=== PATIENT | female | born 1945 | race Caucasian/White ===

== ENCOUNTER 2023-08-24 09:06 | Outpatient (AMB) | payer OTHER, MEDICARE, SELFPAY ==
[2023-08-24 09:18] VITALS: BP 118/68; PULSE 58; O2SAT 97; BMI 17.2
--- NOTE | 2023-08-24 09:18 | A.OFFVIS_ITS ---
Intake Vital Signs 08/24/23 09:18 Height 5 ft 1 in Weight 91 lb BMI 17.2 BP 118/68 Blood Pressure Location Rt brachial Position Sitting Pulse 58 Pulse Source Pulse Oximeter Pulse Oximetry (%) 97 Intake Visit Reasons: HX of COPD Order Manager Required: No [employer]: [employer] offered & declined Accompanied by: Self / Same As Patient Allergies No Known Allergies Allergy (Verified 08/24/23 09:22) Medication List - Last Reconciled 08/24/23 by Saritha Ayala LPN budesonide-formoterol 160-4.5 mcg/actuation (Symbicort) 2 puffs inhalation BID oxycodone 5 mg PO Q6H PRN sertraline 12.5 mg PO DAILY tiotropium bromide (Spiriva with HandiHaler) 1 cap inhalation DAILY HPI HX of COPD HPI Details Meghan is a pleasant 78 year old female, former smoker with 47 pyh, quit 2011 with underlying COPD, melanoma of right eye s/p surgery 2007, multiple other squamous/basal cell carcinomas removed last 2020. She was referred for pulmonary evaluation by PCP. She has been well controlled on Symbicort and Spiriva, using symbicort mostly 2 inhalations QD. However she was recently admitted to [facility] with pneumonia secondary to RSV and her medications were switched. She was switched to Breo and Spiriva, so she wanted to further discuss her regimen. She does note dyspnea with moderate exertion, however stays quite active, walking upwards of 16,000 steps per day. Denies wheezing, cough or chest tightness. She reports prior chest CT and PFT performed at [facility]. Of note, she did state her COPD was moderate to severe. She denies any pertinent family history. She denies allergies. She denies any occupational exposures, previously worked as a nurse. [facility] Social History (Updated 08/24/23 @ 09:24 by Saritha Ayala LPN) Patient Tobacco Use Status: Former Tobacco user Tobacco use type: Cigarette Cigarette Packs Per Day: 1 Years Smoked: 47 Review of Systems Const Denies chills, Denies excessive sweating, Denies fever(s), Denies headache(s) and Denies night sweats Eyes Denies dry eyes, Denies irritation and Denies itchy eyes ENT Reports Normal hearing present, Denies headache(s), Denies nasal congestion, Denies nasal discharge, Denies post nasal drip and Denies sore throat Card Denies chest pain, Denies chest pain at rest, Denies chest pain with activity, Denies claudication, Denies leg edema, Denies orthopnea and Denies paroxysmal nocturnal dyspnea Resp Denies chest congestion, Denies cough, Denies excessive phlegm production, Denies pain on inspiration, Denies pain with cough, Denies stridor and Denies wheezing Musc Denies myalgias Neuro Reports Normal hearing present and Denies headache(s) Endo Denies excessive sweating Andre/Lymph Denies lymphadenopathy Aller/Immun Denies itchy eyes, Denies seasonal rhinorrhea and Denies wheezing Physical Exam Vital Signs: Last Vital Signs Pulse 58 08/24/23 09:18 BP 118/68 08/24/23 09:18 Pulse Ox 97 08/24/23 09:18 BMI result Body Mass Index 17.2 Const General: cooperative, healthy appearing, comfortable, no acute distress, well developed and alert Orientation/consciousness: patient oriented x3 Limitations: no limitations HEENT Head: Yes normal to inspection, Yes normocephalic and Yes atraumatic Ears: hearing grossly normal bilaterally and external ears normal Eyes General: appearance normal, both eyes and all related structures Eyelids: Yes eyelids normal Sclerae: sclerae normal EOM: EOMs intact bilaterally Neck Neck: Yes normal visual inspection and Yes no lymphadenopathy Lymphatic: no lymphadenopathy noted Chest Chest palpation & inspection: normal inspection of the chest Resp Other: diminished lung sounds bilaterally Effort & Inspection: normal respiratory effort, able to speak in complete sentences, no audible wheezes, no cough, no stridor, not tachypneic, no tripod positioning and no use of accessory muscles Cardio Jugular venous distension: no JVD Rate: regular rate Rhythm: regular rhythm Skin Other: warm, dry General skin exam: no rashes or lesions noted Neuro General: patient oriented x3 Cranial nerves: Yes Normal hearing present Cognition (Neuro): normal cognition Gait exam (Neuro): Normal gait present Extrem General: Yes normal to inspection, Yes capillary refill normal, Yes no clubbing, cyanosis or edema and Yes no pedal edema Psych Appearance: grossly normal and well kempt Speech and movement: Normal speech and movement present and Clear speech present Affect: normal affect Attitude: cooperative Thought process: Normal thought process present Thought content: Normal thought content present Insight: Good insight present (Psych) Judgement: Good judgement present (Psych) Assessment & Plan Assessment & Plan (1) COPD (chronic obstructive pulmonary disease): Code(s): J44.9 - Chronic obstructive pulmonary disease, unspecified (2) History of melanoma: Code(s): Z85.820 - Personal history of malignant melanoma of skin Plan Meghan's symptoms are likely related to underlying COPD. Will switch to Trelegy. Inhaler technique reviewed and discussed importance of oral hygiene. Encouraged patient to maintain active lifestyle. Will also send in albuterol to use PRN and have patient sign release to obtain prior chest CT/PFT. All questions were answered and patient is in agreement of plan. Will follow up in 3 months or sooner if needed. Patient is aware to call if there are any issues obtaining medication. Medications: New [id number] 200-62.5-25 mcg (Trelegy Ellipta) 1 inh inhalation DAILY 180 ea 0RF albuterol sulfate 90 mcg/actuation 2 puffs inhalation Q4-6H PRN 1 ea 1RF shortness of breath or wheezing Coding Level of Care Code New Pt Level 4 (65986) Diagnoses COPD (chronic obstructive pulmonary disease) J44.9 History of melanoma Z85.820
== END 2023-08-24 10:20 | disposition home or self-care (01) ==
PROVIDERS: PCP Physician Assistant Medical; Visit Provider Nurse Practitioner Family
DX: J44.9 Chronic obstructive pulmonary disease, unspecified (principal); Z85.820 Personal history of malignant melanoma of skin
CPT/HCPCS: 99204

== ENCOUNTER → 2023-08-24 09:06 | Outpatient (BNVA) | payer MEDICARE, OTHER, SELFPAY | PROVIDERS: PCP Physician Assistant Medical; Visit Provider Nurse Practitioner Family | DX: J44.9 Chronic obstructive pulmonary disease, unspecified (principal); Z85.820 Personal history of malignant melanoma of skin | CPT/HCPCS: 99202 ==

== ENCOUNTER 2023-09-06 10:35 | Outpatient (REF) | payer SELFPAY | END 2023-09-06 10:36 | disposition home or self-care (01) | LOC: CF 10:35 | PROVIDERS: Visit Provider Nurse Practitioner Family | DX: Z13.89 Encounter for screening for other disorder (principal) ==

== ENCOUNTER 2023-11-23 08:35 | Outpatient (AMB) | payer MEDICARE, OTHER, SELFPAY ==
--- NOTE | 2023-11-23 08:37 | A.OFFVIS_ITS ---
Vital Signs 3 11/23/23 08:40 Height 5 ft 1 in Weight 93 lb BMI 17.6 BP 138/64 Blood Pressure Location Rt brachial Position Sitting Pulse 56 Pulse Source Pulse Oximeter Pulse Oximetry (%) 95 Oxygen Delivery Method Room Air Intake Visit Reasons: copd: 3 month f/u Allergies No Known Allergies Allergy (Verified 11/23/23 08:42) HPI HPI copd: 3 month f/u: Details: Meghan is a pleasant 78 year old female, former smoker with 47 pyh, quit 2011 with underlying COPD, melanoma of right eye s/p surgery 2007, multiple other squamous/basal cell carcinomas removed,last 2020. At the last visit she was switched from Symbicort and Spiriva, to Trelegy. She reports good respiratory control since switching. She denies any dyspnea, wheezing, cough or chest tightness. She continues to be quite active walking approximately 12,000 steps per day. She monitors oxygen saturation which is never below 95%. She has been followed with CT/PET scan for 9 mm RLL nodule by PCP. PET with little FDG activity, recommendations for follow up chest CT which is scheduled next week. [facility] Social History (Updated 08/24/23 @ 09:24 by Saritha Ayala LPN) Patient Tobacco Use Status: Former Tobacco user Tobacco use type: Cigarette Cigarette Packs Per Day: 1 Years Smoked: 47 Review of Systems Const Denies chills, Denies excessive sweating, Denies fever(s), Denies headache(s) and Denies night sweats Eyes Denies dry eyes, Denies irritation and Denies itchy eyes ENT Reports Normal hearing present, Denies headache(s), Denies nasal congestion, Denies nasal discharge, Denies post nasal drip and Denies sore throat Card Denies chest pain, Denies chest pain at rest, Denies chest pain with activity, Denies claudication, Denies leg edema, Denies orthopnea and Denies paroxysmal nocturnal dyspnea Resp Denies chest congestion, Denies cough, Denies excessive phlegm production, Denies pain on inspiration, Denies pain with cough, Denies stridor and Denies wheezing Musc Denies myalgias Neuro Reports Normal hearing present and Denies headache(s) Endo Denies excessive sweating Andre/Lymph Denies lymphadenopathy Aller/Immun Denies itchy eyes, Denies seasonal rhinorrhea and Denies wheezing Physical Exam Vital Signs: Last Vital Signs Pulse 56 11/23/23 08:40 BP 138/64 11/23/23 08:40 Pulse Ox 95 11/23/23 08:40 Oxygen Delivery Method Room Air 11/23/23 08:40 BMI result Body Mass Index 17.6 Const General: cooperative, healthy appearing, comfortable, no acute distress, well developed and alert Orientation/consciousness: patient oriented x3 Limitations: no limitations HEENT Head: Yes normal to inspection, Yes normocephalic and Yes atraumatic Ears: hearing grossly normal bilaterally and external ears normal Eyes General: appearance normal, both eyes and all related structures Eyelids: Yes eyelids normal Sclerae: sclerae normal EOM: EOMs intact bilaterally Neck Neck: Yes normal visual inspection and Yes no lymphadenopathy Lymphatic: no lymphadenopathy noted Chest Chest palpation & inspection: normal inspection of the chest Resp Other: diminished lung sounds bilaterally Effort & Inspection: normal respiratory effort, able to speak in complete sentences, no audible wheezes, no cough, no stridor, not tachypneic, no tripod positioning and no use of accessory muscles Cardio Jugular venous distension: no JVD Rate: regular rate Rhythm: regular rhythm Skin Other: warm, dry General skin exam: no rashes or lesions noted Neuro General: patient oriented x3 Cranial nerves: Yes Normal hearing present Cognition (Neuro): normal cognition Gait exam (Neuro): Normal gait present Extrem General: Yes normal to inspection, Yes capillary refill normal, Yes no clubbing, cyanosis or edema and Yes no pedal edema Psych Appearance: grossly normal and well kempt Speech and movement: Normal speech and movement present and Clear speech present Affect: normal affect Attitude: cooperative Thought process: Normal thought process present Thought content: Normal thought content present Insight: Good insight present (Psych) Judgement: Good judgement present (Psych) Results Reviewed Results Reviewed: Assessment & Plan Assessment & Plan (1) COPD (chronic obstructive pulmonary disease): Code(s): J44.9 - Chronic obstructive pulmonary disease, unspecified Category: Medical (2) History of melanoma: Code(s): Z85.820 - Personal history of malignant melanoma of skin Category: Medical (3) Pulmonary nodule: Code(s): R91.1 - Solitary pulmonary nodule Category: Medical Plan Meghan reports good control of respiratory symptoms since switching to Trelegy. Advised to continue and will enter refills. In regards to concerning lung nodule, will review chest CT once performed next week to compare to prior. If there is an increase in size of RLL nodule, discussed with patient the likelihood for biopsy versus surveillance scans. If there is a decrease in size, likely related to prior infectious/inflammatory process as patient did have pneumonia around the time of the initial CT. At the last visit, attempted to obtain prior PFT, unable to obtain, will attempt again. All questions were answered and patient is in agreement of plan. Will follow up in 6 months or sooner if needed. Medications: Refilled 2 [id number] 200-62.5-25 mcg (Trelegy Ellipta) 1 inh inhalation DAILY 180 ea 0RF
[2023-11-23 08:40] VITALS: BP 138/64; PULSE 56; O2SAT 95; BMI 17.6
== END 2023-11-23 09:09 | disposition home or self-care (01) ==
PROVIDERS: PCP Physician Assistant Medical; Visit Provider Nurse Practitioner Family
DX: J44.9 Chronic obstructive pulmonary disease, unspecified (principal); Z85.820 Personal history of malignant melanoma of skin; R91.1 Solitary pulmonary nodule
CPT/HCPCS: 99214

== ENCOUNTER → 2023-11-23 08:35 | Outpatient (BNVA) | payer MEDICARE, OTHER, SELFPAY | PROVIDERS: PCP Physician Assistant Medical; Visit Provider Nurse Practitioner Family | DX: J44.9 Chronic obstructive pulmonary disease, unspecified (principal); R91.1 Solitary pulmonary nodule; Z85.820 Personal history of malignant melanoma of skin; Z87.891 Personal history of nicotine dependence | CPT/HCPCS: 99212 ==

== ENCOUNTER 2024-05-23 08:59 | Outpatient (AMB) | payer MEDICARE, OTHER, SELFPAY ==
--- NOTE | 2024-05-23 08:39 | A.OFFVIS_ITS ---
Vital Signs 3 05/23/24 09:02 Height 5 ft 1 in Weight 98 lb 8 oz BMI 18.6 BP 152/74 H Blood Pressure Location Lt brachial Position Sitting Pulse 59 Pulse Source Pulse Oximeter Pulse Oximetry (%) 95 Oxygen Delivery Method Room Air Intake Visit Reasons: COPD Allergies No Known Allergies Allergy (Verified 05/23/24 09:05) HPI HPI COPD: Details: Meghan is a pleasant 78 year old female, former smoker with 47 pyh, quit 2011 with underlying COPD, melanoma of right eye s/p surgery 2007, multiple other squamous/basal cell carcinomas removed,last 2020. She reports good control of respiratory symptoms with Symbicort and Spiriva, has not had to use albuterol MDI in quite some time. She only uses Symbicort in the AM, and increases to BID if symptoms worsen. She continues to be quite active walking approximately 12,000 steps per day. She has been followed with CT/PET scan for 9 mm RLL nodule by PCP. PET with little FDG activity, however repeat chest CT from 12/2023 revealed new 1 cm x 2 cm spiculated nodule of the left apex. She was sent for lung biopsy through [facility], however prior to biopsy repeat chest CT was ordered revealing resolution of spiculated nodule, likely inflammatory in nature. We discussed repeating chest CT in 3 months however patient was adamant about scheduling in 6 months. Today she notes that she would like to hold off on any further imaging and will consider CXR in the future however does not want anything scheduled at this time. She denies any visits to urgent care or hospitalizations since the last visit. [facility] Medical History (Updated 12/09/23 @ 13:34 by Jimena Andrews PA-C) COPD (chronic obstructive pulmonary disease) Personal history of nicotine dependence History of melanoma Anorexia nervosa Splenomegaly Surgical History (Updated 12/09/23 @ 13:34 by Jimena Andrews PA-C) History of melanoma excision History of basal cell carcinoma excision History of Social History Patient Tobacco Use Status: Former Tobacco user Tobacco use type: Cigarette Cigarette Packs Per Day: 1 Years Smoked: 47 Review of Systems Const Denies chills, Denies excessive sweating, Denies fever(s), Denies headache(s) and Denies night sweats Eyes Denies dry eyes, Denies irritation and Denies itchy eyes ENT Reports Normal hearing present, Denies headache(s), Denies nasal congestion, Denies nasal discharge, Denies post nasal drip and Denies sore throat Card Denies chest pain, Denies chest pain at rest, Denies chest pain with activity, Denies claudication, Denies leg edema, Denies dyspnea, Denies dyspnea on exertion, Denies orthopnea and Denies paroxysmal nocturnal dyspnea Resp Denies chest congestion, Denies cough, Denies excessive phlegm production, Denies pain on inspiration, Denies pain with cough, Denies dyspnea, Denies dyspnea on exertion, Denies stridor and Denies wheezing Musc Denies myalgias Neuro Reports Normal hearing present and Denies headache(s) Endo Denies excessive sweating Andre/Lymph Denies lymphadenopathy Aller/Immun Denies itchy eyes, Denies seasonal rhinorrhea and Denies wheezing Physical Exam Vital Signs: Last Vital Signs Pulse 59 05/23/24 09:02 BP 152/74 H 05/23/24 09:02 Pulse Ox 95 05/23/24 09:02 Oxygen Delivery Method Room Air 05/23/24 09:02 BMI result Body Mass Index 18.6 Const General: cooperative, healthy appearing, comfortable, no acute distress, well developed and alert Orientation/consciousness: patient oriented x3 Limitations: no limitations HEENT Head: Yes normal to inspection, Yes normocephalic and Yes atraumatic Ears: hearing grossly normal bilaterally and external ears normal Eyes General: appearance normal, both eyes and all related structures Eyelids: Yes eyelids normal Sclerae: sclerae normal EOM: EOMs intact bilaterally Neck Neck: Yes normal visual inspection and Yes no lymphadenopathy Lymphatic: no lymphadenopathy noted Chest Chest palpation & inspection: normal inspection of the chest Resp Other: diminished lung sounds bilaterally Effort & Inspection: normal respiratory effort, able to speak in complete sentences, no audible wheezes, no cough, no stridor, not tachypneic, no tripod positioning and no use of accessory muscles Cardio Jugular venous distension: no JVD Rate: regular rate Rhythm: regular rhythm Skin Other: warm, dry General skin exam: no rashes or lesions noted Neuro General: patient oriented x3 Cranial nerves: Yes Normal hearing present Cognition (Neuro): normal cognition Gait exam (Neuro): Normal gait present Extrem General: Yes normal to inspection, Yes capillary refill normal, Yes no clubbing, cyanosis or edema and Yes no pedal edema Psych Appearance: grossly normal and well kempt Speech and movement: Normal speech and movement present and Clear speech present Affect: normal affect Attitude: cooperative Thought process: Normal thought process present Thought content: Normal thought content present Insight: Good insight present (Psych) Judgement: Good judgement present (Psych) Results Reviewed Results Reviewed: Assessment & Plan Assessment & Plan (1) COPD (chronic obstructive pulmonary disease): Code(s): J44.9 - Chronic obstructive pulmonary disease, unspecified Category: Medical (2) History of melanoma: Comment: (melanoma of right eye s/p surgery 2008) Code(s): Z85.820 - Personal history of malignant melanoma of skin Category: Medical (3) Pulmonary nodule: Code(s): R91.1 - Solitary pulmonary nodule Category: Medical Plan Advised to continue current regimen and trial Symbicort 1 inhalation BID with Spiriva and albuterol PRN. She is aware to call with worsening symptoms. In regards to waxing and waning lung nodules, discussed the likelihood of an inflammatory process however she declines further workup. We discussed importance of monitoring pulmonary nodules, as a malignant process can not be ruled out especially given her prior h/o melanoma. She fully understands this and declines further testing including repeat CT. All questions were answered and patient is in agreement of plan. Will follow up in 6 months or sooner if needed. Coding Level of Care Code Est Pt Level 4 (17526) Diagnoses COPD (chronic obstructive pulmonary disease) J44.9 History of melanoma Z85.820 Pulmonary nodule R91.1
[2024-05-23 09:02] VITALS: BP 152/74; PULSE 59; O2SAT 95; BMI 18.6
== END 2024-05-23 09:35 | disposition home or self-care (01) ==
PROVIDERS: PCP Physician Assistant Medical; Visit Provider Nurse Practitioner Family
DX: J44.9 Chronic obstructive pulmonary disease, unspecified (principal); Z85.820 Personal history of malignant melanoma of skin; R91.1 Solitary pulmonary nodule
CPT/HCPCS: 99214

== ENCOUNTER → 2024-05-23 08:59 | Outpatient (BNVA) | payer MEDICARE, OTHER, SELFPAY | PROVIDERS: PCP Physician Assistant Medical; Visit Provider Nurse Practitioner Family | DX: J44.9 Chronic obstructive pulmonary disease, unspecified (principal); R91.1 Solitary pulmonary nodule; Z85.820 Personal history of malignant melanoma of skin; Z87.891 Personal history of nicotine dependence | CPT/HCPCS: 99212 ==

== ENCOUNTER 2024-11-21 08:13 | Outpatient (AMB) | payer MEDICARE, OTHER, SELFPAY ==
--- NOTE | 2024-11-21 08:02 | A.OFFVIS_ITS ---
Vital Signs 11/21/24 08:50 Height 5 ft 1 in Weight 89 lb BMI 16.8 BP 124/58 L Blood Pressure Location Rt brachial Position Sitting Pulse 56 Pulse Source Pulse Oximeter Pulse Oximetry (%) 98 Oxygen Delivery Method Room Air Intake Visit Reasons: COPD Biomedical Engineering Technologist Required: No Second Shift Supervisor: Second Shift Supervisor offered & declined Accompanied by: Self / Same As Patient Allergies No Known Allergies Allergy (Verified 11/21/24 08:54) Medication List - Last Reconciled 11/21/24 by Saritha Ayala LPN albuterol sulfate 90 mcg/actuation 2 puffs inhalation Q4-6H PRN budesonide-formoterol 160-4.5 mcg/actuation (Symbicort) 2 puffs inhalation BID oxycodone 5 mg PO Q6H PRN sertraline 12.5 mg PO DAILY tiotropium bromide (Spiriva with HandiHaler) 1 cap inhalation DAILY HPI HPI COPD: Details: Meghan is a pleasant 79 year old female, former smoker with 47 pyh, quit 2011 with underlying COPD, melanoma of right eye s/p surgery 2007, multiple other squamous/basal cell carcinomas removed, last 2020. She has been on Symbicort and Spiriva, requiring albuterol MDI infrequently. She has been followed for pulmonary nodules. August 2023 CT chest revealed 9 mm RLL nodule and was sent for PET with little FDG activity. Repeat chest CT from 12/2023 revealed new 1 cm x 2 cm spiculated nodule of the left apex. She was sent for lung biopsy through [facility], however prior to biopsy repeat chest CT was ordered revealing resolution of spiculated nodule, likely inflammatory in nature. We discussed repeating chest CT in 3 months however patient was adamant about scheduling in 6 months, ultimately deciding against further imaging. Recent CXR unremarkable from [facility] however only 1 view. Since the last visit, she was admitted to [facility] in September s/p fall undergoing left intramedullary nail for intertrochanteric hip fracture as well as a left humeral fracture. She has recovered quite well no longer requiring assistive device. However patient now down to 89lbs, discussed importance of increasing weight. She denies any hospitalizations/urgent care visits related to respiratory distress. [facility] Medical History (Updated 12/09/23 @ 13:34 by Jimena Andrews PA-C) COPD (chronic obstructive pulmonary disease) Personal history of nicotine dependence History of melanoma Anorexia nervosa Splenomegaly Surgical History (Updated 12/09/23 @ 13:34 by Jimena Andrews PA-C) History of melanoma excision History of basal cell carcinoma excision History of Social History Patient Tobacco Use Status: Former Tobacco user Tobacco use type: Cigarette Cigarette Packs Per Day: 1 Years Smoked: 47 Review of Systems Const Denies chills, Denies excessive sweating, Denies fever(s), Denies headache(s) and Denies night sweats Eyes Denies dry eyes, Denies irritation and Denies itchy eyes ENT Reports Normal hearing present, Denies headache(s), Denies nasal congestion, Denies nasal discharge, Denies post nasal drip and Denies sore throat Card Denies chest pain, Denies chest pain at rest, Denies chest pain with activity, Denies claudication, Denies leg edema, Denies dyspnea, Denies dyspnea on exertion, Denies orthopnea and Denies paroxysmal nocturnal dyspnea Resp Denies chest congestion, Denies cough, Denies excessive phlegm production, Denies pain on inspiration, Denies pain with cough, Denies dyspnea, Denies dyspnea on exertion, Denies stridor and Denies wheezing Musc Denies myalgias Neuro Reports Normal hearing present and Denies headache(s) Endo Denies excessive sweating Andre/Lymph Denies lymphadenopathy Aller/Immun Denies itchy eyes, Denies seasonal rhinorrhea and Denies wheezing Physical Exam Vital Signs: Last Vital Signs Pulse 56 11/21/24 08:50 BP 124/58 L 11/21/24 08:50 Pulse Ox 98 11/21/24 08:50 Oxygen Delivery Method Room Air 11/21/24 08:50 BMI result Body Mass Index 16.8 Const General: cooperative, comfortable, no acute distress and alert Nutritional Appearance: underweight Orientation/consciousness: patient oriented x3 Limitations: no limitations HEENT Head: Yes normal to inspection, Yes normocephalic and Yes atraumatic Ears: hearing grossly normal bilaterally and external ears normal Eyes General: appearance normal, both eyes and all related structures Eyelids: Yes eyelids normal Sclerae: sclerae normal EOM: EOMs intact bilaterally Neck Neck: Yes normal visual inspection and Yes no lymphadenopathy Lymphatic: no lymphadenopathy noted Chest Chest palpation & inspection: normal inspection of the chest Resp Other: diminished lung sounds bilaterally Effort & Inspection: normal respiratory effort, able to speak in complete sentences, no audible wheezes, no cough, no stridor, not tachypneic, no tripod positioning and no use of accessory muscles Cardio Jugular venous distension: no JVD Rate: regular rate Rhythm: regular rhythm Skin Other: warm, dry General skin exam: no rashes or lesions noted Neuro General: patient oriented x3 Cranial nerves: Yes Normal hearing present Cognition (Neuro): normal cognition Gait exam (Neuro): Normal gait present Extrem General: Yes normal to inspection, Yes capillary refill normal, Yes no clubbing, cyanosis or edema and Yes no pedal edema Psych Appearance: grossly normal and well kempt Speech and movement: Normal speech and movement present and Clear speech present Affect: normal affect Attitude: cooperative Thought process: Normal thought process present Thought content: Normal thought content present Insight: Good insight present (Psych) Judgement: Good judgement present (Psych) Assessment & Plan Assessment & Plan (1) COPD (chronic obstructive pulmonary disease): Code(s): J44.9 - Chronic obstructive pulmonary disease, unspecified Category: Medical (2) History of melanoma: Comment: (melanoma of right eye s/p surgery 2007) Code(s): Z85.820 - Personal history of malignant melanoma of skin Category: Medical (3) Pulmonary nodule: Code(s): R91.1 - Solitary pulmonary nodule Category: Medical Plan Advised to continue current regimen and is aware to call with worsening symptoms. In regards to waxing and waning lung nodules, repeat imaging from 09/2024 overall unremarkable however only 1 view. At this time, she is not inter ested in repeating further imaging to monitor pulmonary nodules. All questions were answered and patient is in agreement of plan. Will follow up in 6 months or sooner if needed. Medications: Refilled tiotropium bromide (Spiriva with HandiHaler) puncture 1 cap using device; one dose = 2 inhalations 1 cap inhalation DAILY 180 inhalations 1RF J44.9 - Chronic obstructive pulmonary disease, unspecified budesonide-formoterol 160-4.5 mcg/actuation (Symbicort) 2 puffs inhalation BID 30.6 grams 1RF Coding Level of Care Code Est Pt Level 4 (69771) Diagnoses COPD (chronic obstructive pulmonary disease) J44.9 History of melanoma Z85.820 Pulmonary nodule R91.1
--- OUTSIDE RECORDS SUMMARY | 2024-11-21 08:29 | XMS_ITS | Encounter Summary ---
Author Organization [facility] Address [address] [place] [address] Care Team Providers Care Inspection Supervisor Name Role Phone Ag Shaw MD Primary Care Provider [phone] Encounter Details Date Type Department Care Team (Late st Contact Info) Description 10/08/2024 Lab Requisition [facility] - Main Lab [address] [facility] [place] [address] Elvis Patricia MD [address] [place] [address] Chronic obstructive pulmonary disease, unspecified (CMS/HCC V24, CMS/HCC V28) Social History Tobacco Use Types Packs/Day Years Used Date Smoking Tobacco: Former Cigarettes Q uit: 06/16/2012 Smokeless Tobacco: Never Alcohol Use Standard Drinks/Week Comments Yes 0 (1 standard drink = 0.6 oz pur e alcohol) Comments Unknown Sex and Gender Information Value Date Recorded Sex Assigned at Not on file Legal Sex Female 11:45 AM EST Gender Identity Not on file Sexual Orientation Not on file documented as of this encounter Plan of Treatment Not on file documented as of this encounter Procedures Procedure Name Priority Date/Time Associated Diagnosis Comments COMPLETE BLOOD COUNT Routine 10/09/2024 7:28 AM EDT Chronic obstructive pulmonary disease, unspecified (CMS/HCC) BASIC METABOLIC PANEL Routine 10/09/2024 7:28 AM EDT Chronic obstructive pulmonary disease, unspecified (CMS/HCC) documented in this encounter Results * (ABNORMAL) Basic metabolic panel (10/09/2024 7:28 AM EDT) Sodium 141 133 - 145 mmol/L LAB CHEMISTRY METHOD 10/09/2024 11:10 AM [facility] Potassium 3.7 3.5 - 5.5 mmol/L LAB CHEMISTRY METHOD 10/09/2024 11:10 AM [facility] Chloride 109 96 - 110 mmol/L LAB CHEMISTRY METHOD 10/09/2024 11:10 AM [facility] CO2 24 21 - 32 mmol/L LAB CHEMISTRY METHOD 10/09/2024 11:10 AM [facility] Anion Gap 8 3 - 11 LAB CHEMISTRY METHOD 10/09/2024 11:10 AM [facility] Glucose 73 70 - 100 mg/dL LAB CHEMISTRY METHOD 10/09/2024 11:10 AM [facility] BUN 12 5 - 25 mg/dL LAB CHEMISTRY METHOD 10/09/2024 11:10 AM [facility] Creatinine 0.50 0.50 - 1.10 mg/dL LAB CHEMISTRY METHOD 10/09/2024 11:10 AM [facility] eGFR 94 >=60 mL/min/1. 73m2 LAB CHEMISTRY METHOD 10/09/2024 11:10 AM [facility] Comment:Calculation based on the??Chronic Kidney Disease Epidemiology Collaboration (CKD-EPI) equation refit??without adjustment for race. BUN/Creatinine Ratio 24.0 LAB CHEMISTRY METHOD 10/09/2024 11:10 AM [facility] Calcium 8.3(L) 8.5 - 10.5 mg/dL LAB CHEMISTRY METHOD 10/09/2024 11:10 AM [facility] Blood Venous blood specimen / Unknown Venipuncture / Unknown 10/09/2024 7:28 AM EDT 10/09/2024 9:43 AM EDT us Elvis Patricia MD LAB BLOOD ORDERABLES Final Result [facility] [address] [place] [address], * (ABNORMAL) Complete blood count (10/09/2024 7:28 AM EDT) WBC 3.4(L) 4.8 - 10.8 K/mcL LAB HEMETOLOGY METHOD 10/09/2024 10:50 AM EDT [facility] RBC 3.40(L) 3.80 - 4.80 M/mcL LAB HEMETOLOGY METHOD 10/09/2024 10:50 AM EDT [facility] Hemoglobin 10.6(L) 11.5 - 16.0 g/dL LAB HEMETOLOGY METHOD 10/09/2024 10:50 AM EDT [facility] Hematocrit 33.0(L) 35.0 - 47.0 % LAB HEMETOLOGY METHOD 10/09/2024 10:50 AM EDT [facility] MCV 97.1 79.0 - 98.0 FL LAB HEMETOLOGY METHOD 10/09/2024 10:50 AM EDT [facility] MCH 31.2 27.0 - 32.0 pcg LAB HEMETOLOGY METHOD 10/09/2024 10:50 AM EDT [facility] MCHC 32.1 32.0 - 37.0 g/dL LAB HEMETOLOGY METHOD 10/09/2024 10:50 AM EDT [facility] RDW 17.4(H) 11.0 - 15.0 % LAB HEMETOLOGY METHOD 10/09/2024 10:50 AM EDT [facility] Platelets 139 130 - 400 K/mcL LAB HEMETOLOGY METHOD 10/09/2024 10:50 AM EDT [facility] MPV 10.8 7.0 - 11.0 FL LAB HEMETOLOGY METHOD 10/09/2024 10:50 AM EDT [facility] NRBC 0.0 <1.0 % LAB HEMETOLOGY METHOD 10/09/2024 10:50 AM EDT [facility] NRBC Absolute 0.00 <0.10 K/mcL LAB HEMETOLOGY METHOD 10/09/2024 10:50 AM EDT [facility] Blood Venous blood specimen / Unknown Venipuncture / Unknown 10/09/2024 7:28 AM EDT 10/09/2024 9:43 AM EDT us Elvis Patricia MD LAB BLOOD ORDERABLES Final Result [facility] [address] [place] [address], documented in this encounter Visit Diagnoses Diagnosis Chronic obstructive pulmonary disease, unspecified (CMS/HCC V24, CMS/HCC V28) documented in this encounter Care Teams Inspection Supervisor Relationship Specialty Start Date End Date Ag Shaw MD [address] [address] PCP - General 05/31/03 documented as of this encounter
--- OUTSIDE RECORDS SUMMARY | 2024-11-21 08:29 | XMS_ITS | Encounter Summary ---
Author Organization [facility] Address [address] [place] [address] Care Team Providers Care Head Of Ict Name Role Phone Ag Shaw MD Primary Care Provider [phone] Encounter Details Date Type Department Care Team (Late st Contact Info) Description 10/14/2024 Lab Requisition [facility] - Main Lab [address] [facility] [place] [address] Elvis Patricia MD [address] [place] [address] Chronic obstructive pulmonary disease, unspecified (CMS/HCC V24, [...] on file documented as of this encounter Visit Diagnoses Diagnosis Chronic obstructive pulmonary disease, unspecified (CMS/HCC V24, CMS/HCC V28) documented in this encounter Care Teams Head Of Ict Relationship Specialty Start Date End Date Ag Shaw MD [address] [facility] [address] [place] [address] PCP - General 05/31/03 documented as of this encounter
--- OUTSIDE RECORDS SUMMARY | 2024-11-21 08:29 | XMS_ITS | Encounter Summary ---
Author Organization [facility] Address [address] [place] [address] Care Team Providers Care Obiee Consultant Name Role Phone Ag Shaw MD Primary Care Provider [phone] Encounter Details Date Type Department Care Team (Late st Contact Info) Description 09/11/2024 Lab Requisition [facility] - Main Lab [address] [facility] [place] [address] Elvis Patricia MD [address] [place] [address] Chronic obstructive pulmonary disease, unspecified (CMS/HCC V24, CMS/HCC V28); Unspecified fracture of right femur, sequela Social History Tobacco Use Types Packs/Day Years [...] Procedure Name Priority Date/Time Associated Diagnosis Comments CBC WITH AUTO DIFFERENTIAL Routine 09/11/2024 8:34 AM EST Chronic obstructive pulmonary disease, unspecified (CMS/HCC) Unspecified fracture of right femur, sequela CBC AND DIFFERENTIAL Routine 09/11/2024 8:34 AM EST Chronic obstructive pulmonary disease, unspecified (CMS/HCC) Unspecified fracture of right femur, sequela BASIC METABOLIC PANEL Routine 09/11/2024 8:34 AM EST Chronic obstructive pulmonary disease, unspecified (CMS/HCC) Unspecified fracture of right femur, sequela documented in this encounter Results * (ABNORMAL) CBC auto differential (09/11/2024 8:34 AM EST) WBC 4.4(L) 4.8 - 10.8 K/mcL LAB HEMETOLOGY METHOD 09/11/2024 1:26 PM [facility] RBC 2.70(L) 3.80 - 4.80 M/mcL LAB HEMETOLOGY METHOD 09/11/2024 1:26 PM [facility] Hemoglobin 7.7(L) 11.5 - 16.0 g/dL LAB HEMETOLOGY METHOD 09/11/2024 1:26 PM [facility] Hematocrit 25.0(L) 35.0 - 47.0 % LAB HEMETOLOGY METHOD 09/11/2024 1:26 PM [facility] MCV 92.9 79.0 - 98.0 FL LAB HEMETOLOGY METHOD 09/11/2024 1:26 PM [facility] MCH 28.6 27.0 - 32.0 pcg LAB HEMETOLOGY METHOD 09/11/2024 1:26 PM [facility] MCHC 30.8(L) 32.0 - 37.0 g/dL LAB HEMETOLOGY METHOD 09/11/2024 1:26 PM [facility] RDW 17.1(H) 11.0 - 15.0 % LAB HEMETOLOGY METHOD 09/11/2024 1:26 PM [facility] Platelets 164 130 - 400 K/mcL LAB HEMETOLOGY METHOD 09/11/2024 1:26 PM [facility] MPV 11.5(H) 7.0 - 11.0 FL LAB HEMETOLOGY METHOD 09/11/2024 1:26 PM [facility] NRBC 0.0 <1.0 % LAB HEMETOLOGY METHOD 09/11/2024 1:26 PM [facility] NRBC Absolute 0.00 <0.10 K/mcL LAB HEMETOLOGY METHOD 09/11/2024 1:26 PM [facility] Neutrophils Relative 72.7 % LAB HEMETOLOGY METHOD 09/11/2024 1:26 PM [facility] Lymphocytes Relative 15.9 % LAB HEMETOLOGY METHOD 09/11/2024 1:26 PM [facility] Monocytes Relative 8.8 % LAB HEMETOLOGY METHOD 09/11/2024 1:26 PM [facility] Eosinophils Relative 1.6 % LAB HEMETOLOGY METHOD 09/11/2024 1:26 PM [facility] Basophils Relative 0.5 % LAB HEMETOLOGY METHOD 09/11/2024 1:26 PM [facility] Immature Granulocytes Relative 0.5 % LAB HEMETOLOGY METHOD 09/11/2024 1:26 PM [facility] Neutrophils Absolute 3.21 1.50 - 7.00 K/mcL LAB HEMETOLOGY METHOD 09/11/2024 1:26 PM [facility] Lymphocytes Absolute 0.70(L) 1.00 - 5.00 K/mcL LAB HEMETOLOGY METHOD 09/11/2024 1:26 PM [facility] Monocytes Absolute 0.39 0.20 - 1.00 K/mcL LAB HEMETOLOGY METHOD 09/11/2024 1:26 PM [facility] Eosinophils Absolute 0.07 0.00 - 0.50 K/mcL LAB HEMETOLOGY METHOD 09/11/2024 1:26 PM [facility] Basophils Absolute 0.02 0.00 - 0.20 K/mcL LAB HEMETOLOGY METHOD 09/11/2024 1:26 PM [facility] Immature Granulocytes Absolute 0.02 0.00 - 0.03 K/mcL LAB HEMETOLOGY METHOD 09/11/2024 1:26 PM [facility] Blood Venous blood specimen / Unknown Venipuncture / Unknown 09/11/2024 8:34 AM EST 09/11/2024 11:43 AM EST us Elvis Patricia MD LAB BLOOD ORDERABLES Final Result [facility] [address] [place] [address], * (ABNORMAL) Basic metabolic panel (09/11/2024 8:34 AM EST) Sodium 138 133 - 145 mmol/L LAB CHEMISTRY METHOD 09/11/2024 1:55 PM [facility] Potassium 3.8 3.5 - 5.5 mmol/L LAB CHEMISTRY METHOD 09/11/2024 1:55 PM [facility] Chloride 106 96 - 110 mmol/L LAB CHEMISTRY METHOD 09/11/2024 1:55 PM [facility] CO2 27 21 - 32 mmol/L LAB CHEMISTRY METHOD 09/11/2024 1:55 PM [facility] Anion Gap 5 3 - 11 LAB CHEMISTRY METHOD 09/11/2024 1:55 PM [facility] Glucose 99 70 - 100 mg/dL LAB CHEMISTRY METHOD 09/11/2024 1:55 PM [facility] BUN 21 5 - 25 mg/dL LAB CHEMISTRY METHOD 09/11/2024 1:55 PM [facility] Creatinine 0.48(L) 0.50 - 1.10 mg/dL LAB CHEMISTRY METHOD 09/11/2024 1:55 PM [facility] eGFR 95 >=60 mL/min/1. 73m2 LAB CHEMISTRY METHOD 09/11/2024 1:55 PM EST [facility] Comment:Calculation based on the??Chronic Kidney Disease Epidemiology Collaboration (CKD-EPI) equation refit??without adjustment for race. BUN/Creatinine Ratio 43.8 LAB CHEMISTRY METHOD 09/11/2024 1:55 PM EST [facility] Calcium 8.1(L) 8.5 - 10.5 mg/dL LAB CHEMISTRY METHOD 09/11/2024 1:55 PM EST [facility] Blood Venous blood specimen / Unknown Venipuncture / Unknown 09/11/2024 8:34 AM EST 09/11/2024 11:43 AM EST us Elvis Patricia MD LAB BLOOD ORDERABLES Final Result [facility] [address] [place] [address], documented in this encounter Visit Diagnoses Diagnosis Chronic obstructive pulmonary disease, unspecified (CMS/HCC V24, CMS/HCC V28) Unspecified fracture of right femur, sequela documented in this encounter Care Teams Obiee Consultant Relationship Specialty Start Date End Date Ag Shaw MD [address] [address] PCP - General 05/31/03 documented as of this encounter
--- OUTSIDE RECORDS SUMMARY | 2024-11-21 08:29 | XMS_ITS | Encounter Summary ---
Author Organization [facility] Address [address] [place] [address] Care Team Providers Care Nutritionist Name Role Phone Ag Shaw MD Primary Care Provider [phone] Encounter Details Date Type Department Care Team (Late st Contact Info) Description 09/10/[address] [facility] Lab [address] [facility] [place] [address] Elvis Patricia MD [address] [place] [address] Chronic obstructive pulmonary disease, unspecified (CMS/HCC V24, CMS/HCC V28); Thrombocytopenia, unspecified (CMS/HCC V24); Unspecified fracture of left acetabulum, initial encounter for closed fracture (CMS/HCC V24, CMS/HCC V28) Social History Tobacco [...] Diagnosis Comments CBC WITH AUTO DIFFERENTIAL Routine 09/10/2024 9:55 AM EST Chronic obstructive pulmonary disease, unspecified (CMS/HCC) Thrombocytopenia, unspecified (CMS/HCC) Unspecified fracture of left acetabulum, initial encounter for closed fracture (CMS/HCC) CBC AND DIFFERENTIAL Routine 09/10/2024 9:55 AM EST Chronic obstructive pulmonary disease, unspecified (CMS/HCC) Thrombocytopenia, unspecified (CMS/HCC) Unspecified fracture of left acetabulum, initial encounter for closed fracture (CMS/HCC) COMPREHENSIVE METABOLIC PANEL Routine 09/10/2024 9:55 AM EST Chronic obstructive pulmonary disease, unspecified (CMS/HCC) Thrombocytopenia, unspecified (CMS/HCC) Unspecified fracture of left acetabulum, initial encounter for closed fracture (CMS/HCC) documented in this encounter Results * (ABNORMAL) CBC auto differential (09/10/2024 9:55 AM EST) WBC 5.1 4.8 - 10.8 K/mcL LAB HEMETOLOGY METHOD 09/10/2024 10:[address] [facility] RBC 2.90(L) 3.80 - 4.80 M/mcL LAB HEMETOLOGY METHOD 09/10/2024 10:[address] [facility] Hemoglobin 8.5(L) 11.5 - 16.0 g/dL LAB HEMETOLOGY METHOD 09/10/2024 10:[address] [facility] Hematocrit 27.4(L) 35.0 - 47.0 % LAB HEMETOLOGY METHOD 09/10/2024 10:[address] [facility] MCV 93.2 79.0 - 98.0 FL LAB HEMETOLOGY METHOD 09/10/2024 10:[address] [facility] MCH 28.9 27.0 - 32.0 pcg LAB HEMETOLOGY METHOD 09/10/2024 10:[address] [facility] MCHC 31.0(L) 32.0 - 37.0 g/dL LAB HEMETOLOGY METHOD 09/10/2024 10:[address] [facility] RDW 17.2(H) 11.0 - 15.0 % LAB HEMETOLOGY METHOD 09/10/2024 10:[address] [facility] Platelets 147 130 - 400 K/mcL LAB HEMETOLOGY METHOD 09/10/2024 10:[address] [facility] MPV 11.2(H) 7.0 - 11.0 FL LAB HEMETOLOGY METHOD 09/10/2024 10:[address] [facility] NRBC 0.0 <1.0 % LAB HEMETOLOGY METHOD 09/10/2024 10:[address] [facility] NRBC Absolute 0.00 <0.10 K/mcL LAB HEMETOLOGY METHOD 09/10/2024 10:[address] [facility] Neutrophils Relative 74.1 % LAB HEMETOLOGY METHOD 09/10/2024 10:[address] [facility] Lymphocytes Relative 15.8 % LAB HEMETOLOGY METHOD 09/10/2024 10:[address] [facility] Monocytes Relative 8.5 % LAB HEMETOLOGY METHOD 09/10/2024 10:[address] [facility] Eosinophils Relative 0.8 % LAB HEMETOLOGY METHOD 09/10/2024 10:[address] [facility] Basophils Relative 0.4 % LAB HEMETOLOGY METHOD 09/10/2024 10:[address] [facility] Immature Granulocytes Relative 0.4 % LAB HEMETOLOGY METHOD 09/10/2024 10:[address] [facility] Neutrophils Absolute 3.76 1.50 - 7.00 K/mcL LAB HEMETOLOGY METHOD 09/10/2024 10:[address] [facility] Lymphocytes Absolute 0.80(L) 1.00 - 5.00 K/mcL LAB HEMETOLOGY METHOD 09/10/2024 10:[address] [facility] Monocytes Absolute 0.43 0.20 - 1.00 K/mcL LAB HEMETOLOGY METHOD 09/10/2024 10:51 AM EST [facility] Eosinophils Absolute 0.04 0.00 - 0.50 K/mcL LAB HEMETOLOGY METHOD 09/10/2024 10:51 AM EST [facility] Basophils Absolute 0.02 0.00 - 0.20 K/mcL LAB HEMETOLOGY METHOD 09/10/2024 10:[address] [facility] Immature Granulocytes Absolute 0.02 0.00 - 0.03 K/mcL LAB HEMETOLOGY METHOD 09/10/2024 10:[address] [facility] Blood Venous blood specimen / Unknown Venipuncture / Unknown 09/10/2024 9:55 AM EST 09/10/2024 10:45 AM EST us Elvis Patricia MD LAB BLOOD ORDERABLES Final Result [facility] [address] [place] [address], * (ABNORMAL) Comprehensive metabolic panel (09/10/2024 9:55 AM EST) Sodium 140 133 - 145 mmol/L LAB CHEMISTRY METHOD 09/10/2024 11:[address] [facility] Potassium 3.5 3.5 - 5.5 mmol/L LAB CHEMISTRY METHOD 09/10/2024 11:[address] [facility] Chloride 109 96 - 110 mmol/L LAB CHEMISTRY METHOD 09/10/2024 11:[address] [facility] CO2 26 21 - 32 mmol/L LAB CHEMISTRY METHOD 09/10/2024 11:[address] [facility] Anion Gap 5 3 - 11 LAB CHEMISTRY METHOD 09/10/2024 11:[address] [facility] Glucose 110(H) 70 - 100 mg/dL LAB CHEMISTRY METHOD 09/10/2024 11:[address] [facility] BUN 20 5 - 25 mg/dL LAB CHEMISTRY METHOD 09/10/2024 11:[address] [facility] Creatinine 0.58 0.50 - 1.10 mg/dL LAB CHEMISTRY METHOD 09/10/2024 11:[address] [facility] eGFR 91 >=60 mL/min/1. 73m2 LAB CHEMISTRY METHOD 09/10/2024 11:[address] [facility] Comment:Calculation based on the??Chronic Kidney Disease Epidemiology Collaboration (CKD-EPI) equation refit??without adjustment for race. BUN/Creatinine Ratio 34.5 LAB CHEMISTRY METHOD 09/10/2024 11:[address] [facility] Calcium 8.0(L) 8.5 - 10.5 mg/dL LAB CHEMISTRY METHOD 09/10/2024 11:[address] [facility] AST (SGOT) 29 10 - 42 unit/L LAB CHEMISTRY METHOD 09/10/2024 11:[address] [facility] ALT (SGPT) 22 10 - 60 unit/L LAB CHEMISTRY METHOD 09/10/2024 11:[address] [facility] Alkaline Phosphatase 90 42 - 121 unit/L LAB CHEMISTRY METHOD 09/10/2024 11:[address] [facility] Total Protein 5.7(L) 6.0 - 8.0 g/dL LAB CHEMISTRY METHOD 09/10/2024 11:[address] [facility] Albumin 2.3(L) 3.2 - 5.0 g/dL LAB CHEMISTRY METHOD 09/10/2024 11:[address] [facility] Total Bilirubin 0.8 0.0 - 1.4 mg/dL LAB CHEMISTRY METHOD 09/10/2024 11:[address] [facility] Blood Venous blood specimen / Unknown Venipuncture / Unknown 09/10/2024 9:55 AM EST 09/10/2024 10:45 AM EST us Elvis Patricia MD LAB BLOOD ORDERABLES Final Result [email or web address] [address] [place] [address], documented in this encounter Visit Diagnoses Diagnosis Chronic obstructive pulmonary disease, unspecified ([facility] V24, [facility] V28) Thrombocytopenia, unspecified ([facility] V24) Thrombocytopenia, unspecified Unspecified fracture of left acetabulum, initial encounter for closed fracture ([facility] V24, [facility] V28) documented in this encounter Care Teams Nutritionist Relationship Specialty Start Date End Date Ag Shaw MD [address] [address] PCP - General 05/31/03 documented as of this encounter
--- OUTSIDE RECORDS SUMMARY | 2024-11-21 08:29 | XMS_ITS | Clinical Summary ---
Author Organization [address] Address [address] [place] [phone] Phone Care Team Providers Care Manager Cath Lab Name Role Phone Ag Shaw MD Primary Care Provider [phone] Encounters Date Type Department Care Team Description 10/14/2024 Lab Requisition [facility] [address] [place] [phone] Elvis Patricia MD Chronic obstructive pulmonary disease, unspecified (CMS/HCC V24, CMS/HCC V28) 10/08/2024 Lab Requisition [facility] [address] [place] [phone] Elvis Patricia MD Chronic obstructive pulmonary disease, unspecified (CMS/HCC V24, CMS/HCC V28) 09/29/2024 Lab Requisition [facility] [address] [place] [phone] Elvis Patricia MD Chronic obstructive pulmonary disease, unspecified (CMS/HCC V24, CMS/HCC V28) 09/23/2024 Lab Requisition [facility] [address] [place] [phone] Elvis Patricia MD Chronic obstructive pulmonary disease, unspecified (CMS/HCC V24, CMS/HCC V28) 09/17/2024 Lab Requisition [facility] [address] [place] [phone] Elvis Patricia MD Chronic obstructive pulmonary disease, unspecified ([facility] V24, [facility] V28) 09/11/2024 Lab Requisition [facility] [address] [place] [address] Elvis Patricia MD Chronic obstructive pulmonary disease, unspecified ([facility] V24, [facility] V28); Unspecified fracture of right femur, sequela 09/10/2024 Lab Requisition [facility] [address] [place] [address] Elvis Patricia MD Chronic obstructive pulmonary disease, unspecified ([facility] V24, [facility] V28); Thrombocytopenia, unspecified ([facility] V24); Unspecified fracture of left acetabulum, initial encounter for closed fracture ([facility] V24, [facility] V28) from Last 3 Months Surgical History Surgery Date Site/Laterality Comments SECTION PROCEDURE: SD DELIVERY ONLY BREAST BIOPSY 05/08/2014 Left PROCEDURE: SD BX BREAST NEEDLE CORE W/O IMAGING GUIDANCE SPX; COMMENT: Benign. 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); COMMENT: left retina Osteoporosis DX:Osteoporosis Bacterial pneumonia, unspecified DX:Bacterial pneumonia, unspecified Depression 06/2012 DX:Depression Family History Medical History Relation Name Comments Coronary artery disease Father Heart attack Father Other: heart disease Maternal Grandmother Diabetes Mother Other: heart disease Paternal Grandfather Relation Name Status Comments Brother Alive DVTs Father Maternal Grandfather Maternal Grandmother Mother Paternal Grandfather Paternal Grandmother Son 1 Alive Son 2 Alive Social History Tobacco Use Types Packs/Day Years [...] on file Sexual Orientation Not on file Obstetrics History Plan of Treatment Health Maintenance Due Date Last Done Comments DTaP,Tdap,and Td Vaccines (1 - Tdap) 1964 Pneumococcal Vaccine: 50+ Ye ars (1 of 2 - PCV) 1964 Zoster Vaccines (1 of 2) 1964 RSV Immunization Adult Patie nts (1 - 1-dose 75+ series) 2018 COVID-19 Vaccine (2 - Pfizer risk series) 10/14/2020 09/23/2020 Depression Screening 09/10/2024 Falls Risk Assessment 09/10/2024 Medicare Annual Wellness Visit 09/10/2024 Osteoporosis Screening (Bone Density Screening) 09/10/2024 Social Influencers of Health Screening 09/10/2024 Influenza Vaccine (Season Ended) 2025 HIB Vaccines Aged Out No longer eligi ble based on patient's age to complete this topic HPV Vaccines Aged Out No longer eligi ble based on patient's age to complete this topic Hepatitis A Vaccines Aged Out No long er eligible based on patient's age to complete this topic Hepatitis B Vaccines Aged Out No long er eligible based on patient's age to complete this topic IPV Vaccines Aged Out No longer eligi ble based on patient's age to complete this topic MMR Vaccines Aged Out No longer eligi ble based on patient's age to complete this topic Meningococcal ACWY Vaccine Aged Out N o longer eligible based on patient's age to complete this topic Meningococcal B Vaccine Aged Out No l onger eligible based on patient's age to complete this topic RSV Immunization Patients Un anna 20 months Aged Out No longer eligible b ased on patient's age to complete this topic Varicella Vaccines Aged Out No longer eligible based on patient's age to complete this topic Procedures Procedure Name Priority Date/Time Associated Diagnosis Comments BASIC METABOLIC PANEL Routine 10/09/2024 7:28 AM EDT Chronic obstructive pulmonary disease, unspecified (CMS/HCC) COMPLETE BLOOD COUNT Routine 10/09/2024 7:28 AM EDT Chronic obstructive pulmonary disease, unspecified (CMS/HCC) BASIC METABOLIC PANEL Routine 10/02/2024 9:43 AM EST Chronic obstructive pulmonary disease, unspecified (CMS/HCC) COMPLETE BLOOD COUNT Routine 10/02/2024 9:43 AM EST Chronic obstructive pulmonary disease, unspecified (CMS/HCC) BASIC METABOLIC PANEL Routine 09/25/2024 7:51 AM EST Chronic obstructive pulmonary disease, unspecified (CMS/HCC) COMPLETE BLOOD COUNT Routine 09/25/2024 7:51 AM EST Chronic obstructive pulmonary disease, unspecified (CMS/HCC) BASIC METABOLIC PANEL Routine 09/18/2024 9:57 AM EST Chronic obstructive pulmonary disease, unspecified (CMS/HCC) COMPLETE BLOOD COUNT Routine 09/18/2024 9:57 AM EST Chronic obstructive pulmonary disease, unspecified (CMS/HCC) CBC WITH AUTO DIFFERENTIAL Routine 09/11/2024 8:34 AM EST Chronic obstructive pulmonary disease, unspecified (CMS/HCC) Unspecified fracture of right femur, sequela BASIC METABOLIC PANEL Routine 09/11/2024 8:34 AM EST Chronic obstructive pulmonary disease, unspecified (CMS/HCC) Unspecified fracture of right femur, sequela CBC AND DIFFERENTIAL Routine 09/11/2024 8:34 AM EST Chronic obstructive pulmonary disease, unspecified (CMS/HCC) Unspecified fracture of right femur, sequela CBC WITH AUTO DIFFERENTIAL Routine 09/10/2024 9:55 [...] left acetabulum, initial encounter for closed fracture (CMS/[facility]) from Last 3 Months Results * (ABNORMAL) Complete blood count (10/09/2024 7:28 AM EDT) Only the most recent of4 resultswithin the time period is included. WBC 3.4(L) 4.8 - 10.8 K/mcL LAB HEMETOLOGY METHOD 10/09/2024 10:50 AM [facility] RBC 3.40(L) 3.80 - 4.80 M/mcL LAB HEMETOLOGY METHOD 10/09/2024 10:50 AM [facility] Hemoglobin 10.6(L) 11.5 - 16.0 g/dL LAB HEMETOLOGY METHOD 10/09/2024 10:50 AM [facility] Hematocrit 33.0(L) 35.0 - 47.0 % LAB HEMETOLOGY METHOD 10/09/2024 10:50 AM [facility] MCV 97.1 79.0 - 98.0 FL LAB HEMETOLOGY METHOD 10/09/2024 10:50 AM [facility] MCH 31.2 27.0 - 32.0 pcg LAB HEMETOLOGY METHOD 10/09/2024 10:50 AM [facility] MCHC 32.1 32.0 - 37.0 g/dL LAB HEMETOLOGY METHOD 10/09/2024 10:50 AM [facility] RDW 17.4(H) 11.0 - 15.0 % LAB HEMETOLOGY METHOD 10/09/2024 10:50 AM [facility] Platelets 139 130 - 400 K/mcL LAB HEMETOLOGY METHOD 10/09/2024 10:50 AM [facility] MPV 10.8 7.0 - 11.0 FL LAB HEMETOLOGY METHOD 10/09/2024 10:50 AM [facility] NRBC 0.0 <1.0 % LAB HEMETOLOGY METHOD 10/09/2024 10:50 AM EDT [facility] NRBC Absolute 0.00 <0.10 K/mcL LAB HEMETOLOGY METHOD 10/09/2024 10:50 AM EDT [facility] Blood Venous blood specimen / Unknown Venipuncture / Unknown 10/09/2024 7:28 AM EDT 10/09/2024 9:43 AM EDT us Elvis Patricia MD LAB BLOOD ORDERABLES Final Result [facility] [address] [place] [address], [place] [phone] * (ABNORMAL) Basic metabolic panel (10/09/2024 7:28 AM EDT) Only the most recent of5 resultswithin the time period is included. Sodium 141 133 - 145 mmol/L LAB CHEMISTRY METHOD 10/09/2024 11:10 AM [facility] Potassium 3.7 3.5 - 5.5 mmol/L LAB CHEMISTRY METHOD 10/09/2024 11:10 AM [facility] Chloride 109 96 - 110 mmol/L LAB CHEMISTRY METHOD 10/09/2024 11:10 AM [facility] CO2 24 21 - 32 mmol/L LAB CHEMISTRY METHOD 10/09/2024 11:10 AM [facility] Anion Gap 8 3 - 11 LAB CHEMISTRY METHOD 10/09/2024 11:10 AM [facility] Glucose 73 70 - 100 mg/dL LAB CHEMISTRY METHOD 10/09/2024 11:10 AM [facility] BUN 12 5 - 25 mg/dL LAB CHEMISTRY METHOD 10/09/2024 11:10 AM [facility] Creatinine 0.50 0.50 - 1.10 mg/dL LAB CHEMISTRY METHOD 10/09/2024 11:10 AM EDT [facility] eGFR 94 >=60 mL/min/1. 73m2 LAB CHEMISTRY METHOD 10/09/2024 11:10 AM EDT [facility] Comment:Calculation based on the??Chronic Kidney Disease Epidemiology Collaboration (CKD-EPI) equation refit??without adjustment for race. BUN/Creatinine Ratio 24.0 LAB CHEMISTRY METHOD 10/09/2024 11:10 AM EDT [facility] Calcium 8.3(L) 8.5 - 10.5 mg/dL LAB CHEMISTRY METHOD 10/09/2024 11:10 AM EDT [facility] Blood Venous blood specimen / Unknown Venipuncture / Unknown 10/09/2024 7:28 AM EDT 10/09/2024 9:43 AM EDT Elvis Patricia MD LAB BLOOD ORDERABLES Final Result [facility] [address] [place] [address], * (ABNORMAL) CBC auto differential (09/11/2024 8:34 AM EST) Only the most recent of2 resultswithin the time period is included. WBC 4.4(L) 4.8 - 10.8 K/mcL LAB HEMETOLOGY METHOD 09/11/2024 1:26 PM EST [facility] RBC 2.70(L) 3.80 - 4.80 M/mcL LAB HEMETOLOGY METHOD 09/11/2024 1:26 PM EST [facility] Hemoglobin 7.7(L) 11.5 - 16.0 g/dL LAB HEMETOLOGY METHOD 09/11/2024 1:26 PM [facility] Hematocrit 25.0(L) 35.0 - 47.0 % LAB HEMETOLOGY METHOD 09/11/2024 1:26 PM [facility] MCV 92.9 79.0 - 98.0 FL LAB HEMETOLOGY METHOD 09/11/2024 1:26 PM [facility] MCH 28.6 27.0 - 32.0 pcg LAB HEMETOLOGY METHOD 09/11/2024 1:26 PM [facility] MCHC 30.8(L) 32.0 - 37.0 g/dL LAB HEMETOLOGY METHOD 09/11/2024 1:26 PM [facility] RDW 17.1(H) 11.0 - 15.0 % LAB HEMETOLOGY METHOD 09/11/2024 1:26 PM [facility] Platelets 164 130 - 400 K/mcL LAB HEMETOLOGY METHOD 09/11/2024 1:26 PM [facility] MPV 11.5(H) 7.0 - 11.0 FL LAB HEMETOLOGY METHOD 09/11/2024 1:26 PM [facility] NRBC 0.0 <1.0 % LAB HEMETOLOGY METHOD 09/11/2024 1:26 PM [facility] NRBC Absolute 0.00 <0.10 K/mcL LAB HEMETOLOGY METHOD 09/11/2024 1:26 PM [facility] Neutrophils Relative 72.7 % LAB HEMETOLOGY METHOD 09/11/2024 1:26 PM [facility] Lymphocytes Relative 15.9 % LAB HEMETOLOGY METHOD 09/11/2024 1:26 PM [facility] Monocytes Relative 8.8 % LAB HEMETOLOGY METHOD 09/11/2024 1:26 PM [facility] Eosinophils Relative 1.6 % LAB HEMETOLOGY METHOD 09/11/2024 1:26 PM [facility] Basophils Relative 0.5 % LAB HEMETOLOGY METHOD 09/11/2024 1:26 PM EST [facility] Immature Granulocytes Relative 0.5 % LAB HEMETOLOGY METHOD 09/11/2024 1:26 PM EST [facility] Neutrophils Absolute 3.21 1.50 - 7.00 K/mcL LAB HEMETOLOGY METHOD 09/11/2024 1:26 PM EST [facility] Lymphocytes Absolute 0.70(L) 1.00 - 5.00 K/mcL LAB HEMETOLOGY METHOD 09/11/2024 1:26 PM EST [facility] Monocytes Absolute 0.39 0.20 - 1.00 K/mcL LAB HEMETOLOGY METHOD 09/11/2024 1:26 PM EST [facility] Eosinophils Absolute 0.07 0.00 - 0.50 K/mcL LAB HEMETOLOGY METHOD 09/11/2024 1:26 PM EST [facility] Basophils Absolute 0.02 0.00 - 0.20 K/mcL LAB HEMETOLOGY METHOD 09/11/2024 1:26 PM EST [facility] Immature Granulocytes Absolute 0.02 0.00 - 0.03 K/mcL LAB HEMETOLOGY METHOD 09/11/2024 1:26 PM [facility] Blood Venous blood specimen / Unknown Venipuncture / Unknown 09/11/2024 8:34 AM EST 09/11/2024 11:43 AM EST us Elvis Patricia MD LAB BLOOD ORDERABLES Final Result [facility] [address] [place] [address], * (ABNORMAL) Comprehensive metabolic panel (09/10/2024 9:55 AM EST) Sodium 140 133 - 145 mmol/L LAB CHEMISTRY METHOD 09/10/2024 11:10 AM EST [facility] Potassium 3.5 3.5 - 5.5 mmol/L LAB CHEMISTRY METHOD 09/10/2024 11:10 AM [facility] Chloride 109 96 - 110 mmol/L LAB CHEMISTRY METHOD 09/10/2024 11:10 AM [facility] CO2 26 21 - 32 mmol/L LAB CHEMISTRY METHOD 09/10/2024 11:10 AM [facility] Anion Gap 5 3 - 11 LAB CHEMISTRY METHOD 09/10/2024 11:10 AM [facility] Glucose 110(H) 70 - 100 mg/dL LAB CHEMISTRY METHOD 09/10/2024 11:10 AM [facility] BUN 20 5 - 25 mg/dL LAB CHEMISTRY METHOD 09/10/2024 11:10 AM [facility] Creatinine 0.58 0.50 - 1.10 mg/dL LAB CHEMISTRY METHOD 09/10/2024 11:10 AM [facility] eGFR 91 >=60 mL/min/1. 73m2 LAB CHEMISTRY METHOD 09/10/2024 11:10 AM [facility] Comment:Calculation based on the??Chronic Kidney Disease Epidemiology Collaboration (CKD-EPI) equation refit??without adjustment for race. BUN/Creatinine Ratio 34.5 LAB CHEMISTRY METHOD 09/10/2024 11:10 AM [facility] Calcium 8.0(L) 8.5 - 10.5 mg/dL LAB CHEMISTRY METHOD 09/10/2024 11:10 AM [facility] AST (SGOT) 29 10 - 42 unit/L LAB CHEMISTRY METHOD 09/10/2024 11:10 AM [facility] ALT (SGPT) 22 10 - 60 unit/L LAB CHEMISTRY METHOD 09/10/2024 11:10 AM [facility] Alkaline Phosphatase 90 42 - 121 unit/L LAB CHEMISTRY METHOD 09/10/2024 11:10 AM [facility] Total Protein 5.7(L) 6.0 - 8.0 g/dL LAB CHEMISTRY METHOD 09/10/2024 11:10 AM EST [facility] Albumin 2.3(L) 3.2 - 5.0 g/dL LAB CHEMISTRY METHOD 09/10/2024 11:10 AM EST [facility] Total Bilirubin 0.8 0.0 - 1.4 mg/dL LAB CHEMISTRY METHOD 09/10/2024 11:10 AM EST [facility] Blood Venous blood specimen / Unknown Venipuncture / Unknown 09/10/2024 9:55 AM EST 09/10/2024 10:45 AM EST Elvis Patricia MD LAB BLOOD ORDERABLES Final Result [facility] [address] [place] [address], [place] [phone] from Last 3 Months Insurance MEDICARE [facility] Care Teams Manager Cath Lab Relationship Specialty Start Date End Date Ag Shaw MD [address] [facility] [address] [place] [address] [facility] - General 05/31/03
--- OUTSIDE RECORDS SUMMARY | 2024-11-21 08:30 | XMS_ITS | Encounter Summary ---
Author Organization [facility] Address [address] [place] [address] Care Team Providers Care Garage Door Technician Name Role Phone Ag Shaw MD Primary Care Provider [phone] Encounter Details Date Type Department Care Team (Late st Contact Info) Description 09/29/2024 Lab Requisition [facility] - Main Lab [address] [facility] [place] [address] Elvis Patricia MD [address] [place] [address] Chronic obstructive pulmonary disease, unspecified (CMS/HCC V24, [...] Associated Diagnosis Comments COMPLETE BLOOD COUNT Routine 10/02/2024 9:43 AM EST Chronic obstructive pulmonary disease, unspecified (CMS/HCC) BASIC METABOLIC PANEL Routine 10/02/2024 9:43 AM EST Chronic obstructive pulmonary disease, unspecified (CMS/HCC) documented in this encounter Results * Basic metabolic panel (10/02/2024 9:43 AM EST) Sodium 138 133 - 145 mmol/L LAB CHEMISTRY METHOD 10/02/2024 12:07 PM [facility] Potassium 4.7 3.5 - 5.5 mmol/L LAB CHEMISTRY METHOD 10/02/2024 12:07 PM [facility] Chloride 106 96 - 110 mmol/L LAB CHEMISTRY METHOD 10/02/2024 12:07 PM [facility] CO2 26 21 - 32 mmol/L LAB CHEMISTRY METHOD 10/02/2024 12:07 PM [facility] Anion Gap 6 3 - 11 LAB CHEMISTRY METHOD 10/02/2024 12:07 PM [facility] Glucose 70 70 - 100 mg/dL LAB CHEMISTRY METHOD 10/02/2024 12:07 PM [facility] BUN 14 5 - 25 mg/dL LAB CHEMISTRY METHOD 10/02/2024 12:07 PM [facility] Creatinine 0.54 0.50 - 1.10 mg/dL LAB CHEMISTRY METHOD 10/02/2024 12:07 PM [facility] eGFR 93 >=60 mL/min/1. 73m2 LAB CHEMISTRY METHOD 10/02/2024 12:07 PM [facility] Comment:Calculation based on the??Chronic Kidney Disease Epidemiology Collaboration (CKD-EPI) equation refit??without adjustment for race. BUN/Creatinine Ratio 25.9 LAB CHEMISTRY METHOD 10/02/2024 12:07 PM [facility] Calcium 8.6 8.5 - 10.5 mg/dL LAB CHEMISTRY METHOD 10/02/2024 12:07 PM [facility] Blood Venous blood specimen / Unknown Venipuncture / Unknown 10/02/2024 9:43 AM EST 10/02/2024 11:22 AM EST us Elvis Patricia MD LAB BLOOD ORDERABLES Final Result [facility] [address] [place] [address], * (ABNORMAL) Complete blood count (10/02/2024 9:43 AM EST) WBC 3.5(L) 4.8 - 10.8 K/mcL LAB HEMETOLOGY METHOD 10/02/2024 12:46 PM [facility] RBC 3.40(L) 3.80 - 4.80 M/mcL LAB HEMETOLOGY METHOD 10/02/2024 12:46 PM [facility] Hemoglobin 10.4(L) 11.5 - 16.0 g/dL LAB HEMETOLOGY METHOD 10/02/2024 12:46 PM [facility] Hematocrit 33.5(L) 35.0 - 47.0 % LAB HEMETOLOGY METHOD 10/02/2024 12:46 PM [facility] MCV 99.7(H) 79.0 - 98.0 FL LAB HEMETOLOGY METHOD 10/02/2024 12:46 PM [facility] MCH 31.0 27.0 - 32.0 pcg LAB HEMETOLOGY METHOD 10/02/2024 12:46 PM [facility] MCHC 31.0(L) 32.0 - 37.0 g/dL LAB HEMETOLOGY METHOD 10/02/2024 12:46 PM [facility] RDW 18.5(H) 11.0 - 15.0 % LAB HEMETOLOGY METHOD 10/02/2024 12:46 PM [facility] Platelets 147 130 - 400 K/mcL LAB HEMETOLOGY METHOD 10/02/2024 12:46 PM [facility] MPV 11.1(H) 7.0 - 11.0 FL LAB HEMETOLOGY METHOD 10/02/2024 12:46 PM EST [facility] NRBC 0.0 <1.0 % LAB HEMETOLOGY METHOD 10/02/2024 12:[address] [facility] NRBC Absolute 0.00 <0.10 K/mcL LAB HEMETOLOGY METHOD 10/02/2024 12:[address] [facility] Blood Venous blood specimen / Unknown Venipuncture / Unknown 10/02/2024 9:43 AM EST 10/02/2024 11:22 AM EST us Elvis Patricia MD LAB BLOOD ORDERABLES Final Result [facility] [address] [place] [address], documented in this encounter Visit Diagnoses Diagnosis Chronic obstructive pulmonary disease, unspecified (CMS/HCC V24, CMS/HCC V28) documented in this encounter Care Teams Garage Door Technician Relationship Specialty Start Date End Date Ag Shaw MD [address] [address] PCP - General 05/31/03 documented as of this encounter
--- OUTSIDE RECORDS SUMMARY | 2024-11-21 08:30 | XMS_ITS | Encounter Summary ---
Author Organization [facility] Address [address] [place] [address] Care Team Providers Care Tanning Wheel Operator Name Role Phone Ag Shaw MD Primary Care Provider [phone] Encounter Details Date Type Department Care Team (Late st Contact Info) Description 09/23/2024 Lab Requisition [facility] - Main Lab [address] [facility] [address] Elvis Patricia MD [address] [place] [address] Chronic obstructive pulmonary disease, unspecified (CMS/HCC V24, [...] Associated Diagnosis Comments COMPLETE BLOOD COUNT Routine 09/25/2024 7:51 AM EST Chronic obstructive pulmonary disease, unspecified (CMS/HCC) BASIC METABOLIC PANEL Routine 09/25/2024 7:51 AM EST Chronic obstructive pulmonary disease, unspecified (CMS/HCC) documented in this encounter Results * (ABNORMAL) Basic metabolic panel (09/25/2024 7:51 AM EST) Sodium 143 133 - 145 mmol/L LAB CHEMISTRY METHOD 09/25/2024 11:40 AM [facility] Potassium 4.2 3.5 - 5.5 mmol/L LAB CHEMISTRY METHOD 09/25/2024 11:40 AM [facility] Chloride 110 96 - 110 mmol/L LAB CHEMISTRY METHOD 09/25/2024 11:40 AM [facility] CO2 25 21 - 32 mmol/L LAB CHEMISTRY METHOD 09/25/2024 11:40 AM [facility] Anion Gap 8 3 - 11 LAB CHEMISTRY METHOD 09/25/2024 11:40 AM [facility] Glucose 74 70 - 100 mg/dL LAB CHEMISTRY METHOD 09/25/2024 11:40 AM [facility] BUN 18 5 - 25 mg/dL LAB CHEMISTRY METHOD 09/25/2024 11:40 AM [facility] Creatinine 0.46(L) 0.50 - 1.10 mg/dL LAB CHEMISTRY METHOD 09/25/2024 11:40 AM [facility] eGFR 96 >=60 mL/min/1. 73m2 LAB CHEMISTRY METHOD 09/25/2024 11:40 AM [facility] Comment:Calculation based on the??Chronic Kidney Disease Epidemiology Collaboration (CKD-EPI) equation refit??without adjustment for race. BUN/Creatinine Ratio 39.1 LAB CHEMISTRY METHOD 09/25/2024 11:40 AM [facility] Calcium 8.2(L) 8.5 - 10.5 mg/dL LAB CHEMISTRY METHOD 09/25/2024 11:40 AM [facility] Blood Venous blood specimen / Unknown Venipuncture / Unknown 09/25/2024 7:51 AM EST 09/25/2024 10:59 AM EST Elvis Patricia MD LAB BLOOD ORDERABLES Final Result [facility] [address] [place] [address], * (ABNORMAL) Complete blood count (09/25/2024 7:51 AM EST) WBC 3.8(L) 4.8 - 10.8 K/mcL LAB HEMETOLOGY METHOD 09/25/2024 12:37 PM [facility] RBC 3.20(L) 3.80 - 4.80 M/mcL LAB HEMETOLOGY METHOD 09/25/2024 12:37 PM [facility] Hemoglobin 9.4(L) 11.5 - 16.0 g/dL LAB HEMETOLOGY METHOD 09/25/2024 12:37 PM [facility] Hematocrit 31.2(L) 35.0 - 47.0 % LAB HEMETOLOGY METHOD 09/25/2024 12:37 PM [facility] MCV 99.0(H) 79.0 - 98.0 FL LAB HEMETOLOGY METHOD 09/25/2024 12:37 PM [facility] MCH 29.8 27.0 - 32.0 pcg LAB HEMETOLOGY METHOD 09/25/2024 12:37 PM [facility] MCHC 30.1(L) 32.0 - 37.0 g/dL LAB HEMETOLOGY METHOD 09/25/2024 12:37 PM [facility] RDW 19.4(H) 11.0 - 15.0 % LAB HEMETOLOGY METHOD 09/25/2024 12:37 PM [facility] Platelets 199 130 - 400 K/mcL LAB HEMETOLOGY METHOD 09/25/2024 12:37 PM [facility] MPV 10.4 7.0 - 11.0 FL LAB HEMETOLOGY METHOD 09/25/2024 12:37 PM [facility] NRBC 0.0 <1.0 % LAB HEMETOLOGY METHOD 09/25/2024 12:37 PM EST [facility] NRBC Absolute 0.00 <0.10 K/mcL LAB HEMETOLOGY METHOD 09/25/2024 12:37 PM EST [facility] Blood Venous blood specimen / Unknown Venipuncture / Unknown 09/25/2024 7:51 AM EST 09/25/2024 11:06 AM EST us Elvis Patricia MD LAB BLOOD ORDERABLES Final Result [facility] [address] [place] [address], documented in this encounter Visit Diagnoses Diagnosis Chronic obstructive pulmonary disease, unspecified (CMS/HCC V24, CMS/HCC V28) documented in this encounter Care Teams Tanning Wheel Operator Relationship Specialty Start Date End Date Ag Shaw MD [address] [address] PCP - General 05/31/03 documented as of this encounter
--- OUTSIDE RECORDS SUMMARY | 2024-11-21 08:30 | XMS_ITS | Encounter Summary ---
Author Organization [facility] Address [address] [place] [address] Care Team Providers Care Commissioning Agent Name Role Phone Ag Shaw MD Primary Care Provider [phone] Encounter Details Date Type Department Care Team (Late st Contact Info) Description 09/17/2024 Lab Requisition [facility] - Main Lab [address] [facility] [place] [address] Elvis Patricia MD [address] [place] [address] Chronic obstructive pulmonary disease, unspecified (CMS/HCC V24, [...] Associated Diagnosis Comments COMPLETE BLOOD COUNT Routine 09/18/2024 9:57 AM EST Chronic obstructive pulmonary disease, unspecified (CMS/HCC) BASIC METABOLIC PANEL Routine 09/18/2024 9:57 AM EST Chronic obstructive pulmonary disease, unspecified (CMS/HCC) documented in this encounter Results * Basic metabolic panel (09/18/2024 9:57 AM EST) Sodium 140 133 - 145 mmol/L LAB CHEMISTRY METHOD 09/18/2024 11:58 AM [facility] Potassium 4.1 3.5 - 5.5 mmol/L LAB CHEMISTRY METHOD 09/18/2024 11:58 AM [facility] Chloride 106 96 - 110 mmol/L LAB CHEMISTRY METHOD 09/18/2024 11:58 AM [facility] CO2 25 21 - 32 mmol/L LAB CHEMISTRY METHOD 09/18/2024 11:58 AM [facility] Anion Gap 9 3 - 11 LAB CHEMISTRY METHOD 09/18/2024 11:58 AM [facility] Glucose 89 70 - 100 mg/dL LAB CHEMISTRY METHOD 09/18/2024 11:58 AM [facility] BUN 18 5 - 25 mg/dL LAB CHEMISTRY METHOD 09/18/2024 11:58 AM [facility] Creatinine 0.59 0.50 - 1.10 mg/dL LAB CHEMISTRY METHOD 09/18/2024 11:58 AM [facility] eGFR 91 >=60 mL/min/1. 73m2 LAB CHEMISTRY METHOD 09/18/2024 11:58 AM [facility] Comment:Calculation based on the??Chronic Kidney Disease Epidemiology Collaboration (CKD-EPI) equation refit??without adjustment for race. BUN/Creatinine Ratio 30.5 LAB CHEMISTRY METHOD 09/18/2024 11:58 AM [facility] Calcium 8.7 8.5 - 10.5 mg/dL LAB CHEMISTRY METHOD 09/18/2024 11:58 AM [facility] Blood Venous blood specimen / Unknown Venipuncture / Unknown 09/18/2024 9:57 AM EST 09/18/2024 11:06 AM EST us Elvis Patricia MD LAB BLOOD ORDERABLES Final Result [facility] [address] [place] [address], * (ABNORMAL) Complete blood count (09/18/2024 9:57 AM EST) [facility] WBC 5.3 4.8 - 10.8 K/mcL LAB HEMETOLOGY METHOD 09/18/2024 12:15 PM EST [facility] RBC 3.20(L) 3.80 - 4.80 M/mcL LAB HEMETOLOGY METHOD 09/18/2024 12:15 PM [facility] Hemoglobin 9.4(L) 11.5 - 16.0 g/dL LAB HEMETOLOGY METHOD 09/18/2024 12:15 PM [facility] Hematocrit 30.8(L) 35.0 - 47.0 % LAB HEMETOLOGY METHOD 09/18/2024 12:15 PM [facility] MCV 97.2 79.0 - 98.0 FL LAB HEMETOLOGY METHOD 09/18/2024 12:15 PM [facility] MCH 29.7 27.0 - 32.0 pcg LAB HEMETOLOGY METHOD 09/18/2024 12:15 PM [facility] MCHC 30.5(L) 32.0 - 37.0 g/dL LAB HEMETOLOGY METHOD 09/18/2024 12:15 PM [facility] RDW 18.5(H) 11.0 - 15.0 % LAB HEMETOLOGY METHOD 09/18/2024 12:15 PM [facility] Platelets 309 130 - 400 K/mcL LAB HEMETOLOGY METHOD 09/18/2024 12:15 PM [facility] Comment:reviewed by slide MPV 10.4 7.0 - 11.0 FL LAB HEMETOLOGY METHOD 09/18/2024 12:15 PM [facility] NRBC 0.0 <1.0 % LAB HEMETOLOGY METHOD 09/18/2024 12:15 PM EST [facility] NRBC Absolute 0.00 <0.10 K/mcL LAB HEMETOLOGY METHOD 09/18/2024 12:15 PM EST [facility] Blood Venous blood specimen / Unknown Venipuncture / Unknown 09/18/2024 9:57 AM EST 09/18/2024 11:06 AM EST us Elvis Patricia MD LAB BLOOD ORDERABLES Final Result [facility] [address] [place] [address], documented in this encounter Visit Diagnoses Diagnosis Chronic obstructive pulmonary disease, unspecified (CMS/HCC V24, CMS/HCC V28) documented in this encounter Care Teams Commissioning Agent Relationship Specialty Start Date End Date Ag Shaw MD [address] [address] PCP - General 05/31/03 documented as of this encounter
[2024-11-21 08:50] VITALS: BP 124/58; PULSE 56; O2SAT 98; BMI 16.8
== END 2024-11-21 09:15 | disposition home or self-care (01) ==
PROVIDERS: PCP Physician Assistant Medical; Visit Provider Nurse Practitioner Family
DX: J44.9 Chronic obstructive pulmonary disease, unspecified (principal); Z85.820 Personal history of malignant melanoma of skin; R91.1 Solitary pulmonary nodule
CPT/HCPCS: 99214

== ENCOUNTER → 2024-11-21 08:13 | Outpatient (BNVA) | payer MEDICARE, OTHER, SELFPAY | PROVIDERS: PCP Physician Assistant Medical; Visit Provider Nurse Practitioner Family | DX: J44.9 Chronic obstructive pulmonary disease, unspecified (principal); R91.1 Solitary pulmonary nodule; Z85.820 Personal history of malignant melanoma of skin | CPT/HCPCS: 99212 ==

== ENCOUNTER 2025-03-07 08:39 | Outpatient (AMB) | payer MEDICARE, OTHER, SELFPAY ==
--- OUTSIDE RECORDS SUMMARY | 2025-03-04 17:56 | XMS_ITS | Continuity of Care Document ---
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 Name Role Phone Pamela Vaughn MD Primary Care Phys[id number] Date(s): 02/28/25 - 03/04/[address] [address]- Discharge Disposition: A-Transfer SNF Attending Physician: Alberto Shell DO Admitting Physician: Ant Mckeon DO Referring Physician: Not on Staff, Referring MD Encounter Type: Disch IP Allergies, Adverse Reactions, Alerts Substance Criticality Severity Reaction Reaction Severity Status Adhesive Bandage Act cherrie Immunizations Given and Recorded Vaccine Date Status Refusal Reason SARS-CoV-2 (COVID-19) mRNA BNT-162b2 vac 09/23/20 Given Medications acetaminophen 325 mg oral tablet 650 mg, By Mouth, Every 4 hours, PRN, Temperature Greater than 100.5, Refills 0, Maintenance, Pain , Mild, 07/19/23 8:39:00 AM EST, Partial fill upon patient request if the prescription is for a schedule II opioid drug. Start Date: 07/19/23 Status: Ordered Repeat number: 1 enoxaparin 30 mg/0.3 mL injectable solution = 30 mg, Subcutaneous Injection, Daily, for 26 days, # 26 each, 0 Refills, Acute 03/30/25 1:36:00 PMEDT, 03/04/25 1:36:00 PM EDT, Partial fill upon patient request if the prescription is for a scheduleII opioid drug. Start Date: 03/04/25 Stop Date: 03/30/25 Status: Ordered Quantity: 26.0 Unit: each Repeat number: 1 oxyCODONE 5 mg oral capsule 1 capsule = 5 mg, By Mouth, Every 6 hours, PRN as needed for pain, for 5 days, # 12 capsule, 0 Refills, Acute 03/09/25 1:24:00 PM EDT, 03/04/25 1:24:00 PM EDT, Capsule, Partial fill upon patient request if the prescription is for a schedule II opioid drug. Start Date: 03/04/25 Stop Date: 03/09/25 Status: Ordered Quantity: 12.0 Unit: capsule Repeat number: 1 OxyCODONE IR Tablet 5 mg, Tablet, By Mouth, Every 4 hours, PRN for Pain , Moderate, or Mild pain unrelieved by Tramadol, Routine, 03/02/25 10:38:00 AM EDT Start Date: 03/02/25 Stop Date: 03/09/25 Status: Ordered Repeat number: 1 Oxygen 2L baseline, 0 Refills, Maintenance, 02/28/25 2:36:00 PM EDT, Partial fill upon patient request if the prescription is for a schedule II opioid drug. Start Date: 02/28/25 Status: Ordered Repeat number: 1 senna 187 mg oral tablet 1 tablet = 8.6 mg, By Mouth, 2 times a day, PRN Constipation, 0 Refills, Maintenance, 09/09/24 11:41:00 AM EST, Tablet, Partial fill upon patient request if the prescription is for a schedule II opioiddrug. Start Date: 09/09/24 Status: Ordered Repeat number: 1 Spiriva HandiHaler 18 mcg Inhalation Capsule INHALE 1 CAPSULE VIA HANDIHALER ONCE DAILY AT THE SAME TIME EVERY DAY Start Date: 06/22/18 Status: Ordered Repeat number: 1 Symbicort 160mcg/4.5mcg Inhaler INHALE 2 PUFFS TWICE A DAY Start Date: 07/17/23 Status: Ordered Repeat number: 1 Zoloft Tablet = 12.5 mg, By Mouth, Daily, 0 Refills, Maintenance, 09/15/15 5:16:18 AM EST Start Date: 09/15/15 Status: Ordered Repeat number: 1 Problem List Condition Confirmation Course Effective Dates Status Health St atus Informant Anorexia Nervosa Confirmed 06/16/12 Active Depression Confirmed Active COPD with emphysema Confirmed Active Tobacco user Confirmed Active Underweight Confirmed Active Results Radiology Reports * Exam Date Time Procedure Performing Provider Status 03/02/25 12:32 PM Pelvis 1 or 2 Views Auth (Verified) Notes: (Pelvis 1 or 2 Views) Reason For Exam: Postop Prosthesis RESULT: Pelvis 1 or 2 Views AP pelvis postop Reason: Postop Prosthesis after hip fracture; COMPARISON: 02/28/2025 FINDINGS: Right hemiarthroplasty hardware in typical position and alignment. No periprosthetic fracture. No unexpected soft tissue findings. Unchanged left hip hardware. IMPRESSION: Typical postoperative appearance. WSN: [id number] Ordering Physician: Kai Howard Dictated By: Kai Glass MD Dictated Date/Time: 03/02/25 12:57 p Reviewed By: Kai Glass MD Signed By: Kai Glass MD Signed Date/Time: 03/02/25 12:57 pm Transcribed By: MELO Transcribed Date/Time: 03/02/25 12:55 pm * Exam Date Time Procedure Performing Provider Status 02/28/25 12:44 PM XR Hip w/Pelvis 2-3 View Right Auth (Verified) Notes: (XR Hip w/Pelvis 2-3 View Right) Reason For Exam: With Pain;Trauma RESULT: XR Hip w/Pelvis 2-3 View Right XR Hip w/Pelvis 2-3 View Right Hx of Present Illness: trip and fall at home a week ago, landed on right hip, has been walking on it for the week, seen at [facility] and sent in for fx of right hip, no other injury or complaints; Reason:Trauma; With Pain; Clinical Question(s): Fracture COMPARISON: 12/20/2024 FINDINGS: There is mildly displaced right subcapital fracture with mild increased angulation of the femoral neck. There is diffuse osteopenia. The SI joints and symphysis pubis are unchanged. There is a stable chronic healed left femoral fracture with associated hardware. Marked fecal material throughout the colon is noted. IMPRESSION: Acute mildly displaced right subcapital fracture with increased femoral neck angulation. An actionable message ([place]) has been communicated via the [employer] system on 02/28/2025 1:07 PM, Message ID [id number]. WSN: [id number] Ordering Physician: Lashae Watt Dictated By: Denice Mills MD Dictated Date/Time: 02/28/25 1:07 pm Reviewed By: Denice Mills MD Signed By: Denice Mills MD Signed Date/Time: 02/28/25 1:07 pm Transcribed By: MELO Transcribed Date/Time: 02/28/25 1:06 pm * Exam Date Time Procedure Performing Provider Status 02/28/25 12:44 PM Chest Single Frontal View Auth (Verified) Notes: (Chest Single Frontal View) Reason For Exam: pre-op, o2 depedent copd;Other: RESULT: Chest Single Frontal View Chest Single Frontal View INDICATION: Hx of Present Illness: trip and fall at home a week ago, landed on right hip, has been walking on it for the week, seen at [facility] and sent in for fx of right hip, no other injury or complaints; Reason: Other:; pre-op, o2 dependent copd; Clinical Question(s): Other:; Confirm Position, Assess for Complication COMPARISON: 09/04/2024 FINDINGS: LINES AND TUBES: None. LUNGS AND PLEURA: There is hyperinflation. Increased interstitial markings are present in the bilateral upper lungs and left base. No confluent opacity or vascular congestion. No effusion or pneumothorax. HEART, MEDIASTINUM AND LUIS: Normal. BONES AND SOFT TISSUES: No acute abnormality. IMPRESSION: Hyperinflation. No consolidation or edema. WSN: [id number] Ordering Physician: Lashae Watt Dictated By: Denice Mills MD Dictated Date/Time: 02/28/25 1:06 pm Reviewed By: Denice Mills MD Signed By: Denice Mills MD Signed Date/Time: 02/28/25 1:06 pm Transcribed By: MELO Transcribed Date/Time: 02/28/25 1:03 pm Admission evaluation note * Jarret Guerrero: PERFORM, MODIFY Event Display: Admission Note Authored Date: [id number] Patient: ??MEGHAN ATKINS ? Age:??79 Years?Sex:??Female?:??1945?? Chief Complaint/Reason for Consultation Right hip fracture History of Present Illness 79-year-old female with significant comorbidities including oxygen-dependent COPD with emphysema (HCC), anorexia nervosa (HCC), chronic tobacco use, underweight status, and depression. She presents following a mechanical fall approximately one week ago, with X-rays today confirming a right hip fracture. She reports ongoing pain and difficulty ambulating. She is not on anticoagulation. Her baseline mental status is preserved, and she does not currently exhibit delirium. denies fever, CP, SOB, abdominal pain, bowel or bladder complaints. ?? Vital Signs: BP: Stable HR: Within normal limits Temp: Afebrile O2: At baseline on home oxygen Labs & Imaging: X-ray: Right hip fracture Labs (CBC, CMP,): Within acceptable limits EKG: Pending CXR: Stable Review of Systems CONSTITUTIONAL: ??Denies any fever, chills, changes to weight or fatigue. EYES: Denies any changes to vision, burning or diplopia. HEENT: Denies any BLACKBURN, nasal d/c, nose bleeds, changes to voice, vertigo, photophobia, hearing changes or dental problems. CV: Denies any CP, orthopnea, PND, edema, palpitations. PULM: Denies any SOB, wheezing, cough or production of phlegm. ABD: Denies any abdominal pain, N/V/D, heartburn, PRBPR, melena, or changes to bowel habits. : Denies any changes to frequency. ??Denies dysuria, urgency, straining, hematuria, incontinence.?? MS: See HPI NEURO: Denies any weakness, numbness, changes to speech confusion or memory loss. SKIN: Denies any rashes or lesions. ?? PSYCH: Denies any depression or anxiety. SIGECAPS negative. FUNCTIONAL: At baseline the patient is able to??ambulate with a cane Assessment/Plan Assessment:??Patient is medically optimized for surgery from a general medicine perspective. Clearance is given for operative repair of right hip fracture, with the following perioperative considerations: ?? Pulmonary: Continue home oxygen therapy as needed. Administer Duoneb (albuterol/ipratropium) nebulizers q6h perioperatively. Encourage pulmonary hygiene (incentive spirometry, early mobilization, chest physiotherapy if productive). Avoid excessive opioids or sedatives to minimize risk of hypoventilation. Anesthesia should be informed of her underlying COPD and oxygen dependence; regional anesthesia maybe considered. ?? Cardiac: EKG is pending to evaluate for ischemic changes or arrhythmias. Proceed with surgery if EKG is reassuring. Monitor telemetry post-op if clinical concerns arise. ?? Nutrition: Monitor closely for impaired wound healing given malnourished state. Consider nutrition consult perioperatively to support recovery. ?? Neuropsychiatric: Monitor for postoperative delirium given advanced age, frailty, and underlying depression. Continue routine psychotropic medications ?? Right hip pain: Brief course??of as needed??oxycodone 5 mg every 6 hours??for severe pain Tylenol as needed??for mild??pain ?? Hip fracture (S72.009A) Acute right hip pain (M25.551) Depression (F32.A) Dependence on continuous supplemental oxygen (Z99.81) COPD mixed type (J44.9) ?? VTE Prophylaxis:??Patient is at elevated risk for VTE in the setting of trauma and reduced mobility. Mechanical DVT prophylaxis initiated with pneumatic compression devices. Given anticipated surgical repair of right hip fracture in the morning, pharmacologic DVT prophylaxis with Lovenox will be initiated postoperatively, once cleared by surgical team and hemostasis is confirmed. ?VTE Prophylaxis Assessment:??VTE Prophylaxis Ordered ?? Code Status:??Full code ?Order Code Status:??Code Status Ordered Histories Allergies Allergies ?(Active and Proposed Allergies Only) NKA? (Severity: Unknown severity, Onset: Unknown) ? Past Medical History/Problem List Active Problems(5) Anorexia Nervosa COPD with emphysema Depression Tobacco user Underweight ? Past Surgical History Treatment of intertrochanteric, peritrochanteric, or subtrochanteric femoral fracture; with intramedullary implant, with or without interlocking screws and/or cerclage: 09/06/24 ? Social History Quit smoking in 2011 ? Family History No Family History documented. ? Medications Home Medications Acetaminophen (acetaminophen 325 mg oral tablet)??650 Milligram By Mouth Every 4 hours as needed Temperature Greater than 100.5 Pain , Mild Budesonide-Formoterol (Symbicort 160mcg/4.5mcg Inhaler)??INHALE 2 PUFFS TWICE A DAY Calcium And Vitamin D Combination (Calcium 600 +D)??1 tab(s) By Mouth 2 times a day takes /2 tablet@ hs Oxygen??2L baseline Senna (senna 187 mg oral tablet)??1 tab(s) 8.6 Milligram By Mouth 2 times a day as needed Constipation Sertraline (Zoloft Tablet)??12.5 Milligram By Mouth Daily Tiotropium (Spiriva HandiHaler 18 mcg ??Inhalation Capsule)??INHALE 1 CAPSULE VIA HANDIHALER ONCE DAILY AT THE SAME TIME EVERY DAY ? Results Recent Labs BLOOD COUNT & DIFF WBC 4.8 k/mm3 ()?? 02/28/2025 12:39 RBC 3.99 m/mm3 (Low)?? 02/28/2025 12:39 Hgb 11.6 Gm/dL (Low)?? 02/28/2025 12:39 Hct 37.3 % ()?? 02/28/2025 12:39 MCV 93.5 femtoliters ()?? 02/28/2025 12:39 MCH 29.1 pg ()?? 02/28/2025 12:39 MCHC 31.1 Gm/dL (Low)?? 02/28/2025 12:39 Platelet Count 178 k/mm3 ()?? 02/28/2025 12:39 RDW-SD 50.8 femtoliters (High)?? 02/28/2025 12:39 MPV 10.6 femtoliters ()?? 02/28/2025 12:39 Nucleated RBC (Automated) 0.0 #/100 WBC'S ()?? 02/28/2025 12:39 Abs. NRBC 0.0 k/mm3 ()?? 02/28/2025 12:39 Abs. Neut 3.5 k/mm3 ()?? 02/28/2025 12:39 Abs. Lymph 0.8 k/mm3 ()?? 02/28/2025 12:39 Abs. [place] 0.4 k/mm3 ()?? 02/28/2025 12:39 Abs. Eo 0.0 k/mm3 ()?? 02/28/2025 12:39 Abs. Baso 0.0 k/mm3 ()?? 02/28/2025 12:39 Neut % 73.4 % ()?? 02/28/2025 12:39 Lymph % 16.8 % ()?? 02/28/2025 12:39 [place] % 8.2 % ()?? 02/28/2025 12:39 Eos % 0.8 % ()?? 02/28/2025 12:39 Baso % 0.6 % ()?? 02/28/2025 12:39 Imm Gran 0.2 % ()?? 02/28/2025 12:39 Abs. Imm Gran 0.0 k/mm3 ()?? 02/28/2025 12:39 ?? CHEM GENERAL Sodium 140 mmol/L ()?? 02/28/2025 12:39 Potassium 4.2 mmol/L ()?? 02/28/2025 12:39 Chloride 104 mmol/L ()?? 02/28/2025 12:39 Bicarbonate Level 26 mmol/L ()?? 02/28/2025 12:39 Anion Gap 10 mmol/L ()?? 02/28/2025 12:39 Glucose Level 107 mg/dL (High)?? 02/28/2025 12:39 BUN 13 mg/dL ()?? 02/28/2025 12:39 Creatinine-Blood 0.47 mg/dL (Low)?? 02/28/2025 12:39 Estimated GFR Creatinine 96 ML/MIN/1.73 M2 ()?? 02/28/2025 12:39 Calcium 9.2 mg/dL ()?? 02/28/2025 12:39 ?? URINE OTHER Est Creatinine Clearance 60.76 mL/min ()?? 02/28/2025 13:43 ? Hospital Progress note * Vishnu Sanford RN: PERFORM, SIGN, VERIFY Event Display: Progress Note Hospital Authored Date: [id number] Patient: MEGHAN ATKINS Age: 79 years Sex: Female : 1945 Associated Diagnoses: None Author: Vishnu Sanford RN Findings Problem Related to Alteration in Comfort : Alteration in Comfort/new 03/04/2025 7:00 EDT Alteration in Comfort Related to Injury Goals & Outcomes: Comfort Pt will report acceptable level of comfort & pain control, Pt will state importance of adhering to pain strategy regime, Pt will demonstrate necessary skills to manage pain, Non-verbal indicators will indicate comfort/pain control Interventions Implemented: Comfort Assess pain using appropriate pain scale/tools, Assess aggravating factors & prevent them accordingly, Assess alleviating factors & promote them accordingly Goals/Interventions, Comfort Yes Comfort, Problem Start 02/28/2025 17:17 Reviewed plan with, Comfort Patient Patient Progression, Comfort Pt progressing according to plan Comfort, Problem Ongoing Yes . Alteration in Musculoskeletal : Alteration in Musculoskeletal Func/new 03/04/2025 7:00 EDT Alteration in Musculoskeletal Related to Fracture, Mobility, Orthopedic Procedure, Total joint replacement, Other: R hip fx, R hip alysa 03/[address] Howard Goals & Outcomes, Musculoskeletal Affected extremity will maintain color/motion/sensation, Pt able to perform ADL's to best of ability, Pt demonstrates precautions/exercise/ transfers per protocol, Pt will ambulate safely with assistive device, Pt will be free from complications of immobility, Pt will demonstrate ability to participate in ADL's, Pt will report acceptable level of comfort/painrelief Interventions, Musculoskeletal Monitor patients ambulation status, monitor Color/Motion/Sensation, Assist with repositioning, Encourage deep breathing & coughing exercises, Notify MD immediately if tissue perfusion deteriorates, Obtain assistive devices as needed, Teach & Encourage use of Incentive spirometer, Teach Pt/caregiver on ADL's & adaptive equipment, Teach Pt/caregiver on exercises, Teach pt/caregiver on use of pain scale, Teach Pt/caregiver complications of immobility, Teach Pt/caregiver techniques to increase mobility, Teach Pt/caregiver on safety precautions, Incision care as ordered Goals/Interventions, Musculoskeletal Yes Musculoskeletal, Problem Start 03/04/2025 0:51 Reviewed Plan with, Musculoskeletal Patient Patient Progression, Musculoskeletal Pt progressing according to plan . Nursing Data Vital Signs : VITAL SIGNS SECTION 03/04/2025 8:03 EDT Temperature 98.7 DegF Temperature Route Oral Pulse Rate 78 bpm Respiratory Rate 18 br/min Systolic Blood Pressure 132 mm Hg Diastolic Blood Pressure 55 mm Hg Blood pressure sites Arm, right Mean Arterial Pressure 81 mm Hg Pulse Pressure 77 mm Hg Oxygen Saturation 97 % Liters per Minute 2 L/min Mode of Delivery (Oxygen) Nasal cannula . Evaluation P: Alteration in comfort, musculoskeletal I: Interventions per plan E: A/Ox:4, able to make needs known Lungs: Clear. Denies SOB. IS at bedside. Encouraged pat to use 10x/hr. Pt able to demonstrate proper way to use. 2L O2 via NC Patient denies chest pain, numbness, tingling, and dizziness. +PP +CMS +D/P flexion On ASA for DVT prophylaxis. Cboots bilat Encourage ankle pumps 20x/hr and gluteal squeeze frequently. DSD Dressings CDI AmbulatinPA FWW Pain managed with oxycodone, tylenol (see mar) Tolerating diet Abdomen soft, nontender LBM 02/27 given miralax Voiding via BR, commode Patient progressing with plan.. . * Chun Colón: PERFORM, SIGN, VERIFY Event Display: Progress Note Hospital Authored Date: [id number] Patient: MEGHAN ATKINS Age: 79 years Sex: Female : 1945 Associated Diagnoses: None Author: Chun Colón Ortho POD 2 s/p right hip hemiarthroplasty S: The patient denies any SOB/CP, N/V. Voiding spontaneously. Rates her pain 5/10 this morning. [place] with PT yesterday walking about 15 ft w contact guard. O: Vitals Temperature 98.7 (08:06) Systolic Blood Pressure 132 (08:06) Diastolic Blood Pressure 55 (08:06) Pulse 78 (08:06) SpO2 97 (08:06) Respiratory Rate 18 (08:06) Last 24 Hours Basic Metabolic Panel: Hematology: Sodium: 140 mmol/L (03/04/25) Hgb: 7.3 Gm/dL (03/04/25) Potassium (POC): 5.0 mmol/L (03/04/25) Hemoglobin A1C (Monitoring): ------ Phosphorus: ------ WBC: 4.0 k/mm3 (03/04/25) Magnesium: ------ Platelets: 137 k/mm3 (03/04/25) BUN (POC) POC Cartridge: 20 mg/dL (03/04/25) INR Level: ------ Creatinine-Blood: 0.59 mg/dL (03/04/25) Creatinine Clearance: ------ Additional - Last 24 Hours Abs. NRBC: 0.0 k/mm3 (03/04/25) Anion Gap: 7 mmol/L (03/04/25) Bicarbonate Level: 27 mmol/L (03/04/25) BUN: BUN (03/04/25) Chloride: 106 mmol/L (03/04/25) Creatinine, Blood: Creatinine, Blood (03/04/25) Est Creatinine Clearance: 48.40 (03/04/25) Estimated GFR Creatinine: 90 ML/MIN/1.73 M2 (03/04/25) Hct: 23.6 % (03/04/25) MCH: 29.2 pg (03/04/25) MCHC: 30.9 Gm/dL (03/04/25) MCV: 94.4 femtoliters (03/04/25) MPV: 10.2 femtoliters (03/04/25) Nucleated RBC (Automated): 0.0 #/100 WBC'S (03/04/25) RBC: 2.50 m/mm3 (03/04/25) RDW-SD: 51.8 femtoliters (03/04/25) General: alert, lucid, in NAD Heart: RRR Lungs: Regular rate of breathing Abdomen: soft NT Neurovascular: calves soft NT, +DF/+PF Dressing: CDI -WBAT on RLE -Continue with PT for dc home vs rehab -Continue pain meds prn - DVT ppx w lovenox f/u scheduled with [facility] 03/20/2025 at 11:15 am 04/04/2025 at 10:45 am * Eder Pringle RN: PERFORM, SIGN, VERIFY Event Display: Progress Note Hospital Authored Date: Patient: MEGHAN ATKINS Age: 79 years Sex: Female : 1945 Associated Diagnoses: None Author: Eder Pringle RN Findings Problem Related to Alteration in Musculoskeletal : Alteration in Musculoskeletal Func/new 03/04/2025 0:00 EDT Alteration in Musculoskeletal Related to Fracture, Mobility, Orthopedic Procedure, Total joint replacement, Other: R hip fx, R hip alysa 03/[address] Howard Goals & Outcomes, Musculoskeletal Affected extremity will maintain color/motion/sensation, Pt able to perform ADL's to best of ability, Pt demonstrates precautions/exercise/ transfers per protocol, Pt will ambulate safely with assistive device, Pt will be free from complications of immobility, Pt will demonstrate ability to participate in ADL's, Pt will report acceptable level of comfort/painrelief Interventions, Musculoskeletal Monitor patients ambulation status, monitor Color/Motion/Sensation, Assist with repositioning, Encourage deep breathing & coughing exercises, Obtain assistive devices as needed, Teach & Encourage use of Incentive spirometer, Teach Pt/caregiver on ADL's & adaptive equipment, Teach Pt/caregiver on exercises, Teach pt/caregiver on use of pain scale, Assist pt out of bed keeping legs abducted at all times, Avoid extreme internal and/or external rotation, Maintain hip in abduction/neutral/slight ext. rotation, [place] Pt/caregiver to Total Hip Replacement protocol BH Goals/Interventions, Musculoskeletal Yes Musculoskeletal, Problem Start 03/04/2025 0:51 Reviewed Plan with, Musculoskeletal Patient Patient Progression, Musculoskeletal Pt progressing according to plan . Nursing Data Vital Signs : VITAL SIGNS SECTION 03/03/2025 23:22 EDT Temperature 97.5 DegF Temperature Route Oral Pulse Rate 68 bpm Respiratory Rate 16 br/min Systolic Blood Pressure 95 mm Hg Diastolic Blood Pressure 46 mm Hg L Blood pressure sites Arm, left Mean Arterial Pressure 62 mm Hg Pulse Pressure 49 mm Hg Oxygen Saturation 100 % Liters per Minute 2 L/min Mode of Delivery (Oxygen) Nasal cannula 03/03/2025 20:51 EDT Respiratory Rate Not Done: Assessed, No Action Needed (Not Done) 03/03/2025 20:50 EDT Respiratory Rate Not Done: Assessed, No Action Needed (Not Done) 03/03/2025 19:55 EDT Early Warning Score 3.00 03/03/2025 19:51 EDT Respiratory Rate 16 br/min 03/03/2025 18:50 EDT Early Warning Score 3.00 03/03/2025 18:50 EDT Temperature 97.9 DegF Temperature Route Oral Pulse Rate 93 bpm H Respiratory Rate 16 br/min Systolic Blood Pressure 94 mm Hg Diastolic Blood Pressure 47 mm Hg L Blood pressure sites Arm, left Mean Arterial Pressure 63 mm Hg Pulse Pressure 47 mm Hg Oxygen Saturation 97 % Liters per Minute 2 L/min Mode of Delivery (Oxygen) Nasal cannula . Evaluation P: Alteration in Musculoskeletal I: Interventions in care plan E: Pt is here for a right hip fx and is POD#1 for a right hip alysa with Dr. Howard. Pt is A+Ox3, VSS, bed alarm on for safety. Lung sounds clear with dim bases, pt denies any SOB or chest pain. Pt on 2L nasal cannula and sats WNL. Pt on TELE, NSR rate 60's-70's. Abdomen s/nt/nd, +BS, LBM 02/27, pt given milk of mag. Pt turned and repositoned in bed and voiding on the bedpan with no issues. Pt does have some erythema on her coccyx which is blanchable, z guard applied. Right hip DSD is C/D/I. Cboots on and pt given ASA for DVT prophylaxis, +PP, +CMS, +D/P. Pt in [facility] bed as ordered. Ablock and ice in place. Pt given 650mg tylenol and 5mg oxy for pain. Will continue to monitor pt for pain and continue to monitor CMS. Discharge Information Rehabilitation Discharge : Rehab Discharge Index 03/03/2025 14:32 EDT Transfer tub/shower OT Plan Supervision 03/03/2025 13:39 EDT Walker: distance 20-50 03/03/2025 8:14 EDT Comments on treatment indicated Comments on treatment indicated Walker: distance 10-20 Distance pt will ambulate >100 ft c RW Full chart review completed Yes Hospital course see comment Other findings Pt is a moderate complexity evaluation as circumstances leading to hospitalization impact POC and functional mobility (Modified) Plan of care PT Gait training, Transfer training, Therapeutic exercise, Functional Activities, Balance training, Neuromuscular education 03/02/2025 15:03 EDT Comments on treatment indicated ADLs, bed mob, xfer training, fxl. mob, bal. training, safety precautions, d/c planning Full chart review completed Yes Hospital course Hospital course Transfer tub/shower OT Plan Supervision Consult note * Gricelda Holland: PERFORM Event Display: Consultation Note Authored Date: [id number] Patient: ??MEGHAN ATKINS ? Age:??79 Years?Sex:??Female?:??1945?? History of Present Illness Meghan??is an 79-year-old female who [place] [facility] [place].?? Patient statesthat approximately 1 week ago she tripped??in her home??and while she was trying to catch her balance??she??suffered a twisting??injury to the right hip.?? Patient denies fall.?? She has been having significant pain since the injury. ??It happened 1 week ago yesterday.?? Patient was using a walker for ambulation but continued to have significant discomfort.?? She was seen at the [facility] surgeons office this morning??where radiographs revealed a right hip fracture.?? Patient was advised to proceed to the emergency department??for admission.?? Patient denies numbness and tingling. ??She is complaining of hip pain in the right side.?? She just recently recovered from left??hip surgery as well as left proximal humerus fracture.?? She was found to have a right transcervical femoral neck fracture on radiographs. ??Orthopedic service was consulted??in the emergency department by YONAS Watt??under the direct supervision of Dr. Oneil. Review of Systems Denies fevers, chills or sweats. ??Denies chest pain. ??Denies other injuries or painful joints. ??All others as per [facility] Physical Exam Vitals & Measurements T:??97.4?F?? HR:??88??(Peripheral)?? HR:??73??(Peripheral)?? RR:??20?? BP:??154/77?? SpO2:??94%?? SpO2:??95%?? HT:??153??cm?? WT:??41??kg?? BMI:??17.51?? Physical exam: Patient is well-developed and in no acute distress. ??Alert and cooperative with examination. ??Mood and affect appropriate. ??Examined on a stretcher in the emergency department. ?? HEENT: Atraumatic, normocephalic Cardiac: Per medical team Pulmonary: Per medical team.?? Abdomen: Soft, nontender, nondistended. ?? Right upper extremity: Full, supple, nonpainful range of motion of shoulder, elbow, wrist and digits. ??No tenderness to palpation. ??Grossly neurovascularly intact radial, median, ulnar nerve distributions. ?? Left upper extremity: Full, supple, nonpainful range of motion of shoulder, elbow, wrist and digits. ??No tenderness to palpation. Grossly neurovascularly intact radial, median, ulnar nerve distributions. ?? Right lower extremity:??Examination reveals external rotation at the hip. ??Shortening is noted as compared to contralateral lower extremity examination. ??Patient is exquisitely tender to palpation about the hip and is unable to tolerate range of motion of same. ??Moderate edema noted about the hip. ??No discomfort about the femur distally. ??No discomfort about the knee, foot or ankle. ??Range of motion of the knee is nonpainful but decreased due aggravation of proximal hip pain. ??Patient has active dorsiflexion and plantar flexion strength. ??Palpable DP and PT pulses. ??Grossly intact sensation to light touch. ??Compartments are soft. ??Calf supple and nontender. ?? Left lower extremity: Full, supple, non-painful range of motion of the hip, knee, foot and ankle. ??No tenderness to palpation. ??Calf supple and nontender. Active dorsiflexion and plantar flexionstrength. ??Grossly neurovascularly intact. Assessment/Plan Assessment:??Plan:??Patient is admitted to the medical service.??Orthopedics will follow.??Preoperative medical clearance is requested.??Patient will be made n.p.o. after midnight tonight for possible surgery tomorrow.??Recommend strict nonweightbearing status, elevation, pain control and DVT prophylaxis. Patient is added to the orthopedic trauma surgery OR add on list with plan for surgical fixation once medically cleared and when OR schedule allows.??This was discussed with the patient who voiced understanding.??Questions are asked and answered.? 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 Problem List/Past Medical History Ongoing Anorexia Nervosa COPD with emphysema Depression Tobacco user Underweight Procedure/Surgical History Treatment of intertrochanteric, peritrochanteric, or subtrochanteric femoral fracture; with intramedullary implant, with or without interlocking screws and/or cerclage: 09/06/24 Home Medications Acetaminophen: 650 mg, By Mouth, Every 4 hours, PRN (Pain , Mild), Temperature Greater than 100.5 Budesonide-Formoterol: INHALE 2 PUFFS TWICE A DAY Calcium And Vitamin D Combination: 1 tablet, By Mouth, 2 times a day, takes /2 tablet @ hs Oxygen: 2L baseline Senna: 8.6 mg = 1 tablet, By Mouth, 2 times a day, PRN (Constipation) Sertraline: 12.5 mg, By Mouth, Daily Tiotropium: INHALE 1 CAPSULE VIA HANDIHALER ONCE DAILY AT THE SAME TIME EVERY DAY Allergies NKA Social History Patient denies??tobacco, alcohol and drug use.?? She did quit smoking in 2011.?? She lives at home alone and just recently returned??from her rehab stay.?? She does not use a walking aid at baseline. Family History ??Denies history of adverse reaction to anesthesia, bleeding dyscrasias, DVT. Radiology Pelvis and 2 view radiographs of the right hip reviewed by myself demonstrating acute minimally displaced fracture of the transcervical femoral neck with varus displacement.?? Left-sided InterTAN in place with good position.?? Osteoporosis noted diffusely femoral bony anatomy. Lab Results Labs Last 24 Hours BLOOD COUNT & DIFF ? Event Name?? Event Result?? Date/Time?? WBC 4.8 k/mm3 02/28/25 12:39:00 RBC 3.99 m/mm3??Low 02/28/25 12:39:00 Hgb 11.6 Gm/dL??Low 02/28/25 12:39:00 Hct 37.3 % 02/28/25 12:39:00 MCV 93.5 femtoliters 02/28/25 12:39:00 MCH 29.1 pg 02/28/25 12:39:00 MCHC 31.1 Gm/dL??Low 02/28/25 12:39:00 Platelet Count 178 k/mm3 02/28/25 12:39:00 MPV 10.6 femtoliters 02/28/25 12:39:00 Nucleated RBC (Automated) 0 #/100 WBC'S 02/28/25 12:39:00 ? CHEM GENERAL ? Event Name?? Event Result?? Date/Time?? Sodium 140 mmol/L 02/28/25 12:39:00 Chloride 104 mmol/L 02/28/25 12:39:00 Bicarbonate Level 26 mmol/L 02/28/25 12:39:00 Anion Gap 10 mmol/L 02/28/25 12:39:00 Glucose Level 107 mg/dL??High 02/28/25 12:39:00 BUN 13 mg/dL 02/28/25 12:39:00 Creatinine-Blood 0.47 mg/dL??Low 02/28/25 12:39:00 ? * Gricelda Holland: PERFORM Event Display: Consultation Note Authored Date: [id number] 7:23 AM 03/01/2025 ? Patient will be n.p.o. after midnight for surgery tomorrow with Dr. Howard from [facility].??Patient is aware and agreeable to plan. Note * Vishnu Sanford RN: PERFORM Event Display: Discharge/Transfer Note Hospital Authored Date: [id number] Nursing Discharge Note Entered On: 03/04/2025 18:16 EDT Performed On: 03/04/2025 18:15 EDT by Vishnu Sanford RN Nursing Discharge Note 2 Discharge Time : 03/04/2025 17:40 EDT Discharge Level of Care at Discharge : alf facility Discharge Nursing Homes/Rehab Facilities : [facility] Patient Left Unit Via : [facility] Patient Accompanied Off Unit with : Ambulance/[facility] Personnel Handover Given to Transport Personnel : Yes DC Instructions Provided & Signed by Pt : Yes Patient Understands D/C Instructions : Yes Patient Instructions Discharge Signed : Yes Did Pt have Specialty Bed or Wound Vac : No Vishnu Sanford RN - 03/04/2025 18:15 EDT * Alberto Shell DO: PERFORM Event Display: Discharge/Transfer Note Hospital Authored Date: [id number] Patient: ??WILBERT, MEGHAN ? Age:??79 Years?Sex:??Female?:??1945?? 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) Hip fracture (S72.009A) COPD mixed type (J44.9) Dependence on continuous supplemental oxygen (Z99.81) Depression (F32.A) Acute right hip pain (M25.551) _ Discharge Medications Acetaminophen (acetaminophen 325 mg oral tablet)??650 Milligram By Mouth Every 4 hours as needed Temperature Greater than 100.5 Pain , Mild Budesonide-Formoterol (Symbicort 160mcg/4.5mcg Inhaler)??INHALE 2 PUFFS TWICE A DAY Enoxaparin (enoxaparin 30 mg/0.3 mL injectable solution)??30 Milligram Subcutaneous Injection Dailyfor 26 Days Oxycodone (oxyCODONE 5 mg oral capsule)??1 capsule 5 Milligram By Mouth Every 6 hours as needed as needed for pain for 5 Days Oxygen??2L baseline Senna (senna 187 mg oral tablet)??1 tab(s) 8.6 Milligram By Mouth 2 times a day as needed Constipation Sertraline (Zoloft Tablet)??12.5 Milligram By Mouth Daily Tiotropium (Spiriva HandiHaler 18 mcg ??Inhalation Capsule)??INHALE 1 CAPSULE VIA HANDIHALER ONCE DAILY AT THE SAME TIME EVERY DAY ? Medications Started Oxycodone Lovenox Medications Discontinued None Doses Changed None Allergies Allergies ?(Active and Proposed Allergies Only) Adhesive Bandage? (Severity: Unknown severity, Onset: Unknown) ? Hospital Course Meghan is a 79-year-old woman with a past medical history of COPD, depression and chronic hypoxic respiratory failure on 2 L of oxygen who presented to the hospital from home after mechanical fall. ??Imaging revealed acute right hip fracture and patient was taken by orthopedic surgery team for surgical fixation on 03/02/2025. ??Patient tolerated procedure well??and postoperatively worked with physical therapy team recommended discharge to rehab.?? Patient now??ready for discharge to rehab facility??and at time of discharge hemodynamically stable. ?? Hip fracture (S72.009A) Acute right hip pain (M25.551) Patient presented after mechanical fall??sustaining acute right hip fracture Evaluated by orthopedic surgery team with recommendation for surgical fixation Underwent??orthopedic intervention on 03/02/2025 which patient tolerated well ??? Continue Tylenol and??oxycodone for pain control ?Lovenox for 26??more days??for DVT prophylaxis ??? Will need outpatient follow-up with orthopedic surgery team ?? 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 Temperature: 98.7 DegF (03/04/25 08:03:00) Temperature Route: Oral (03/04/25 08:03:00) Pulse Rate: 78 bpm (03/04/25 08:03:00) Respiratory Rate: 18 br/min (03/04/25 12:03:00) Systolic Blood Pressure: 132 mm Hg (03/04/25 08:03:00) Diastolic Blood Pressure: 55 mm Hg (03/04/25 08:03:00) Blood pressure sites: Arm, right (03/04/25 08:03:00) Mean Arterial Pressure: 81 mm Hg (03/04/25 08:03:00) Pulse Pressure: 77 mm Hg (03/04/25 08:03:00) Oxygen Saturation: 97 % (03/04/25 08:03:00) Liters per Minute: 2 L/min (03/04/25 08:03:00) Mode of Delivery (Oxygen): Nasal cannula (03/04/25 08:03:00) Early Warning Score: 3 (03/04/25 12:04:10) ? . Physical Exam General Appearance: NAD. Eyes:??No scleral icterus. ENT: ??MM moist. NC in place Cardiovascular: RRR S1 and S2 Respiratory: ??Breath sounds clear GI: Soft. Nontender and nondistended. MS: ??No edema or erythema in the lower extremities. Neuro: ??No slurred speech. Moving upper and lower extremities spontaneously. Psych: Alert and oriented x3. Surgical Procedures Hemiarthroplasty Hip 03/02/2025 10:29 [facility] Follow-Up Appointments Added Follow Up ?Time Frame ?Comments Johana FREGOSO, Pamela Weston?3-5 day: call to discuss follow up visit Results Discharge Labs BLOOD BANK Blood Type A Positive ()?? 02/28/2025 14:47 Antibody Screen Negative ()?? 02/28/2025 14:47 ?? BLOOD COUNT & DIFF WBC 4.0 k/mm3 ()?? 03/04/2025 04:41 RBC 2.50 m/mm3 (Low)?? 03/04/2025 04:41 Hgb 7.3 Gm/dL (Low)?? 03/04/2025 04:41 Hct 23.6 % (Low)?? 03/04/2025 04:41 MCV 94.4 femtoliters ()?? 03/04/2025 04:41 MCH 29.2 pg ()?? 03/04/2025 04:41 MCHC 30.9 Gm/dL (Low)?? 03/04/2025 04:41 Platelet Count 137 k/mm3 (Low)?? 03/04/2025 04:41 RDW-SD 51.8 femtoliters (High)?? 03/04/2025 04:41 MPV 10.2 femtoliters ()?? 03/04/2025 04:41 Nucleated RBC (Automated) 0.0 #/100 WBC'S ()?? 03/04/2025 04:41 Abs. NRBC 0.0 k/mm3 ()?? 03/04/2025 04:41 Abs. Neut 3.5 k/mm3 ()?? 02/28/2025 12:39 Abs. Lymph 0.8 k/mm3 ()?? 02/28/2025 12:39 Abs. Cabell 0.4 k/mm3 ()?? 02/28/2025 12:39 Abs. Eo 0.0 k/mm3 ()?? 02/28/2025 12:39 Abs. Baso 0.0 k/mm3 ()?? 02/28/2025 12:39 Neut % 73.4 % ()?? 02/28/2025 12:39 Lymph % 16.8 % ()?? 02/28/2025 12:39 Cabell % 8.2 % ()?? 02/28/2025 12:39 Eos % 0.8 % ()?? 02/28/2025 12:39 Baso % 0.6 % ()?? 02/28/2025 12:39 Imm Gran 0.2 % ()?? 02/28/2025 12:39 Abs. Imm Gran 0.0 k/mm3 ()?? 02/28/2025 12:39 ?? CHEM GENERAL Sodium 140 mmol/L ()?? 03/04/2025 04:41 Potassium 5.0 mmol/L ()?? 03/04/2025 04:41 Chloride 106 mmol/L ()?? 03/04/2025 04:41 Bicarbonate Level 27 mmol/L ()?? 03/04/2025 04:41 Anion Gap 7 mmol/L ()?? 03/04/2025 04:41 Glucose Level 71 mg/dL ()?? 03/02/2025 05:37 BUN 20 mg/dL ()?? 03/04/2025 04:41 Creatinine-Blood 0.59 mg/dL ()?? 03/04/2025 04:41 Estimated GFR Creatinine 90 ML/MIN/1.73 M2 ()?? 03/04/2025 04:41 Calcium 8.9 mg/dL ()?? 03/02/2025 05:37 Phosphorus 3.6 mg/dL ()?? 03/02/2025 05:37 Magnesium 2.0 mg/dL ()?? 03/02/2025 05:37 Protein, Total 6.7 Gm/dL ()?? 03/02/2025 05:37 Albumin 3.2 Gm/dL (Low)?? 03/02/2025 05:37 Alkaline Phosphatase 102 units/L ()?? 03/02/2025 05:37 AST (SGOT) 14 units/L ()?? 03/02/2025 05:37 ALT (SGPT) 6 units/L ()?? 03/02/2025 05:37 Bilirubin, Total 0.3 mg/dL ()?? 03/02/2025 05:37 Bilirubin, Direct 0.1 mg/dL ()?? 03/02/2025 05:37 Bilirubin, Indirect 0.2 mg/dL ()?? 03/02/2025 05:37 ?? COAG INR 1.1 ()?? 03/02/2025 05:37 Protime (PT) 11.1 seconds ()?? 03/02/2025 05:37 ?? URINE OTHER Est Creatinine Clearance 48.40 mL/min ()?? 03/04/2025 05:55 ? 34??minutes spent on discharge * Lynnette Arellano RN: PERFORM, SIGN, VERIFY Event Display: Case Management Discharge Plan Authored Date: Patient: MEGHAN ATKINS Age: 79 years Sex: Female : 1945 Associated Diagnoses: None Author: Lynnette Arellano RN Discharge Plan Case Management Discharge Plan : Case Management Discharge Plan Data 03/04/2025 14:09 EDT Discharge Level of Care at Discharge alf facility Discharge Nursing Homes/Rehab Facilities [facility] Discharge Transportation Arranged [facility] [address] [facility] [phone] Service Categories #1 Occupational Therapy, Physical Therapy, Long Term Service Comments #1 You are being discharged today to the [address] [address]. You will go by [facility]. * Vishnu Sanford RN: PERFORM Event Display: Patient Education/Instruction Authored Date: [id number] Inpatient Adult Discharge Instructions. [facility] [address] [place], [place] [id number] Name: MEGHAN ATKINS : 1945?? Visit: 02/28/2025 13:23?? Current Date: 03/04/2025 14:36 ?? Account: [id number]?? Inpatient Adult Discharge Instructions We would like to thank you for allowing us to assist you with your healthcare needs. The following includes patient education materials and information regarding your injury/illness. Our entire staffstrives to provide an excellent experience for our patients and their families. PLEASE ENSURE YOU FOLLOW-UP PER THE INSTRUCTIONS BELOW! ?? YOUR OPINION IS IMPORTANT TO US! Please complete the survey you may receive by mail or email. Your feedback will be used to make improvements to the healthcare experiences of our patients and their families. Surveys are administered by [employer], for; to (do) Centers. ?? If further treatment with your primary care physician or another doctor is recommended, it is important for you to keep the appointment. Call your primary care physician or return to the Emergency Department immediately if your condition worsens, fails to improve, or new symptoms develop. If you need to find a doctor, you can call [facility] Link for a referral at [phone] or toll free at [phone]) or log in to [email or web address].. ?? [facility], in keeping with [facility] guidance, no longer requires face masks for staff, patientsor visitors in most situations. Similiar to time spent indoors at other locations, there is the chance that you were exposed to repiratory viruses during your time with us (such as flu or COVID-19). If you develop symptoms concerning for a viral respiratory infection, please seek testing (and treatment if indicated) from your medical provider or home test kit. ?? You can view and manage your care through the patient portal or by using a health care ben of your choosing. [email or web address] is a website that allows you to securely view your medical information including your hospital discharge summary, office visit summaries, medications and follow-up visits. You can also request appointments, renew medications, and request access to your medical information using a health care ben of your choosing, or just ask a question. You are entitled to know the individuals who participated in your treatment. This information is available within your medical record and will be provided upon your request. You can enroll at [email or web address] or register d uring your next office visit. You have been discharged from [facility], Patient Care Unit: SW7??. If you have any questions regarding these instructions, including results of studies pending, afteryou leave, please call us and we will be happy to assist you 22/02. [facility] Your Care Team Attending Physician Alberto Shell DO?? Consulting Providers Alberto Shell DO?? Discharging Providers Alberto Shell DO Reason for Your Visit right hip fracture?? 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 You may have had other tests and procedures not included in this list. Please discuss all test results with your provider. Basic Metabolic Panel BUN CBC CBC w/ Differential Creatinine Electrolytes INR Liver Function Panel Mg Level Phosphorus Level PT (INR) Type and Screen XR Chest Single Frontal View XR Hip w/Pelvis 2-3 View Right XR Pelvis 1 or 2 Views BUN?? Basic Metabolic Panel?? CBC?? CBC w/ Differential?? Creatinine?? Electrolytes?? Hepatic Function Panel (Liver Function Panel)?? INR (PT (INR))?? Magnesium Level (Mg Level)?? Pathology Tissue Request ()?? Phosphorus Level?? Type and Screen?? Chest Single Frontal View (XR Chest Single Frontal View)?? XR Hip w/Pelvis 2-3 View Right?? Pelvis 1 or 2 Views (XR Pelvis 1 or 2 Views)?? Primary Care Provider Pmaela Vaughn MD? Advance Directive Health Care Proxy on File Yes - Health Care Proxy Discharge Vitals Temperature: 98.7 DegF Height: 153 cm Pulse Rate: 78 bpm Weight: 41 kg Respiratory Rate: 18 br/min Body Mass Index:??17.51 kg/m2??Low Systolic Blood Pressure: 132 mm Hg Body surface area: 1.32 Diastolic Blood Pressure: 55 mm Hg ?? Oxygen Saturation: 97 % ?? Studies Pending All studies ordered during this hospital stay have been completed unless listed below. Please discuss all pending results with your provider listed above in these instructions. ?? BUN?? CBC?? Creatinine?? Electrolytes?? Pathology Tissue Request ()?? What to do next Instructions From Your Doctor ?? Orders? 03/04/25 14:20:00 EDT?? You Need to Schedule the Following Appointments Follow Up with??Anita FREGOSO, Kai Tang When:??Within 3-5 day: call to discuss follow up visit Where: [address] [facility] [place] [address]- Follow Up with??Johana FREGOSO, Pamela Weston When:??Within 3-5 day: call to discuss follow up visit Where: [address] [place], [place] [id number]- Discharge Medications MEGHAN ATKINS :1945 Visit Date:02/28/2025 Medications: Please continue your medications until treatment is completed or stopped by your provider. Medications not listed below should be discontinued. Discuss any questions related to medications with your provider. What How Much When Instructions Next Dose Changed Enoxaparin (enoxaparin 30 mg/ 0.3 mL injectable solution) 30 Milligram Subcutaneous Injection Daily Duration: 26 Days 03/05 Tomorrow Changed Oxycodone (oxyCODONE 5 mg oral capsule) 1 capsule Oral Every 6 hours as needed for as needed for pain Duration: 5 Days Printed Prescription Today 03/04 at 8:30pm Unchanged Acetaminophen (acetaminophen 325 mg oral tablet) 650 Milligram Oral Every 4 hours as needed for Pain , Mild Temperature Greater than 100.5 ?? Today 03/04 at 7pm Unchanged Budesonide-Formoterol (Symbicort 160mcg/ 4.5mcg Inhaler) INHALE 2 PUFFS TWICE A DAY ?? 03/05 Tomorrow Unchanged Oxygen 2L baseline ?? Today Unchanged Senna (senna 187 mg oral tablet) 1 tab(s) Oral Twice a day as needed for Constipation As needed Unchanged Sertraline (Zoloft Tablet) 12.5 Milligram Oral Daily 03/05 Tomorrow Unchanged Tiotropium (Spiriva HandiHaler 18 mcg Inhalation Capsule) INHALE 1 CAPSULE VIA HANDIHALER ONCE DAILY AT THE SAME TIME EVERY DAY ?? 03/05 Tomorrow ?? What How Much When Comments Stop Taking Calcium And Vitamin D Combination (Calcium 600 +D) 1 tab(s) Oral Twice a day takes / 2 tablet @ hs ?? Prescription Given During Visit Enoxaparin (enoxaparin 30 mg/0.3 mL injectable solution) - 30 mg, Subcutaneous Injection, Daily, # 26 each, 0 Refills?? Oxycodone (oxyCODONE 5 mg oral capsule) - 1 capsule = 5 mg, By Mouth, Every 6 hours, # 12 capsule, 0 Refills?? Laboratory Results Below is a partial list of the most recent Laboratory test results done prior to this discharge. You may have had other tests and procedures not included in this list. Please discuss all test resultswith your provider. Est Creatinine Clearance - 48.40 mL/min (03/04/2025) Basic Metabolic Panel (03/02/2025) ???Sodium - 140 mmol/L???Potassium - 4.7 mmol/L???Chloride - 105 mmol/L???Bicarbonate Level - 27 mmol/L???Anion Gap - 8 mmol/L???Glucose Level - 71 mg/dL???BUN - 16 mg/dL???Creatinine-Blood - 0.52 mg/dL???Estimated GFR Creatinine - 93 ML/MIN/1.73 M2???Calcium - 8.9 mg/dL BUN (03/04/2025) ???BUN - 20 mg/dL CBC (03/04/2025) ???WBC - 4.0 k/mm3???RBC - 2.50 m/mm3???Hgb - 7.3 Gm/dL???Hct - 23.6 %???MCV - 94.4 femtoliters???MCH - 29.2 pg???MCHC - 30.9 Gm/dL???Platelet Count - 137 k/mm3???RDW-SD - 51.8 femtoliters???MPV - 10.2 femtoliters???Nucleated RBC (Automated) - 0.0 #/100 WBC'S???Abs. NRBC - 0.0 k/mm3 CBC w/ Differential (02/28/2025) ???WBC - 4.8 k/mm3???RBC - 3.99 m/mm3???Hgb - 11.6 Gm/dL???Hct - 37.3 %???MCV - 93.5 femtoliters???MCH - 29.1 pg???MCHC - 31.1 Gm/dL???Platelet Count - 178 k/mm3???RDW-SD - 50.8 femtoliters???MPV - 10.6 femtoliters???Nucleated RBC (Automated) - 0.0 #/100 WBC'S???Abs. NRBC - 0.0 k/mm3???Abs. Neut - 3.5 k/mm3???Abs. Lymph - 0.8 k/mm3???Abs. Cabell - 0.4 k/mm3???Abs. Eo - 0.0 k/mm3???Abs. Baso - 0.0 k/mm3???Neut % - 73.4 %???Lymph % - 16.8 %???Cabell % - 8.2 %???Eos % - 0.8 %???Baso % - 0.6 %???Imm Gran - 0.2 %???Abs. Imm Gran - 0.0 k/mm3 Creatinine (03/04/2025) ???Creatinine-Blood - 0.59 mg/dL???Estimated GFR Creatinine - 90 ML/MIN/1.73 M2 Electrolytes (03/04/2025) ???Sodium - 140 mmol/L???Potassium - 5.0 mmol/L???Chloride - 106 mmol/L???Bicarbonate Level - 27 mmol/L???Anion Gap - 7 mmol/L INR (02/28/2025) ???INR - 1.1???Protime (PT) - 11.3 seconds Liver Function Panel (03/02/2025) ???Protein, Total - 6.7 Gm/dL???Albumin - 3.2 Gm/dL???Alkaline Phosphatase - 102 units/L???AST (SGOT) - 14 units/L???ALT (SGPT) - 6 units/L???Bilirubin, Total - 0.3 mg/dL???Bilirubin, Direct - 0.1 mg/dL???Bilirubin, Indirect - 0.2 mg/dL Mg Level (03/02/2025) ???Magnesium - 2.0 mg/dL Phosphorus Level (03/02/2025) ???Phosphorus - 3.6 mg/dL PT (INR) (03/02/2025) ???INR - 1.1???Protime (PT) - 11.1 seconds Type and Screen (02/28/2025) ???Blood Type - A Positive???Antibody Screen - Negative You will be contacted within 72 hours with your results. Allergies (NKA means No Known Allergies) Adhesive Bandage Problems Active Problems??(5) Anorexia Nervosa?? COPD with emphysema?? Depression?? Tobacco user?? Underweight?? Education Materials Below is the list of Educational Leaflet Providered with your Discharge Instructions. Valuables and Belongings I fully understand and agree that [facility] accepts no responsibility for all my personal property including clothing, toilet articles, radios, jewelry, dentures, hearing aids, rings, money, or any other property that is in my possession or is brought to me after admission. I understand certain valuables may be placed in a hospital safe for a short period of time. I understand that the hospital is not liable for loss or damage due to accident, fire, or other natural occurrence while said property is in the safe. I accept full responsibility for any personal property that I keep with me, and will not hold the hospital responsible in case of loss or disappearance. I acknowledge that i have been encouraged to send valuables and belongings home. ?? Review of Valuable and Belonging List: With patient, With witness Date for Pt to Sign Valuables/Belongings: 02/28/25 16:07:00 ?? Other Discharge Information ? Case Management Discharge Plan?? Discharge Plan?? Discharge Agency Information?? Discharge Level of Care at Discharge: alf facility Service Categories #1: Occupational Therapy, Physical Therapy, Long Term Discharge Transportation Arranged: [phone] [id number] Service Comments #1: You are being discharged today to the [facility] [address] [facility] [address]. You will go by chairvan. Discharge Nursing Homes/Rehab Facilities: Sam Batista [facility] ? Pulmonary Rehab Status?? Pulmonary Rehab Discharge Status?? Respiratory Rate: 18 br/min ? Common Emergency Awareness Tips IS IT A STROKE? Act FAST and Check for these signs: FACE Does the face look uneven? ARM Does one arm drift down? SPEECH Does their speech sound strange? TIME Call at any sign of stroke ?? Heart Attack Signs Chest discomfort: Most heart attacks involve discomfort in the center of the chest and lasts more than a few minutes, or goes away and comes back. It can feel like uncomfortable pressure, squeezing, fullness or pain. Discomfort in upper body: Symptoms can include pain or discomfort in one or both arms, back, neck, jaw or stomach. Shortness of breath: With or without discomfort. Other signs: Breaking out in a cold sweat, nausea, or lightheaded. Remember, MINUTES DO MATTER. If you experience any of these heart attack warning signs, call to get immediate medical attention! ?? Smoking can increase your chances of developing chronic health problems and can cause harmful effects to other family members in your house. If you smoke, you are strongly encouraged to quit. Please call [facility] Link at [phone] or [phone] ([phone]) or log in to [email or web address] for referrals to smoking cessation programs. ?? 788 Suicide & Crisis Lifeline is available 22/02 if you or someone you know needs to find a reason to keep living. By calling 375 you'll be connected to a skilled, trained counselor at a crisis center in your area. INPATIENT DISCHARGE INSTRUCTIONS SIGNATURE MEGHAN MURDOCK Location:[facility] Registration Date and Time:02/28/2025 13:23 EDT Primary Care Physician: Pamela Vaughn MD, Attending Physician: Alberto Shell DO, I MEGHAN ATKINS, have received the above patient education materials/instructions and have verbalized understanding. If ambulance or transport services are being used I further acknowledge being given a choice of service. ?? If you need to contact me, please call me at this number: . Patient/Runner Out Name: Patient/Runner Out Signature: Relationship to Patient: Witness Name/Signature: Date: Patient Care team information Care Team Personnel Name: Eder Pringle RN Position: [facility] RN Member Role: Primary Care Nurse Name: Pamela Vaughn MD Position: [facility] Outreach Member Role: PCP Address: [address] [place] [address] Telecom: Name: Piter Becerra RN Position: [facility] RN Member Role: Primary Care Nurse Name: Edith Mendez RN Position: [facility] RN Member Role: Primary Care Nurse Name: Kath Ibarra RN Position: [facility] RN Member Role: Primary Care Nurse Name: Robert Hernández RN Position: [facility] RN Member Role: Primary Care Nurse Name: Radha Belle RN Position: [facility] AMB Nurse Member Role: Primary Care Nurse Care Team Related Persons Name: HUY ATKINS Insurance Providers Guarantor name: MEGHAN ATKINS Health Plan Information #: 1 Payer: MEDICARE A INPT 25 Payer Identifier: ROEL Member Number: [id number] Group Number: [id number] Subscriber Identifier: [id number] Relationship to Subscriber: self Coverage Type: MEDICARE Coverage Verification Date: NA Telecom: ROEL Address: ROEL Health Plan Information #: 2 Payer: I10 MEDICARE SUPPL [id number] Payer Identifier: ROEL Member Number: [id number] Group Number: [id number] Subscriber Identifier: [id number] Relationship to Subscriber: self Coverage Type: NA Coverage Verification Date: ROEL Telecom: ROEL Address:
--- NOTE | 2025-03-07 08:43 | A.OFFVIS_ITS ---
Vital Signs 03/07/25 08:46 Height 5 ft 1 in Weight 95 lb BMI 17.9 BP 108/60 Blood Pressure Location Rt brachial Position Sitting Pulse 70 Pulse Source Pulse Oximeter Pulse Oximetry (%) 96 Oxygen Delivery Method Nasal Cannula Oxygen Flow Rate 2 Intake Visit Reasons: COPD Assistant Football Coach Required: No Career Placement Specialist: Career Placement Specialist offered & declined Allergies doxycycline Adverse Reaction (Intermediate, Verified 03/07/25 09:26) Gastrointestinal Upset HPI HPI COPD: Details: Meghan is a pleasant 79 year old female, former 47 pack year smoker, quit 2011 with underlying COPD, melanoma of right eye s/p surgery 2007, multiple other sq uamous/basal cell carcinomas removed, last 2020. At baseline she has been well controlled on Symbicort 160 mcg and Spiriva, requiring albuterol MDI infrequently. She has been followed for pulmonary nodules. August 2023 CT chest revealed 9 mm RLL nodule and was sent for PET with little FDG activity. Repeat chest CT from 12/2023 revealed new 1 cm x 2 cm spiculated nodule of the left apex. She was sent for lung biopsy through [facility], however prior to biopsy repeat chest CT was ordered revealing resolution of spiculated nodule, likely inflammatory in nature. We discussed repeating chest CT to assess stability however patient continues to decline further CT imaging. Recent CXR 02/28/25 revealed chronic interstitial changes of upper lobes with hyperinflation otherwise no significant findings, from [facility] however only 1 view. Since the last visit, she was admitted to [facility] in November after sustaining tibula fracture, transferred to SNF subsequently developing bilateral pneumonia and treated with ?Augmentin as well as started on 2L supplemental oxygen. Since discharge she unfortunately was admitted to [facility] s/p fall last week and underwent right hip hemiarthroplasty. She is recovering well from surgery, currently at a SNF. Unfortunately she continues with use of 2L supplemental oxygen continously, with difficulty expectorating and notable RLL inspiratory crackles. Denies chest congestion, fevers or chills. She does admit to infrequent use of incentive spirometer and due to pain has significant reduced activity. [facility] Medical History (Updated 12/09/23 @ 13:34 by Jimena Andrews PA-C) COPD (chronic obstructive pulmonary disease) Personal history of nicotine dependence History of melanoma Anorexia nervosa Splenomegaly Surgical History (Updated 12/09/23 @ 13:34 by Jimena Andrews PA-C) History of melanoma excision History of basal cell carcinoma excision History of Social History Patient Tobacco Use Status: Former Tobacco user Tobacco use type: Cigarette Cigarette Packs Per Day: 1 Years Smoked: 47 Review of Systems Const Denies chills, Denies excessive sweating, Denies fever(s), Denies headache(s) and Denies night sweats Eyes Denies dry eyes, Denies irritation and Denies itchy eyes ENT Reports Normal hearing present, Denies headache(s), Denies nasal congestion, Denies nasal discharge, Denies post nasal drip and Denies sore throat Card Denies chest pain, Denies chest pain at rest, Denies chest pain with activity, Denies claudication, Denies leg edema, Denies dyspnea, Denies dyspnea on exertion, Denies orthopnea and Denies paroxysmal nocturnal dyspnea Resp Denies chest congestion, Denies excessive phlegm production, Denies pain on inspiration, Denies pain with cough, Denies dyspnea, Denies dyspnea on exertion, Denies stridor and Denies wheezing Musc Denies myalgias Neuro Reports Normal hearing present and Denies headache(s) Endo Denies excessive sweating Andre/Lymph Denies lymphadenopathy Aller/Immun Denies itchy eyes, Denies seasonal rhinorrhea and Denies wheezing Physical Exam Vital Signs: Last Vital Signs Pulse 70 03/07/25 08:46 BP 108/60 03/07/25 08:46 Pulse Ox 96 03/07/25 08:46 Oxygen Delivery Method Nasal Cannula 03/07/25 08:46 Oxygen Flow Rate 2 03/07/25 08:46 BMI result Body Mass Index 17.9 Const General: cooperative, comfortable, no acute distress and alert Nutritional Appearance: underweight Orientation/consciousness: patient oriented x3 Limitations: wheelchair HEENT Head: Yes normal to inspection, Yes normocephalic and Yes atraumatic Ears: hearing grossly normal bilaterally and external ears normal Eyes General: appearance normal, both eyes and all related structures Eyelids: Yes eyelids normal Sclerae: sclerae normal EOM: EOMs intact bilaterally Neck Neck: Yes normal visual inspection and Yes no lymphadenopathy Lymphatic: no lymphadenopathy noted Chest Chest palpation & inspection: normal inspection of the chest Resp Other: diminished lung sounds bilaterally with coarse inspiratory crackles of RLL Effort & Inspection: normal respiratory effort, able to speak in complete sentences, no audible wheezes, no cough, no stridor, not tachypneic, no tripod positioning and no use of accessory muscles Cardio Jugular venous distension: no JVD Rate: regular rate Rhythm: regular rhythm Skin Other: warm, dry General skin exam: no rashes or lesions noted Neuro General: patient oriented x3 Cranial nerves: Yes Normal hearing present Cognition (Neuro): normal cognition Extrem General: Yes normal to inspection, Yes capillary refill normal, Yes no clubbing, cyanosis or edema and Yes no pedal edema Psych Appearance: grossly normal and well kempt Speech and movement: Normal speech and movement present and Clear speech present Affect: normal affect Attitude: cooperative Thought process: Normal thought process present Thought content: Normal thought content present Insight: Good insight present (Psych) Judgement: Good judgement present (Psych) Assessment & Plan Assessment & Plan (1) COPD (chronic obstructive pulmonary disease): Code(s): J44.9 - Chronic obstructive pulmonary disease, unspecified Category: Medical (2) History of melanoma: Comment: (melanoma of right eye s/p surgery 2007) Code(s): Z85.820 - Personal history of malignant melanoma of skin Category: Medical (3) Pulmonary nodule: Code(s): R91.1 - Solitary pulmonary nodule Category: Medical Plan Will treat for bronchopneumonia with Cefpodoxime and encouraged use of DuoNeb as well as incentive spirometer. Prescriptions were printed and handed to patient as she is currently at a SNF, hoping to be discharged in two weeks. Advised to continue current regimen of Symbicort and Spiriva, she is aware to call with worsening symptoms. Advised patient to continue 2L supplemental oxygen at this time to maintain oxygen saturation >92%. Will attempt 6MWT at next visit when able to tolerate ambulation and send for overnight oximetry at that time to assess continued need for noctural supplemental oxygen. In regards to waxing and waning lung nodules, discussed the need for repeat chest CT however patient continues to decline. At this time, she is not interested in repeating further imaging to monitor pulmonary nodules. All questions were answered and patient is in agreement of plan. Will follow up in 4-6 weeks or sooner if needed. Medications: New cefpodoxime must administer with a meal/food 200 mg PO BID 20 tabs 0RF cefpodoxime must administer with a meal/food 200 mg PO BID 20 tabs 0RF ipratropium-albuterol 0.5 mg-3 mg(2.5 mg base)/3 mL 3 mL inhalation Q6H PRN 90 mL 0RF wheezing Coding Level of Care Code Est Pt Level 4 (77580) Complex EM visit Add On G2211 Diagnoses COPD (chronic obstructive pulmonary disease) J44.9 History of melanoma Z85.820 Pulmonary nodule R91.1
[2025-03-07 08:46] VITALS: BP 108/60; PULSE 70; O2SAT 96; BMI 17.9
--- OUTSIDE RECORDS SUMMARY | 2025-03-07 08:51 | XMS_ITS | Encounter Summary ---
Author Organization [facility] Address [address] [place] [address] Care Team Providers Care Fitting Room Inspector Name Role Phone Ag Shaw MD Primary Care Provider [phone] Encounter Details Date Type Department Care Team (Late st Contact Info) Description 01/12/2025 Lab Requisition [facility] - Main Lab [address] [facility] [place] [address] Elvis Patricia MD [address] [place] [address] Fever, unspecified; Chronic cough Social History Tobacco Use Types Packs/Day Years [...] Procedure Name Priority Date/Time Associated Diagnosis Comments [id number], RSV, FLU A AND B QUALITATIVE RT-PCR, LOCAL REFERENCE LAB Routine 01/12/2025 12:00 AM EDT Fever, unspecified Chronic cough documented in this encounter Results * [id number], RSV, Influenza A and B qualitative RT-PCR (01/12/2025 12:00 AM EDT) SARS COV-2 Not Detected Not Detected LAB MOLECULAR DIAGNOSTICS METHOD 01/13/2025 2:02 PM EDT [facility] Influenza A PCR Not Detected Not Detected LAB MOLECULAR DIAGNOSTICS METHOD 01/13/2025 2:02 PM EDT [facility] Influenza B PCR Not Detected Not Detected LAB MOLECULAR DIAGNOSTICS METHOD 01/13/2025 2:02 PM EDT [facility] RSV PCR Not Detected Not Detected LAB MOLECULAR DIAGNOSTICS METHOD 01/13/2025 2:02 PM EDT [facility] Swab Nasopharyngeal structure / Unknown Non-blood Collection / Unknown 01/12/2025 01/12/2025 10:37 AM EDT Elvis Patricia MD LAB MICROBIOLOGY - GENERAL ORDERABLES Final Result [facility] [address] [place] [address], documented in this encounter Visit Diagnoses Diagnosis Fever, unspecified Chronic cough Cough documented in this encounter Additional Health Concerns Infection Onset Date Last Indicated Resolved Time Respiratory Rule-Out 01/12/2025 01/12/2025 025 2:02 PM EDT documented as of this encounter Care Teams Fitting Room Inspector Relationship Specialty Start Date End Date Ag Shaw MD [address] [address] PCP - General 05/31/03 documented as of this encounter
--- OUTSIDE RECORDS SUMMARY | 2025-03-07 08:51 | XMS_ITS | Clinical Summary ---
Author Organization [facility] Address [address] [address] Phone Care Team Providers Care Care Transition Manager Name Role Phone Jose Segovia MD Unavailable [phone] Pamela Vaughn MD Primary Care Provider [phone] Denton Oneill MD Unavailable [phone] Allergies No known active allergies Medications SERTRALINE HCL (SERTRALINE ORAL) Take by mouth. Active CALCIUM CARBONATE/VITAMI N D3 (CALCIUM+D ORAL) Take by mouth. Active DOCOSAHEXANOIC ACID/EPA (FISH OIL ORAL) Take by mouth. Active ESTROGEN,CON/M-P ROGEST ACET (PREMPRO ORAL) Take by mouth. Active DOXYCYCLINE CALCIUM ORAL Take by mouth. Active TIOTROPIUM BROMIDE (SPIRIVA RESPIMAT INHL) Inhale into the lungs. Active budesonide-formo terol (SYMBICORT) 80-4.5 mcg/actuation inhaler Inhale 2 puffs into the lungs 2 (two) times a day. Active Active Problems Problem Noted Date Diagnosed Date Malignant melanoma 12/30/2012 Overview (09/22/2014): Malignant melanoma; left eye, s/p PBI OS 07/06/08 Family History Medical History Relation Comments Cardiovascular disease Father Macular degeneration Father Diabetes Mother Hypertension Mother Relation Status Comments Father Mother Social History Tobacco Use Types Packs/Day Years Used Date Smoking Tobacco: Former Smokeless Tobacco: Never Alcohol Use Standard Drinks/Week Comments Yes 0 (1 standard drink = 0.6 oz pur e alcohol) Rarely Education Answer Date Recorded Are you interested in more education? Not on mary e 11/26/2022 Are you concerned about learning? Not on file 11/26/2022 No 11/26/2022 No 11/26/2022 Digital Access Answer Date Recorded No 12/28/2022 No 12/28/2022 Reliable internet access at home? Not on file 12/28/2022 Device with a working camera? Not on file Comments Unknown Sex and Gender Information Value Date Recorded Sex Assigned at Female 08/09/2017 9:34 AM EST Legal Sex Female 8:09 PM EST Gender Identity Female Sexual Orientation Straight Plan of Treatment Upcoming Encounters Date Type Department Care Team ([facility] Contact Info) Description 06/26/2025 7:50 AM EST Office Visit [facility] [address] [place] [address] Tara Tate MD [address] [place] [phone] [email or web address] Health Maintenance Due Date Last Done Comments Adult Td,Tdap Booster 1945 DEPRESSION SCREENING 1955 PNEUMOCOCCAL VACCINES (50+ years) (1 of 2 - PCV) 1962 ZOSTER VACCINES (1 of 2) 1962 OSTEOPOROSIS SCREENING INITI AL (ONE-TIME) 2008 RSV VACCINE (1 - 1-dose 75+ series) 2018 COVID-19 VACCINE (3 - 2023-2 5 season) 2024 09/23/2020, 09/02/2020 HEPATITIS A VACCINES Aged Out No long er eligible based on patient's age to complete this topic HIB VACCINES Aged Out No longer eligi ble based on patient's age to complete this topic MENINGOCOCCAL VACCINES (ACWY) Aged Out No longer eligible based on patient's age to complete this topic MENINGOCOCCAL VACCINES (B) Aged Out N o longer eligible based on patient's age to complete this topic Medical Devices Not on file Insurance MEDICARE PART A & B [facility] MEDICARE SUPPLEMENT Member Subscriber Plan / Payer (Ef fective 2022-) Name:Meghan Montague Relation to Subscriber:Self Name:Meghan Montague Payer ID:[id number] (NAIC) Type:[facility] Address: [address] INDEMNITY MEDICARE PART A & B [facility] MEDICARE SUPPLEMENT INDEMNITY MEDICARE PART A & B MEDICARE PART A & B MEDICARE PART A & B MEDICARE SUPPLEMENT [facility] INDEMNITY MEDICARE PART A & B [facility] MEDICARE SUPPLEMENT Member Subscriber Plan / Payer ( fective 2022-) Name:Meghan Montague Relation to Subscriber:Self Name:Meghan Montague Payer ID:[id number] (NAIC) Type:[facility] Address: [facility] [id number] [place] [id number] INDEMNITY MEDICARE PART A & B MEDICARE SUPPLEMENT MEDICARE PART A & B [facility] MEDICARE SUPPLEMENT Member Subscriber Plan / Payer ( fective 2022-) Name:Meghan Montague R Relation to Subscriber:Self Name:Meghan Montague Payer ID:[id number] (NAIC) Type:O Address: [address] INDEMNITY MEDICARE PART A & B Member Subscriber Plan / Payer ( fective 2008-) Name:Meghan Montague Member ID:[id number] Relation to Subscriber:Self Name:Meghan Montague Subscriber ID:[id number] Payer ID:[id number] Group ID:Not on file Type:Medicare Address: [facility] [address] [address] [facility] MEDICARE SUPPLEMENT Member Subscriber Plan / Payer ( fective 2022-) Name:Meghan Montague Relation to Subscriber:Self Name:Meghan Montague Payer ID:[id number] (NAIC) Type:[employer] Address: [address] [place] [address] [place] [address] INDEMNITY [employer] Care Teams Care Transition Manager Relationship Specialty Start Date End Date Pamela Vaughn MD [address] [place] [phone] [email or web address] PCP - General Internal Medicine 05/02/19 Jose Segovia MD Ophthalmology 04/18/18 Denton Oneill MD [address] [place] [address] Ophthalmology 05/05/19 Additional Source Comments The information contained in this document represents components of the legal health record. It is not the complete legal health record.[facility]
== END 2025-03-07 09:28 | disposition home or self-care (01) ==
LOC: HO.HPSW 08:39
PROVIDERS: PCP Physician Assistant Medical; Visit Provider Nurse Practitioner Family
DX: J44.9 Chronic obstructive pulmonary disease, unspecified (principal); Z85.820 Personal history of malignant melanoma of skin; R91.1 Solitary pulmonary nodule
CPT/HCPCS: 99214; G2211

== ENCOUNTER → 2025-03-07 08:39 | Outpatient (BNVA) | payer MEDICARE, OTHER, SELFPAY | PROVIDERS: PCP Physician Assistant Medical; Visit Provider Nurse Practitioner Family | DX: R91.1 Solitary pulmonary nodule (principal); J44.9 Chronic obstructive pulmonary disease, unspecified; Z85.820 Personal history of malignant melanoma of skin | CPT/HCPCS: 99212 ==

== ENCOUNTER 2025-04-20 09:33 | Outpatient (AMB) | payer MEDICARE, OTHER, SELFPAY ==
[2025-04-20 09:41] VITALS: BP 140/70; PULSE 68; O2SAT 88; BMI 17.3
--- NOTE | 2025-04-20 09:41 | MHC.OFFVIS ---
Vital Signs 04/20/25 09:41 Height 5 ft 1 in Weight 91 lb 6 oz BMI 17.3 BP 140/70 H Blood Pressure Location Rt brachial Position Sitting Pulse 68 Pulse Source Pulse Oximeter Pulse Oximetry (%) 88 L Oxygen Delivery Method Room Air Intake Visit Reasons: COPD Allergies doxycycline Adverse Reaction (Intermediate, Verified 04/20/25 09:46) Gastrointestinal Upset HPI HPI COPD: Details: Meghan is a pleasant 79 year old female, former 47 pack year smoker, quit 2011 with underlying COPD, pulmonary nodules, melanoma of right eye s/p surgery 2007, multiple other squamous/basal cell carcinomas removed, last 2020. August [address] CT chest revealed 9 mm RLL nodule and was sent for PET with little FDG activity. Repeat chest CT from 12/2023 revealed new 1 cm x 2 cm spiculated nodule of the left apex. She was sent for lung biopsy through [facility], however prior to biopsy repeat chest CT was ordered revealing resolution of spiculated nodule, likely inflammatory in nature. We discussed repeating chest CT to assess stability however patient continues to decline further CT imaging. Recent CXR 02/28/25 revealed chronic interstitial changes of upper lobes with hyperinflation otherwise no significant findings, from [facility] however only 1 view. Since the last visit, she was admitted to [facility] in November after sustaining tibula fracture, transferred to SNF subsequently developing bilateral pneumonia and treated with ?Augmentin as well as started on 2L supplemental oxygen. Shortly after discharge she was admitted to [facility] s/p and underwent right hip hemiarthroplasty. She continues to recover from surgery, recently discharged from SNF, now back home. At the last visit, she was treated for bronchopneumonia and reports complete resolution of symptoms. Denies cough, wheezing. She reports that her breathing has improved, and she has not used supplemental oxygen for three weeks. Previously, she experienced oxygen desaturation with exertion, dropping to 88% at times, but it generally stays above 90% with rest. She feels she no longer requires supplemental oxygen however upon walking to exam room from waiting room, approximately 25 yards, her oxygen saturation was at 88%. She has her portable tank today however was not using. The patient has been managing her COPD with Symbicort and Spiriva, adhering to the prescribed regimen of two puffs twice a day, and reports no need for albuterol. She exercises regularly using a pedal bike and walks, achieving 2000 steps daily, which she finds beneficial for her condition. The patient has had a recent chest x-ray in March at a rehabilitation facility, which reportedly showed minimal residual changes post-infection, and no further imaging is currently planned. She has been advised to monitor her oxygen levels, especially during exertion, and to use supplemental oxygen to maintain levels above 92% [facility] Medical History (Updated 04/21/25 @ 10:51 by Radha Rowe NP) COPD (chronic obstructive pulmonary disease) Personal history of nicotine dependence History of melanoma Anorexia nervosa Splenomegaly Surgical History (Updated 12/09/23 @ 13:34 by Jimena Andrews PA-C) History of melanoma excision History of basal cell carcinoma excision History of Social History Patient Tobacco Use Status: Former Tobacco user Tobacco use type: Cigarette Cigarette Packs Per Day: 1 Years Smoked: 47 Review of Systems Const Denies chills, Denies excessive sweating, Denies fever(s), Denies headache(s) and Denies night sweats Eyes Denies dry eyes, Denies irritation and Denies itchy eyes ENT Reports Normal hearing present, Denies headache(s), Denies nasal congestion, Denies nasal discharge, Denies post nasal drip and Denies sore throat Card Denies chest pain, Denies chest pain at rest, Denies chest pain with activity, Denies claudication, Denies leg edema, Denies orthopnea and Denies paroxysmal nocturnal dyspnea Resp Denies chest congestion, Denies cough, Denies excessive phlegm production, Denies pain on inspiration, Denies pain with cough, Denies stridor and Denies wheezing Musc Denies myalgias Neuro Reports Normal hearing present and Denies headache(s) Endo Denies excessive sweating Andre/Lymph Denies lymphadenopathy Aller/Immun Denies itchy eyes, Denies seasonal rhinorrhea and Denies wheezing Physical Exam Vital Signs: Last Vital Signs Pulse 68 04/20/25 09:41 BP 140/70 H 04/20/25 09:41 Pulse Ox 88 L 04/20/25 09:41 Oxygen Delivery Method Room Air 04/20/25 09:41 BMI result Body Mass Index 17.3 Const General: cooperative, comfortable, no acute distress and alert Nutritional Appearance: underweight Orientation/consciousness: patient oriented x3 HEENT Head: Yes normal to inspection, Yes normocephalic and Yes atraumatic Ears: hearing grossly normal bilaterally and external ears normal Eyes General: appearance normal, both eyes and all related structures Eyelids: Yes eyelids normal Sclerae: sclerae normal EOM: EOMs intact bilaterally Neck Neck: Yes normal visual inspection and Yes no lymphadenopathy Lymphatic: no lymphadenopathy noted Chest Chest palpation & inspection: normal inspection of the chest Resp Effort & Inspection: normal respiratory effort, able to speak in complete sentences, no audible wheezes, no cough, no stridor, not tachypneic, no tripod positioning and no use of accessory muscles Auscultation: diminished lung sounds Cardio Jugular venous distension: no JVD Rate: regular rate Rhythm: regular rhythm Skin Other: warm, dry General skin exam: no rashes or lesions noted Neuro General: patient oriented x3 Cranial nerves: Yes Normal hearing present Cognition (Neuro): normal cognition Extrem General: Yes normal to inspection, Yes capillary refill normal, Yes no clubbing, cyanosis or edema and Yes no pedal edema Psych Appearance: grossly normal and well kempt Speech and movement: Normal speech and movement present and Clear speech present Affect: normal affect Attitude: cooperative Thought process: Normal thought process present Thought content: Normal thought content present Insight: Good insight present (Psych) Judgement: Good judgement present (Psych) Assessment & Plan Assessment & Plan (1) COPD (chronic obstructive pulmonary disease): Code(s): J44.9 - Chronic obstructive pulmonary disease, unspecified Category: Medical (2) History of melanoma: Comment: (melanoma of right eye s/p surgery 2007) Code(s): Z85.820 - Personal history of malignant melanoma of skin Category: Medical (3) Pulmonary nodule: Code(s): R91.1 - Solitary pulmonary nodule Category: Medical Plan Discussed with the patient the importance of maintaining oxygen saturation above 92% during exertion and the continued need for 2L supplemental oxygen with exertion. We reviewed her current medication regimen, including Symbicort and Spiriva, and confirmed adherence, advised to continue. Recommended an overnight oxygen test to evaluate nocturnal oxygen levels. No need for 6MWT today as patient desaturated to 88% with ambulation to exam room. Will consider 6MWT at next visit to reassess need for supplemental oxygen. In regards to waxing and waning lung nodules, discussed the need for repeat chest CT however patient continues to decline. At this time, she is not interested in repeating further imaging to monitor pulmonary nodules. All questions were answered and patient is in agreement of plan. Will follow up in 3 months or sooner if needed. Orders: Orders Overnight Pulse Oximetry Today G47.34 - Idiopathic sleep related nonobstructive alveolar hypoventilation Coding Level of Care Code Est Pt Level 4 (71393) Diagnoses COPD (chronic obstructive pulmonary disease) J44.9 History of melanoma Z85.820 Pulmonary nodule R91.1
--- OUTSIDE RECORDS SUMMARY | 2025-04-20 10:04 | XMS_ITS | Encounter Summary ---
Author Organization [facility] Address [address] [place] [address] Care Team Providers Care Rotary Swaging Machine Operator Name Role Phone Ag Shaw MD Primary Care Provider [phone] Encounter Details Date Type Department Care Team (Late st Contact Info) Description 02/09/2025 Lab Requisition [facility] - Main Lab [address] [place] [address] Elvis Patricia MD [address] [place] [address] Chronic obstructive pulmonary disease, unspecified (CMS/HCC V24, [...] V28) documented in this encounter Care Teams Rotary Swaging Machine Operator Relationship Specialty Start Date End Date Ag Shaw MD [address] [facility] [address] [place] [id number] PCP - General 05/31/03 documented as of this encounter
--- OUTSIDE RECORDS SUMMARY | 2025-04-20 10:04 | XMS_ITS | Encounter Summary ---
Author Organization [facility] Address [address] [place] [address] Care Team Providers Care Plant Etiologist Name Role Phone Ag Shaw MD Primary Care Provider [phone] Encounter Details Date Type Department Care Team (Late st Contact Info) Description 12/25/2024 Lab Requisition [facility] - Main Lab [address] [facility] [place] [address] Elvis Patricia MD [address] [place] [address] Chronic obstructive pulmonary disease, unspecified (CMS/HCC V24, [...] Associated Diagnosis Comments COMPLETE BLOOD COUNT Routine 12/26/2024 7:33 AM EDT Chronic obstructive pulmonary disease, unspecified (CMS/HCC V24, CMS/HCC V28) BASIC METABOLIC PANEL Routine 12/26/2024 7:33 AM EDT Chronic obstructive pulmonary disease, unspecified (CMS/HCC V24, CMS/HCC V28) documented in this encounter Results * (ABNORMAL) Basic metabolic panel (12/26/2024 7:33 AM EDT) Sodium 138 133 - 145 mmol/L LAB CHEMISTRY METHOD 12/26/2024 1:14 PM [facility] Potassium 4.1 3.5 - 5.5 mmol/L LAB CHEMISTRY METHOD 12/26/2024 1:14 PM [facility] Chloride 107 96 - 110 mmol/L LAB CHEMISTRY METHOD 12/26/2024 1:14 PM [facility] CO2 25 21 - 32 mmol/L LAB CHEMISTRY METHOD 12/26/2024 1:14 PM [facility] Anion Gap 6 3 - 11 LAB CHEMISTRY METHOD 12/26/2024 1:14 PM [facility] Glucose 82 70 - 100 mg/dL LAB CHEMISTRY METHOD 12/26/2024 1:14 PM [facility] BUN 18 5 - 25 mg/dL LAB CHEMISTRY METHOD 12/26/2024 1:14 PM [facility] Creatinine 0.45(L) 0.50 - 1.10 mg/dL LAB CHEMISTRY METHOD 12/26/2024 1:14 PM [facility] LAB eGFR 97 >=60 mL/min/1. 73m2 LAB CHEMISTRY METHOD 12/26/2024 1:14 PM [facility] LAB Comment:Calculation based on the Chronic Kidney Disease Epidemiology Collaboration (CKD-EPI) equation refit without adjustment for race. BUN/Creatinine Ratio 40.0 LAB CHEMISTRY METHOD 12/26/2024 1:14 PM [facility] Calcium 8.2(L) 8.5 - 10.5 mg/dL LAB CHEMISTRY METHOD 12/26/2024 1:14 PM [facility] Blood Venous blood specimen / Unknown Venipuncture / Unknown 12/26/2024 7:33 AM EDT 12/26/2024 10:57 AM EDT us Elvis Patricia MD LAB BLOOD ORDERABLES Final Result [facility] [address] [place] [address], * (ABNORMAL) Complete blood count (12/26/2024 7:33 AM EDT) WBC 4.4(L) 4.8 - 10.8 K/mcL LAB HEMETOLOGY METHOD 12/26/2024 1:09 PM EDT [facility] RBC 3.40(L) 3.80 - 4.80 M/mcL LAB HEMETOLOGY METHOD 12/26/2024 1:09 PM EDT [facility] Hemoglobin 10.2(L) 11.5 - 16.0 g/dL LAB HEMETOLOGY METHOD 12/26/2024 1:09 PM EDT [facility] Hematocrit 32.6(L) 35.0 - 47.0 % LAB HEMETOLOGY METHOD 12/26/2024 1:09 PM EDT [facility] MCV 95.9 79.0 - 98.0 FL LAB HEMETOLOGY METHOD [facility] MCH 30.0 27.0 - 32.0 pcg LAB HEMETOLOGY METHOD 12/26/2024 1:[facility] MCHC 31.3(L) 32.0 - 37.0 g/dL LAB HEMETOLOGY METHOD 12/26/2024 1:[facility] RDW 15.5(H) 11.0 - 15.0 % LAB HEMETOLOGY METHOD 12/26/2024 1:[facility] Platelets 138 130 - 400 K/mcL LAB HEMETOLOGY METHOD 12/26/2024 1:09 PM EDT [facility] MPV 11.0 7.0 - 11.0 FL LAB HEMETOLOGY METHOD 12/26/2024 1:09 PM EDT [facility] NRBC 0.0 <1.0 % LAB [facility] METHOD 12/26/2024 1:09 PM EDT [facility] NRBC Absolute 0.00 <0.10 K/mcL LAB HEMETOLOG METHOD 12/26/2024 1:09 PM EDT [facility] Blood Venous blood specimen / Unknown Venipuncture / Unknown 12/26/2024 7:33 AM EDT 12/26/2024 10:57 AM EDT Elvis Patricia MD LAB BLOOD ORDERABLES Final Result [facility] [address] [place] [address], documented in this encounter Visit Diagnoses Diagnosis Chronic obstructive pulmonary disease, unspecified (CMS/HCC V24, CMS/HCC V28) documented in this encounter Additional Health Concerns Infection Onset Date Last Indicated Resolved Time Respiratory Rule-Out 01/12/2025 01/12/2025 025 2:02 PM EDT documented as of this encounter Care Teams Plant Etiologist Relationship Specialty Start Date End Date Ag Shaw MD [address] [address] PCP - General 05/31/03 documented as of this encounter
--- OUTSIDE RECORDS SUMMARY | 2025-04-20 10:04 | XMS_ITS | Encounter Summary ---
Author Organization [facility] Address [address] [place] [address] Care Team Providers Care Accounts Receivable Processor Name Role Phone Ag Shaw MD Primary Care Provider [phone] Encounter Details Date Type Department Care Team (Late st Contact Info) Description 01/19/2025 Lab Requisition [facility] - Main Lab [address] [facility] [place] [address] Elvis Patricia MD [address] [place] [address] Chronic obstructive pulmonary disease, unspecified (CMS/HCC V24, [...] Associated Diagnosis Comments COMPLETE BLOOD COUNT Routine 01/22/2025 7:00 AM EDT Chronic obstructive pulmonary disease, unspecified (CMS/HCC V24, CMS/HCC V28) BASIC METABOLIC PANEL Routine 01/22/2025 7:00 AM EDT Chronic obstructive pulmonary disease, unspecified (CMS/HCC V24, CMS/HCC V28) documented in this encounter Results * (ABNORMAL) Complete blood count (01/22/2025 7:00 AM EDT) [facility] Signature WBC 4.5(L) 4.8 - 10.8 K/mcL LAB HEMETOLOGY METHOD 01/22/2025 10:31 AM [facility] LAB RBC 3.00(L) 3.80 - 4.80 M/mcL LAB HEMETOLOGY METHOD 01/22/2025 10:31 AM [facility] Hemoglobin 8.8(L) 11.5 - 16.0 g/dL LAB HEMETOLOGY METHOD 01/22/2025 10:31 AM [facility] LAB Hematocrit 28.8(L) 35.0 - 47.0 % LAB HEMETOLOGY METHOD 01/22/2025 10:31 AM [facility] LAB MCV 95.0 79.0 - 98.0 FL LAB HEMETOLOGY METHOD 01/22/2025 10:31 AM [facility] MCH 29.0 27.0 - 32.0 pcg LAB HEMETOLOGY METHOD 01/22/2025 10:31 AM [facility] LAB MCHC 30.6(L) 32.0 - 37.0 g/dL LAB HEMETOLOGY METHOD 01/22/2025 10:31 AM [facility] RDW 16.1(H) 11.0 - 15.0 % LAB HEMETOLOGY METHOD 01/22/2025 10:31 AM [facility] Platelets 221 130 - 400 K/mcL LAB HEMETOLOGY METHOD 01/22/2025 10:31 AM [facility] MPV 9.8 7.0 - 11.0 FL LAB HEMETOLOGY METHOD 01/22/2025 10:31 AM [facility] NRBC 0.0 <1.0 % LAB HEMETOLOGY METHOD 01/22/2025 10:[facility] NRBC Absolute 0.00 <0.10 K/mcL LAB HEMETOLOGY METHOD 01/22/2025 10:31 AM [facility] Blood Venous blood specimen / Unknown Venipuncture / Unknown 01/22/2025 7:00 AM EDT 01/22/2025 9:55 AM EDT us Elvis Patricia MD LAB BLOOD ORDERABLES Final Result [facility] [address] [place] [address], * (ABNORMAL) Basic metabolic panel (01/22/2025 7:00 AM EDT) Sodium 144 133 - 145 mmol/L LAB CHEMISTRY METHOD 01/22/2025 11:45 AM [facility] Potassium 4.1 3.5 - 5.5 mmol/L LAB CHEMISTRY METHOD 01/22/2025 11:45 AM [facility] Chloride 109 96 - 110 mmol/L LAB CHEMISTRY METHOD 01/22/2025 11:45 AM [facility] CO2 29 21 - 32 mmol/L LAB CHEMISTRY METHOD 01/22/2025 11:45 AM [facility] Anion Gap 6 3 - 11 LAB CHEMISTRY METHOD 01/22/2025 11:45 AM [facility] Glucose 66(L) 70 - 100 mg/dL LAB CHEMISTRY METHOD 01/22/2025 11:45 AM [facility] BUN 14 5 - 25 mg/dL LAB CHEMISTRY METHOD 01/22/2025 11:45 AM [facility] Creatinine 0.43(L) 0.50 - 1.10 mg/dL LAB CHEMISTRY METHOD 01/22/2025 11:45 AM [facility] eGFR 98 >=60 mL/min/1. 73m2 LAB CHEMISTRY METHOD 01/22/2025 11:45 AM EDT [facility] Comment:Calculation based on the Chronic Kidney Disease Epidemiology Collaboration (CKD-EPI) equation refit without adjustment for race. BUN/Creatinine Ratio 32.6 LAB CHEMISTRY METHOD 01/22/2025 11:45 AM EDT [facility] Calcium 7.8(L) 8.5 - 10.5 mg/dL LAB CHEMISTRY METHOD 01/22/2025 11:45 AM EDT [facility] Blood Venous blood specimen / Unknown Venipuncture / Unknown 01/22/2025 7:00 AM EDT 01/22/2025 9:55 AM EDT Elvis Patricia MD LAB BLOOD ORDERABLES Final Result [facility] [address] [place] [address], documented in this encounter Visit Diagnoses Diagnosis Chronic obstructive pulmonary disease, unspecified (CMS/HCC V24, CMS/HCC V28) documented in this encounter Care Teams Accounts Receivable Processor Relationship Specialty Start Date End Date Ag Shaw MD [address] [address] PCP - General 05/31/03 documented as of this encounter
--- OUTSIDE RECORDS SUMMARY | 2025-04-20 10:04 | XMS_ITS | Encounter Summary ---
Author Organization [facility] Address [address] [place] [address] Care Team Providers Care Fixture Relamper Name Role Phone Ag Shaw MD Primary Care Provider [phone] Encounter Details Date Type Department Care Team (Late st Contact Info) Description 03/24/2025 Lab Requisition [facility] - Main Lab [address] [facility] [place] [address] Elvis Patricia MD [address] [place] [address] Chronic obstructive pulmonary disease, unspecified (CMS/HCC V24, CMS/HCC V28); Thrombocytopenia, unspecified (CMS/HCC V24); Anemia, unspecified Social History Tobacco Use Types Packs/Day Years [...] Associated Diagnosis Comments COMPLETE BLOOD COUNT Routine 03/26/2025 7:35 AM EDT Chronic obstructive pulmonary disease, unspecified (CMS/HCC V24, CMS/HCC V28) Thrombocytopenia, unspecified (CMS/HCC V24) Anemia, unspecified BASIC METABOLIC PANEL Routine 03/26/2025 7:35 AM EDT Chronic obstructive pulmonary disease, unspecified (CMS/[facility] V24, [facility] V28) Thrombocytopenia, unspecified ([facility] V24) Anemia, unspecified documented in this encounter Results * (ABNORMAL) Basic metabolic panel (03/26/2025 7:35 AM EDT) Sodium 141 133 - 145 mmol/L LAB CHEMISTRY METHOD 03/26/2025 12:23 PM [facility] Potassium 4.3 3.5 - 5.5 mmol/L LAB CHEMISTRY METHOD 03/26/2025 12:23 PM [facility] Chloride 106 96 - 110 mmol/L LAB CHEMISTRY METHOD 03/26/2025 12:23 PM [facility] CO2 28 21 - 32 mmol/L LAB CHEMISTRY METHOD 03/26/2025 12:23 PM [facility] Anion Gap 7 3 - 11 LAB CHEMISTRY METHOD 03/26/2025 12:23 PM [facility] Glucose 65(L) 70 - 100 mg/dL LAB CHEMISTRY METHOD 03/26/2025 12:23 PM [facility] BUN 20 5 - 25 mg/dL LAB CHEMISTRY METHOD 03/26/2025 12:23 PM [facility] Creatinine 0.53 0.50 - 1.10 mg/dL LAB CHEMISTRY METHOD 03/26/2025 12:23 PM [facility] eGFR 93 >=60 mL/min/1. 73m2 LAB CHEMISTRY METHOD 03/26/2025 12:23 PM [facility] Comment:Calculation based on the Chronic Kidney Disease Epidemiology Collaboration (CKD-EPI) equation refit without adjustment for race. BUN/Creatinine Ratio 37.7 LAB CHEMISTRY METHOD 03/26/2025 12:23 PM [facility] Calcium 8.8 8.5 - 10.5 mg/dL LAB CHEMISTRY METHOD 03/26/2025 12:23 PM [facility] Blood Venous blood specimen / Unknown Venipuncture / Unknown 03/26/2025 7:35 AM EDT 03/26/2025 10:04 AM EDT Elvis Patricia MD LAB BLOOD ORDERABLES Final Result [facility] [address] [place] [address], * (ABNORMAL) Complete blood count (03/26/2025 7:35 AM EDT) WBC 3.4(L) 4.8 - 10.8 K/mcL LAB HEMETOLOGY METHOD 03/26/2025 12:44 PM EDT [facility] RBC 3.10(L) 3.80 - 4.80 M/mcL LAB HEMETOLOGY METHOD 03/26/2025 12:44 PM EDT [facility] Hemoglobin 9.0(L) 11.5 - 16.0 g/dL LAB HEMETOLOGY METHOD 03/26/2025 12:44 PM EDT [facility] Hematocrit 30.0(L) 35.0 - 47.0 % LAB HEMETOLOGY METHOD 03/26/2025 12:44 PM EDT [facility] MCV 96.5 79.0 - 98.0 FL LAB HEMETOLOGY METHOD 03/26/2025 12:44 PM EDT [facility] MCH 28.9 27.0 - 32.0 pcg LAB HEMETOLOGY [facility] MCHC 30.0(L) 32.0 - 37.0 g/dL LAB HEMETOLOGY METHOD 03/26/2025 12:44 [facility] RDW 16.6(H) 11.0 - 15.0 % LAB HEMETOLOGY METHOD 03/26/2025 12:44 PM EDT [facility] Platelets 186 130 - 400 K/mcL LAB HEMETOLOGY METHOD 03/26/2025 12:44 PM EDT [facility] MPV 10.8 7.0 - 11.0 FL LAB HEMETOLOGY METHOD 03/26/2025 12:44 PM EDT [facility] NRBC 0.0 <1.0 % LAB HEMETOLOGY METHOD 03/26/2025 12:44 PM EDT [facility] NRBC Absolute 0.00 <0.10 K/mcL LAB HEMETOLOGY METHOD 03/26/2025 12:44 PM EDT [facility] Blood Venous blood specimen / Unknown Venipuncture / Unknown 03/26/2025 7:35 AM EDT 03/26/2025 10:04 AM EDT Elvis Patricia MD LAB BLOOD ORDERABLES Final Result [facility] [address] [place] [address], documented in this encounter Visit Diagnoses Diagnosis Chronic obstructive pulmonary disease, unspecified (CMS/HCC V24, CMS/HCC V28) Thrombocytopenia, unspecified (CMS/HCC V24) Thrombocytopenia, unspecified Anemia, unspecified documented in this encounter Care Teams Fixture Relamper Relationship Specialty Start Date End Date Ag Shaw MD [facility] [place] [address] [address] PCP - General 05/31/03 documented as of this encounter
--- OUTSIDE RECORDS SUMMARY | 2025-04-20 10:04 | XMS_ITS | Clinical Summary ---
Author Organization [facility] Address [address] [address] Phone Care Team Providers Care Title One Reading Teacher Name Role Phone Jose Segovia MD Unavailable Pamela Vaughn MD Primary Care Provider [phone] Denton Oneill MD Unavailable [phone] Allergies No known active allergies Medications SERTRALINE [...] Upcoming Encounters Date Type Department Care Team ([facility] Contact Info) Description 06/26/2025 7:50 AM EST Office Visit [facility] [address] [place] [address] Tara Tate MD [address] [place] [phone] [email or web address] Health Maintenance Due Date Last Done Comments Adult Td,Tdap Booster 1945 DEPRESSION SCREENING 1955 PNEUMOCOCCAL VACCINES (50+ years) (1 of 2 - PCV) 1962 ZOSTER VACCINES (1 of 2) 1962 OSTEOPOROSIS SCREENING INITIAL (ONE-TIME) 2008 RSV VACCINE (1 - 1-dose 75+ series) 2018 COVID-19 VACCINE ( - season) 2024 09/23/2020, 09/02/2020 INFLUENZA VACCINE (#1) 2025 0, 07/29/2019, 05/25/2018, Additional history exists HEPATITIS A VACCINES Aged Out No long [...] file Insurance MEDICARE PART A & B [facility]ARE SUPPLEMENT [facility] INDEMNITY MEDICARE [facility] A & B [facility] MEDICARE SUPPLEMENT [facility] INDEMNITY MEDICARE PART A & B MEDICARE PART A & B MEDICARE PART A & [place] [address] [place] [address] MEDICARE SUPPLEMENT [facility] INDEMNITY MEDICARE PART A & B [facility] MEDICARE SUPPLEMENT [facility] INDEMNITY MEDICARE PART A & B Member Subscriber Plan / Payer ( fective 2008-) Name:Meghan Montague R Member ID:[id number] Relation to Subscriber:Self Name:Meghan Montague R Subscriber ID:[id number] Payer ID:[id number] Group ID:Not on file Type:Medicare Address: [employer] [address] [place] [id number] [place] [address] MEDICARE SUPPLEMENT MEDICARE PART A & B [facility] MEDICARE SUPPLEMENT [facility] INDEMNITY MEDICARE PART A & B [facility] MEDICARE SUPPLEMENT [facility] INDEMNITY [employer] Care Teams Title One Reading Teacher Relationship Specialty Start Date End Date Pamela Vaughn MD [address] [place] [phone] [email or web address] PCP - General Internal Medicine 05/02/19 Jose Segovia MD Ophthalmology 04/18/18 [place] [address] [place] [phone] Ophthalmology 05/05/19 Additional Source Comments The information contained in this document represents components of the legal health record. It is not the complete legal health record.[facility]
--- OUTSIDE RECORDS SUMMARY | 2025-04-20 10:04 | XMS_ITS | Encounter Summary ---
Author Organization [facility] Address [address] [place] [address] Care Team Providers Care Law Tutor Name Role Phone Ag Shaw MD Primary Care Provider [phone] Encounter Details Date Type Department Care Team (Late st Contact Info) Description 03/09/2025 Lab Requisition [facility] - Main Lab 299 [facility] [place] [address] Elvis Patricia MD [address] [place], [place] [phone] Chronic obstructive pulmonary disease, unspecified (CMS/HCC V24, [...] unspecified documented in this encounter Care Teams Law Tutor Relationship Specialty Start Date End Date Ag Shaw MD [address] [facility] [address] [place] [address] PCP - General 05/31/03 documented as of this encounter
--- OUTSIDE RECORDS SUMMARY | 2025-04-20 10:04 | XMS_ITS | Encounter Summary ---
Author Organization [facility] Address [address] [place] [address] Care Team Providers Care Supervisor Feed House Name Role Phone Ag Shaw MD Primary Care Provider [phone] Encounter Details Date Type Department Care Team (Late st Contact Info) Description 01/26/2025 Lab Requisition [facility] - Main Lab 299 [facility] [place] [address] Elvis Patricia MD [address] [place] [address] Chronic obstructive pulmonary disease, unspecified (CMS/HCC V24, [...] Associated Diagnosis Comments COMPLETE BLOOD COUNT Routine 01/29/2025 6:53 AM EDT Chronic obstructive pulmonary disease, unspecified (CMS/HCC V24, CMS/HCC V28) BASIC METABOLIC PANEL Routine 01/29/2025 6:53 AM EDT Chronic obstructive pulmonary disease, unspecified (CMS/HCC V24, CMS/HCC V28) documented in this encounter Results * (ABNORMAL) Basic metabolic panel (01/29/2025 6:53 AM EDT) Sodium 139 133 - 145 mmol/L LAB CHEMISTRY METHOD 01/29/2025 12:[address] [facility] Potassium 3.9 3.5 - 5.5 mmol/L LAB CHEMISTRY METHOD 01/29/2025 12:[address] [facility] Chloride 106 96 - 110 mmol/L LAB CHEMISTRY METHOD 01/29/2025 12:[address] [facility] CO2 27 21 - 32 mmol/L LAB CHEMISTRY METHOD 01/29/2025 12:[address] [facility] Anion Gap 6 3 - 11 LAB CHEMISTRY METHOD 01/29/2025 12:[address] [facility] Glucose 57(L) 70 - 100 mg/dL LAB CHEMISTRY METHOD 01/29/2025 12:[address] [facility] BUN 17 5 - 25 mg/dL LAB CHEMISTRY METHOD 01/29/2025 12:[address] [facility] Creatinine 0.50 0.50 - 1.10 mg/dL LAB CHEMISTRY METHOD 01/29/2025 12:[address] [facility] eGFR 94 >=60 mL/min/1. 73m2 LAB CHEMISTRY METHOD 01/29/2025 12:[address] [facility] Comment:Calculation based on the Chronic Kidney Disease Epidemiology Collaboration (CKD-EPI) equation refit without adjustment for race. BUN/Creatinine Ratio 34.0 LAB CHEMISTRY METHOD 01/29/2025 12:[address] [facility] Calcium 8.4(L) 8.5 - 10.5 mg/dL LAB CHEMISTRY METHOD 01/29/2025 12:[address] [facility] Blood Venous blood specimen / Unknown Venipuncture / Unknown 01/29/2025 6:53 AM EDT 01/29/2025 10:54 AM EDT us Elvis Patricia MD LAB BLOOD ORDERABLES Final Result [facility] [address] [place] [address], * (ABNORMAL) Complete blood count (01/29/2025 6:53 AM EDT) WBC 4.3(L) 4.8 - 10.8 K/mcL LAB HEMETOLOGY METHOD 01/29/2025 1:28 PM EDT [facility] RBC 3.40(L) 3.80 - 4.80 M/mcL LAB HEMETOLOGY METHOD 01/29/2025 1:28 PM EDT [facility] Hemoglobin 9.8(L) 11.5 - 16.0 g/dL LAB HEMETOLOGY METHOD 01/29/2025 1:28 PM EDT [facility] Hematocrit 33.0(L) 35.0 - 47.0 % LAB HEMETOLOGY METHOD 01/29/2025 1:28 PM EDT [facility] MCV 96.2 79.0 - 98.0 FL LAB HEMETOLOGY METHOD [facility] MCH 28.6 27.0 - 32.0 pcg LAB HEMETOLOGY METHOD 01/29/2025 1:28 PM EDT [facility] MCHC 29.7(L) 32.0 - 37.0 g/dL LAB HEMETOLOGY METHOD 01/29/2025 1[facility]28 [facility] RDW 17.0(H) 11.0 - 15.0 % LAB HEMETOLOGY METHOD 01/29/2025 1[facility] Platelets 248 130 - 400 K/mcL LAB HEMETOLOGY METHOD 01/29/2025 1:28 PM EDT [facility] MPV 9.6 7.0 - 11.0 FL LAB HEMETOLOGY METHOD 01/29/2025 1:28 PM EDT [facility] NRBC 0.0 <1.0 % LAB HEMETOLOGY METHOD 01/29/2025 1:28 PM EDT [facility] NRBC Absolute 0.00 <0.10 K/mcL LAB HEMETOLOGY METHOD 01/29/2025 1:28 PM EDT [facility] Blood Venous blood specimen / Unknown Venipuncture / Unknown 01/29/2025 6:53 AM EDT 01/29/2025 10:54 AM EDT us Elvis Patricia MD LAB BLOOD ORDERABLES Final Result [facility] [address] [place] [address], documented in this encounter Visit Diagnoses Diagnosis Chronic obstructive pulmonary disease, unspecified (CMS/HCC V24, CMS/HCC V28) documented in this encounter Care Teams Supervisor Feed House Relationship Specialty Start Date End Date Ag Shaw MD [address] [address] PCP - General 05/31/03 documented as of this encounter
--- OUTSIDE RECORDS SUMMARY | 2025-04-20 10:04 | XMS_ITS | Encounter Summary ---
Author Organization [facility] Address [address] [place] [address] Care Team Providers Care Business Continuity Strategy Director Name Role Phone Ag Shaw MD Primary Care Provider [phone] Encounter Details Date Type Department Care Team (Late st Contact Info) Description 03/31/2025 Lab Requisition [facility] - Main Lab 299 [facility] [place] [address] Elvis Patricia MD [address] [place], [place] [phone] Chronic obstructive pulmonary disease, unspecified (CMS/HCC V24, [...] unspecified documented in this encounter Care Teams Business Continuity Strategy Director Relationship Specialty Start Date End Date Ag Shaw MD [address] [facility] [address] [place] [address] PCP - General 05/31/03 documented as of this encounter
--- OUTSIDE RECORDS SUMMARY | 2025-04-20 10:04 | XMS_ITS | Encounter Summary ---
Author Organization [facility] Address [address] [place] [address] Care Team Providers Care Field Marketer Name Role Phone Ag Shaw MD Primary Care Provider [phone] Encounter Details Date Type Department Care Team (Late st Contact Info) Description 01/12/2025 Lab Requisition [facility] - Main Lab 299 [facility] [place] [address] Elvis Patricia MD [address] [place] [address] Fever, unspecified Social History Tobacco Use Types Packs/Day [...] Procedure Name Priority Date/Time Associated Diagnosis Comments PROCALCITONIN Routine 01/12/2025 10:10 AM EDT Fever, unspecified CBC WITH AUTO DIFFERENTIAL Routine 01/12/2025 10:10 AM EDT Fever, unspecified CBC AND DIFFERENTIAL Routine 01/12/2025 10:10 AM EDT Fever, unspecified COMPREHENSIVE METABOLIC PANEL Routine 01/12/2025 10:10 AM EDT Fever, unspecified documented in this encounter Results * (ABNORMAL) CBC auto differential (01/12/2025 10:10 AM EDT) [facility] Signature WBC 10.8 4.8 - 10.8 K/mcL LAB HEMETOLOGY METHOD 01/12/2025 10:43 AM [facility] RBC 3.50(L) 3.80 - 4.80 M/mcL LAB HEMETOLOGY METHOD 01/12/2025 10:43 AM [facility] Hemoglobin 10.5(L) 11.5 - 16.0 g/dL LAB HEMETOLOGY METHOD 01/12/2025 10:43 AM [facility] Hematocrit 33.6(L) 35.0 - 47.0 % LAB HEMETOLOGY METHOD 01/12/2025 10:43 AM [facility] MCV 94.9 79.0 - 98.0 FL LAB HEMETOLOGY METHOD 01/12/2025 10:43 AM [facility] MCH 29.7 27.0 - 32.0 pcg LAB HEMETOLOGY METHOD 01/12/2025 10:43 AM [facility] MCHC 31.3(L) 32.0 - 37.0 g/dL LAB HEMETOLOGY METHOD 01/12/2025 10:43 AM [facility] RDW 15.0 11.0 - 15.0 % LAB HEMETOLOGY METHOD 01/12/2025 10:43 AM [facility] Platelets 237 130 - 400 K/mcL LAB HEMETOLOGY METHOD 01/12/2025 10:43 AM [facility] MPV 9.6 7.0 - 11.0 FL LAB HEMETOLOGY METHOD 01/12/2025 10:43 AM [facility] NRBC 0.0 <1.0 % LAB HEMETOLOGY METHOD 01/12/2025 10:43 AM [facility] NRBC Absolute 0.00 <0.10 K/mcL LAB HEMETOLOGY METHOD 01/12/2025 10:43 AM [facility] Neutrophils Relative 87.4 % LAB HEMETOLOGY METHOD 01/12/2025 10:43 AM [facility] Lymphocytes Relative 5.2 % LAB HEMETOLOGY METHOD 01/12/2025 10:43 AM [facility] Monocytes Relative 5.2 % LAB HEMETOLOGY METHOD 01/12/2025 10:43 AM [facility] Eosinophils Relative 1.5 % LAB HEMETOLOGY METHOD 01/12/2025 10:43 AM [facility] Basophils Relative 0.2 % LAB HEMETOLOGY METHOD 01/12/2025 10:43 AM [facility] Immature Granulocytes Relative 0.5 % LAB HEMETOLOGY METHOD 01/12/2025 10:43 AM [facility] Neutrophils Absolute 9.42(H) 1.50 - 7.00 K/mcL LAB HEMETOLOGY METHOD 01/12/2025 10:43 AM [facility] Lymphocytes Absolute 0.56(L) 1.00 - 5.00 K/mcL LAB HEMETOLOGY METHOD 01/12/2025 10:43 AM [facility] Monocytes Absolute 0.56 0.20 - 1.00 K/mcL LAB HEMETOLOGY METHOD 01/12/2025 10:43 AM [facility] Eosinophils Absolute 0.16 0.00 - 0.50 K/mcL LAB HEMETOLOGY METHOD 01/12/2025 10:43 AM [facility] Basophils Absolute 0.02 0.00 - 0.20 K/mcL LAB HEMETOLOGY METHOD 01/12/2025 10:43 AM [facility] Immature Granulocytes Absolute 0.05(H) 0.00 - 0.03 K/mcL LAB HEMETOLOGY METHOD 01/12/2025 10:43 AM EDT [facility] Blood Venous blood specimen / Unknown Venipuncture / Unknown 01/12/2025 10:10 AM EDT 01/12/2025 10:36 AM EDT Elvis Patricia MD LAB BLOOD ORDERABLES Final Result [facility] [address] [place] [address], * Procalcitonin (01/12/2025 10:10 AM EDT) Procalcitonin 0.06 <=0.16 ng/mL LAB CHEMISTRY METHOD 01/12/2025 12:33 PM EDT [facility] Blood Venous blood specimen / Unknown Venipuncture / Unknown 01/12/2025 10:10 AM EDT 01/12/2025 10:36 AM EDT Narrative [facility] - 01/12/2025 12:33 PM EDT Procalcitonin > 2.00 ng/ml: Procalcitonin Levels above 2.00 ng/ml, on the first day of ICU admission represent a high risk for progression to severe sepsis and/or septic shock. Procalcitonin < 0.50 ng/ml: Procalcitonin levels below 0.50 ng/ml on the first day of ICU admission represent a low risk for progression to severe sepsis and/or septic shock. Concentrations <0.5 ng/mL do not exclude an infection, on account of local ized infections (without systemic signs) which can be associated with such low concentrations, or a systemic infection in its initial stages (<6 hours). Furthermore, increased procalcitonin can occur without infection. PCT concentrations between 0.5 and 2.0 ng/mL should be interpreted taking into account the patient's history. It is recommended to retest PCT within 6-24 hours if any concentrations <2.0 ng/mL are obtained. us Elvis Patricia MD LAB BLOOD ORDERABLES Final Result [facility] [address] [place] [address], [place] [phone] * (ABNORMAL) Comprehensive metabolic panel (01/12/2025 10:10 AM EDT) Sodium 138 133 - 145 mmol/L LAB CHEMISTRY METHOD 01/12/2025 11:20 AM [facility] Potassium 4.0 3.5 - 5.5 mmol/L LAB CHEMISTRY METHOD 01/12/2025 11:20 AM [facility] Chloride 103 96 - 110 mmol/L LAB CHEMISTRY METHOD 01/12/2025 11:20 AM [facility] CO2 29 21 - 32 mmol/L LAB CHEMISTRY METHOD 01/12/2025 11:20 AM [facility] Anion Gap 6 3 - 11 LAB CHEMISTRY METHOD 01/12/2025 11:20 AM [facility] Glucose 84 70 - 100 mg/dL LAB CHEMISTRY METHOD 01/12/2025 11:20 AM [facility] BUN 20 5 - 25 mg/dL LAB CHEMISTRY METHOD 01/12/2025 11:20 AM [facility] Creatinine 0.54 0.50 - 1.10 mg/dL LAB CHEMISTRY METHOD 01/12/2025 11:20 AM [facility] eGFR 93 >=60 mL/min/1. 73m2 LAB CHEMISTRY METHOD 01/12/2025 11:20 AM [facility] Comment:Calculation based on the Chronic Kidney Disease Epidemiology Collaboration (CKD-EPI) equation refit without adjustment for race. BUN/Creatinine Ratio 37.0 LAB CHEMISTRY METHOD 01/12/2025 11:20 AM [facility] Calcium 7.7(L) 8.5 - 10.5 mg/dL LAB CHEMISTRY METHOD 01/12/2025 11:20 AM [facility] AST (SGOT) 12 10 - 42 unit/L LAB CHEMISTRY METHOD 01/12/2025 11:20 AM [facility] ALT (SGPT) 10 10 - 60 unit/L LAB CHEMISTRY METHOD 01/12/2025 11:20 AM [facility] Alkaline Phosphatase 193(H) 42 - 121 unit/L LAB CHEMISTRY METHOD 01/12/2025 11:20 AM [facility] Total Protein 5.9(L) 6.0 - 8.0 g/dL LAB CHEMISTRY METHOD 01/12/2025 11:20 AM [facility] Albumin 2.2(L) 3.2 - 5.0 g/dL LAB CHEMISTRY METHOD 01/12/2025 11:20 AM [facility] Total Bilirubin 0.7 0.0 - 1.4 mg/dL LAB CHEMISTRY METHOD 01/12/2025 11:20 AM [facility] Blood Venous blood specimen / Unknown Venipuncture / Unknown 01/12/2025 10:10 AM EDT 01/12/2025 10:36 AM EDT us Elvis Patricia MD LAB BLOOD ORDERABLES Final Result [facility] [address] [place] [address], documented in this encounter Visit Diagnoses Diagnosis Fever, unspecified documented in this encounter Additional Health Concerns Infection Onset Date Last Indicated Resolved Time Respiratory Rule-Out 01/12/2025 01/12/2025 025 2:02 PM EDT documented as of this encounter Care Teams Field Marketer Relationship Specialty Start Date End Date Ag Shaw MD [address] [address] PCP - General 05/31/03 documented as of this encounter
--- OUTSIDE RECORDS SUMMARY | 2025-04-20 10:04 | XMS_ITS | Encounter Summary ---
Author Organization [facility] Address [address] [place] [address] Care Team Providers Care Specimen Transporter Name Role Phone Ag Shaw MD Primary Care Provider [phone] Encounter Details Date Type Department Care Team (Late st Contact Info) Description 12/22/2024 Lab Requisition [facility] - Main Lab [address] [facility] [place] [address] Elvis Patricia MD [address] [place] [address] Other fracture of shaft of right tibia, initial encounter for closed fracture; Chronic obstructive pulmonary disease, unspecified (CMS/HCC V24, [...] Associated Diagnosis Comments COMPLETE BLOOD COUNT Routine 12/22/2024 8:54 AM EDT Other fracture of shaft of right tibia, initial encounter for closed fracture Chronic obstructive pulmonary disease, unspecified (CMS/HCC V24, CMS/HCC V28) COMPREHENSIVE METABOLIC PANEL Routine 12/22/2024 8:54 AM EDT Other fracture of shaft of right tibia, initial encounter for closed fracture Chronic obstructive pulmonary disease, unspecified ([facility] V24, [facility] V28) documented in this encounter Results * (ABNORMAL) Comprehensive metabolic panel (12/22/2024 8:54 AM EDT) Sodium 138 133 - 145 mmol/L LAB CHEMISTRY METHOD 12/22/2024 4:[address] [facility] Potassium 3.6 3.5 - 5.5 mmol/L LAB CHEMISTRY METHOD 12/22/2024 4:[address] [facility] Chloride 105 96 - 110 mmol/L LAB CHEMISTRY METHOD 12/22/2024 4:[address] [facility] CO2 27 21 - 32 mmol/L LAB CHEMISTRY METHOD 12/22/2024 4:[address] [facility] Anion Gap 6 3 - 11 LAB CHEMISTRY METHOD 12/22/2024 4:[address] [facility] Glucose 81 70 - 100 mg/dL LAB CHEMISTRY METHOD 12/22/2024 4:[address] [facility] BUN 16 5 - 25 mg/dL LAB CHEMISTRY METHOD 12/22/2024 4:[address] [facility] Creatinine 0.59 0.50 - 1.10 mg/dL LAB CHEMISTRY METHOD 12/22/2024 4:[address] [facility] eGFR 91 >=60 mL/min/1. 73m2 LAB CHEMISTRY METHOD 12/22/2024 4:[address] [facility] Comment:Calculation based on the Chronic Kidney Disease Epidemiology Collaboration (CKD-EPI) equation refit without adjustment for race. BUN/Creatinine Ratio 27.1 LAB CHEMISTRY METHOD 12/22/2024 4:[address] [facility] Calcium 8.4(L) 8.5 - 10.5 mg/dL LAB CHEMISTRY METHOD 12/22/2024 4:[address] [facility] AST (SGOT) 17 10 - 42 unit/L LAB CHEMISTRY METHOD 12/22/2024 4:[address] [facility] ALT (SGPT) 20 10 - 60 unit/L LAB CHEMISTRY METHOD 12/22/2024 4:[address] [facility] Alkaline Phosphatase 134(H) 42 - 121 unit/L LAB CHEMISTRY METHOD 12/22/2024 4:21 PM T [facility] Total Protein 7.0 6.0 - 8.0 g/dL LAB CHEMISTRY METHOD 12/22/2024 4:[address] [facility] Albumin 3.1(L) 3.2 - 5.0 g/dL LAB CHEMISTRY METHOD 12/22/2024 4:[address] [facility] Total Bilirubin 0.7 0.0 - 1.4 mg/dL LAB CHEMISTRY METHOD 12/22/2024 4:[address] [facility] Blood Venous blood specimen / Unknown Venipuncture / Unknown 12/22/2024 8:54 AM EDT 12/22/2024 11:25 AM EDT us Elvis Patricia MD LAB BLOOD ORDERABLES Final Result [facility] [address] [place] [address], * (ABNORMAL) Complete blood count (12/22/2024 8:54 AM EDT) WBC 5.2 4.8 - 10.8 K/mcL LAB HEMETOLOGY METHOD 12/22/2024 12:01 PM EDT [facility] RBC 3.70(L) 3.80 - 4.80 M/mcL LAB HEMETOLOGY [facility] Hemoglobin 11.0(L) 11.5 - 16.0 g/dL LAB HEMETOLOGY METHOD 12/22/2024 12:01 PM EDT [facility] Hematocrit 35.5 35.0 - 47.0 % LAB HEMETOLOGY METHOD 12/22[facility]2024 [facility] MCV 96.2 79.0 - 98.0 FL LAB HEMETOLOGY METHOD 12/22[facility]2024 12[facility] MCH 29.8 27.0 - 32.0 pcg LAB HEMETOLOGY METHOD 12/22/2024 12:01 PM EDT [facility] MCHC 31.0(L) 32.0 - 37.0 g/dL LAB HEMETOLOGY METHOD 12/22[facility]2024 12[facility] RDW 15.3(H) 11.0 - 15.0 % LAB HEMETOLOGY METHOD 12/22/2024 [facility] Platelets 123(L) 130 - 400 K/mcL LAB HEMETOLOGY METHOD 12/22/2024 12:01 PM EDT [facility] MPV 11.1(H) 7.0 - 11.0 FL LAB HEMETOLOGY METHOD 12/22/2024 12:[address] [facility] NRBC 0.0 <1.0 % LAB HEMETOLOGY METHOD 12/22[facility]2024 [facility] NRBC Absolute 0.00 <0.10 K/mcL LAB HEMETOLOGY METHOD 12/22/2024 12:[address] [facility] Blood Venous blood specimen / Unknown Venipuncture / Unknown 12/22/2024 8:54 AM EDT 12/22/2024 11:25 AM EDT us Elvis Patricia MD LAB BLOOD ORDERABLES Final Result [facility] [address] [place] [address], documented in this encounter Visit Diagnoses Diagnosis Other fracture of shaft of right tibia, initial encounter for closed fracture Chronic obstructive pulmonary disease, unspecified ([facility] V24, [facility] V28) documented in this encounter Additional Health Concerns Infection Onset Date Last Indicated Resolved Time Respiratory Rule-Out 01/12/2025 01/12/2025 025 2:02 PM EDT documented as of this encounter Care Teams Specimen Transporter Relationship Specialty Start Date End Date Ag Shaw MD [address] [address] PCP - General 05/31/03 documented as of this encounter
--- OUTSIDE RECORDS SUMMARY | 2025-04-20 10:04 | XMS_ITS | Encounter Summary ---
Author Organization [facility] Address [address] [place] [address] Care Team Providers Care Sales Development Director Name Role Phone Ag Shaw MD Primary Care Provider [phone] Encounter Details Date Type Department Care Team (Late st Contact Info) Description 01/12/2025 Lab Requisition [facility] - Main Lab 299 [facility] [place] [address] Elvis Patricia MD [address] [place] [address] Fever, unspecified; Chronic cough Social History Tobacco [...] Procedure Name Priority Date/Time Associated Diagnosis Comments [id number], RSV, FLU A AND B QUALITATIVE RT-PCR, LOCAL REFERENCE LAB Routine 01/12/2025 12:00 AM EDT Fever, unspecified Chronic cough documented in this encounter Results * [id number], RSV, Influenza A and B qualitative RT-PCR (01/12/2025 12:00 AM EDT) SARS COV-2 Not Detected Not Detected LAB MOLECULAR DIAGNOSTICS METHOD 01/13/2025 2:02 PM EDT [facility] Influenza A PCR Not Detected Not Detected LAB MOLECULAR DIAGNOSTICS METHOD 01/13/2025 2:02 PM EDT [facility] Influenza B PCR Not Detected Not Detected LAB MOLECULAR DIAGNOSTICS METHOD 01/13/2025 2:02 PM EDT [facility] RSV PCR Not Detected Not Detected LAB MOLECULAR DIAGNOSTICS METHOD 01/13/2025 2:02 PM EDT [facility] Swab Nasopharyngeal structure / Unknown Non-blood Collection / Unknown 01/12/2025 01/12/2025 10:37 AM EDT Elvis Patricia MD LAB MICROBIOLOGY - GENERAL ORDERABLES Final Result [facility] [address] [place] [address], documented in this encounter Visit Diagnoses Diagnosis Fever, unspecified Chronic cough Cough documented in this encounter Additional Health Concerns Infection Onset Date Last Indicated Resolved Time Respiratory Rule-Out 01/12/2025 01/12/2025 025 2:02 PM EDT documented as of this encounter Care Teams Sales Development Director Relationship Specialty Start Date End Date Ag Shaw MD [address] [address] PCP - General 05/31/03 documented as of this encounter
--- OUTSIDE RECORDS SUMMARY | 2025-04-20 10:04 | XMS_ITS | Encounter Summary ---
Author Organization [facility] Address [address] [place] [address] Care Team Providers Care Insurance Account Executive Name Role Phone Ag Shaw MD Primary Care Provider [phone] Encounter Details Date Type Department Care Team (Late st Contact Info) Description 01/12/[address] [facility] - Main Lab 299 [facility] [place] [address] Chun Blackwell MD [address] [place] [address] Chronic obstructive pulmonary disease, unspecified (CMS/HCC V24, [...] Associated Diagnosis Comments COMPLETE BLOOD COUNT Routine 01/15/2025 7:30 AM EDT Chronic obstructive pulmonary disease, unspecified (CMS/HCC V24, CMS/HCC V28) BASIC METABOLIC PANEL Routine 01/15/2025 7:30 AM EDT Chronic obstructive pulmonary disease, unspecified (CMS/HCC V24, CMS/HCC V28) documented in this encounter Results * (ABNORMAL) Complete blood count (01/15/2025 7:30 AM EDT) [facility] WBC 7.3 4.8 - 10.8 K/mcL LAB HEMETOLOGY METHOD 01/15/2025 11:39 AM [facility] LAB RBC 3.30(L) 3.80 - 4.80 M/mcL LAB HEMETOLOGY METHOD 01/15/2025 11:39 AM [facility] Hemoglobin 9.5(L) 11.5 - 16.0 g/dL LAB HEMETOLOGY METHOD 01/15/2025 11:39 AM [facility] LAB Hematocrit 30.6(L) 35.0 - 47.0 % LAB HEMETOLOGY METHOD 01/15/2025 11:39 AM [facility] LAB MCV 93.9 79.0 - 98.0 FL LAB HEMETOLOGY METHOD 01/15/2025 11:39 AM [facility] LAB MCH 29.1 27.0 - 32.0 pcg LAB HEMETOLOGY METHOD 01/15/2025 11:39 AM [facility] LAB MCHC 31.0(L) 32.0 - 37.0 g/dL LAB HEMETOLOGY METHOD 01/15/2025 11:39 AM [facility] LAB RDW 15.1(H) 11.0 - 15.0 % LAB HEMETOLOGY METHOD 01/15/2025 11:39 AM [facility] Platelets 222 130 - 400 K/mcL LAB HEMETOLOGY METHOD 01/15/2025 11:39 AM [facility] MPV 10.2 7.0 - 11.0 FL LAB HEMETOLOGY METHOD 01/15/2025 11:39 AM [facility] LAB NRBC 0.0 <1.0 % LAB HEMETOLOGY METHOD 01/15/2025 11:39 AM [facility] LAB NRBC Absolute 0.00 <0.10 K/mcL LAB HEMETOLOGY METHOD 01/15/2025 11:39 AM EDT [facility] Blood Venous blood specimen / Unknown Venipuncture / Unknown 01/15/2025 7:30 AM EDT 01/15/2025 10:24 AM EDT us Chun Blackwell MD LAB BLOOD ORDERABLES Final R esult [facility] [address] [place] [address], [place] [phone] * (ABNORMAL) Basic metabolic panel (01/15/2025 7:30 AM EDT) Sodium 135 133 - 145 mmol/L LAB CHEMISTRY METHOD 01/15/2025 12:56 PM [facility] Potassium 4.0 3.5 - 5.5 mmol/L LAB CHEMISTRY METHOD 01/15/2025 12:56 PM [facility] Chloride 102 96 - 110 mmol/L LAB CHEMISTRY METHOD 01/15/2025 12:56 PM [facility] CO2 27 21 - 32 mmol/L LAB CHEMISTRY METHOD 01/15/2025 12:56 PM [facility] Anion Gap 6 3 - 11 LAB CHEMISTRY METHOD 01/15/2025 12:56 PM [facility] Glucose 70 70 - 100 mg/dL LAB CHEMISTRY METHOD 01/15/2025 12:56 PM [facility] BUN 17 5 - 25 mg/dL LAB CHEMISTRY METHOD 01/15/2025 12:56 PM [facility] Creatinine 0.33(L) 0.50 - 1.10 mg/dL LAB CHEMISTRY METHOD 01/15/2025 12:56 PM [facility] LAB eGFR 104 >=60 mL/min/1. 73m2 LAB CHEMISTRY METHOD 01/15/2025 12:56 PM EDT [facility] LAB Comment:Calculation based on the Chronic Kidney Disease Epidemiology Collaboration (CKD-EPI) equation refit without adjustment for race. BUN/Creatinine Ratio 51.5 LAB CHEMISTRY METHOD 01/15/2025 12:56 PM EDT [facility] Calcium 7.8(L) 8.5 - 10.5 mg/dL LAB CHEMISTRY METHOD 01/15/2025 12:56 PM EDT [facility] LAB Blood Venous blood specimen / Unknown Venipuncture / Unknown 01/15/2025 7:30 AM EDT 01/15/2025 10:24 AM EDT us Chun Blackwell MD LAB BLOOD ORDERABLES Final R esult [facility] [address] [place] [address], documented in this encounter Visit Diagnoses Diagnosis Chronic obstructive pulmonary disease, unspecified (CMS/HCC V24, CMS/HCC V28) documented in this encounter Additional Health Concerns Infection Onset Date Last Indicated Resolved Time Respiratory Rule-Out 01/12/2025 01/12/2025 025 2:02 PM EDT documented as of this encounter Care Teams Insurance Account Executive Relationship Specialty Start Date End Date Ag Shaw MD [address] [address] PCP - General 05/31/03 documented as of this encounter
--- OUTSIDE RECORDS SUMMARY | 2025-04-20 10:04 | XMS_ITS | Encounter Summary ---
Author Organization [facility] Address [address] [place] [address] Care Team Providers Care Dental Surgery Doctor Name Role Phone Ag Shaw MD Primary Care Provider [phone] Encounter Details Date Type Department Care Team (Late st Contact Info) Description 03/17/2025 Lab Requisition [facility] - Main Lab 299 [facility] [place] [address] Elvis Patricia MD [address] [place] [address] Chronic obstructive pulmonary disease, unspecified (CMS/HCC V24, [...] Associated Diagnosis Comments COMPLETE BLOOD COUNT Routine 03/19/2025 7:51 AM EDT Chronic obstructive pulmonary disease, unspecified (CMS/HCC V24, CMS/HCC V28) Thrombocytopenia, unspecified (CMS/HCC V24) Anemia, unspecified BASIC METABOLIC PANEL Routine 03/19/2025 7:51 AM EDT Chronic obstructive pulmonary disease, unspecified (CMS/[facility] V24, [facility] V28) Thrombocytopenia, unspecified ([facility] V24) Anemia, unspecified documented in this encounter Results * (ABNORMAL) Basic metabolic panel (03/19/2025 7:51 AM EDT) Sodium 140 133 - 145 mmol/L LAB CHEMISTRY METHOD 03/19/2025 11:11 AM [facility] LAB Potassium 4.2 3.5 - 5.5 mmol/L LAB CHEMISTRY METHOD 03/19/2025 11:11 AM [facility] LAB Chloride 107 96 - 110 mmol/L LAB CHEMISTRY METHOD 03/19/2025 11:11 AM [facility] LAB CO2 29 21 - 32 mmol/L LAB CHEMISTRY METHOD 03/19/2025 11:11 AM [facility] LAB Anion Gap 4 3 - 11 LAB CHEMISTRY METHOD 03/19/2025 11:11 AM [facility] LAB Glucose 70 70 - 100 mg/dL LAB CHEMISTRY METHOD 03/19/2025 11:11 AM [facility] BUN 14 5 - 25 mg/dL LAB CHEMISTRY METHOD 03/19/2025 11:11 AM [facility] Creatinine 0.43(L) 0.50 - 1.10 mg/dL LAB CHEMISTRY METHOD 03/19/2025 11:11 AM [facility] LAB eGFR 98 >=60 mL/min/1. 73m2 LAB CHEMISTRY METHOD 03/19/2025 11:11 AM [facility] LAB Comment:Calculation based on the Chronic Kidney Disease Epidemiology Collaboration (CKD-EPI) equation refit without adjustment for race. BUN/Creatinine Ratio 32.6 LAB CHEMISTRY METHOD 03/19/2025 11:11 AM [facility] Calcium 8.5 8.5 - 10.5 mg/dL LAB CHEMISTRY METHOD 03/19/2025 11:11 AM [facility] LAB Blood Venous blood specimen / Unknown Venipuncture / Unknown 03/19/2025 7:51 AM EDT 03/19/2025 9:51 AM EDT Elvis Patricia MD LAB BLOOD ORDERABLES Final Result [facility] [address] [place] [address], * (ABNORMAL) Complete blood count (03/19/2025 7:51 AM EDT) WBC 3.5(L) 4.8 - 10.8 K/mcL LAB HEMETOLOGY [facility] RBC 2.90(L) 3.80 - 4.80 M/mcL LAB HEMETOLOGY METHOD 03/19/2025 10:17 AM [facility] Hemoglobin 8.4(L) 11.5 - 16.0 g/dL LAB HEMETOLOGY METHOD 03/19/2025 10:17 AM [facility] LAB Hematocrit 28.3(L) 35.0 - 47.0 % LAB HEMETOLOGY METHOD 03/19/2025 10:17 AM [facility] LAB MCV 96.3 79.0 - 98.0 FL LAB HEMETOLOGY METHOD 03/19/2025 10:17 AM EDT [facility] MCH 28.6 27.0 - 32.0 pcg LAB HEMETOLOGY METHOD 03/19/2025 10:17 AM [facility] LAB MCHC 29.7(L) 32.0 - 37.0 g/dL LAB HEMETOLOGY METHOD 03/19/2025 10:17 AM [facility] LAB RDW 16.2(H) 11.0 - 15.0 % LAB HEMETOLOGY METHOD 03/19/2025 10:17 AM EDT [facility] Platelets 219 130 - 400 K/mcL LAB HEMETOLOGY METHOD 03/19/2025 10:17 AM EDT [facility] MPV 10.3 7.0 - 11.0 FL LAB HEMETOLOGY METHOD 03/19/2025 10:17 AM EDT [facility] NRBC 0.0 <1.0 % LAB HEMETOLOGY METHOD 03/19/2025 10:17 AM EDT [facility] NRBC Absolute 0.00 <0.10 K/mcL LAB HEMETOLOGY METHOD 03/19/2025 10:17 AM EDT [facility] Blood Venous blood specimen / Unknown Venipuncture / Unknown 03/19/2025 7:51 AM EDT 03/19/2025 9:52 AM EDT Elvis Patricia MD LAB BLOOD ORDERABLES Final Result [facility] [address] [place] [address], documented in this encounter Visit Diagnoses Diagnosis Chronic obstructive pulmonary disease, unspecified (CMS/HCC V24, CMS/HCC V28) Thrombocytopenia, unspecified (CMS/HCC V24) Thrombocytopenia, unspecified Anemia, unspecified documented in this encounter Care Teams Dental Surgery Doctor Relationship Specialty Start Date End Date Ag Shaw MD [facility] [place] Tila [address] [address] PCP - General 05/31/03 documented as of this encounter
--- OUTSIDE RECORDS SUMMARY | 2025-04-20 10:04 | XMS_ITS | Encounter Summary ---
Author Organization [facility] Address [address] [place] [address] Care Team Providers Care Tubing Drier Name Role Phone Ag Shaw MD Primary Care Provider [phone] Encounter Details Date Type Department Care Team (Late st Contact Info) Description 02/01/2025 Lab Requisition [facility] - Main Lab 299 [facility] [place] [address] Elvis Patricia MD [address] [place] [address] Chronic obstructive pulmonary disease, unspecified (CMS/HCC V24, [...] Associated Diagnosis Comments COMPLETE BLOOD COUNT Routine 02/05/2025 6:54 AM EDT Chronic obstructive pulmonary disease, unspecified (CMS/HCC V24, CMS/HCC V28) BASIC METABOLIC PANEL Routine 02/05/2025 6:54 AM EDT Chronic obstructive pulmonary disease, unspecified (CMS/HCC V24, CMS/HCC V28) documented in this encounter Results * (ABNORMAL) Basic metabolic panel (02/05/2025 6:54 AM EDT) Sodium 142 133 - 145 mmol/L LAB CHEMISTRY METHOD 02/05/2025 11:50 AM [facility] Potassium 3.7 3.5 - 5.5 mmol/L LAB CHEMISTRY METHOD 02/05/2025 11:50 AM [facility] LAB Chloride 108 96 - 110 mmol/L LAB CHEMISTRY METHOD 02/05/2025 11:50 AM [facility] LAB CO2 27 21 - 32 mmol/L LAB CHEMISTRY METHOD 02/05/2025 11:50 AM [facility] LAB Anion Gap 7 3 - 11 LAB CHEMISTRY METHOD 02/05/2025 11:50 AM [facility] LAB Glucose 59(L) 70 - 100 mg/dL LAB CHEMISTRY METHOD 02/05/2025 11:50 AM [facility] BUN 18 5 - 25 mg/dL LAB CHEMISTRY METHOD 02/05/2025 11:50 AM [facility] LAB Creatinine 0.51 0.50 - 1.10 mg/dL LAB CHEMISTRY METHOD 02/05/2025 11:50 AM [facility] LAB eGFR 94 >=60 mL/min/1. 73m2 LAB CHEMISTRY METHOD 02/05/2025 11:50 AM [facility] LAB Comment:Calculation based on the Chronic Kidney Disease Epidemiology Collaboration (CKD-EPI) equation refit without adjustment for race. BUN/Creatinine Ratio 35.3 LAB CHEMISTRY METHOD 02/05/2025 11:50 AM [facility] Calcium 8.6 8.5 - 10.5 mg/dL LAB CHEMISTRY METHOD 02/05/2025 11:50 AM [facility] LAB Blood Venous blood specimen / Unknown Venipuncture / Unknown 02/05/2025 6:54 AM EDT 02/05/2025 10:43 AM EDT us Elvis Patricia MD LAB BLOOD ORDERABLES Final Result [facility] [address] [place] [address], * (ABNORMAL) Complete blood count (02/05/2025 6:54 AM EDT) WBC 4.3(L) 4.8 - 10.8 K/mcL LAB HEMETOLOGY [facility] RBC 3.90 3.80 - 4.80 M/mcL LAB HEMETOLOGY METHOD 02/05/2025 12:02 PM [facility] Hemoglobin 11.2(L) 11.5 - 16.0 g/dL LAB HEMETOLOGY METHOD 02/05/2025 12:02 PM [facility] Hematocrit 37.3 35.0 - 47.0 % LAB HEMETOLOGY METHOD 02/05/2025 12:02 PM [facility] MCV 96.9 79.0 - 98.0 FL LAB HEMETOLOGY METHOD 02/05/2025 12:02 PM [facility] MCH 29.1 27.0 - 32.0 pcg LAB HEMETOLOGY METHOD 02/05/2025 12:02 PM [facility] MCHC 30.0(L) 32.0 - 37.0 g/dL LAB HEMETOLOGY METHOD 02/05/2025 12:02 PM [facility] RDW 17.0(H) 11.0 - 15.0 % LAB HEMETOLOGY METHOD 02/05/2025 12:02 PM [facility] Platelets 204 130 - 400 K/mcL LAB HEMETOLOGY METHOD 02/05/2025 12:02 PM [facility] MPV 10.6 7.0 - 11.0 FL LAB HEMETOLOGY METHOD 02/05/2025 12:02 PM EDT [facility] NRBC 0.0 <1.0 % LAB HEMETOLOGY METHOD 02/05/2025 12:02 PM EDT [facility] NRBC Absolute 0.00 <0.10 K/mcL LAB HEMETOLOGY METHOD 02/05/2025 12:02 PM EDT [facility] Blood Venous blood specimen / Unknown Venipuncture / Unknown 02/05/2025 6:54 AM EDT 02/05/2025 10:43 AM EDT us Elvis Patricia MD LAB BLOOD ORDERABLES Final Result [facility] [address] [place] [address], documented in this encounter Visit Diagnoses Diagnosis Chronic obstructive pulmonary disease, unspecified (CMS/HCC V24, CMS/HCC V28) documented in this encounter Care Teams Tubing Drier Relationship Specialty Start Date End Date Ag Shaw MD [address] [address] PCP - General 05/31/03 documented as of this encounter
--- OUTSIDE RECORDS SUMMARY | 2025-04-20 10:04 | XMS_ITS | Encounter Summary ---
Author Organization [facility] Address [address] [place] [address] Care Team Providers Care Cupola Patcher Helper Name Role Phone Ag Shaw MD Primary Care Provider [phone] Encounter Details Date Type Department Care Team (Late st Contact Info) Description 03/12/2025 Lab Requisition [facility] - Main Lab 299 [facility] [place] [address] Elvis Patricia MD [address] [place] [address] Anemia, unspecified; Thrombocytopenia, unspecified (CMS/HCC V24); Chronic obstructive pulmonary disease, unspecified (CMS/HCC V24, [...] Associated Diagnosis Comments COMPLETE BLOOD COUNT Routine 03/12/2025 8:35 AM EDT Anemia, unspecified Thrombocytopenia, unspecified (CMS/HCC V24) Chronic obstructive pulmonary disease, unspecified (CMS/HCC V24, CMS/HCC V28) BASIC METABOLIC PANEL Routine 03/12/2025 8:35 AM EDT Anemia, unspecified Thrombocytopenia, unspecified (CMS/[facility] V24) Chronic obstructive pulmonary disease, unspecified ([facility] V24, [facility] V28) documented in this encounter Results * (ABNORMAL) Basic metabolic panel (03/12/2025 8:35 AM EDT) Sodium 141 133 - 145 mmol/L LAB CHEMISTRY METHOD 03/12/2025 11:27 AM [facility] Potassium 4.0 3.5 - 5.5 mmol/L LAB CHEMISTRY METHOD 03/12/2025 11:27 AM [facility] Chloride 106 96 - 110 mmol/L LAB CHEMISTRY METHOD 03/12/2025 11:27 AM [facility] CO2 29 21 - 32 mmol/L LAB CHEMISTRY METHOD 03/12/2025 11:27 AM [facility] Anion Gap 6 3 - 11 LAB CHEMISTRY METHOD 03/12/2025 11:27 AM [facility] Glucose 107(H) 70 - 100 mg/dL LAB CHEMISTRY METHOD 03/12/2025 11:27 AM [facility] BUN 15 5 - 25 mg/dL LAB CHEMISTRY METHOD 03/12/2025 11:27 AM [facility] Creatinine 0.52 0.50 - 1.10 mg/dL LAB CHEMISTRY METHOD 03/12/2025 11:27 AM [facility] eGFR 93 >=60 mL/min/1. 73m2 LAB CHEMISTRY METHOD 03/12/2025 11:27 AM [facility] Comment:Calculation based on the Chronic Kidney Disease Epidemiology Collaboration (CKD-EPI) equation refit without adjustment for race. BUN/Creatinine Ratio 28.8 LAB CHEMISTRY METHOD 03/12/2025 11:27 AM [facility] Calcium 8.4(L) 8.5 - 10.5 mg/dL LAB CHEMISTRY METHOD 03/12/2025 11:27 AM [facility] Blood Venous blood specimen / Unknown Venipuncture / Unknown 03/12/2025 8:35 AM EDT 03/12/2025 10:38 AM EDT Elvis Patricia MD LAB BLOOD ORDERABLES Final Result [facility] [address] [place] [address], * (ABNORMAL) Complete blood count (03/12/2025 8:35 AM EDT) WBC 4.1(L) 4.8 - 10.8 K/mcL LAB HEMETOLOGY METHOD 03/12/2025 11:14 AM EDT [facility] RBC 3.10(L) 3.80 - 4.80 M/mcL LAB HEMETOLOGY METHOD 03/12/2025 11:14 AM EDT [facility] Hemoglobin 8.8(L) 11.5 - 16.0 g/dL LAB HEMETOLOGY METHOD 03/12/2025 11:14 AM [facility] Hematocrit 30.3(L) 35.0 - 47.0 % LAB HEMETOLOGY METHOD 03/12/2025 11:14 AM [facility] MCV 98.1(H) 79.0 - 98.0 FL LAB HEMETOLOGY METHOD 03/12/2025 11:14 AM EDT [facility] MCH 28.5 27.0 - 32.0 pcg LAB HEMETOLOGY METHOD 03/12/2025 11:14 AM [facility] MCHC 29.0(L) 32.0 - 37.0 g/dL LAB HEMETOLOGY METHOD 03/12/2025 11:14 AM [facility] RDW 15.4(H) 11.0 - 15.0 % LAB HEMETOLOGY METHOD 03/12/2025 11:14 AM EDT [facility] Platelets 264 130 - 400 K/mcL LAB HEMETOLOGY METHOD 03/12/2025 11:14 AM EDT [facility] MPV 10.3 7.0 - 11.0 FL LAB HEMETOLOGY METHOD 03/12/2025 11:14 AM EDT [facility] NRBC 0.0 <1.0 % LAB HEMETOLOGY METHOD 03/12/2025 11:14 AM EDT [facility] NRBC Absolute 0.00 <0.10 K/mcL LAB HEMETOLOGY METHOD 03/12/2025 11:14 AM EDT [facility] Blood Venous blood specimen / Unknown Venipuncture / Unknown 03/12/2025 8:35 AM EDT 03/12/2025 10:38 AM EDT Elvis Patricia MD LAB BLOOD ORDERABLES Final Result [facility] [address] [place] [address], documented in this encounter Visit Diagnoses Diagnosis Anemia, unspecified Thrombocytopenia, unspecified (CMS/HCC V24) Thrombocytopenia, unspecified Chronic obstructive pulmonary disease, unspecified (CMS/HCC V24, CMS/HCC V28) documented in this encounter Care Teams Cupola Patcher Helper Relationship Specialty Start Date End Date Ag Shaw MD [address] [address] PCP - General 05/31/03 documented as of this encounter
--- OUTSIDE RECORDS SUMMARY | 2025-04-20 10:05 | XMS_ITS | Encounter Summary ---
Author Organization [facility] Address [address] [place] [address] Care Team Providers Care Correctional Probation Officer Name Role Phone Ag Shaw MD Primary Care Provider [phone] Encounter Details Date Type Department Care Team (Late st Contact Info) Description 10/14/2024 Lab Requisition [facility] - Main Lab 299 [facility] [place] [address] Elvis Patricia MD [address] [place] [address] Chronic obstructive pulmonary disease, unspecified (CMS/HCC V24, [...] documented as of this encounter Care Teams Correctional Probation Officer Relationship Specialty Start Date End Date Ag Shaw MD [address] [facility] [address] [place] [address] PCP - General 05/31/03 documented as of this encounter
--- OUTSIDE RECORDS SUMMARY | 2025-04-20 10:05 | XMS_ITS | Encounter Summary ---
Author Organization [facility] Address [address] [place] [address] Care Team Providers Care Ambulatory Care Coordinator Name Role Phone Ag Shaw MD Primary Care Provider [phone] Encounter Details Date Type Department Care Team (Late st Contact Info) Description 09/23/2024 Lab Requisition [facility] - Main Lab [address] [facility] [place] [address] Elvis Patricia MD [address] [place] [address] Chronic obstructive pulmonary disease, unspecified (CMS/HCC V24, [...] mmol/L LAB CHEMISTRY METHOD 09/25/2024 11:40 AM [facility] Potassium 4.2 3.5 - 5.5 mmol/L LAB CHEMISTRY METHOD 09/25/2024 11:40 AM [facility] Chloride 110 96 - 110 mmol/L LAB CHEMISTRY METHOD 09/25/2024 11:40 AM [facility] CO2 25 21 - 32 mmol/L LAB CHEMISTRY METHOD 09/25/2024 11:40 AM [facility] Anion Gap 8 3 - 11 LAB CHEMISTRY METHOD 09/25/2024 11:40 AM [facility] Glucose 74 70 - 100 mg/dL LAB CHEMISTRY METHOD 09/25/2024 11:40 AM [facility] BUN 18 5 - 25 mg/dL LAB CHEMISTRY METHOD 09/25/2024 11:40 AM [facility] Creatinine 0.46(L) 0.50 - 1.10 mg/dL LAB CHEMISTRY METHOD 09/25/2024 11:40 AM [facility] eGFR 96 >=60 mL/min/1. 73m2 LAB CHEMISTRY METHOD 09/25/2024 11:40 AM [facility] Comment:Calculation based on the Chronic Kidney Disease Epidemiology Collaboration (CKD-EPI) equation refit without adjustment for race. BUN/Creatinine Ratio 39.1 LAB CHEMISTRY METHOD 09/25/2024 11:40 AM [facility] Calcium 8.2(L) 8.5 - 10.5 mg/dL LAB CHEMISTRY METHOD 09/25/2024 11:40 AM [facility] Blood Venous blood specimen / Unknown Venipuncture / Unknown 09/25/2024 7:51 AM EST 09/25/2024 10:59 AM EST Elvis Patricia MD LAB BLOOD ORDERABLES Final Result [facility] [address] [place] [address], * (ABNORMAL) Complete blood count (09/25/2024 7:51 AM EST) WBC 3.8(L) 4.8 - 10.8 K/mcL LAB HEMETOLOGY METHOD 09/25/2024 12:37 PM [facility] RBC 3.20(L) 3.80 - 4.80 M/mcL LAB HEMETOLOGY METHOD 09/25/2024 12:37 PM [facility] Hemoglobin 9.4(L) 11.5 - 16.0 g/dL LAB HEMETOLOGY METHOD 09/25/2024 12:37 PM [facility] Hematocrit 31.2(L) 35.0 - 47.0 % LAB HEMETOLOGY METHOD 09/25/2024 12:37 PM [facility] MCV 99.0(H) 79.0 - 98.0 FL LAB HEMETOLOGY METHOD 09/25/2024 12:37 PM [facility] MCH 29.8 27.0 - 32.0 pcg LAB HEMETOLOGY METHOD 09/25/2024 12:37 PM [facility] MCHC 30.1(L) 32.0 - 37.0 g/dL LAB HEMETOLOGY METHOD 09/25/2024 12:37 PM [facility] RDW 19.4(H) 11.0 - 15.0 % LAB HEMETOLOGY METHOD 09/25/2024 12:37 PM [facility] Platelets 199 130 - 400 K/mcL LAB HEMETOLOGY METHOD 09/25/2024 12:37 PM [facility] MPV 10.4 7.0 - 11.0 FL LAB HEMETOLOGY METHOD 09/25/2024 12:37 PM [facility] NRBC 0.0 <1.0 % LAB HEMETOLOGY METHOD 09/25/2024 12:37 PM EST [facility] NRBC Absolute 0.00 <0.10 K/mcL LAB HEMETOLOGY METHOD 09/25/2024 12:37 PM EST [facility] Blood Venous blood specimen / Unknown Venipuncture / Unknown 09/25/2024 7:51 AM EST 09/25/2024 11:06 AM EST us Elvis Patricia MD LAB BLOOD ORDERABLES Final Result [facility] [address] [place] [address], documented in this encounter Visit Diagnoses Diagnosis Chronic obstructive pulmonary disease, unspecified (CMS/HCC V24, CMS/HCC V28) documented in this encounter Additional Health Concerns Infection Onset Date Last Indicated Resolved Time Respiratory Rule-Out 01/12/2025 01/12/2025 025 2:02 PM EDT documented as of this encounter Care Teams Ambulatory Care Coordinator Relationship Specialty Start Date End Date Ag Shaw MD [address] [address] PCP - General 05/31/03 documented as of this encounter
--- OUTSIDE RECORDS SUMMARY | 2025-04-20 10:05 | XMS_ITS | Encounter Summary ---
Author Organization [facility] Address [address] [place] [address] Care Team Providers Care Button Reclaimer Name Role Phone Ag Shaw MD Primary Care Provider [phone] Encounter Details Date Type Department Care Team (Late st Contact Info) Description 01/10/2025 Lab Requisition [facility] - Main Lab 299 [facility] [place] [address] Elvis Patricia MD [address] [place] [address] Chronic obstructive pulmonary disease, unspecified (CMS/HCC V24, CMS/HCC V28); Shortness of breath; Edema, unspecified Social History Tobacco Use Types Packs/Day [...] Priority Date/Time Associated Diagnosis Comments PROCALCITONIN Routine 01/10/2025 6:18 AM EDT Chronic obstructive pulmonary disease, unspecified (CMS/HCC V24, CMS/HCC V28) Shortness of breath Edema, unspecified B-TYPE NATRIURETIC PEPTIDE Routine 01/10/2025 6:18 AM EDT Chronic obstructive pulmonary disease, unspecified (CMS/HCC V24, CMS/HCC V28) Shortness of breath Edema, unspecified documented in this encounter Results * Procalcitonin (01/10/2025 6:18 AM EDT) Procalcitonin 0.04 <=0.16 ng/mL LAB CHEMISTRY METHOD 01/10/2025 11:52 AM EDT [facility] Blood Venous blood specimen / Unknown Venipuncture / Unknown 01/10/2025 6:18 AM EDT 01/10/2025 10:21 AM EDT Narrative [facility] - 01/10/2025 11:52 AM EDT Procalcitonin > 2.00 ng/ml: Procalcitonin Levels [...] Final Result [facility] [address] [place] [address], * (ABNORMAL) B-type natriuretic peptide (01/10/2025 6:18 AM EDT) BNP 131(H) <=100 pcg/mL LAB CHEMISTRY METHOD 01/10/2025 11:36 AM EDT [facility] Blood Venous blood specimen / Unknown Venipuncture / Unknown 01/10/2025 6:18 AM EDT 01/10/2025 10:21 AM EDT us Elvis Patricia MD LAB BLOOD ORDERABLES Final Result [facility] [address] [place] [address], documented in this encounter Visit Diagnoses Diagnosis Chronic obstructive pulmonary disease, unspecified (CMS/HCC V24, CMS/HCC V28) Shortness of breath Edema, unspecified documented in this encounter Additional Health Concerns Infection Onset Date Last Indicated Resolved Time Respiratory Rule-Out 01/12/2025 01/12/202501/13/ 025 2:02 PM EDT documented as of this encounter Care Teams Button Reclaimer Relationship Specialty Start Date End Date Ag Shaw MD [address] [address] PCP - General 05/31/03 documented as of this encounter
--- OUTSIDE RECORDS SUMMARY | 2025-04-20 10:05 | XMS_ITS | Encounter Summary ---
Author Organization [facility] Address [address] [place] [address] Care Team Providers Care Seismic Interpreter Name Role Phone Ag Shaw MD Primary Care Provider [phone] Encounter Details Date Type Department Care Team (Late st Contact Info) Description 01/08/[address] [facility] - Main Lab [address] [facility] [place] [address] Elvis Patricia MD [address] [place] [address] Chronic obstructive pulmonary disease, unspecified (CMS/HCC V24, [...] documented as of this encounter Care Teams Seismic Interpreter Relationship Specialty Start Date End Date Ag Shaw MD [address] [facility] [address] [place] [address] PCP - General 05/31/03 documented as of this encounter
--- OUTSIDE RECORDS SUMMARY | 2025-04-20 10:05 | XMS_ITS | Encounter Summary ---
Author Organization [facility] Address [address] [place] [address] Care Team Providers Care Glove Machine Operator Name Role Phone Ag Shaw MD Primary Care Provider Encounter Details Date Type Department Care Team (Late st Contact Info) Description 09/17/2024 Lab Requisition [facility] - Main Lab [address] [facility] [place] [address] Elvis Patricia MD [address] [place] [address] Chronic obstructive pulmonary disease, unspecified (CMS/HCC V24, [...] mmol/L LAB CHEMISTRY METHOD 09/18/2024 11:58 AM [facility] Potassium 4.1 3.5 - 5.5 mmol/L LAB CHEMISTRY METHOD 09/18/2024 11:58 AM [facility] Chloride 106 96 - 110 mmol/L LAB CHEMISTRY METHOD 09/18/2024 11:58 AM [facility] CO2 25 21 - 32 mmol/L LAB CHEMISTRY METHOD 09/18/2024 11:58 AM [facility] Anion Gap 9 3 - 11 LAB CHEMISTRY METHOD 09/18/2024 11:58 AM [facility] Glucose 89 70 - 100 mg/dL LAB CHEMISTRY METHOD 09/18/2024 11:58 AM [facility] BUN 18 5 - 25 mg/dL LAB CHEMISTRY METHOD 09/18/2024 11:58 AM [facility] Creatinine 0.59 0.50 - 1.10 mg/dL LAB CHEMISTRY METHOD 09/18/2024 11:58 AM [facility] eGFR 91 >=60 mL/min/1. 73m2 LAB CHEMISTRY METHOD 09/18/2024 11:58 AM [facility] Comment:Calculation based on the Chronic Kidney Disease Epidemiology Collaboration (CKD-EPI) equation refit without adjustment for race. BUN/Creatinine Ratio 30.5 LAB CHEMISTRY METHOD 09/18/2024 11:58 AM [facility] Calcium 8.7 8.5 - 10.5 mg/dL LAB CHEMISTRY METHOD 09/18/2024 11:58 AM [facility] Blood Venous blood specimen / Unknown Venipuncture / Unknown 09/18/2024 9:57 AM EST 09/18/2024 11:06 AM EST us Elvis Patricia MD LAB BLOOD ORDERABLES Final Result [facility] [address] [place] [address], * (ABNORMAL) Complete blood count (09/18/2024 9:57 AM EST) [facility] Signature WBC 5.3 4.8 - 10.8 K/mcL LAB HEMETOLOGY METHOD 09/18/2024 12:15 PM EST [facility] RBC 3.20(L) 3.80 - 4.80 M/mcL LAB HEMETOLOGY METHOD 09/18/2024 12:15 PM [facility] Hemoglobin 9.4(L) 11.5 - 16.0 g/dL LAB HEMETOLOGY METHOD 09/18/2024 12:15 PM [facility] Hematocrit 30.8(L) 35.0 - 47.0 % LAB HEMETOLOGY METHOD 09/18/2024 12:15 PM [facility] MCV 97.2 79.0 - 98.0 FL LAB HEMETOLOGY METHOD 09/18/2024 12:15 PM [facility] MCH 29.7 27.0 - 32.0 pcg LAB HEMETOLOGY METHOD 09/18/2024 12:15 PM [facility] MCHC 30.5(L) 32.0 - 37.0 g/dL LAB HEMETOLOGY METHOD 09/18/2024 12:15 PM [facility] RDW 18.5(H) 11.0 - 15.0 % LAB HEMETOLOGY METHOD 09/18/2024 12:15 PM [facility] Platelets 309 130 - 400 K/mcL LAB HEMETOLOGY METHOD 09/18/2024 12:15 PM [facility] Comment:reviewed by slide MPV 10.4 7.0 - 11.0 FL LAB HEMETOLOGY METHOD 09/18/2024 12:15 PM [facility] NRBC 0.0 <1.0 % LAB HEMETOLOGY METHOD 09/18/2024 12:15 PM EST [facility] NRBC Absolute 0.00 <0.10 K/mcL LAB HEMETOLOGY METHOD 09/18/2024 12:15 PM EST [facility] Blood Venous blood specimen / Unknown Venipuncture / Unknown 09/18/2024 9:57 AM EST 09/18/2024 11:06 AM EST us Elvis Patricia MD LAB BLOOD ORDERABLES Final Result [facility] [address] [place] [address], documented in this encounter Visit Diagnoses Diagnosis Chronic obstructive pulmonary disease, unspecified (CMS/HCC V24, CMS/HCC V28) documented in this encounter Additional Health Concerns Infection Onset Date Last Indicated Resolved Time Respiratory Rule-Out 01/12/2025 01/12/2025 025 2:02 PM EDT documented as of this encounter Care Teams Glove Machine Operator Relationship Specialty Start Date End Date Ag Shaw MD [address] [address] PCP - General 05/31/03 documented as of this encounter
--- OUTSIDE RECORDS SUMMARY | 2025-04-20 10:05 | XMS_ITS | Encounter Summary ---
Author Organization [facility] Address [address] [place] [address] Care Team Providers Care Historical Society Director Name Role Phone Ag Shaw MD Primary Care Provider [phone] Encounter Details Date Type Department Care Team (Late st Contact Info) Description 09/29/2024 Lab Requisition [facility] - Main Lab [address] [facility] [place] [address] Elvis Patricia MD [address] [place] [address] Chronic obstructive pulmonary disease, unspecified (CMS/HCC V24, [...] mmol/L LAB CHEMISTRY METHOD 10/02/2024 12:07 PM [facility] Potassium 4.7 3.5 - 5.5 mmol/L LAB CHEMISTRY METHOD 10/02/2024 12:07 PM [facility] Chloride 106 96 - 110 mmol/L LAB CHEMISTRY METHOD 10/02/2024 12:07 PM [facility] CO2 26 21 - 32 mmol/L LAB CHEMISTRY METHOD 10/02/2024 12:07 PM [facility] Anion Gap 6 3 - 11 LAB CHEMISTRY METHOD 10/02/2024 12:07 PM [facility] Glucose 70 70 - 100 mg/dL LAB CHEMISTRY METHOD 10/02/2024 12:07 PM [facility] BUN 14 5 - 25 mg/dL LAB CHEMISTRY METHOD 10/02/2024 12:07 PM [facility] Creatinine 0.54 0.50 - 1.10 mg/dL LAB CHEMISTRY METHOD 10/02/2024 12:07 PM [facility] eGFR 93 >=60 mL/min/1. 73m2 LAB CHEMISTRY METHOD 10/02/2024 12:07 PM [facility] Comment:Calculation based on the Chronic Kidney Disease Epidemiology Collaboration (CKD-EPI) equation refit without adjustment for race. BUN/Creatinine Ratio 25.9 LAB CHEMISTRY METHOD 10/02/2024 12:07 PM [facility] Calcium 8.6 8.5 - 10.5 mg/dL LAB CHEMISTRY METHOD 10/02/2024 12:07 PM [facility] Blood Venous blood specimen / Unknown Venipuncture / Unknown 10/02/2024 9:43 AM EST 10/02/2024 11:22 AM EST us Elvis Patricia MD LAB BLOOD ORDERABLES Final Result [facility] [address] [place] [address], * (ABNORMAL) Complete blood count (10/02/2024 9:43 AM EST) WBC 3.5(L) 4.8 - 10.8 K/mcL LAB HEMETOLOGY METHOD 10/02/2024 12:46 PM [facility] RBC 3.40(L) 3.80 - 4.80 M/mcL LAB HEMETOLOGY METHOD 10/02/2024 12:46 PM [facility] Hemoglobin 10.4(L) 11.5 - 16.0 g/dL LAB HEMETOLOGY METHOD 10/02/2024 12:46 PM [facility] Hematocrit 33.5(L) 35.0 - 47.0 % LAB HEMETOLOGY METHOD 10/02/2024 12:46 PM [facility] MCV 99.7(H) 79.0 - 98.0 FL LAB HEMETOLOGY METHOD 10/02/2024 12:46 PM [facility] MCH 31.0 27.0 - 32.0 pcg LAB HEMETOLOGY METHOD 10/02/2024 12:46 PM [facility] MCHC 31.0(L) 32.0 - 37.0 g/dL LAB HEMETOLOGY METHOD 10/02/2024 12:46 PM [facility] RDW 18.5(H) 11.0 - 15.0 % LAB HEMETOLOGY METHOD 10/02/2024 12:46 PM [facility] Platelets 147 130 - 400 K/mcL LAB HEMETOLOGY METHOD 10/02/2024 12:46 PM [facility] MPV 11.1(H) 7.0 - 11.0 FL LAB HEMETOLOGY METHOD 10/02/2024 12:46 PM [facility] NRBC 0.0 <1.0 % LAB HEMETOLOGY METHOD 10/02/2024 12:46 PM EST [facility] NRBC Absolute 0.00 <0.10 K/mcL LAB HEMETOLOGY METHOD 10/02/2024 12:46 PM EST [facility] Blood Venous blood specimen / Unknown Venipuncture / Unknown 10/02/2024 9:43 AM EST 10/02/2024 11:22 AM EST us Elvis Patricia MD LAB BLOOD ORDERABLES Final Result [facility] [address] [place] [address], documented in this encounter Visit Diagnoses Diagnosis Chronic obstructive pulmonary disease, unspecified (CMS/HCC V24, CMS/HCC V28) documented in this encounter Additional Health Concerns Infection Onset Date Last Indicated Resolved Time Respiratory Rule-Out 01/12/2025 01/12/2025 025 2:02 PM EDT documented as of this encounter Care Teams Historical Society Director Relationship Specialty Start Date End Date Ag Shaw MD [address] [address] PCP - General 05/31/03 documented as of this encounter
--- OUTSIDE RECORDS SUMMARY | 2025-04-20 10:05 | XMS_ITS | Encounter Summary ---
Author Organization [facility] Address [address] [place] [address] Care Team Providers Care Toll Relief Operator Name Role Phone Ag Shaw MD Primary Care Provider [phone] Encounter Details Date Type Department Care Team (Late st Contact Info) Description 12/31/2024 Lab Requisition [facility] - Main Lab [address] [facility] [place] [address] Elvis Patricia MD [address] [place] [address] Weakness; Fever, unspecified; Cough, unspecified Social History Tobacco Use Types Packs/Day [...] Associated Diagnosis Comments COMPLETE BLOOD COUNT Routine 12/31/2024 6:21 AM EDT Weakness Fever, unspecified Cough, unspecified BASIC METABOLIC PANEL Routine 12/31/2024 6:21 AM EDT Weakness Fever, unspecified Cough, unspecified documented in this encounter Results * (ABNORMAL) Basic metabolic panel (12/31/2024 6:21 AM EDT) Sodium 135 133 - 145 mmol/L LAB CHEMISTRY METHOD 12/31/2024 10:[address] [facility] Potassium 4.0 3.5 - 5.5 mmol/L LAB CHEMISTRY METHOD 12/31/2024 10:[address] [facility] Chloride 104 96 - 110 mmol/L LAB CHEMISTRY METHOD 12/31/2024 10:[address] [facility] CO2 26 21 - 32 mmol/L LAB CHEMISTRY METHOD 12/31/2024 10:[address] [facility] Anion Gap 5 3 - 11 LAB CHEMISTRY METHOD 12/31/2024 10:[address] [facility] Glucose 85 70 - 100 mg/dL LAB CHEMISTRY METHOD 12/31/2024 10:[address] [facility] BUN 19 5 - 25 mg/dL LAB CHEMISTRY METHOD 12/31/2024 10:[address] [facility] Creatinine 0.46(L) 0.50 - 1.10 mg/dL LAB CHEMISTRY METHOD 12/31/2024 10:[address] [facility] eGFR 96 >=60 mL/min/1. 73m2 LAB CHEMISTRY METHOD 12/31/2024 10:[address] [facility] Comment:Calculation based on the Chronic Kidney Disease Epidemiology Collaboration (CKD-EPI) equation refit without adjustment for race. BUN/Creatinine Ratio 41.3 LAB CHEMISTRY METHOD 12/31/2024 10:[address] [facility] Calcium 8.0(L) 8.5 - 10.5 mg/dL LAB CHEMISTRY METHOD 12/31/2024 10:[address] [facility] Blood Venous blood specimen / Unknown Venipuncture / Unknown 12/31/2024 6:21 AM EDT 12/31/2024 9:25 AM EDT Elvis Patricia MD LAB BLOOD ORDERABLES Final Result [facility] [address] [place] [address], * (ABNORMAL) Complete blood count (12/31/2024 6:21 AM EDT) WBC 3.7(L) 4.8 - 10.8 K/mcL LAB HEMETOLOGY METHOD 12/31/2024 10:32 AM EDT [facility] RBC 3.30(L) 3.80 - 4.80 M/mcL LAB HEMETOLOGY METHOD 12/31/2024 10:32 AM EDT [facility] Hemoglobin 10.0(L) 11.5 - 16.0 g/dL LAB HEMETOLOGY METHOD 12/[facility]24 [facility] Hematocrit 30.7(L) 35.0 - 47.0 % LAB HEMETOLOGY METHOD 12/31/2024 10:32 AM EDT [facility] MCV 94.2 79.0 - 98.0 FL LAB HEMETOLOGY METHOD 12/31/2024 10:32 AM EDT [facility] MCH 30.7 27.0 - 32.0 pcg LAB HEMETOLOGY METHOD 12/31/2024 10:32 AM EDT [facility] MCHC 32.6 32.0 - 37.0 g/dL LAB HEMETOLOGY METHOD 12/31/2024 10:32 AM EDT [facility] RDW 15.3(H) 11.0 - 15.0 % LAB HEMETOLOGY METHOD 12/31/2024 10:32 AM EDT [facility] Platelets 185 130 - 400 K/mcL LAB HEMETOLOGY METHOD 12/31/2024 10:32 AM EDT [facility] MPV 10.4 7.0 - 11.0 FL LAB HEMETOLOGY METHOD 12/31/2024 10:32 AM EDT [facility] NRBC 0.0 <1.0 % LAB HEMETOLOGY METHOD 12/31/2024 10:32 AM EDT [facility] NRBC Absolute 0.00 <0.10 K/mcL LAB HEMETOLOGY METHOD 12/31/2024 10:32 AM EDT [facility] Blood Venous blood specimen / Unknown Venipuncture / Unknown 12/31/2024 6:21 AM EDT 12/31/2024 9:25 AM EDT us Elvis Patricia MD LAB BLOOD ORDERABLES Final Result [facility] [address] [place] [address], documented in this encounter Visit Diagnoses Diagnosis Weakness Other malaise and fatigue Fever, unspecified Cough, unspecified documented in this encounter Additional Health Concerns Infection Onset Date Last Indicated Resolved Time Respiratory Rule-Out 01/12/2025 01/12/2025 025 2:02 PM EDT documented as of this encounter Care Teams Toll Relief Operator Relationship Specialty Start Date End Date Ag Shaw MD [address] [address] PCP - General 05/31/03 documented as of this encounter
--- OUTSIDE RECORDS SUMMARY | 2025-04-20 10:05 | XMS_ITS | Encounter Summary ---
Author Organization [facility] Address [address] [place] [address] Care Team Providers Care Power Plant Operators Supervisor Name Role Phone Ag Shaw MD Primary Care Provider [phone] Encounter Details Date Type Department Care Team (Late st Contact Info) Description 01/08/2025 Lab Requisition [facility] - Main Lab [address] [facility] [address] Elvis Patricia MD [address] [place] [address] Chronic obstructive pulmonary disease, unspecified (CMS/HCC V24, [...] Associated Diagnosis Comments COMPLETE BLOOD COUNT Routine 01/09/2025 6:19 AM EDT Chronic obstructive pulmonary disease, unspecified (CMS/HCC V24, CMS/HCC V28) BASIC METABOLIC PANEL Routine 01/09/2025 6:19 AM EDT Chronic obstructive pulmonary disease, unspecified (CMS/HCC V24, CMS/HCC V28) documented in this encounter Results * (ABNORMAL) Basic metabolic panel (01/09/2025 6:19 AM EDT) Sodium 139 133 - 145 mmol/L LAB CHEMISTRY METHOD 01/09/2025 8:22 AM [facility] Potassium 4.3 3.5 - 5.5 mmol/L LAB CHEMISTRY METHOD 01/09/2025 8:22 AM [facility] Chloride 105 96 - 110 mmol/L LAB CHEMISTRY METHOD 01/09/2025 8:22 AM [facility] CO2 30 21 - 32 mmol/L LAB CHEMISTRY METHOD 01/09/2025 8:22 AM [facility] Anion Gap 4 3 - 11 LAB CHEMISTRY METHOD 01/09/2025 8:22 AM [facility] Glucose 86 70 - 100 mg/dL LAB CHEMISTRY METHOD 01/09/2025 8:22 AM [facility] BUN 20 5 - 25 mg/dL LAB CHEMISTRY METHOD 01/09/2025 8:22 AM [facility] Creatinine 0.48(L) 0.50 - 1.10 mg/dL LAB CHEMISTRY METHOD 01/09/2025 8:22 AM [facility] eGFR 95 >=60 mL/min/1. 73m2 LAB CHEMISTRY METHOD 01/09/2025 8:22 AM [facility] Comment:Calculation based on the Chronic Kidney Disease Epidemiology Collaboration (CKD-EPI) equation refit without adjustment for race. BUN/Creatinine Ratio 41.7 LAB CHEMISTRY METHOD 01/09/2025 8:22 AM [facility] Calcium 7.8(L) 8.5 - 10.5 mg/dL LAB CHEMISTRY METHOD 01/09/2025 8:22 AM [facility] Blood Venous blood specimen / Unknown Venipuncture / Unknown 01/09/2025 6:19 AM EDT 01/09/2025 6:58 AM EDT us Elvis Patricia MD LAB BLOOD ORDERABLES Final Result [facility] [address] [place] [address], * (ABNORMAL) Complete blood count (01/09/2025 6:19 AM EDT) WBC 7.4 4.8 - 10.8 K/mcL LAB HEMETOLOGY METHOD 01/09/2025 7:46 AM EDT [facility] RBC 3.40(L) 3.80 - 4.80 M/mcL LAB HEMETOLOGY [facility] Hemoglobin 9.8(L) 11.5 - 16.0 g/dL LAB HEMETOLOGY METHOD 01/09/2025 7:46 AM [facility] Hematocrit 32.0(L) 35.0 - 47.0 % LAB HEM[facility]OLOGY [facility] MCV 95.2 79.0 - 98.0 FL LAB HEMETOLOGY METHOD [facility]25 7[facility] MCH 29.2 27.0 - 32.0 pcg LAB HEMETOLOGY METHOD 01/[facility]/2025 7[facility] MCHC 30.6(L) 32.0 - 37.0 g/dL LAB HEMETOLOGY METHOD 01/09/2025 7:46 AM [facility] RDW 15.2(H) 11.0 - 15.0 % LAB HEMETOLOGY METHOD [facility] Platelets 260 130 - 400 K/mcL LAB HEMETOLOGY METHOD 01/09/2025 7:46 AM EDT [facility] MPV 10.0 7.0 - 11.0 FL LAB HEMETOLOGY METHOD 01/09/2025 7:46 AM EDT [facility] NRBC 0.0 <1.0 % LAB HEMETOLOGY METHOD 01/09/2025 7:46 AM EDT [facility] NRBC Absolute 0.00 <0.10 K/mcL LAB HEMETOLOGY METHOD 01/09/2025 7:46 AM EDT [facility] Blood Venous blood specimen / Unknown Venipuncture / Unknown 01/09/2025 6:19 AM EDT 01/09/2025 6:58 AM EDT Elvis Patricia MD LAB BLOOD ORDERABLES Final Result [facility] [address] [place] [address], documented in this encounter Visit Diagnoses Diagnosis Chronic obstructive pulmonary disease, unspecified (CMS/HCC V24, CMS/HCC V28) documented in this encounter Additional Health Concerns Infection Onset Date Last Indicated Resolved Time Respiratory Rule-Out 01/12/2025 01/12/2025 025 2:02 PM EDT documented as of this encounter Care Teams Power Plant Operators Supervisor Relationship Specialty Start Date End Date Ag Shaw MD [address] [address] PCP - General 05/31/03 documented as of this encounter
--- OUTSIDE RECORDS SUMMARY | 2025-04-20 10:05 | XMS_ITS | Encounter Summary ---
Author Organization [facility] Address [address] [place] [address] Care Team Providers Care Tram Inspector Name Role Phone Ag Shaw MD Primary Care Provider [phone] Encounter Details Date Type Department Care Team (Late st Contact Info) Description 09/10/2024 Lab Requisition [facility] - Main Lab [address] [facility] [place] [address] Elvis Patricia MD [address] [place] [address] Chronic obstructive pulmonary disease, unspecified (CMS/HCC V24, [...] CBC auto differential (09/10/2024 9:55 AM EST) Pathologist [facility] WBC 5.1 4.8 - 10.8 K/mcL LAB HEMETOLOGY METHOD 09/10/2024 10:51 AM [facility] RBC 2.90(L) 3.80 - 4.80 M/mcL LAB HEMETOLOGY METHOD 09/10/2024 10:51 AM [facility] Hemoglobin 8.5(L) 11.5 - 16.0 g/dL LAB HEMETOLOGY METHOD 09/10/2024 10:51 AM [facility] Hematocrit 27.4(L) 35.0 - 47.0 % LAB HEMETOLOGY METHOD 09/10/2024 10:51 AM [facility] LAB MCV 93.2 79.0 - 98.0 FL LAB HEMETOLOGY METHOD 09/10/2024 10:51 AM [facility] MCH 28.9 27.0 - 32.0 pcg LAB HEMETOLOGY METHOD 09/10/2024 10:51 AM [facility] LAB MCHC 31.0(L) 32.0 - 37.0 g/dL LAB HEMETOLOGY METHOD 09/10/2024 10:51 AM [facility] LAB RDW 17.2(H) 11.0 - 15.0 % LAB HEMETOLOGY METHOD 09/10/2024 10:51 AM [facility] Platelets 147 130 - 400 K/mcL LAB HEMETOLOGY METHOD 09/10/2024 10:51 AM [facility] LAB MPV 11.2(H) 7.0 - 11.0 FL LAB HEMETOLOGY METHOD 09/10/2024 10:51 AM [facility] NRBC 0.0 <1.0 % LAB HEMETOLOGY METHOD 09/10/2024 10:51 AM [facility] NRBC Absolute 0.00 <0.10 K/mcL LAB HEMETOLOGY METHOD 09/10/2024 10:51 AM [facility] Neutrophils Relative 74.1 % LAB HEMETOLOGY METHOD 09/10/2024 10:51 AM [facility] Lymphocytes Relative 15.8 % LAB HEMETOLOGY METHOD 09/10/2024 10:51 AM [facility] Monocytes Relative 8.5 % LAB HEMETOLOGY METHOD 09/10/2024 10:51 AM [facility] Eosinophils Relative 0.8 % LAB HEMETOLOGY METHOD 09/10/2024 10:51 AM [facility] Basophils Relative 0.4 % LAB HEMETOLOGY METHOD 09/10/2024 10:51 AM [facility] Immature Granulocytes Relative 0.4 % LAB HEMETOLOGY METHOD 09/10/2024 10:51 AM [facility] Neutrophils Absolute 3.76 1.50 - 7.00 K/mcL LAB HEMETOLOGY METHOD 09/10/2024 10:51 AM [facility] Lymphocytes Absolute 0.80(L) 1.00 - 5.00 K/mcL LAB HEMETOLOGY METHOD 09/10/2024 10:51 AM [facility] Monocytes Absolute 0.43 0.20 - 1.00 K/mcL LAB HEMETOLOGY METHOD 09/10/2024 10:51 AM EST [facility] Eosinophils Absolute 0.04 0.00 - 0.50 K/mcL LAB HEMETOLOGY METHOD 09/10/2024 10:51 AM EST [facility] Basophils Absolute 0.02 0.00 - 0.20 K/mcL LAB HEMETOLOGY METHOD 09/10/2024 10:51 AM [facility] Immature Granulocytes Absolute 0.02 0.00 - 0.03 K/[facility] LAB HEMETOLOGY METHOD 09/10/2024 10:51 AM [facility] Blood Venous blood specimen / Unknown Venipuncture / Unknown 09/10/2024 9:55 AM EST 09/10/2024 10:45 AM EST us Elvis Patricia MD LAB BLOOD ORDERABLES Final Result [facility] [address] [place] [address], * (ABNORMAL) Comprehensive metabolic panel (09/10/2024 9:55 AM EST) Sodium 140 133 - 145 mmol/L LAB CHEMISTRY METHOD 09/10/2024 11:10 AM [facility] Potassium 3.5 3.5 - 5.5 mmol/L LAB CHEMISTRY METHOD 09/10/2024 11:10 AM [facility] Chloride 109 96 - 110 mmol/L LAB CHEMISTRY METHOD 09/10/2024 11:10 AM [facility] CO2 26 21 - 32 mmol/L LAB CHEMISTRY METHOD 09/10/2024 11:10 AM [facility] Anion Gap 5 3 - 11 LAB CHEMISTRY METHOD 09/10/2024 11:10 AM [facility] Glucose 110(H) 70 - 100 mg/dL LAB CHEMISTRY METHOD 09/10/2024 11:10 AM [facility] BUN 20 5 - 25 mg/dL LAB CHEMISTRY METHOD 09/10/2024 11:10 AM [facility] Creatinine 0.58 0.50 - 1.10 mg/dL LAB CHEMISTRY METHOD 09/10/2024 11:10 AM [facility] LAB eGFR 91 >=60 mL/min/1. 73m2 LAB CHEMISTRY METHOD 09/10/2024 11:10 AM [facility] LAB Comment:Calculation based on the Chronic Kidney Disease Epidemiology Collaboration (CKD-EPI) equation refit without adjustment for race. BUN/Creatinine Ratio 34.5 LAB CHEMISTRY METHOD 09/10/2024 11:10 AM [facility] Calcium 8.0(L) 8.5 - 10.5 mg/dL LAB CHEMISTRY METHOD 09/10/2024 11:10 AM [facility] AST (SGOT) 29 10 - 42 unit/L LAB CHEMISTRY METHOD 09/10/2024 11:10 AM [facility] ALT (SGPT) 22 10 - 60 unit/L LAB CHEMISTRY METHOD 09/10/2024 11:10 AM [facility] Alkaline Phosphatase 90 42 - 121 unit/L LAB CHEMISTRY METHOD 09/10/2024 11:10 AM [facility] Total Protein 5.7(L) 6.0 - 8.0 g/dL LAB CHEMISTRY METHOD 09/10/2024 11:10 AM [facility] Albumin 2.3(L) 3.2 - 5.0 g/dL LAB CHEMISTRY METHOD 09/10/2024 11:10 AM [facility] Total Bilirubin 0.8 0.0 - 1.4 mg/dL LAB CHEMISTRY METHOD 09/10/2024 11:10 AM [facility] Blood Venous blood specimen / Unknown Venipuncture / Unknown 09/10/2024 9:55 AM EST 09/10/2024 10:45 AM EST us Elvis Patricia MD LAB BLOOD ORDERABLES Final Result [facility] [address] [place] [address], documented in this encounter Visit Diagnoses Diagnosis Chronic obstructive pulmonary disease, unspecified ([facility] V24, [facility] V28) Thrombocytopenia, unspecified ([facility] V24) Thrombocytopenia, unspecified Unspecified fracture of left acetabulum, initial encounter for closed fracture ([facility] V24, [facility] V28) documented in this encounter Additional Health Concerns Infection Onset Date Last Indicated Resolved Time Respiratory Rule-Out 01/12/2025 01/12/2025 025 2:02 PM EDT documented as of this encounter Care Teams Tram Inspector Relationship Specialty Start Date End Date Ag Shaw MD [address] [address] PCP - General 05/31/03 documented as of this encounter
--- OUTSIDE RECORDS SUMMARY | 2025-04-20 10:05 | XMS_ITS | Clinical Summary ---
Author Organization [address] Address [address] [place] [address] Phone Care Team Providers Care Second Vp Hr Assessment Name Role Phone Ag Shaw MD Primary Care Provider [phone] Encounters Date Type Department Care Team Description 03/31/2025 Lab Requisition [facility] [address] [place] [phone] Elvis Patricia MD Chronic obstructive pulmonary disease, unspecified (CMS/HCC V24, CMS/HCC V28); Thrombocytopenia, unspecified (CMS/HCC V24); Anemia, unspecified 03/24/2025 Lab Requisition [facility] [address] [place] [phone] Elvis Patricia MD Chronic obstructive pulmonary disease, unspecified (CMS/HCC V24, CMS/HCC V28); Thrombocytopenia, unspecified (CMS/HCC V24); Anemia, unspecified 03/17/2025 Lab Requisition [facility] [address] [place] [phone] Elvis Patricia MD Chronic obstructive pulmonary disease, unspecified (CMS/HCC V24, CMS/HCC V28); Thrombocytopenia, unspecified (CMS/HCC V24); Anemia, unspecified 03/12/2025 Lab Requisition [facility] [address] [place] [phone] Elvis Patricia MD Anemia, unspecified; Thrombocytopenia, unspecified (CMS/HCC V24); Chronic obstructive pulmonary disease, unspecified ([facility]/H[facility] V24, [facility] V28) 03/09/2025 Lab Requisition [facility] [address] [place] [phone] Elvis Patricia MD Chronic obstructive pulmonary disease, unspecified ([facility]/HCC V24, [facility] V28); Thrombocytopenia, unspecified ([facility] V24); Anemia, unspecified 03/05/2025 Lab Requisition [facility] [address] [place] [phone] Elvis Patricia MD Chronic obstructive pulmonary disease, unspecified ([facility] V24, [facility] V28); Thrombocytopenia, unspecified ([facility] V24); Anemia, unspecified 02/09/2025 Lab Requisition [facility] [address] [place] [phone] Elvis Patricia MD Chronic obstructive pulmonary disease, unspecified ([facility] V24, [facility] V28) 02/01/2025 Lab Requisition [facility] [address] [place] [phone] Elvis Patricia MD Chronic obstructive pulmonary disease, unspecified ([facility] V24, [facility] V28) 01/26/2025 Lab Requisition [facility] [address] [place] [phone] Elvis Patricia MD Chronic obstructive pulmonary disease, unspecified ([facility] V24, [facility] V28) 01/19/2025 Lab Requisition [facility] [address] [place] [phone] Elvis Patricia MD Chronic obstructive pulmonary disease, unspecified ([facility] V24, [facility] V28) from Last 3 Months Surgical History Surgery Date Site/Laterality Comments SECTION PROCEDURE: VT DELIVERY ONLY BREAST BIOPSY 05/08/2014 Left PROCEDURE: VT BX BREAST NEEDLE CORE W/O IMAGING GUIDANCE SPX; COMMENT: Benign. 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 it [...] PCV) 1962 Zoster Vaccines (1 of 2) 1993 RSV Immunization Adult Patie nts (1 - 1-dose 75+ series) 2018 Depression Screening 2024 Falls Risk Assessment 09/10/2024 Medicare Annual Wellness Visit 09/10/2024 Osteoporosis Screening (Bone Density Screening) 09/10/2024 Social Influencers of Health Screening 09/10/2024 COVID-19 Vaccine (2 - 2024-2 6 season) 2025 09/23/2020 Influenza Vaccine (#1) 2025 HIB Vaccines Aged Out No longer [...] Associated Diagnosis Comments BASIC METABOLIC PANEL Routine 03/26/2025 7:35 AM EDT Chronic obstructive pulmonary disease, unspecified (CMS/HCC V24, CMS/HCC V28) Thrombocytopenia, unspecified (CMS/HCC V24) Anemia, unspecified COMPLETE BLOOD COUNT Routine 03/26/2025 7:35 AM EDT Chronic obstructive pulmonary disease, unspecified (CMS/HCC V24, CMS/HCC V28) Thrombocytopenia, unspecified (CMS/HCC V24) Anemia, unspecified BASIC METABOLIC PANEL Routine 03/19/2025 7:51 AM EDT Chronic obstructive pulmonary disease, unspecified (CMS/HCC V24, CMS/HCC V28) Thrombocytopenia, unspecified (CMS/HCC V24) Anemia, unspecified COMPLETE BLOOD COUNT Routine 03/19/2025 7:51 AM EDT Chronic obstructive pulmonary disease, unspecified (CMS/HCC V24, CMS/HCC V28) Thrombocytopenia, unspecified (CMS/HCC V24) Anemia, unspecified BASIC METABOLIC PANEL Routine 03/12/2025 8:35 AM EDT Anemia, unspecified Thrombocytopenia, unspecified (CMS/HCC V24) Chronic obstructive pulmonary disease, unspecified (CMS/HCC V24, CMS/HCC V28) COMPLETE BLOOD COUNT Routine 03/12/2025 8:35 AM EDT Anemia, unspecified Thrombocytopenia, unspecified (CMS/HCC V24) Chronic obstructive pulmonary disease, unspecified (CMS/HCC V24, CMS/HCC V28) COMPREHENSIVE METABOLIC PANEL Routine 03/05/2025 9:20 AM EDT Chronic obstructive pulmonary disease, unspecified (CMS/HCC V24, CMS/HCC V28) Thrombocytopenia, unspecified (CMS/HCC V24) Anemia, unspecified COMPLETE BLOOD COUNT Routine 03/05/2025 9:20 AM EDT Chronic obstructive pulmonary disease, unspecified (CMS/HCC V24, CMS/HCC V28) Thrombocytopenia, unspecified (CMS/HCC V24) Anemia, unspecified BASIC METABOLIC PANEL Routine 02/05/2025 6:54 AM EDT Chronic obstructive pulmonary disease, unspecified (CMS/HCC V24, CMS/HCC V28) COMPLETE BLOOD COUNT Routine 02/05/2025 6:54 AM EDT Chronic obstructive pulmonary disease, unspecified (CMS/HCC V24, CMS/HCC V28) BASIC METABOLIC PANEL Routine 01/29/2025 6:53 AM EDT Chronic obstructive pulmonary disease, unspecified (CMS/HCC V24, CMS/HCC V28) COMPLETE BLOOD COUNT Routine 01/29/2025 6:53 AM EDT Chronic obstructive pulmonary disease, unspecified (CMS/HCC V24, CMS/HCC V28) COMPLETE BLOOD COUNT Routine 01/22/2025 7:00 AM EDT Chronic obstructive pulmonary disease, unspecified (CMS/HCC V24, CMS/HCC V28) BASIC METABOLIC PANEL Routine 01/22/2025 7:00 AM EDT Chronic obstructive pulmonary disease, unspecified (CMS/HCC V24, CMS/HCC V28) from Last 3 Months Results * (ABNORMAL) Complete blood count (03/26/2025 7:35 AM EDT) Only the most recent of7 resultswithin the time period is included. WBC 3.4(L) 4.8 - 10.8 K/[facility] LAB HEMETOLOGY METHOD 03/26/2025 12:44 PM [facility] RBC 3.10(L) 3.80 - 4.80 M/mcL LAB HEMETOLOGY METHOD 03/26/2025 12:44 PM [facility] Hemoglobin 9.0(L) 11.5 - 16.0 g/dL LAB HEMETOLOGY METHOD 03/26/2025 12:44 PM [facility] Hematocrit 30.0(L) 35.0 - 47.0 % LAB HEMETOLOGY METHOD 03/26/2025 12:44 PM [facility] MCV 96.5 79.0 - 98.0 FL LAB HEMETOLOGY METHOD 03/26/2025 12:44 PM [facility] MCH 28.9 27.0 - 32.0 pcg LAB HEMETOLOGY METHOD 03/26/2025 12:44 PM [facility] MCHC 30.0(L) 32.0 - 37.0 g/dL LAB HEMETOLOGY METHOD 03/26/2025 12:44 PM [facility] RDW 16.6(H) 11.0 - 15.0 % LAB HEMETOLOGY METHOD 03/26/2025 12:44 PM [facility] Platelets 186 130 - 400 K/mcL LAB HEMETOLOGY METHOD 03/26/2025 12:44 PM [facility] MPV 10.8 7.0 - 11.0 FL LAB HEMETOLOGY METHOD 03/26/2025 12:44 PM [facility] NRBC 0.0 <1.0 % LAB HEMETOLOGY METHOD 03/26/2025 12:44 PM [facility] NRBC Absolute 0.00 <0.10 K/mcL LAB HEMETOLOGY METHOD 03/26/2025 12:44 PM [facility] Blood Venous blood specimen / Unknown Venipuncture / Unknown 03/26/2025 7:35 AM EDT 03/26/2025 10:04 AM EDT us Elvis Patricia MD LAB BLOOD ORDERABLES Final Result [facility] [address] [place] [address], [place] [phone] * (ABNORMAL) Basic metabolic panel (03/26/2025 7:35 AM EDT) Only the most recent of6 resultswithin the time period is included. Sodium 141 133 - 145 mmol/L LAB CHEMISTRY METHOD 03/26/2025 12:23 PM [facility] Potassium 4.3 3.5 - 5.5 mmol/L LAB CHEMISTRY METHOD 03/26/2025 12:23 PM [facility] Chloride 106 96 - 110 mmol/L LAB CHEMISTRY METHOD 03/26/2025 12:23 PM [facility] CO2 28 21 - 32 mmol/L LAB CHEMISTRY METHOD 03/26/2025 12:23 PM [facility] Anion Gap 7 3 - 11 LAB CHEMISTRY METHOD 03/26/2025 12:23 PM [facility] Glucose 65(L) 70 - 100 mg/dL LAB CHEMISTRY METHOD 03/26/2025 12:23 PM [facility] BUN 20 5 - 25 mg/dL LAB CHEMISTRY METHOD 03/26/2025 12:23 PM [facility] Creatinine 0.53 0.50 - 1.10 mg/dL LAB CHEMISTRY METHOD 03/26/2025 12:23 PM [facility] LAB eGFR 93 >=60 mL/min/1. 73m2 LAB CHEMISTRY METHOD 03/26/2025 12:23 PM [facility] LAB Comment:Calculation based on the Chronic Kidney Disease Epidemiology Collaboration (CKD-EPI) equation refit without adjustment for race. BUN/Creatinine Ratio 37.7 LAB CHEMISTRY METHOD 03/26/2025 12:23 PM [facility] Calcium 8.8 8.5 - 10.5 mg/dL LAB CHEMISTRY METHOD 03/26/2025 12:23 PM [facility] Blood Venous blood specimen / Unknown Venipuncture / Unknown 03/26/2025 7:35 AM EDT 03/26/2025 10:04 AM EDT us Elvis Patricia MD LAB BLOOD ORDERABLES Final Result [facility] [address] [place] [address], [place] [phone] * (ABNORMAL) Comprehensive metabolic panel (03/05/2025 9:20 AM EDT) Sodium 137 133 - 145 mmol/L LAB CHEMISTRY METHOD 03/05/2025 12:20 PM [facility] Potassium 4.5 3.5 - 5.5 mmol/L LAB CHEMISTRY METHOD 03/05/2025 12:20 PM [facility] Chloride 104 96 - 110 mmol/L LAB CHEMISTRY METHOD 03/05/2025 12:20 PM [facility] CO2 29 21 - 32 mmol/L LAB CHEMISTRY METHOD 03/05/2025 12:20 PM [facility] Anion Gap 4 3 - 11 LAB CHEMISTRY METHOD 03/05/2025 12:20 PM [facility] Glucose 128(H) 70 - 100 mg/dL LAB CHEMISTRY METHOD 03/05/2025 12:20 PM [facility] BUN 15 5 - 25 mg/dL LAB CHEMISTRY METHOD 03/05/2025 12:20 PM [facility] Creatinine 0.49(L) 0.50 - 1.10 mg/dL LAB CHEMISTRY METHOD 03/05/2025 12:20 PM [facility] LAB eGFR 95 >=60 mL/min/1. 73m2 LAB CHEMISTRY METHOD 03/05/2025 12:20 PM [facility] LAB Comment:Calculation based on the Chronic Kidney Disease Epidemiology Collaboration (CKD-EPI) equation refit without adjustment for race. BUN/Creatinine Ratio 30.6 LAB CHEMISTRY METHOD 03/05/2025 12:20 PM [facility] Calcium 8.2(L) 8.5 - 10.5 mg/dL LAB CHEMISTRY METHOD 03/05/2025 12:20 PM [facility] AST (SGOT) 19 10 - 42 unit/L LAB CHEMISTRY METHOD 03/05/2025 12:20 PM [facility] ALT (SGPT) 11 10 - 60 unit/L LAB CHEMISTRY METHOD 03/05/2025 12:20 PM [facility] Alkaline Phosphatase 108 42 - 121 unit/L LAB CHEMISTRY METHOD 03/05/2025 12:20 PM [facility] Total Protein 6.4 6.0 - 8.0 g/dL LAB CHEMISTRY METHOD 03/05/2025 12:20 PM [facility] Albumin 2.7(L) 3.2 - 5.0 g/dL LAB CHEMISTRY METHOD 03/05/2025 12:20 PM [facility] Total Bilirubin 0.4 0.0 - 1.4 mg/dL LAB CHEMISTRY METHOD 03/05/2025 12:20 PM [facility] Blood Venous blood specimen / Unknown Venipuncture / Unknown 03/05/2025 9:20 AM EDT 03/05/2025 10:45 AM EDT us Elvis Patricia MD LAB BLOOD ORDERABLES Final Result [facility] [address] [place] [address], [place] [phone] from Last 3 Months Insurance JAQUELINE BOSCH [id number] MEDICARE [facility] Care Teams Second Vp Hr Assessment Relationship Specialty Start Date End Date Ag Shaw MD [address] [phone] PCP - General 05/31/03
--- OUTSIDE RECORDS SUMMARY | 2025-04-20 10:05 | XMS_ITS | Encounter Summary ---
Author Organization [facility] Address [address] [place] [address] Care Team Providers Care Seed Cleaning Manager Name Role Phone Ag Shaw MD Primary Care Provider [phone] Encounter Details Date Type Department Care Team (Late st Contact Info) Description 03/05/2025 Lab Requisition [facility] - Main Lab 299 [facility] [place] [address] Elvis Patricia MD [address] [place] [address] Chronic obstructive pulmonary disease, unspecified (CMS/HCC V24, [...] Associated Diagnosis Comments COMPLETE BLOOD COUNT Routine 03/05/2025 9:20 AM EDT Chronic obstructive pulmonary disease, unspecified (CMS/HCC V24, CMS/HCC V28) Thrombocytopenia, unspecified (CMS/HCC V24) Anemia, unspecified COMPREHENSIVE METABOLIC PANEL Routine 03/05/2025 9:20 AM EDT Chronic obstructive pulmonary disease, unspecified (CMS/[facility] V24, [facility] V28) Thrombocytopenia, unspecified ([facility] V24) Anemia, unspecified documented in this encounter Results * (ABNORMAL) Comprehensive metabolic panel (03/05/2025 9:20 AM EDT) Sodium 137 133 - 145 mmol/L LAB CHEMISTRY METHOD 03/05/2025 12:20 PM [facility] Potassium 4.5 3.5 - 5.5 mmol/L LAB CHEMISTRY METHOD 03/05/2025 12:20 PM [facility] Chloride 104 96 - 110 mmol/L LAB CHEMISTRY METHOD 03/05/2025 12:20 PM [facility] CO2 29 21 - 32 mmol/L LAB CHEMISTRY METHOD 03/05/2025 12:20 PM [facility] Anion Gap 4 3 - 11 LAB CHEMISTRY METHOD 03/05/2025 12:20 PM [facility] Glucose 128(H) 70 - 100 mg/dL LAB CHEMISTRY METHOD 03/05/2025 12:20 PM [facility] BUN 15 5 - 25 mg/dL LAB CHEMISTRY METHOD 03/05/2025 12:20 PM [facility] Creatinine 0.49(L) 0.50 - 1.10 mg/dL LAB CHEMISTRY METHOD 03/05/2025 12:20 PM [facility] eGFR 95 >=60 mL/min/1. 73m2 LAB CHEMISTRY METHOD 03/05/2025 12:20 PM [facility] Comment:Calculation based on the Chronic Kidney Disease Epidemiology Collaboration (CKD-EPI) equation refit without adjustment for race. BUN/Creatinine Ratio 30.6 LAB CHEMISTRY METHOD 03/05/2025 12:20 PM [facility] Calcium 8.2(L) 8.5 - 10.5 mg/dL LAB CHEMISTRY METHOD [facility] AST (SGOT) 19 10 - 42 unit/L LAB CHEMISTRY METHOD 03/05[facility] ALT (SGPT) 11 10 - 60 unit/L LAB CHEMISTRY METHOD 03/05/2025 12:20 PM [facility] Alkaline Phosphatase 108 42 - 121 unit/L LAB CHEMISTRY METHOD 03/05/2025 12:20 PM EDT [facility] Total Protein 6.4 6.0 - 8.0 g/dL LAB CHEMISTRY METHOD 03/05/2025 12:20 PM [facility] Albumin 2.7(L) 3.2 - 5.0 g/dL LAB CHEMISTRY METHOD 03/05/2025 12:[facility] Total Bilirubin 0.4 0.0 - 1.4 mg/dL LAB CHEMISTRY METHOD 03/05/2025 12:[facility] Blood Venous blood specimen / Unknown Venipuncture / Unknown 03/05/2025 9:20 AM EDT 03/05/2025 10:45 AM EDT Elvis Patricia MD LAB BLOOD ORDERABLES Final Result [facility] [address] [place] [address], * (ABNORMAL) Complete blood count (03/05/2025 9:20 AM EDT) WBC 4.2(L) 4.8 - 10.8 K/mcL LAB HEMETOLOGY METHOD 03/05/2025 12:12 PM EDT [facility] RBC 2.80(L) 3.80 - 4.80 M/mcL LAB HEMETOLOGY METHOD 03/05/2025 12:[facility] Hemoglobin 8.2(L) 11.5 - 16.0 g/dL LAB HEMETOLOGY METHOD 03/05/2025 12:12 PM EDT [facility] Hematocrit 26.6(L) 35.0 - 47.0 % LAB HEMETOLOGY METHOD 03/05/2025 12:12 PM EDT [facility] MCV 94.7 79.0 - 98.0 FL LAB HEMETOLOGY METHOD 03/05/2025 12:12 PM EDT [facility] MCH 29.2 27.0 - 32.0 pcg LAB HEMETOLOGY METHOD 03/05/2025 12:12 PM EDT [facility] MCHC 30.8(L) 32.0 - 37.0 g/dL LAB HEMETOLOGY METHOD 03/05/2025 12[facility] RDW 15.1(H) 11.0 - 15.0 % LAB HEMETOLOGY METHOD 03/05/2025 12:12 PM EDT [facility] Platelets 169 130 - 400 K/mcL LAB HEMETOLOGY METHOD 03/05/2025 12:12 PM EDT [facility] MPV 10.8 7.0 - 11.0 FL LAB HEMETOLOGY METHOD 03/05[facility]20[facility] NRBC 0.0 <1.0 % LAB HEMETOLOGY METHOD 03/05/2025 12:12 PM EDT [facility] NRBC Absolute 0.00 <0.10 K/mcL LAB HEMETOLOGY METHOD 03/05/2025 12:12 PM [facility] Blood Venous blood specimen / Unknown Venipuncture / Unknown 03/05/2025 9:20 AM EDT 03/05/2025 10:45 AM EDT us Elvis Patricia MD LAB BLOOD ORDERABLES Final Result [facility] [address] [place] [address], documented in this encounter Visit Diagnoses Diagnosis Chronic obstructive pulmonary disease, unspecified (CMS/HCC V24, CMS/HCC V28) Thrombocytopenia, unspecified (CMS/HCC V24) Thrombocytopenia, unspecified Anemia, unspecified documented in this encounter Care Teams Seed Cleaning Manager Relationship Specialty Start Date End Date Ag Shaw MD [address] [address] PCP - General 05/31/03 documented as of this encounter
--- OUTSIDE RECORDS SUMMARY | 2025-04-20 10:05 | XMS_ITS | Encounter Summary ---
Author Organization [facility] Address [address] [place] [address] Care Team Providers Care Addictions Counselor Name Role Phone Ag Shaw MD Primary Care Provider [phone] Encounter Details Date Type Department Care Team (Late st Contact Info) Description 09/11/2024 Lab Requisition [facility] - Main Lab 299 [facility] [place] [address] Elvis Patricia MD [address] [place] [address] Chronic obstructive pulmonary disease, unspecified (CMS/HCC V24, [...] K/mcL LAB HEMETOLOGY METHOD 09/11/2024 1:26 PM [facility] RBC 2.70(L) 3.80 - 4.80 M/mcL LAB HEMETOLOGY METHOD 09/11/2024 1:26 PM [facility] Hemoglobin 7.7(L) 11.5 - 16.0 g/dL LAB HEMETOLOGY METHOD 09/11/2024 1:26 PM [facility] Hematocrit 25.0(L) 35.0 - 47.0 % LAB HEMETOLOGY METHOD 09/11/2024 1:26 PM [facility] MCV 92.9 79.0 - 98.0 FL LAB HEMETOLOGY METHOD 09/11/2024 1:26 PM [facility] MCH 28.6 27.0 - 32.0 pcg LAB HEMETOLOGY METHOD 09/11/2024 1:26 PM [facility] MCHC 30.8(L) 32.0 - 37.0 g/dL LAB HEMETOLOGY METHOD 09/11/2024 1:26 PM [facility] RDW 17.1(H) 11.0 - 15.0 % LAB HEMETOLOGY METHOD 09/11/2024 1:26 PM [facility] Platelets 164 130 - 400 K/mcL LAB HEMETOLOGY METHOD 09/11/2024 1:26 PM [facility] MPV 11.5(H) 7.0 - 11.0 FL LAB HEMETOLOGY METHOD 09/11/2024 1:26 PM [facility] NRBC 0.0 <1.0 % LAB HEMETOLOGY METHOD 09/11/2024 1:26 PM [facility] NRBC Absolute 0.00 <0.10 K/mcL LAB HEMETOLOGY METHOD 09/11/2024 1:26 PM [facility] Neutrophils Relative 72.7 % LAB HEMETOLOGY METHOD 09/11/2024 1:26 PM [facility] Lymphocytes Relative 15.9 % LAB HEMETOLOGY METHOD 09/11/2024 1:26 PM [facility] Monocytes Relative 8.8 % LAB HEMETOLOGY METHOD 09/11/2024 1:26 PM [facility] Eosinophils Relative 1.6 % LAB HEMETOLOGY METHOD 09/11/2024 1:26 PM [facility] Basophils Relative 0.5 % LAB HEMETOLOGY METHOD 09/11/2024 1:26 PM [facility] Immature Granulocytes Relative 0.5 % LAB HEMETOLOGY METHOD 09/11/2024 1:26 PM [facility] Neutrophils Absolute 3.21 1.50 - 7.00 K/mcL LAB HEMETOLOGY METHOD 09/11/2024 1:26 PM [facility] Lymphocytes Absolute 0.70(L) 1.00 - 5.00 K/mcL LAB HEMETOLOGY METHOD 09/11/2024 1:26 PM [facility] Monocytes Absolute 0.39 0.20 - 1.00 K/mcL LAB HEMETOLOGY METHOD 09/11/2024 1:26 PM [facility] Eosinophils Absolute 0.07 0.00 - 0.50 K/mcL LAB HEMETOLOGY METHOD 09/11/2024 1:26 PM [facility] Basophils Absolute 0.02 0.00 - 0.20 K/mcL LAB HEMETOLOGY METHOD 09/11/2024 1:26 PM [facility] Immature Granulocytes Absolute 0.02 0.00 - 0.03 K/mcL LAB HEMETOLOGY METHOD 09/11/2024 1:26 PM [facility] Blood Venous blood specimen / Unknown Venipuncture / Unknown 09/11/2024 8:34 AM EST 09/11/2024 11:43 AM EST us Elvis Patricia MD LAB BLOOD ORDERABLES Final Result [facility] [address] [place] [address], [place] [phone] * (ABNORMAL) Basic metabolic panel (09/11/2024 8:34 AM EST) Sodium 138 133 - 145 mmol/L LAB CHEMISTRY METHOD 09/11/2024 1:55 PM [facility] Potassium 3.8 3.5 - 5.5 mmol/L LAB CHEMISTRY METHOD 09/11/2024 1:55 PM [facility] Chloride 106 96 - 110 mmol/L LAB CHEMISTRY METHOD 09/11/2024 1:55 PM [facility] CO2 27 21 - 32 mmol/L LAB CHEMISTRY METHOD 09/11/2024 1:55 PM [facility] Anion Gap 5 3 - 11 LAB CHEMISTRY METHOD 09/11/2024 1:55 PM [facility] Glucose 99 70 - 100 mg/dL LAB CHEMISTRY METHOD 09/11/2024 1:55 PM [facility] BUN 21 5 - 25 mg/dL LAB CHEMISTRY METHOD 09/11/2024 1:55 PM [facility] Creatinine 0.48(L) 0.50 - 1.10 mg/dL LAB CHEMISTRY METHOD 09/11/2024 1:55 PM [facility] eGFR 95 >=60 mL/min/1. 73m2 LAB CHEMISTRY METHOD 09/11/2024 1:55 PM EST [facility] Comment:Calculation based on the Chronic Kidney Disease Epidemiology Collaboration (CKD-EPI) equation refit without adjustment for race. BUN/Creatinine Ratio 43.8 LAB CHEMISTRY METHOD 09/11/2024 1:55 PM [facility] Calcium 8.1(L) 8.5 - 10.5 mg/dL LAB CHEMISTRY METHOD 09/11/2024 1:55 PM [facility] Blood Venous blood specimen / Unknown Venipuncture / Unknown 09/11/2024 8:34 AM EST 09/11/2024 11:43 AM EST us Elvis Patricia MD LAB BLOOD ORDERABLES Final Result [facility] [address] [place] [address], documented in this encounter Visit Diagnoses Diagnosis Chronic obstructive pulmonary disease, unspecified (CMS/HCC V24, CMS/HCC V28) Unspecified fracture of right femur, sequela documented in this encounter Additional Health Concerns Infection Onset Date Last Indicated Resolved Time Respiratory Rule-Out 01/12/2025 01/12/2025 025 2:02 PM EDT documented as of this encounter Care Teams Addictions Counselor Relationship Specialty Start Date End Date Ag Shaw MD [address] [address] PCP - General 05/31/03 documented as of this encounter
--- OUTSIDE RECORDS SUMMARY | 2025-04-20 10:05 | XMS_ITS | Encounter Summary ---
Author Organization [facility] Address [address] [place] [address] Care Team Providers Care Truck Manager Name Role Phone Ag Shaw MD Primary Care Provider [phone] Encounter Details Date Type Department Care Team (Late st Contact Info) Description 12/31/[address] [facility] - Main Lab 299 [facility] [place] [address] Elvis Patricia MD [address] [place] [address] Chronic obstructive pulmonary disease, unspecified (CMS/HCC V24, [...] Associated Diagnosis Comments COMPLETE BLOOD COUNT Routine 01/01/2025 8:20 AM EDT Chronic obstructive pulmonary disease, unspecified (CMS/HCC V24, CMS/HCC V28) BASIC METABOLIC PANEL Routine 01/01/2025 8:20 AM EDT Chronic obstructive pulmonary disease, unspecified (CMS/HCC V24, CMS/HCC V28) documented in this encounter Results * (ABNORMAL) Complete blood count (01/01/2025 8:20 AM EDT) [facility] Signature WBC 3.8(L) 4.8 - 10.8 K/mcL LAB HEMETOLOGY METHOD 01/01/2025 11:44 AM [facility] RBC 3.40(L) 3.80 - 4.80 M/mcL LAB HEMETOLOGY METHOD 01/01/2025 11:44 AM [facility] Hemoglobin 10.2(L) 11.5 - 16.0 g/dL LAB HEMETOLOGY METHOD 01/01/2025 11:44 AM [facility] Hematocrit 32.0(L) 35.0 - 47.0 % LAB HEMETOLOGY METHOD 01/01/2025 11:44 AM [facility] MCV 93.8 79.0 - 98.0 FL LAB HEMETOLOGY METHOD 01/01/2025 11:44 AM [facility] MCH 29.9 27.0 - 32.0 pcg LAB HEMETOLOGY METHOD 01/01/2025 11:44 AM [facility] MCHC 31.9(L) 32.0 - 37.0 g/dL LAB HEMETOLOGY METHOD 01/01/2025 11:44 AM [facility] RDW 15.5(H) 11.0 - 15.0 % LAB HEMETOLOGY METHOD 01/01/2025 11:44 AM [facility] Platelets 210 130 - 400 K/mcL LAB HEMETOLOGY METHOD 01/01/2025 11:44 AM [facility] MPV 10.2 7.0 - 11.0 FL LAB HEMETOLOGY METHOD 01/01/2025 11:44 AM [facility] NRBC 0.0 <1.0 % LAB [facility]EMETOLOGY METHOD [facility] NRBC Absolute 0.00 <0.10 K/mcL LAB HEMETOLOGY METHOD 01/01/2025 11:44 AM [facility] Blood Venous blood specimen / Unknown Venipuncture / Unknown 01/01/2025 8:20 AM EDT 01/01/2025 10:57 AM EDT us Elvis Patricia MD LAB BLOOD ORDERABLES Final Result [facility] [address] [place] [address], [place] [phone] * (ABNORMAL) Basic metabolic panel (01/01/2025 8:20 AM EDT) Sodium 135 133 - 145 mmol/L LAB CHEMISTRY METHOD 01/01/2025 12:56 PM [facility] Potassium 4.3 3.5 - 5.5 mmol/L LAB CHEMISTRY METHOD 01/01/2025 12:56 PM [facility] Chloride 104 96 - 110 mmol/L LAB CHEMISTRY METHOD 01/01/2025 12:56 PM [facility] CO2 24 21 - 32 mmol/L LAB CHEMISTRY METHOD 01/01/2025 12:56 PM [facility] Anion Gap 7 3 - 11 LAB CHEMISTRY METHOD 01/01/2025 12:56 PM [facility] Glucose 86 70 - 100 mg/dL LAB CHEMISTRY METHOD 01/01/2025 12:56 PM [facility] BUN 18 5 - 25 mg/dL LAB CHEMISTRY METHOD 01/01/2025 12:56 PM [facility] Creatinine 0.42(L) 0.50 - 1.10 mg/dL LAB CHEMISTRY METHOD 01/01/2025 12:56 PM [facility] eGFR 98 >=60 mL/min/1. 73m2 LAB CHEMISTRY METHOD 01/01/2025 12:56 PM EDT [facility] Comment:Calculation based on the Chronic Kidney Disease Epidemiology Collaboration (CKD-EPI) equation refit without adjustment for race. BUN/Creatinine Ratio 42.9 LAB CHEMISTRY METHOD 01/01/2025 12:56 PM EDT [facility] Calcium 8.1(L) 8.5 - 10.5 mg/dL LAB CHEMISTRY METHOD 01/01/2025 12:56 PM EDT [facility] Blood Venous blood specimen / Unknown Venipuncture / Unknown 01/01/2025 8:20 AM EDT 01/01/2025 10:57 AM EDT Elvis Patricia MD LAB BLOOD ORDERABLES Final Result [facility] [address] [place] [address], documented in this encounter Visit Diagnoses Diagnosis Chronic obstructive pulmonary disease, unspecified (CMS/HCC V24, CMS/HCC V28) documented in this encounter Additional Health Concerns Infection Onset Date Last Indicated Resolved Time Respiratory Rule-Out 01/12/2025 01/12/2025 025 2:02 PM EDT documented as of this encounter Care Teams Truck Manager Relationship Specialty Start Date End Date Ag Shaw MD [address] [address] PCP - General 05/31/03 documented as of this encounter
--- OUTSIDE RECORDS SUMMARY | 2025-04-20 10:05 | XMS_ITS | Encounter Summary ---
Author Organization [facility] Address [address] [place] [address] Care Team Providers Care Tester [employer] Name Role Phone Ag Shaw MD Primary Care Provider [phone] Encounter Details Date Type Department Care Team (Late st Contact Info) Description 10/08/2024 Lab Requisition [facility] - Main Lab [address] [facility] [place] [address] Elvis Patricia MD [address] [place] [address] Chronic obstructive pulmonary disease, unspecified (CMS/HCC V24, [...] mmol/L LAB CHEMISTRY METHOD 10/09/2024 11:10 AM [facility] Potassium 3.7 3.5 - 5.5 mmol/L LAB CHEMISTRY METHOD 10/09/2024 11:10 AM [facility] Chloride 109 96 - 110 mmol/L LAB CHEMISTRY METHOD 10/09/2024 11:10 AM [facility] CO2 24 21 - 32 mmol/L LAB CHEMISTRY METHOD 10/09/2024 11:10 AM [facility] Anion Gap 8 3 - 11 LAB CHEMISTRY METHOD 10/09/2024 11:10 AM [facility] Glucose 73 70 - 100 mg/dL LAB CHEMISTRY METHOD 10/09/2024 11:10 AM [facility] BUN 12 5 - 25 mg/dL LAB CHEMISTRY METHOD 10/09/2024 11:10 AM [facility] Creatinine 0.50 0.50 - 1.10 mg/dL LAB CHEMISTRY METHOD 10/09/2024 11:10 AM [facility] eGFR 94 >=60 mL/min/1. 73m2 LAB CHEMISTRY METHOD 10/09/2024 11:10 AM [facility] Comment:Calculation based on the Chronic Kidney Disease Epidemiology Collaboration (CKD-EPI) equation refit without adjustment for race. BUN/Creatinine Ratio 24.0 LAB CHEMISTRY METHOD 10/09/2024 11:10 AM [facility] Calcium 8.3(L) 8.5 - 10.5 mg/dL LAB CHEMISTRY METHOD 10/09/2024 11:10 AM [facility] Blood Venous blood specimen / Unknown Venipuncture / Unknown 10/09/2024 7:28 AM EDT 10/09/2024 9:43 AM EDT us Elvis Patricia MD LAB BLOOD ORDERABLES Final Result [facility] [address] [place] [address], * (ABNORMAL) Complete blood count (10/09/2024 7:28 AM EDT) WBC 3.4(L) 4.8 - 10.8 K/mcL LAB HEMETOLOGY METHOD 10/09/2024 10:50 AM EDT [facility] RBC 3.40(L) 3.80 - 4.80 M/mcL LAB HEMETOLOGY METHOD 10/09/2024 10:50 AM EDT [facility] Hemoglobin 10.6(L) 11.5 - 16.0 g/dL LAB HEMETOLOGY METHOD 10/09/2024 10:50 AM EDT [facility] Hematocrit 33.0(L) 35.0 - 47.0 % LAB HEMETOLOGY METHOD 10/09/2024 10:50 AM EDT [facility] MCV 97.1 79.0 - 98.0 FL LAB HEMETOLOGY METHOD 10/09/2024 10:50 AM EDT [facility] MCH 31.2 27.0 - 32.0 pcg LAB HEMETOLOGY METHOD 10/09/2024 10:50 AM EDT [facility] MCHC 32.1 32.0 - 37.0 g/dL LAB HEMETOLOGY METHOD 10/09/2024 10:50 AM EDT [facility] RDW 17.4(H) 11.0 - 15.0 % LAB HEMETOLOGY METHOD 10/09/2024 10:50 AM EDT [facility] Platelets 139 130 - 400 K/mcL LAB HEMETOLOGY METHOD 10/09/2024 10:50 AM EDT [facility] MPV 10.8 7.0 - 11.0 FL LAB HEMETOLOGY METHOD 10/09/2024 10:50 AM EDT [facility] NRBC 0.0 <1.0 % LAB HEMETOLOGY METHOD 10/09/2024 10:50 AM EDT [facility] NRBC Absolute 0.00 <0.10 K/mcL LAB HEMETOLOGY METHOD 10/09/2024 10:50 AM EDT [facility] Blood Venous blood specimen / Unknown Venipuncture / Unknown 10/09/2024 7:28 AM EDT 10/09/2024 9:43 AM EDT us Elvis Patricia MD LAB BLOOD ORDERABLES Final Result [facility] [address] [place] [address], documented in this encounter Visit Diagnoses Diagnosis Chronic obstructive pulmonary disease, unspecified (CMS/HCC V24, CMS/HCC V28) documented in this encounter Additional Health Concerns Infection Onset Date Last Indicated Resolved Time Respiratory Rule-Out 01/12/2025 01/12/2025 025 2:02 PM EDT documented as of this encounter Care Teams Tester [employer] Relationship Specialty Start Date End Date Ag Shaw MD [address] [address] PCP - General 05/31/03 documented as of this encounter
== END 2025-04-20 10:15 | disposition home or self-care (01) ==
LOC: HO.HPSW 09:33
PROVIDERS: PCP Physician Assistant Medical; Visit Provider Nurse Practitioner Family
DX: J44.9 Chronic obstructive pulmonary disease, unspecified (principal); Z85.820 Personal history of malignant melanoma of skin; R91.1 Solitary pulmonary nodule
CPT/HCPCS: 99214

== ENCOUNTER → 2025-04-20 09:33 | Outpatient (BNVA) | payer MEDICARE, OTHER, SELFPAY | PROVIDERS: PCP Physician Assistant Medical; Visit Provider Nurse Practitioner Family | DX: J44.9 Chronic obstructive pulmonary disease, unspecified (principal); Z85.820 Personal history of malignant melanoma of skin; R91.1 Solitary pulmonary nodule; Z87.891 Personal history of nicotine dependence | CPT/HCPCS: 99212 ==

== ENCOUNTER 2025-07-31 08:21 | Outpatient (AMB) | payer MEDICARE, OTHER, SELFPAY ==
[2025-07-31 08:50] VITALS: BP 138/66; PULSE 64; O2SAT 98; BMI 17.6
--- NOTE | 2025-07-31 08:50 | A.OFFVIS_ITS ---
Vital Signs 07/31/25 08:50 Height 5 ft 1 in Weight 93 lb 2 oz BMI 17.6 BP 138/66 Blood Pressure Location Rt brachial Position Sitting Pulse 64 Pulse Source Pulse Oximeter Pulse Oximetry (%) 98 Oxygen Delivery Method Nasal Cannula Oxygen Flow Rate 2 Intake Visit Reasons: COPD Allergies doxycycline Adverse Reaction (Intermediate, Verified 07/31/25 08:53) Gastrointestinal Upset HPI Comments Details: Meghan is a pleasant 79 year old female, former 47 pack year smoker, quit 2011 with underlying COPD, pulmonary nodules, melanoma of right eye s/p surgery 2007, multiple other squamous/basal cell carcinomas removed, last 2020. August 2023 CT chest revealed 9 mm RLL nodule and was sent for PET with little FDG activity. Repeat chest CT from 12/2023 revealed new 1 cm x 2 cm spiculated nodule of the left apex. She was sent for lung biopsy through [facility], however prior to biopsy repeat chest CT was ordered revealing resolution of spiculated nodule, likely inflammatory in nature. We discussed repeating chest CT to assess stability however patient continues to decline further CT imaging. Recent CXR 02/28/25 revealed chronic interstitial changes of upper lobes with hyperinflation otherwise no significant findings, from [facility] however only 1 view. Since the last visit, she was admitted to [facility] in November after sustaining tibula fracture, transferred to SNF subsequently developing bilateral pneumonia and treated with ?Augmentin as well as started on 2L supplemental oxygen which she has continued to need. She reports overall doing well, living alone, and remaining active with daily [employer] attendance. She reports no significant coughing, wheezing, or shortness of breath. An overnight oxygen test on room air in May revealed her oxygen was less than 88% for almost 9 minutes, with approximately 9 desaturation events. Consequently, supplemental nocturnal oxygen at 1 liter was prescribed, which she reports using every night. A sleep study was recommended for possible sleep apnea, but the patient declined. Regarding daytime oxygen use, she does not use it much but does take it on long car trips. She reports her oxygen saturation can drop to a low of 88 with exertion, such as getting dressed, but it recovers to the mid 90s within a minute without intervention. Her activity includes daily pedaling exercises, but she finds that routine activities are a struggle and leave her tired by the end of the day. Her medication regimen includes Spiriva and Symbicort, and she is adherent. She has a rescue inhaler that was prescribed in September of the previous year but reports she has never used it. Her oxygen supplier is [employer]. Pulmonology History - History of nocturnal hypoxemia confirmed by an overnight oximetry study in May, which showed oxygen saturation <88% for almost 9 minutes. - History of exertional oxygen desaturation to as low as 88%. - Prescribed supplemental oxygen at 1 liter for nocturnal use and recommended for exertional use. - Uses Spiriva and Symbicort for chronic respiratory disease. - Patient has a history of a recommendation for a sleep study due to desaturation events on oximetry, which she declined. Results - Overnight oximetry (May, on room air): Revealed oxygen saturation less than 88% for almost 9 minutes and approximately 9 desaturation events. [facility] Medical History (Updated 07/31/25 @ 09:12 by Radha Rowe NP) COPD (chronic obstructive pulmonary disease) Personal history of nicotine dependence History of melanoma Anorexia nervosa Splenomegaly Surgical History (Updated 12/09/23 @ 13:34 by Jimena Andrews PA-C) History of melanoma excision History of basal cell carcinoma excision History of Social History Patient Tobacco Use Status: Former Tobacco user Tobacco use type: Cigarette Cigarette Packs Per Day: 1 Years Smoked: 47 Review of Systems Narrative Const Denies chills, Denies excessive sweating, Denies fever(s), Denies headache(s) and Denies night sweats Eyes Denies dry eyes, Denies irritation and Denies itchy eyes ENT Reports Normal hearing present, Denies headache(s), Denies nasal congestion, Denies nasal discharge, Denies post nasal drip and Denies sore throat Card Denies chest pain, Denies chest pain at rest, Denies chest pain with activity, Denies claudication, Denies leg edema, Denies orthopnea and Denies paroxysmal nocturnal dyspnea Resp Denies chest congestion, Denies cough, Denies excessive phlegm production, Denies pain on inspiration, Denies pain with cough, Denies stridor and Denies wheezing Musc Denies myalgias Neuro Reports Normal hearing present and Denies headache(s) Endo Denies excessive sweating Andre/Lymph Denies lymphadenopathy Aller/Immun Denies itchy eyes, Denies seasonal rhinorrhea and Denies wheezing Physical Exam Exam Exam: Vital Signs: Last Vital Signs Pulse 64 07/31/25 08:50 BP 138/66 07/31/25 08:50 Pulse Ox 98 07/31/25 08:50 Oxygen Delivery Method Nasal Cannula 07/31/25 08:50 Oxygen Flow Rate 2 07/31/25 08:50 BMI result Body Mass Index 17.6 Const General: cooperative, comfortable, no acute distress and alert Nutritional Appearance: underweight Orientation/consciousness: patient oriented x3 Limitations: ambulation with cane HEENT Head: Yes normal to inspection, Yes normocephalic and Yes atraumatic Ears: hearing grossly normal bilaterally and external ears normal Eyes General: appearance normal, both eyes and all related structures Eyelids: Yes eyelids normal Sclerae: sclerae normal EOM: EOMs intact bilaterally Neck Neck: Yes normal visual inspection and Yes no lymphadenopathy Lymphatic: no lymphadenopathy noted Chest Chest palpation & inspection: normal inspection of the chest Resp Effort & Inspection: normal respiratory effort, able to speak in complete sentences, no audible wheezes, no cough, no stridor, not tachypneic, no tripod positioning and no use of accessory muscles Auscultation: crackles (inspiratory) bilateral and diminished lung sounds Cardio Jugular venous distension: no JVD Rate: regular rate Rhythm: regular rhythm Skin Other: warm, dry General skin exam: no rashes or lesions noted Neuro General: patient oriented x3 Cranial nerves: Yes Normal hearing present Cognition (Neuro): normal cognition Extrem General: Yes normal to inspection, Yes capillary refill normal, Yes no clubbing, cyanosis or edema and Yes no pedal edema Psych Appearance: grossly normal and well kempt Speech and movement: Normal speech and movement present and Clear speech present Affect: normal affect Attitude: cooperative Thought process: Normal thought process present Thought content: Normal thought content present Insight: Good insight present (Psych) Judgement: Good judgement present (Psych) Assessment & Plan Assessment & Plan (1) COPD (chronic obstructive pulmonary disease): Code(s): J44.9 - Chronic obstructive pulmonary disease, unspecified Category: Medical (2) Pulmonary nodule: Code(s): R91.1 - Solitary pulmonary nodule Category: Medical Plan Reviewed the results of the patient's May overnight oximetry study with her, explaining that the desaturation below 88% for nearly 9 minutes warranted the use of supplemental oxygen, 1L NOC. Also discussed explained that the nine desaturation events could be suggestive of sleep apnea and recommended a sleep study, which she declined in addition to repeat overnight oximetry to ensure 1L is sufficient at [facility]. We discussed my physical exam findings of crackles in her lungs, and explained the possible causes, including mucus, fluid, or scarring. Recommended a chest X- ray to investigate, and she consented to the test. Previously discussed repeating CT due to waxing and waning pulmonary nodules however she continues to decline. Advised her to notify the office after the X-ray is completed so results can be reviewed promptly. Advised her to continue her current inhalers, Spiriva and Symbicort, and [facility] that a refill for her rescue inhaler was sent to her pharmacy. Instructed her to continue nocturnal oxygen at 1 liter and to use at 2L with exertion to maintain saturations above 90%. We discussed the potential for insurance formulary changes with the new year and the need to contact us if she has any issues obtaining her medications. We will plan to follow up in three months but she was advised to call sooner if she has any concerns. All questions were answered and patient is in agreement of plan. Patient Instructions - Continue to use your oxygen at 1 liter per minute every night while you sleep. - When you are active or moving around, use your oxygen at 2L to keep your oxygen level above 90%. - Continue taking your Spiriva and Symbicort inhalers as you have been. - A refill for your rescue inhaler (albuterol) has been sent to your pharmacy. - Your insurance is changing in the new year. If you have any trouble picking up your medications, please call our office. - Please get the chest X-ray we ordered for you. - After you have the X-ray, please call our office to let us know so we can look at the results. - We will see you back in the office in about three months, but please call sooner if you need anything or feel worse. Orders: Orders XR chest 2V Today R09.89 - Other specified symptoms and signs involving the circulatory and respiratory systems Medications: Refilled albuterol sulfate 90 mcg/actuation 2 puffs inhalation Q4-6H PRN 1 ea 1RF shortness of breath or wheezing tiotropium bromide (Spiriva with HandiHaler) puncture 1 cap using device; one dose = 2 inhalations 1 cap inhalation DAILY 3 ea 1RF J44.9 - Chronic obstructive pulmonary disease, unspecified Coding Level of Care Code Est Pt Level 4 (24732) Diagnoses COPD (chronic obstructive pulmonary disease) J44.9 Pulmonary nodule R91.1
--- OUTSIDE RECORDS SUMMARY | 2025-07-31 10:41 | XMS_ITS | Encounter Summary ---
Author Organization [facility] Address [address] [place] [address] Care Team Providers Care Installer Molding And Trim Name Role Phone Ag Shaw MD Primary Care Provider [phone] Encounter Details Date Type Department Care Team (Late st Contact Info) Description 03/31/2025 Lab Requisition [facility] - Main Lab [address] [facility] [place] [address] Elvis Patricia MD [address] [place], [place] [id number] Chronic obstructive pulmonary disease, unspecified (CMS/HCC V24, CMS/HCC V28); Thrombocytopenia, unspecified (CMS/HCC V24); Anemia, unspecified Social History Tobacco Use Types Packs/Day Years Used Date Smoking Tobacco: Former Cigarettes 0.5 Q uit: 06/16/2012 Smokeless Tobacco: Never Alcohol [...] unspecified documented in this encounter Care Teams Installer Molding And Trim Relationship Specialty Start Date End Date Ag Shaw MD [address] [facility] [address] [place] [address] PCP - General 05/31/03 documented as of this encounter
--- OUTSIDE RECORDS SUMMARY | 2025-07-31 10:41 | XMS_ITS | Encounter Summary ---
Author Organization [facility] Address [address] [place] [address] Care Team Providers Care Sheetmetal Worker Name Role Phone Ag Shaw MD Primary Care Provider [phone] Encounter Details Date Type Department Care Team (Late st Contact Info) Description 01/12/2025 Lab Requisition [facility] - Main Lab [address] [facility] [place] [address] Elvis Patricia MD [address] [place] [address] Fever, unspecified; Chronic cough Social History Tobacco [...] Procedure Name Priority Date/Time Associated Diagnosis Comments [id number], RSV, FLU A AND B QUALITATIVE RT-PCR, LOCAL REFERENCE LAB Routine 01/12/2025 12:00 AM EDT Fever, unspecified Chronic cough documented in this encounter Results * [id number], RSV, Influenza A and B qualitative RT-PCR (01/12/2025 12:00 AM EDT) SARS COV-2 Not Detected Not Detected LAB MOLECULAR DIAGNOSTICS METHOD 01/13/2025 2:02 PM EDT [facility] Influenza A PCR Not Detected Not Detected LAB MOLECULAR DIAGNOSTICS METHOD 01/13/2025 2:02 PM EDT [facility] Influenza B PCR Not Detected Not Detected LAB MOLECULAR DIAGNOSTICS METHOD 01/13/2025 2:02 PM EDT [facility] RSV PCR Not Detected Not Detected LAB MOLECULAR DIAGNOSTICS METHOD 01/13/2025 2:02 PM EDT [facility] Swab Nasopharyngeal structure / Unknown Non-blood Collection / Unknown 01/12/2025 01/12/2025 10:37 AM EDT Elvis Patricia MD LAB MICROBIOLOGY - GENERAL ORDERABLES Final Result [facility] [address] [place] [address], documented in this encounter Visit Diagnoses Diagnosis Fever, unspecified Chronic cough Cough documented in this encounter Additional Health Concerns Infection Onset Date Last Indicated Resolved Time Respiratory Rule-Out 01/12/2025 01/12/2025 025 2:02 PM EDT documented as of this encounter Care Teams Sheetmetal Worker Relationship Specialty Start Date End Date Ag Shaw MD [address] [address] PCP - General 05/31/03 documented as of this encounter
--- OUTSIDE RECORDS SUMMARY | 2025-07-31 10:41 | XMS_ITS | Encounter Summary ---
Author Organization [facility] Address [address] [place] [address] Care Team Providers Care Varnish Maker Name Role Phone Ag Shaw MD Primary Care Provider [phone] Encounter Details Date Type Department Care Team (Late st Contact Info) Description 02/09/2025 Lab Requisition [facility] - Main Lab [address] [facility] [place] [address] Elvis Patricia MD [address] [place] [address] Chronic obstructive pulmonary disease, unspecified (CMS/HCC V24, [...] V28) documented in this encounter Care Teams Varnish Maker Relationship Specialty Start Date End Date Ag Shaw MD [address] [place] [address] PCP - General 05/31/03 documented as of this encounter
--- OUTSIDE RECORDS SUMMARY | 2025-07-31 10:41 | XMS_ITS | Encounter Summary ---
Author Organization [facility] Address [address] [place] [address] Care Team Providers Care Can Doffer Name Role Phone Ag Shaw MD Primary Care Provider [phone] Encounter Details Date Type Department Care Team (Late st Contact Info) Description 02/01/2025 Lab Requisition [facility] - Main Lab [address] [facility] [place] [address] Elvis Patricia MD [address] [place] [address] Chronic obstructive pulmonary disease, unspecified (CMS/HCC V24, [...] mmol/L LAB CHEMISTRY METHOD 02/05/2025 11:[address] [facility] Potassium 3.7 3.5 - 5.5 mmol/L LAB CHEMISTRY METHOD 02/05/2025 11:[address] [facility] Chloride 108 96 - 110 mmol/L LAB CHEMISTRY METHOD 02/05/2025 11:[address] [facility] CO2 27 21 - 32 mmol/L LAB CHEMISTRY METHOD 02/05/2025 11:[address] [facility] Anion Gap 7 3 - 11 LAB CHEMISTRY METHOD 02/05/2025 11:[address] [facility] Glucose 59(L) 70 - 100 mg/dL LAB CHEMISTRY METHOD 02/05/2025 11:[address] [facility] BUN 18 5 - 25 mg/dL LAB CHEMISTRY METHOD 02/05/2025 11:[address] [facility] Creatinine 0.51 0.50 - 1.10 mg/dL LAB CHEMISTRY METHOD 02/05/2025 11:[address] [facility] eGFR 94 >=60 mL/min/1. 73m2 LAB CHEMISTRY METHOD 02/05/2025 11:[address] [facility] Comment:Calculation based on the Chronic Kidney Disease Epidemiology Collaboration (CKD-EPI) equation refit without adjustment for race. BUN/Creatinine Ratio 35.3 LAB CHEMISTRY METHOD 02/05/2025 11:[address] [facility] Calcium 8.6 8.5 - 10.5 mg/dL LAB CHEMISTRY METHOD 02/05/2025 11:[address] [facility] Blood Venous blood specimen / Unknown Venipuncture / Unknown 02/05/2025 6:54 AM EDT 02/05/2025 10:43 AM EDT us Elvis Patricia MD LAB BLOOD ORDERABLES Final Result [facility] [address] [place] [address], * (ABNORMAL) Complete blood count (02/05/2025 6:54 AM EDT) WBC 4.3(L) 4.8 - 10.8 K/mcL LAB HEMETOLOGY [facility] RBC 3.90 3.80 - 4.80 M/mcL LAB HEMETOLOGY METHOD 02/05/2025 12:[address] [facility] Hemoglobin 11.2(L) 11.5 - 16.0 g/dL LAB HEMETOLOGY METHOD 02/05/2025 12:[address] [facility] Hematocrit 37.3 35.0 - 47.0 % LAB HEMETOLOGY METHOD 02/05/2025 12:[address] [facility] MCV 96.9 79.0 - 98.0 FL LAB HEMETOLOGY METHOD 02/05/2025 12:[address] [facility] MCH 29.1 27.0 - 32.0 pcg LAB HEMETOLOGY METHOD 02/05/2025 12:[address] [facility] MCHC 30.0(L) 32.0 - 37.0 g/dL LAB HEMETOLOGY METHOD 02/05/2025 12:[address] [facility] RDW 17.0(H) 11.0 - 15.0 % LAB HEMETOLOGY METHOD 02/05/2025 12:[address] [facility] Platelets 204 130 - 400 K/mcL LAB HEMETOLOGY METHOD 02/05/2025 12:[address] [facility] MPV 10.6 7.0 - 11.0 FL LAB HEMETOLOGY METHOD 02/05/2025 12:[address] [facility] NRBC 0.0 <1.0 % LAB HEMETOLOGY METHOD 02/05/2025 12:[address] [facility] NRBC Absolute 0.00 <0.10 K/mcL LAB HEMETOLOGY METHOD 02/05/2025 12:[address] [facility] Blood Venous blood specimen / Unknown Venipuncture / Unknown 02/05/2025 6:54 AM EDT 02/05/2025 10:43 AM EDT us Elvis Patricia MD LAB BLOOD ORDERABLES Final Result [facility] [address] [place] [address], documented in this encounter Visit Diagnoses Diagnosis Chronic obstructive pulmonary disease, unspecified (CMS/HCC V24, CMS/HCC V28) documented in this encounter Care Teams Can Doffer Relationship Specialty Start Date End Date Ag Shaw MD [address] [address] PCP - General 05/31/03 documented as of this encounter
--- OUTSIDE RECORDS SUMMARY | 2025-07-31 10:41 | XMS_ITS | Encounter Summary ---
Author Organization [facility] Address [address] [place] [address] Care Team Providers Care Laborer Landscape Name Role Phone Ag Shaw MD Primary Care Provider [phone] Encounter Details Date Type Department Care Team (Late st Contact Info) Description 12/25/2024 Lab Requisition [facility] - Main Lab [address] [facility] [place] [address] Elvis Patricia MD [address] [place] [address] Chronic obstructive pulmonary disease, unspecified (CMS/HCC V24, [...] mmol/L LAB CHEMISTRY METHOD 12/26/2024 1:14 PM [facility] Potassium 4.1 3.5 - 5.5 mmol/L LAB CHEMISTRY METHOD 12/26/2024 1:14 PM [facility] Chloride 107 96 - 110 mmol/L LAB CHEMISTRY METHOD 12/26/2024 1:14 PM [facility] CO2 25 21 - 32 mmol/L LAB CHEMISTRY METHOD 12/26/2024 1:14 PM [facility] Anion Gap 6 3 - 11 LAB CHEMISTRY METHOD 12/26/2024 1:14 PM [facility] Glucose 82 70 - 100 mg/dL LAB CHEMISTRY METHOD 12/26/2024 1:14 PM [facility] BUN 18 5 - 25 mg/dL LAB CHEMISTRY METHOD 12/26/2024 1:14 PM [facility] Creatinine 0.45(L) 0.50 - 1.10 mg/dL LAB CHEMISTRY METHOD 12/26/2024 1:14 PM [facility] eGFR 97 >=60 mL/min/1. 73m2 LAB CHEMISTRY METHOD 12/26/2024 1:14 PM [facility] Comment:Calculation based on the Chronic Kidney Disease Epidemiology Collaboration (CKD-EPI) equation refit without adjustment for race. BUN/Creatinine Ratio 40.0 LAB CHEMISTRY METHOD 12/26/2024 1:14 PM [facility] Calcium 8.2(L) 8.5 - 10.5 mg/dL LAB CHEMISTRY METHOD 12/26/2024 1:14 PM [facility] Blood Venous blood specimen / Unknown Venipuncture / Unknown 12/26/2024 7:33 AM EDT 12/26/2024 10:57 AM EDT us Elvis Patrciia MD LAB BLOOD ORDERABLES Final Result [facility] [address] [place] [address], * (ABNORMAL) Complete blood count (12/26/2024 7:33 AM EDT) WBC 4.4(L) 4.8 - 10.8 K/mcL LAB HEMETOLOGY METHOD 12/26/2024 1:09 PM EDT [facility] RBC 3.40(L) 3.80 - 4.80 M/mcL LAB HEMETOLOGY METHOD 12/26/2024 1:09 PM EDT [facility] Hemoglobin 10.2(L) 11.5 - 16.0 g/dL LAB HEMETOLOGY METHOD 12/26/2024 1:09 PM EDT [facility] Hematocrit 32.6(L) 35.0 - 47.0 % LAB HEMETOLOGY METHOD 12/26/2024 1:09 PM EDT [facility] MCV 95.9 79.0 - 98.0 FL LAB HEMETOLOGY METHOD 12/26/2024 1:09 PM EDT [facility] MCH 30.0 27.0 - 32.0 pcg LAB HEMETOLOGY METHOD 12/26/2024 1:09 PM EDT [facility] MCHC 31.3(L) 32.0 - 37.0 g/dL LAB HEMETOLOGY [facility] RDW 15.5(H) 11.0 - 15.0 % LAB HEMETOLOGY METHOD 12/[facility]24 [facility] Platelets 138 130 - 400 K/mcL LAB HEMETOLOGY METHOD 12/26/2024 1:09 PM EDT [facility] MPV 11.0 7.0 - 11.0 FL LAB HEMETOLOGY METHOD 12/26/2024 1:09 PM EDT [facility] NRBC 0.0 <1.0 % LAB HEMETOLOGY METHOD 12/26/2024 1:09 PM EDT [facility] NRBC Absolute 0.00 <0.10 K/mcL LAB HEMETOLOGY METHOD 12/26/2024 1:09 PM EDT [facility] Blood Venous blood specimen / Unknown Venipuncture / Unknown 12/26/2024 7:33 AM EDT 12/26/2024 10:57 AM EDT Elvis Patricia MD LAB BLOOD ORDERABLES Final Result [facility] [address] [place] [address], documented in this encounter Visit Diagnoses Diagnosis Chronic obstructive pulmonary disease, unspecified (CMS/HCC V24, CMS/HCC V28) documented in this encounter Additional Health Concerns Infection Onset Date Last Indicated Resolved Time Respiratory Rule-Out 01/12/2025 01/12/2025 025 2:02 PM EDT documented as of this encounter Care Teams Laborer Landscape Relationship Specialty Start Date End Date Ag Shaw MD [address] [address] PCP - General 05/31/03 documented as of this encounter
--- OUTSIDE RECORDS SUMMARY | 2025-07-31 10:41 | XMS_ITS | Encounter Summary ---
Author Organization [facility] Address [address] [place] [address] Care Team Providers Care Brass And Wind Instrument Repairer Name Role Phone Ag Shaw MD Primary Care Provider [phone] Encounter Details Date Type Department Care Team (Late st Contact Info) Description 01/12/2025 Lab Requisition [facility] - Main Lab [address] [facility] [place] [address] Chun Blackwell MD [address] [place] [address] Chronic obstructive pulmonary disease, unspecified (CMS/HCC V24, [...] Complete blood count (01/15/2025 7:30 AM EDT) [facility] WBC 7.3 4.8 - 10.8 K/mcL LAB HEMETOLOGY METHOD 01/15/2025 11:39 AM [facility] RBC 3.30(L) 3.80 - 4.80 M/mcL LAB HEMETOLOGY METHOD 01/15/2025 11:39 AM [facility] Hemoglobin 9.5(L) 11.5 - 16.0 g/dL LAB HEMETOLOGY METHOD 01/15/2025 11:39 AM [facility] Hematocrit 30.6(L) 35.0 - 47.0 % LAB HEMETOLOGY METHOD 01/15/2025 11:39 AM [facility] MCV 93.9 79.0 - 98.0 FL LAB HEMETOLOGY METHOD 01/15/2025 11:39 AM [facility] MCH 29.1 27.0 - 32.0 pcg LAB HEMETOLOGY METHOD 01/15/2025 11:39 AM [facility] MCHC 31.0(L) 32.0 - 37.0 g/dL LAB HEMETOLOGY METHOD 01/15/2025 11:39 AM [facility] RDW 15.1(H) 11.0 - 15.0 % LAB HEMETOLOGY METHOD 01/15/2025 11:39 AM [facility] Platelets 222 130 - 400 K/mcL LAB HEMETOLOGY METHOD 01/15/2025 11:39 AM [facility] MPV 10.2 7.0 - 11.0 FL LAB HEMETOLOGY METHOD 01/15/2025 11:39 AM [facility] NRBC 0.0 <1.0 % LAB HEMETOLOGY METHOD 01/15/2025 11:39 AM [facility] NRBC Absolute 0.00 <0.10 K/mcL LAB HEMETOLOGY METHOD 01/15/2025 11:39 AM EDT [facility] Blood Venous blood specimen / Unknown Venipuncture / Unknown 01/15/2025 7:30 AM EDT 01/15/2025 10:24 AM EDT Chun Blackwell MD LAB BLOOD ORDERABLES Final R esult [facility] [address] [place] [address], [place] [phone] * (ABNORMAL) Basic metabolic panel (01/15/2025 7:30 AM EDT) Sodium 135 133 - 145 mmol/L LAB CHEMISTRY METHOD 01/15/2025 12:56 PM [facility] Potassium 4.0 3.5 - 5.5 mmol/L LAB CHEMISTRY METHOD 01/15/2025 12:56 PM [facility] Chloride 102 96 - 110 mmol/L LAB CHEMISTRY METHOD 01/15/2025 12:56 PM [facility] CO2 27 21 - 32 mmol/L LAB CHEMISTRY METHOD 01/15/2025 12:56 PM [facility] Anion Gap 6 3 - 11 LAB CHEMISTRY METHOD 01/15/2025 12:56 PM [facility] Glucose 70 70 - 100 mg/dL LAB CHEMISTRY METHOD 01/15/2025 12:56 PM [facility] BUN 17 5 - 25 mg/dL LAB CHEMISTRY METHOD 01/15/2025 12:56 PM [facility] Creatinine 0.33(L) 0.50 - 1.10 mg/dL LAB CHEMISTRY METHOD 01/15/2025 12:56 PM [facility] eGFR 104 >=60 mL/min/1. 73m2 LAB CHEMISTRY METHOD 01/15/2025 12:56 PM EDT [facility] Comment:Calculation based on the Chronic Kidney Disease Epidemiology Collaboration (CKD-EPI) equation refit without adjustment for race. BUN/Creatinine Ratio 51.5 LAB CHEMISTRY METHOD 01/15/2025 12:56 PM EDT [facility] Calcium 7.8(L) 8.5 - 10.5 mg/dL LAB CHEMISTRY METHOD 01/15/2025 12:56 PM EDT [facility] Blood Venous blood specimen / Unknown Venipuncture / Unknown 01/15/2025 7:30 AM EDT 01/15/2025 10:24 AM EDT us Chun Blackwell MD LAB BLOOD ORDERABLES Final R esult [facility] [address] [place] [address], documented in this encounter Visit Diagnoses Diagnosis Chronic obstructive pulmonary disease, unspecified (CMS/HCC V24, CMS/HCC V28) documented in this encounter Additional Health Concerns Infection Onset Date Last Indicated Resolved Time Respiratory Rule-Out 01/12/2025 01/12/2025 025 2:02 PM EDT documented as of this encounter Care Teams Brass And Wind Instrument Repairer Relationship Specialty Start Date End Date Ag Shaw MD [address] [address] PCP - General 05/31/03 documented as of this encounter
--- OUTSIDE RECORDS SUMMARY | 2025-07-31 10:41 | XMS_ITS | Encounter Summary ---
Author Organization [facility] Address [address] [place] [address] Care Team Providers Care Supply Chain Manager Name Role Phone Ag Shaw MD Primary Care Provider [phone] Encounter Details Date Type Department Care Team (Late st Contact Info) Description 01/19/2025 Lab Requisition [facility] - Main Lab 299 [facility] [place] [address] Elvis Patricia MD [address] [place] [address] Chronic obstructive pulmonary disease, unspecified (CMS/HCC V24, [...] Complete blood count (01/22/2025 7:00 AM EDT) WBC 4.5(L) 4.8 - 10.8 K/mcL LAB HEMETOLOGY METHOD 01/22/2025 10:31 AM [facility] RBC 3.00(L) 3.80 - 4.80 M/mcL LAB HEMETOLOGY METHOD 01/22/2025 10:31 AM [facility] Hemoglobin 8.8(L) 11.5 - 16.0 g/dL LAB HEMETOLOGY METHOD 01/22/2025 10:31 AM [facility] Hematocrit 28.8(L) 35.0 - 47.0 % LAB HEMETOLOGY METHOD 01/22/2025 10:31 AM [facility] MCV 95.0 79.0 - 98.0 FL LAB HEMETOLOGY METHOD 01/22/2025 10:31 AM [facility] MCH 29.0 27.0 - 32.0 pcg LAB HEMETOLOGY METHOD 01/22/2025 10:31 AM [facility] MCHC 30.6(L) 32.0 - 37.0 g/dL LAB HEMETOLOGY METHOD 01/22/2025 10:31 AM [facility] RDW 16.1(H) 11.0 - 15.0 % LAB HEMETOLOGY METHOD 01/22/2025 10:31 AM [facility] Platelets 221 130 - 400 K/mcL LAB HEMETOLOGY METHOD 01/22/2025 10:31 AM [facility] MPV 9.8 7.0 - 11.0 FL LAB HEMETOLOGY METHOD 01/22/2025 10:31 AM [facility] NRBC 0.0 <1.0 % LAB HEMETOLOGY METHOD 01/22/2025 10:31 AM [facility] NRBC Absolute 0.00 <0.10 K/mcL LAB HEMETOLOGY METHOD 01/22/2025 10:31 AM [facility] Blood Venous blood specimen / Unknown Venipuncture / Unknown 01/22/2025 7:00 AM EDT 01/22/2025 9:55 AM EDT us Elvis Patricia MD LAB BLOOD ORDERABLES Final Result [facility] [address] [place] [address], [place] [phone] * (ABNORMAL) Basic metabolic panel (01/22/2025 7:00 AM EDT) Sodium 144 133 - 145 mmol/L LAB CHEMISTRY METHOD 01/22/2025 11:45 AM [facility] Potassium 4.1 3.5 - 5.5 mmol/L LAB CHEMISTRY METHOD 01/22/2025 11:45 AM [facility] Chloride 109 96 - 110 mmol/L LAB CHEMISTRY METHOD 01/22/2025 11:45 AM [facility] CO2 29 21 - 32 mmol/L LAB CHEMISTRY METHOD 01/22/2025 11:45 AM [facility] Anion Gap 6 3 - 11 LAB CHEMISTRY METHOD 01/22/2025 11:45 AM [facility] Glucose 66(L) 70 - 100 mg/dL LAB CHEMISTRY METHOD 01/22/2025 11:45 AM [facility] BUN 14 5 - 25 mg/dL LAB CHEMISTRY METHOD 01/22/2025 11:45 AM [facility] Creatinine 0.43(L) 0.50 - 1.10 mg/dL LAB CHEMISTRY METHOD 01/22/2025 11:45 AM [facility] eGFR 98 >=60 mL/min/1. 73m2 LAB CHEMISTRY METHOD 01/22/2025 11:45 AM EDT [facility] Comment:Calculation based on the Chronic Kidney Disease Epidemiology Collaboration (CKD-EPI) equation refit without adjustment for race. BUN/Creatinine Ratio 32.6 LAB CHEMISTRY METHOD 01/22/2025 11:45 AM EDT [facility] Calcium 7.8(L) 8.5 - 10.5 mg/dL LAB CHEMISTRY METHOD 01/22/2025 11:45 AM EDT [facility] Blood Venous blood specimen / Unknown Venipuncture / Unknown 01/22/2025 7:00 AM EDT 01/22/2025 9:55 AM EDT Elvis Patricia MD LAB BLOOD ORDERABLES Final Result [facility] [address] [place] [address], documented in this encounter Visit Diagnoses Diagnosis Chronic obstructive pulmonary disease, unspecified (CMS/HCC V24, CMS/HCC V28) documented in this encounter Care Teams Supply Chain Manager Relationship Specialty Start Date End Date Ag Shaw MD [address] [address] PCP - General 05/31/03 documented as of this encounter
--- OUTSIDE RECORDS SUMMARY | 2025-07-31 10:41 | XMS_ITS | Encounter Summary ---
Author Organization Address [address] [place] [address] Care Team Providers Care Anode Builder Name Role Phone Ag Shaw MD Primary Care Provider [phone] Encounter Details Date Type Department Care Team (Late st Contact Info) Description 01/26/2025 Lab Requisition [facility] - Main Lab [address] [facility] [place] [address] Elvis Patricia MD [address] [place] [address] Chronic obstructive pulmonary disease, unspecified (CMS/HCC V24, [...] mmol/L LAB CHEMISTRY METHOD 01/29/2025 12:51 PM [facility] Potassium 3.9 3.5 - 5.5 mmol/L LAB CHEMISTRY METHOD 01/29/2025 12:51 PM [facility] Chloride 106 96 - 110 mmol/L LAB CHEMISTRY METHOD 01/29/2025 12:51 PM [facility] CO2 27 21 - 32 mmol/L LAB CHEMISTRY METHOD 01/29/2025 12:51 PM [facility] Anion Gap 6 3 - 11 LAB CHEMISTRY METHOD 01/29/2025 12:51 PM [facility] Glucose 57(L) 70 - 100 mg/dL LAB CHEMISTRY METHOD 01/29/2025 12:51 PM [facility] BUN 17 5 - 25 mg/dL LAB CHEMISTRY METHOD 01/29/2025 12:51 PM [facility] Creatinine 0.50 0.50 - 1.10 mg/dL LAB CHEMISTRY METHOD 01/29/2025 12:51 PM [facility] eGFR 94 >=60 mL/min/1. 73m2 LAB CHEMISTRY METHOD 01/29/2025 12:51 PM [facility] Comment:Calculation based on the Chronic Kidney Disease Epidemiology Collaboration (CKD-EPI) equation refit without adjustment for race. BUN/Creatinine Ratio 34.0 LAB CHEMISTRY METHOD 01/29/2025 12:51 PM [facility] Calcium 8.4(L) 8.5 - 10.5 mg/dL LAB CHEMISTRY METHOD 01/29/2025 12:51 PM [facility] Blood Venous blood specimen / Unknown Venipuncture / Unknown 01/29/2025 6:53 AM EDT 01/29/2025 10:54 AM EDT us Elvis Patricia MD LAB BLOOD ORDERABLES Final Result [facility] [address] [place] [address], * (ABNORMAL) Complete blood count (01/29/2025 6:53 AM EDT) WBC 4.3(L) 4.8 - 10.8 K/mcL LAB HEMETOLOGY METHOD 01/29/2025 1:28 PM EDT [facility] RBC 3.40(L) 3.80 - 4.80 M/mcL LAB HEMETOLOGY METHOD 01/29/2025 1:28 PM EDT [facility] Hemoglobin 9.8(L) 11.5 - 16.0 g/dL LAB HEMETOLOGY METHOD 01/29/2025 1:28 PM EDT [facility] Hematocrit 33.0(L) 35.0 - 47.0 % LAB HEMETOLOGY METHOD 01/29/2025 1:28 PM EDT [facility] MCV 96.2 79.0 - 98.0 FL LAB HEMETOLOGY METHOD 01/29/2025 1:28 PM EDT [facility] MCH 28.6 27.0 - 32.0 pcg LAB HEMETOLOGY METHOD 01/29/2025 1:28 PM EDT [facility] MCHC 29.7(L) 32.0 - 37.0 g/dL LAB HEMETOLOGY METHOD 01/29/2025 1:28 PM EDT [facility] RDW 17.0(H) 11.0 - 15.0 % LAB HEMETOLOGY METHOD 01/29/2025 1:28 [facility] Platelets 248 130 - 400 K/mcL LAB HEMETOLOGY METHOD 01/29/2025 1:28 PM EDT [facility] MPV 9.6 7.0 - 11.0 FL LAB HEMETOLOGY METHOD 01/29/2025 1:28 PM EDT [facility] NRBC 0.0 <1.0 % LAB HEMETOLOGY METHOD 01/29/2025 1:28 PM EDT [facility] NRBC Absolute 0.00 <0.10 K/mcL LAB HEMETOLOGY METHOD 01/29/2025 1:28 PM EDT [facility] Blood Venous blood specimen / Unknown Venipuncture / Unknown 01/29/2025 6:53 AM EDT 01/29/2025 10:54 AM EDT Elvis Patricia MD LAB BLOOD ORDERABLES Final Result [facility] [address] [place] [address], documented in this encounter Visit Diagnoses Diagnosis Chronic obstructive pulmonary disease, unspecified (CMS/HCC V24, CMS/HCC V28) documented in this encounter Care Teams Anode Builder Relationship Specialty Start Date End Date Ag Shaw MD [address] [address] PCP - General 05/31/03 documented as of this encounter
--- OUTSIDE RECORDS SUMMARY | 2025-07-31 10:41 | XMS_ITS | Encounter Summary ---
Author Organization [facility] Address [address] [place] [address] Care Team Providers Care Returned Goods Receiving Clerk Name Role Phone Ag Shaw MD Primary Care Provider [phone] Encounter Details Date Type Department Care Team (Late st Contact Info) Description 01/12/2025 Lab Requisition [facility] - Main Lab [address] [facility] [place] [address] Elvis Patricia MD [address] [place] [address] Fever, unspecified Social History Tobacco Use Types [...] CBC auto differential (01/12/2025 10:10 AM EDT) [facility] Signature WBC 10.8 4.8 - 10.8 K/mcL LAB HEMETOLOGY METHOD 01/12/2025 10:43 AM [facility] RBC 3.50(L) 3.80 - 4.80 M/mcL LAB HEMETOLOGY METHOD 01/12/2025 10:43 AM [facility] Hemoglobin 10.5(L) 11.5 - 16.0 g/dL LAB HEMETOLOGY METHOD 01/12/2025 10:43 AM [facility] Hematocrit 33.6(L) 35.0 - 47.0 % LAB HEMETOLOGY METHOD 01/12/2025 10:43 AM [facility] MCV 94.9 79.0 - 98.0 FL LAB HEMETOLOGY METHOD 01/12/2025 10:43 AM [facility] MCH 29.7 27.0 - 32.0 pcg LAB HEMETOLOGY METHOD 01/12/2025 10:43 AM [facility] MCHC 31.3(L) 32.0 - 37.0 g/dL LAB HEMETOLOGY METHOD 01/12/2025 10:43 AM [facility] RDW 15.0 11.0 - 15.0 % LAB HEMETOLOGY METHOD 01/12/2025 10:43 AM [facility] Platelets 237 130 - 400 K/mcL LAB HEMETOLOGY METHOD 01/12/2025 10:43 AM [facility] MPV 9.6 7.0 - 11.0 FL LAB HEMETOLOGY METHOD 01/12/2025 10:43 AM [facility] NRBC 0.0 <1.0 % LAB HEMETOLOGY METHOD 01/12/2025 10:43 AM [facility] NRBC Absolute 0.00 <0.10 K/mcL LAB HEMETOLOGY METHOD 01/12/2025 10:43 AM [facility] Neutrophils Relative 87.4 % LAB HEMETOLOGY METHOD 01/12/2025 10:43 AM [facility] Lymphocytes Relative 5.2 % LAB HEMETOLOGY METHOD 01/12/2025 10:43 AM [facility] Monocytes Relative 5.2 % LAB HEMETOLOGY METHOD 01/12/2025 10:43 AM [facility] Eosinophils Relative 1.5 % LAB HEMETOLOGY METHOD 01/12/2025 10:43 AM [facility] Basophils Relative 0.2 % LAB HEMETOLOGY METHOD 01/12/2025 10:43 AM [facility] Immature Granulocytes Relative 0.5 % LAB HEMETOLOGY METHOD 01/12/2025 10:43 AM [facility] Neutrophils Absolute 9.42(H) 1.50 - 7.00 K/mcL LAB HEMETOLOGY METHOD 01/12/2025 10:43 AM [facility] Lymphocytes Absolute 0.56(L) 1.00 - 5.00 K/mcL LAB HEMETOLOGY METHOD 01/12/2025 10:43 AM [facility] Monocytes Absolute 0.56 0.20 - 1.00 K/mcL LAB HEMETOLOGY METHOD 01/12/2025 10:43 AM [facility] Eosinophils Absolute 0.16 0.00 - 0.50 K/mcL LAB HEMETOLOGY METHOD 01/12/2025 10:43 AM [facility] Basophils Absolute 0.02 0.00 - 0.20 K/mcL LAB HEMETOLOGY METHOD 01/12/2025 10:43 AM [facility] Immature Granulocytes Absolute 0.05(H) 0.00 - 0.03 K/mcL LAB HEMETOLOGY METHOD 01/12/2025 10:43 AM EDT [facility] Blood Venous blood specimen / Unknown Venipuncture / Unknown 01/12/2025 10:10 AM EDT 01/12/2025 10:36 AM EDT Elvis Patricia MD LAB BLOOD ORDERABLES Final Result [facility] [address] [place] [address], * Procalcitonin (01/12/2025 10:10 AM EDT) Procalcitonin 0.06 <=0.16 ng/mL LAB CHEMISTRY METHOD 01/12/2025 12:33 PM EDT [facility] Blood Venous blood specimen / Unknown Venipuncture / Unknown 01/12/2025 10:10 AM EDT 01/12/2025 10:36 AM EDT Narrative [facility] - 01/12/2025 12:33 PM EDT Procalcitonin [...] Final Result [facility] [address] [place] [address], [place] [phone] * (ABNORMAL) Comprehensive metabolic panel (01/12/2025 10:10 AM EDT) Sodium 138 133 - 145 mmol/L LAB CHEMISTRY METHOD 01/12/2025 11:20 AM [facility] Potassium 4.0 3.5 - 5.5 mmol/L LAB CHEMISTRY METHOD 01/12/2025 11:20 AM [facility] Chloride 103 96 - 110 mmol/L LAB CHEMISTRY METHOD 01/12/2025 11:20 AM [facility] CO2 29 21 - 32 mmol/L LAB CHEMISTRY METHOD 01/12/2025 11:20 AM [facility] Anion Gap 6 3 - 11 LAB CHEMISTRY METHOD 01/12/2025 11:20 AM [facility] Glucose 84 70 - 100 mg/dL LAB CHEMISTRY METHOD 01/12/2025 11:20 AM [facility] BUN 20 5 - 25 mg/dL LAB CHEMISTRY METHOD 01/12/2025 11:20 AM [facility] Creatinine 0.54 0.50 - 1.10 mg/dL LAB CHEMISTRY METHOD 01/12/2025 11:20 AM [facility] eGFR 93 >=60 mL/min/1. 73m2 LAB CHEMISTRY METHOD 01/12/2025 11:20 AM [facility] Comment:Calculation based on the Chronic Kidney Disease Epidemiology Collaboration (CKD-EPI) equation refit without adjustment for race. BUN/Creatinine Ratio 37.0 LAB CHEMISTRY METHOD 01/12/2025 11:20 AM [facility] Calcium 7.7(L) 8.5 - 10.5 mg/dL LAB CHEMISTRY METHOD 01/12/2025 11:20 AM [facility] AST (SGOT) 12 10 - 42 unit/L LAB CHEMISTRY METHOD 01/12/2025 11:20 AM [facility] ALT (SGPT) 10 10 - 60 unit/L LAB CHEMISTRY METHOD 01/12/2025 11:20 AM T [facility] Alkaline Phosphatase 193(H) 42 - 121 unit/L LAB CHEMISTRY METHOD 01/12/2025 11:20 AM [facility] Total Protein 5.9(L) 6.0 - 8.0 g/dL LAB CHEMISTRY METHOD 01/12/2025 11:20 AM [facility] Albumin 2.2(L) 3.2 - 5.0 g/dL LAB CHEMISTRY METHOD 01/12/2025 11:20 AM [facility] Total Bilirubin 0.7 0.0 - 1.4 mg/dL LAB CHEMISTRY METHOD 01/12/2025 11:20 AM [facility] Blood Venous blood specimen / Unknown Venipuncture / Unknown 01/12/2025 10:10 AM EDT 01/12/2025 10:36 AM EDT us Elvis Patricia MD LAB BLOOD ORDERABLES Final Result [facility] [address] [place] [address], documented in this encounter Visit Diagnoses Diagnosis Fever, unspecified documented in this encounter Additional Health Concerns Infection Onset Date Last Indicated Resolved Time Respiratory Rule-Out 01/12/2025 01/12/2025 025 2:02 PM EDT documented as of this encounter Care Teams Returned Goods Receiving Clerk Relationship Specialty Start Date End Date Ag Shaw MD [address] [address] PCP - General 05/31/03 documented as of this encounter
--- OUTSIDE RECORDS SUMMARY | 2025-07-31 10:41 | XMS_ITS | Encounter Summary ---
Author Organization [facility] Address [address] [place] [address] Care Team Providers Care Furnace Charging Machine Operator Name Role Phone Ag Shaw MD Primary Care Provider [phone] Encounter Details Date Type Department Care Team (Late st Contact Info) Description 12/22/2024 Lab Requisition [facility] - Main Lab [address] [facility] [place] [address] Elvis Patricia MD [address] [place] [address] Other fracture of shaft of right tibia, [...] closed fracture Chronic obstructive pulmonary disease, unspecified ([facility] V24, [facility] V28) documented in this encounter Results * (ABNORMAL) Comprehensive metabolic panel (12/22/2024 8:54 AM EDT) Sodium 138 133 - 145 mmol/L LAB CHEMISTRY METHOD 12/22/2024 4:21 PM [facility] Potassium 3.6 3.5 - 5.5 mmol/L LAB CHEMISTRY METHOD 12/22/2024 4:21 PM [facility] Chloride 105 96 - 110 mmol/L LAB CHEMISTRY METHOD 12/22/2024 4:21 PM [facility] CO2 27 21 - 32 mmol/L LAB CHEMISTRY METHOD 12/22/2024 4:21 PM [facility] Anion Gap 6 3 - 11 LAB CHEMISTRY METHOD 12/22/2024 4:21 PM [facility] Glucose 81 70 - 100 mg/dL LAB CHEMISTRY METHOD 12/22/2024 4:21 PM [facility] BUN 16 5 - 25 mg/dL LAB CHEMISTRY METHOD 12/22/2024 4:21 PM [facility] Creatinine 0.59 0.50 - 1.10 mg/dL LAB CHEMISTRY METHOD 12/22/2024 4:21 PM [facility] eGFR 91 >=60 mL/min/1. 73m2 LAB CHEMISTRY METHOD 12/22/2024 4:21 PM [facility] Comment:Calculation based on the Chronic Kidney Disease Epidemiology Collaboration (CKD-EPI) equation refit without adjustment for race. BUN/Creatinine Ratio 27.1 LAB CHEMISTRY METHOD 12/22/2024 4:21 PM [facility] Calcium 8.4(L) 8.5 - 10.5 mg/dL LAB CHEMISTRY METHOD 12/22/2024 4:21 PM [facility] AST (SGOT) 17 10 - 42 unit/L LAB CHEMISTRY METHOD 12/22/2024 4:21 PM [facility] ALT (SGPT) 20 10 - 60 unit/L LAB CHEMISTRY METHOD 12/22/2024 4:21 PM [facility] Alkaline Phosphatase 134(H) 42 - 121 unit/L LAB CHEMISTRY METHOD 12/22/2024 4:21 PM T [facility] Total Protein 7.0 6.0 - 8.0 g/dL LAB CHEMISTRY METHOD 12/22/2024 4:21 PM [facility] Albumin 3.1(L) 3.2 - 5.0 g/dL LAB CHEMISTRY METHOD 12/22/2024 4:21 PM [facility] Total Bilirubin 0.7 0.0 - 1.4 mg/dL LAB CHEMISTRY METHOD 12/22/2024 4:21 PM [facility] Blood Venous blood specimen / Unknown Venipuncture / Unknown 12/22/2024 8:54 AM EDT 12/22/2024 11:25 AM EDT Elvis Patricia MD LAB BLOOD ORDERABLES Final Result [facility] [address] [place] [address], [place] [phone] * (ABNORMAL) Complete blood count (12/22/2024 8:54 AM EDT) WBC 5.2 4.8 - 10.8 K/mcL LAB HEMETOLOGY METHOD 12/22/2024 12:01 PM EDT [facility] RBC 3.70(L) 3.80 - 4.80 M/mcL LAB HEMETOLOGY METHOD 12/22/2024 12:01 PM [facility] Hemoglobin 11.0(L) 11.5 - 16.0 g/dL LAB HEMETOLOGY METHOD 12/22/2024 12:01 PM EDT [facility] Hematocrit 35.5 35.0 - 47.0 % LAB HEMETOLOGY [facility] MCV 96.2 79.0 - 98.0 FL LAB HEMETOLOGY METHOD [facility] MCH 29.8 27.0 - 32.0 pcg LAB HEMETOLOGY METHOD 12/22/2024 12:01 PM EDT [facility] MCHC 31.0(L) 32.0 - 37.0 g/dL LAB HEMETOLOGY METHOD [facility]24 [facility] RDW 15.3(H) 11.0 - 15.0 % LAB HEMETOLOGY METHOD 12/22[facility]2024 [facility] Platelets 123(L) 130 - 400 K/mcL LAB HEMETOLOGY METHOD [facility]/22[facility]2024 [facility] MPV 11.1(H) 7.0 - 11.0 FL LAB HEMETOLOGY METHOD [facility]/22[facility]2024 [facility] NRBC 0.0 <1.0 % LAB HEMETOLOGY METHOD [facility]24 [facility] NRBC Absolute 0.00 <0.10 K/mcL LAB HEMETOLOGY METHOD 12/22/2024 12:01 PM [facility] Blood Venous blood specimen / Unknown Venipuncture / Unknown 12/22/2024 8:54 AM EDT 12/22/2024 11:25 AM EDT us Elvis Patricia MD LAB BLOOD ORDERABLES Final Result [facility] [address] [place] [address], documented in this encounter Visit Diagnoses Diagnosis Other fracture of shaft of right tibia, initial encounter for closed fracture Chronic obstructive pulmonary disease, unspecified (CMS/[facility] V24, [facility] V28) documented in this encounter Additional Health Concerns Infection Onset Date Last Indicated Resolved Time Respiratory Rule-Out 01/12/2025 01/12/2025 025 2:02 PM EDT documented as of this encounter Care Teams [employer] Operator Relationship Specialty Start Date End Date Ag Shaw MD [address] [facility] [address] [place] [id number] PCP - General 05/31/03 documented as of this encounter
--- OUTSIDE RECORDS SUMMARY | 2025-07-31 10:42 | XMS_ITS | Encounter Summary ---
Author Organization [facility] Address [address] [place] [address] Care Team Providers Care Military Lawyer Name Role Phone Ag Shaw MD Primary Care Provider [phone] Encounter Details Date Type Department Care Team (Late st Contact Info) Description 03/17/2025 Lab Requisition [facility] - Main Lab [address] [facility] [place] [address] Elvis Patricia MD [address] [place] [address] Chronic obstructive pulmonary disease, unspecified (CMS/HCC V24, [...] AM EDT Chronic obstructive pulmonary disease, unspecified ([facility] V24, [facility] V28) Thrombocytopenia, unspecified ([facility] V24) Anemia, unspecified documented in this encounter Results * (ABNORMAL) Basic metabolic panel (03/19/2025 7:51 AM EDT) Sodium 140 133 - 145 mmol/L LAB CHEMISTRY METHOD 03/19/2025 11:11 AM [facility] Potassium 4.2 3.5 - 5.5 mmol/L LAB CHEMISTRY METHOD 03/19/2025 11:11 AM [facility] Chloride 107 96 - 110 mmol/L LAB CHEMISTRY METHOD 03/19/2025 11:11 AM [facility] CO2 29 21 - 32 mmol/L LAB CHEMISTRY METHOD 03/19/2025 11:11 AM [facility] Anion Gap 4 3 - 11 LAB CHEMISTRY METHOD 03/19/2025 11:11 AM [facility] Glucose 70 70 - 100 mg/dL LAB CHEMISTRY METHOD 03/19/2025 11:11 AM [facility] BUN 14 5 - 25 mg/dL LAB CHEMISTRY METHOD 03/19/2025 11:11 AM [facility] Creatinine 0.43(L) 0.50 - 1.10 mg/dL LAB CHEMISTRY METHOD 03/19/2025 11:11 AM [facility] eGFR 98 >=60 mL/min/1. 73m2 LAB CHEMISTRY METHOD 03/19/2025 11:11 AM [facility] Comment:Calculation based on the Chronic Kidney Disease Epidemiology Collaboration (CKD-EPI) equation refit without adjustment for race. BUN/Creatinine Ratio 32.6 LAB CHEMISTRY METHOD 03/19/2025 11:11 AM [facility] Calcium 8.5 8.5 - 10.5 mg/dL LAB CHEMISTRY METHOD 03/19/2025 11:11 AM [facility] Blood Venous blood specimen / Unknown Venipuncture / Unknown 03/19/2025 7:51 AM EDT 03/19/2025 9:51 AM EDT Elvis Patricia MD LAB BLOOD ORDERABLES Final Result [facility] [address] [place] [address], * (ABNORMAL) Complete blood count (03/19/2025 7:51 AM EDT) WBC 3.5(L) 4.8 - 10.8 K/mcL LAB HEMETOLOGY METHOD 03/19/2025 10:17 AM EDT [facility] RBC 2.90(L) 3.80 - 4.80 M/mcL LAB HEMETOLOGY METHOD 03/19/2025 10:17 AM [facility] Hemoglobin 8.4(L) 11.5 - 16.0 g/dL LAB HEMETOLOGY METHOD 03/19/2025 10:17 AM T [facility] Hematocrit 28.3(L) 35.0 - 47.0 % LAB HEMETOLOGY METHOD 03/19/2025 10:17 AM [facility] MCV 96.3 79.0 - 98.0 FL LAB HEMETOLOGY METHOD 03/19/2025 10:17 AM EDT [facility] MCH 28.6 27.0 - 32.0 pcg LAB HEMETOLOGY METHOD 03/19/2025 10:17 AM [facility] MCHC 29.7(L) 32.0 - 37.0 g/dL LAB HEMETOLOGY METHOD 03/19/2025 10:17 AM [facility] RDW 16.2(H) 11.0 - 15.0 % LAB HEMETOLOGY METHOD 03/19/2025 10:17 AM EDT [facility] Platelets 219 130 - 400 K/mcL LAB HEMETOLOGY METHOD 03/19/2025 10:17 AM EDT [facility] MPV 10.3 7.0 - 11.0 FL LAB HEMETOLOGY METHOD 03/19/2025 10:17 AM EDT [facility] NRBC 0.0 <1.0 % LAB HEMETOLOGY METHOD 03/19/2025 10:17 AM EDT [facility] NRBC Absolute 0.00 <0.10 K/mcL LAB HEMETOLOGY METHOD 03/19/2025 10:17 AM EDT [facility] Blood Venous blood specimen / Unknown Venipuncture / Unknown 03/19/2025 7:51 AM EDT 03/19/2025 9:52 AM EDT us Elvis Patricia MD LAB BLOOD ORDERABLES Final Result [facility] [address] [place] [address], documented in this encounter Visit Diagnoses Diagnosis Chronic obstructive pulmonary disease, unspecified (CMS/HCC V24, CMS/HCC V28) Thrombocytopenia, unspecified (CMS/HCC V24) Thrombocytopenia, unspecified Anemia, unspecified documented in this encounter Care Teams Military Lawyer Relationship Specialty Start Date End Date Ag Shaw MD [facility] Cathie Adorno [address] [address] PCP - General 05/31/03 documented as of this encounter
--- OUTSIDE RECORDS SUMMARY | 2025-07-31 10:42 | XMS_ITS | Encounter Summary ---
Author Organization [facility] Address [address] [place] [address] Care Team Providers Care Junior Qa Analyst Name Role Phone Ag Shaw MD Primary Care Provider [phone] Encounter Details Date Type Department Care Team (Late st Contact Info) Description 09/23/2024 Lab Requisition [facility] - Main Lab 299 [facility] [place] [address] Elvis Patricia MD [address] [place] [address] Chronic obstructive pulmonary disease, unspecified (CMS/HCC V24, [...] 7:51 AM EST 09/25/2024 10:59 AM EST us Elvis Patricia MD LAB BLOOD ORDERABLES Final Result [facility] [address] [place] [address], * (ABNORMAL) Complete blood count (09/25/2024 7:51 [...] LAB HEMETOLOGY METHOD 09/25/2024 12:37 PM EST [facility] NRBC Absolute 0.00 <0.10 K/mcL LAB HEMETOLOGY METHOD 09/25/2024 12:37 PM EST [facility] Blood Venous blood specimen / Unknown Venipuncture / Unknown 09/25/2024 7:51 AM EST 09/25/2024 11:06 AM EST us Elvis Patricia MD LAB BLOOD ORDERABLES Final Result [facility] [address] [place] [address], documented in this encounter Visit Diagnoses Diagnosis Chronic obstructive pulmonary disease, unspecified (CMS/HCC V24, CMS/HCC V28) documented in this encounter Additional Health Concerns Infection Onset Date Last Indicated Resolved Time Respiratory Rule-Out 01/12/2025 01/12/2025 025 2:02 PM EDT documented as of this encounter Care Teams Junior Qa Analyst Relationship Specialty Start Date End Date Ag Shaw MD [address] [address] PCP - General 05/31/03 documented as of this encounter
--- OUTSIDE RECORDS SUMMARY | 2025-07-31 10:42 | XMS_ITS | Encounter Summary ---
Author Organization [facility] Address [address] [place] [address] Care Team Providers Care Male Impersonator Name Role Phone Ag Shaw MD Primary Care Provider [phone] Encounter Details Date Type Department Care Team (Late st Contact Info) Description 01/08/2025 Lab Requisition [facility] - Main Lab 299 [facility] [place] [address] Elvis Patricia MD [address] [place] [address] Chronic obstructive pulmonary disease, unspecified (CMS/HCC V24, [...] mmol/L LAB CHEMISTRY METHOD 01/09/2025 8:22 AM [facility] Potassium 4.3 3.5 - 5.5 mmol/L LAB CHEMISTRY METHOD 01/09/2025 8:22 AM [facility] Chloride 105 96 - 110 mmol/L LAB CHEMISTRY METHOD 01/09/2025 8:22 AM [facility] CO2 30 21 - 32 mmol/L LAB CHEMISTRY METHOD 01/09/2025 8:22 AM [facility] Anion Gap 4 3 - 11 LAB CHEMISTRY METHOD 01/09/2025 8:22 AM [facility] Glucose 86 70 - 100 mg/dL LAB CHEMISTRY METHOD 01/09/2025 8:22 AM [facility] BUN 20 5 - 25 mg/dL LAB CHEMISTRY METHOD 01/09/2025 8:22 AM [facility] Creatinine 0.48(L) 0.50 - 1.10 mg/dL LAB CHEMISTRY METHOD 01/09/2025 8:22 AM [facility] eGFR 95 >=60 mL/min/1. 73m2 LAB CHEMISTRY METHOD 01/09/2025 8:22 AM [facility] Comment:Calculation based on the Chronic Kidney Disease Epidemiology Collaboration (CKD-EPI) equation refit without adjustment for race. BUN/Creatinine Ratio 41.7 LAB CHEMISTRY METHOD 01/09/2025 8:22 AM [facility] Calcium 7.8(L) 8.5 - 10.5 mg/dL LAB CHEMISTRY METHOD 01/09/2025 8:22 AM [facility] Blood Venous blood specimen / Unknown Venipuncture / Unknown 01/09/2025 6:19 AM EDT 01/09/2025 6:58 AM EDT us Elvis Patricia MD LAB BLOOD ORDERABLES Final Result [facility] [address] [place] [address], * (ABNORMAL) Complete blood count (01/09/2025 6:19 AM EDT) WBC 7.4 4.8 - 10.8 K/mcL LAB HEMETOLOGY METHOD 01/09/2025 7:46 AM EDT [facility] RBC 3.40(L) 3.80 - 4.80 M/mcL LAB HEMETOLOGY METHOD 01/09/2025 7:46 AM EDT [facility] Hemoglobin 9.8(L) 11.5 - 16.0 g/dL LAB HEMETOLOGY [facility] Hematocrit 32.0(L) 35.0 - 47.0 % LAB HEMETOLOGY METHOD [facility] MCV 95.2 79.0 - 98.0 FL LAB HEMETOLOGY METHOD 01/09[facility]2025 7[facility] MCH 29.2 27.0 - 32.0 pcg LAB HEMETOLOGY METHOD 01/09[facility]25 7[facility] MCHC 30.6(L) 32.0 - 37.0 g/dL LAB HEMETOLOGY METHOD 01/09[facility]25 7[facility] RDW 15.2(H) 11.0 - 15.0 % LAB HEMETOLOGY METHOD 01/09/2025 7[facility] Platelets 260 130 - 400 K/mcL LAB HEMETOLOGY METHOD 01/09/2025 7:46 AM EDT [facility] MPV 10.0 7.0 - 11.0 FL LAB HEMETOLOGY METHOD 01/09/2025 7:46 AM EDT [facility] NRBC 0.0 <1.0 % LAB HEMETOLOG METHOD 01/09/2025 7:46 AM EDT [facility] NRBC Absolute 0.00 <0.10 K/mcL LAB HEMETOLOGY METHOD 01/09/2025 7:46 AM EDT [facility] Blood Venous blood specimen / Unknown Venipuncture / Unknown 01/09/2025 6:19 AM EDT 01/09/2025 6:58 AM EDT Elvis Patricia MD LAB BLOOD ORDERABLES Final Result [facility] [address] [place] [address], documented in this encounter Visit Diagnoses Diagnosis Chronic obstructive pulmonary disease, unspecified (CMS/HCC V24, CMS/HCC V28) documented in this encounter Additional Health Concerns Infection Onset Date Last Indicated Resolved Time Respiratory Rule-Out 01/12/2025 01/12/2025 025 2:02 PM EDT documented as of this encounter Care Teams Male Impersonator Relationship Specialty Start Date End Date Ag Shaw MD [address] [address] PCP - General 05/31/03 documented as of this encounter
--- OUTSIDE RECORDS SUMMARY | 2025-07-31 10:42 | XMS_ITS | Encounter Summary ---
Author Organization [facility] Address [address] [place] [address] Care Team Providers Care Supportive Employment Case Manager Name Role Phone Ag Shaw MD Primary Care Provider [phone] Encounter Details Date Type Department Care Team (Late st Contact Info) Description 01/10/2025 Lab Requisition [facility] - Main Lab 299 [facility] [place] [address] Elvis Patricia MD [address] [place] [address] Chronic obstructive pulmonary disease, unspecified (CMS/HCC V24, [...] LAB CHEMISTRY METHOD 01/10/2025 11:52 AM EDT [facility] Blood Venous blood specimen / Unknown Venipuncture / Unknown 01/10/2025 6:18 AM EDT 01/10/2025 10:21 AM EDT Narrative [facility] - 01/10/2025 11:52 AM EDT [...] Patricia MD LAB BLOOD ORDERABLES Final Result [facility] [address] [place] [address], * (ABNORMAL) B-type natriuretic peptide (01/10/2025 6:18 AM EDT) BNP 131(H) <=100 pcg/mL LAB CHEMISTRY METHOD 01/10/2025 11:36 AM EDT [facility] Blood Venous blood specimen / Unknown Venipuncture / Unknown 01/10/2025 6:18 AM EDT 01/10/2025 10:21 AM EDT us Elvis Patricia MD LAB BLOOD ORDERABLES Final Result [facility] [address] [place] [address], documented in this encounter Visit Diagnoses Diagnosis Chronic obstructive pulmonary disease, unspecified (CMS/HCC V24, CMS/HCC V28) Shortness of breath Edema, unspecified documented in this encounter Additional Health Concerns Infection Onset Date Last Indicated Resolved Time Respiratory Rule-Out 01/12/2025 01/12/2025 025 2:02 PM EDT documented as of this encounter Care Teams Supportive Employment Case Manager Relationship Specialty Start Date End Date Ag Shaw MD [address] [address] PCP - General 05/31/03 documented as of this encounter
--- OUTSIDE RECORDS SUMMARY | 2025-07-31 10:42 | XMS_ITS | Encounter Summary ---
Author Organization [facility] Address [address] [place] [address] Care Team Providers Care Chief Ophthalmic Technician Name Role Phone Ag Shaw MD Primary Care Provider [phone] Encounter Details Date Type Department Care Team (Late st Contact Info) Description 10/08/2024 Lab Requisition [facility] - Main Lab 299 [facility] [place] [address] Elvis Patricia MD [address] [place] [address] Chronic obstructive pulmonary disease, unspecified (CMS/HCC V24, [...] mmol/L LAB CHEMISTRY METHOD 10/09/2024 11:10 AM [facility] Potassium 3.7 3.5 - 5.5 mmol/L LAB CHEMISTRY METHOD 10/09/2024 11:10 AM [facility] Chloride 109 96 - 110 mmol/L LAB CHEMISTRY METHOD 10/09/2024 11:10 AM [facility] CO2 24 21 - 32 mmol/L LAB CHEMISTRY METHOD 10/09/2024 11:10 AM [facility] Anion Gap 8 3 - 11 LAB CHEMISTRY METHOD 10/09/2024 11:10 AM [facility] Glucose 73 70 - 100 mg/dL LAB CHEMISTRY METHOD 10/09/2024 11:10 AM [facility] BUN 12 5 - 25 mg/dL LAB CHEMISTRY METHOD 10/09/2024 11:10 AM [facility] Creatinine 0.50 0.50 - 1.10 mg/dL LAB CHEMISTRY METHOD 10/09/2024 11:10 AM [facility] eGFR 94 >=60 mL/min/1. 73m2 LAB CHEMISTRY METHOD 10/09/2024 11:10 AM [facility] Comment:Calculation based on the Chronic Kidney Disease Epidemiology Collaboration (CKD-EPI) equation refit without adjustment for race. BUN/Creatinine Ratio 24.0 LAB CHEMISTRY METHOD 10/09/2024 11:10 AM [facility] Calcium 8.3(L) 8.5 - 10.5 mg/dL LAB CHEMISTRY METHOD 10/09/2024 11:10 AM [facility] Blood Venous blood specimen / Unknown Venipuncture / Unknown 10/09/2024 7:28 AM EDT 10/09/2024 9:43 AM EDT us Elvis Patricia MD LAB BLOOD ORDERABLES Final Result [facility] [address] [place] [address], * (ABNORMAL) Complete blood count (10/09/2024 7:28 AM EDT) WBC 3.4(L) 4.8 - 10.8 K/mcL LAB HEMETOLOGY METHOD 10/09/2024 10:50 AM EDT [facility] RBC 3.40(L) 3.80 - 4.80 M/mcL LAB HEMETOLOGY METHOD 10/09/2024 10:50 AM EDT [facility] Hemoglobin 10.6(L) 11.5 - 16.0 g/dL LAB HEMETOLOGY METHOD 10/09/2024 10:50 AM EDT [facility] Hematocrit 33.0(L) 35.0 - 47.0 % LAB HEMETOLOGY METHOD 10/09/2024 10:50 AM EDT [facility] MCV 97.1 79.0 - 98.0 FL LAB HEMETOLOGY METHOD 10/09/2024 10:50 AM EDT [facility] MCH 31.2 27.0 - 32.0 pcg LAB HEMETOLOGY METHOD 10/09/2024 10:50 AM EDT [facility] MCHC 32.1 32.0 - 37.0 g/dL LAB HEMETOLOGY METHOD 10/09/2024 10:50 AM EDT [facility] RDW 17.4(H) 11.0 - 15.0 % LAB HEMETOLOGY METHOD 10/09/2024 10:50 AM EDT [facility] Platelets 139 130 - 400 K/mcL LAB HEMETOLOGY METHOD 10/09/2024 10:50 AM EDT [facility] MPV 10.8 7.0 - 11.0 FL LAB HEMETOLOGY METHOD 10/09/2024 10:50 AM EDT [facility] NRBC 0.0 <1.0 % LAB HEMETOLOGY METHOD 10/09/2024 10:50 AM EDT [facility] NRBC Absolute 0.00 <0.10 K/mcL LAB HEMETOLOGY METHOD 10/09/2024 10:50 AM EDT [facility] Blood Venous blood specimen / Unknown Venipuncture / Unknown 10/09/2024 7:28 AM EDT 10/09/2024 9:43 AM EDT Elvis Patricia MD LAB BLOOD ORDERABLES Final Result [facility] [address] [place] [address], documented in this encounter Visit Diagnoses Diagnosis Chronic obstructive pulmonary disease, unspecified (CMS/HCC V24, CMS/HCC V28) documented in this encounter Additional Health Concerns Infection Onset Date Last Indicated Resolved Time Respiratory Rule-Out 01/12/2025 01/12/2025 025 2:02 PM EDT documented as of this encounter Care Teams Chief Ophthalmic Technician Relationship Specialty Start Date End Date Ag Shaw MD [address] [address] PCP - General 05/31/03 documented as of this encounter
--- OUTSIDE RECORDS SUMMARY | 2025-07-31 10:42 | XMS_ITS | Encounter Summary ---
Author Organization [facility] Address [address] [place] [address] Care Team Providers Care Washer Engineer Name Role Phone Ag Shaw MD Primary Care Provider [phone] Encounter Details Date Type Department Care Team (Late st Contact Info) Description 09/11/2024 Lab Requisition [facility] - Main Lab [address] [facility] [place] [address] Elvis Patricia MD [address] [place] [address] Chronic obstructive pulmonary disease, unspecified (CMS/HCC V24, [...] K/mcL LAB HEMETOLOGY METHOD 09/11/2024 1:26 PM [facility] RBC 2.70(L) 3.80 - 4.80 M/mcL LAB HEMETOLOGY METHOD 09/11/2024 1:26 PM [facility] Hemoglobin 7.7(L) 11.5 - 16.0 g/dL LAB HEMETOLOGY METHOD 09/11/2024 1:26 PM [facility] Hematocrit 25.0(L) 35.0 - 47.0 % LAB HEMETOLOGY METHOD 09/11/2024 1:26 PM [facility] MCV 92.9 79.0 - 98.0 FL LAB HEMETOLOGY METHOD 09/11/2024 1:26 PM [facility] MCH 28.6 27.0 - 32.0 pcg LAB HEMETOLOGY METHOD 09/11/2024 1:26 PM [facility] MCHC 30.8(L) 32.0 - 37.0 g/dL LAB HEMETOLOGY METHOD 09/11/2024 1:26 PM [facility] RDW 17.1(H) 11.0 - 15.0 % LAB HEMETOLOGY METHOD 09/11/2024 1:26 PM [facility] Platelets 164 130 - 400 K/mcL LAB HEMETOLOGY METHOD 09/11/2024 1:26 PM [facility] MPV 11.5(H) 7.0 - 11.0 FL LAB HEMETOLOGY METHOD 09/11/2024 1:26 PM [facility] NRBC 0.0 <1.0 % LAB HEMETOLOGY METHOD 09/11/2024 1:26 PM [facility] NRBC Absolute 0.00 <0.10 K/mcL LAB HEMETOLOGY METHOD 09/11/2024 1:26 PM [facility] Neutrophils Relative 72.7 % LAB HEMETOLOGY METHOD 09/11/2024 1:26 PM [facility] Lymphocytes Relative 15.9 % LAB HEMETOLOGY METHOD 09/11/2024 1:26 PM [facility] Monocytes Relative 8.8 % LAB HEMETOLOGY METHOD 09/11/2024 1:26 PM [facility] Eosinophils Relative 1.6 % LAB HEMETOLOGY METHOD 09/11/2024 1:26 PM [facility] Basophils Relative 0.5 % LAB HEMETOLOGY METHOD 09/11/2024 1:26 PM [facility] Immature Granulocytes Relative 0.5 % LAB HEMETOLOGY METHOD 09/11/2024 1:26 PM [facility] Neutrophils Absolute 3.21 1.50 - 7.00 K/mcL LAB HEMETOLOGY METHOD 09/11/2024 1:26 PM [facility] Lymphocytes Absolute 0.70(L) 1.00 - 5.00 K/mcL LAB HEMETOLOGY METHOD 09/11/2024 1:26 PM [facility] Monocytes Absolute 0.39 0.20 - 1.00 K/mcL LAB HEMETOLOGY METHOD 09/11/2024 1:26 PM [facility] Eosinophils Absolute 0.07 0.00 - 0.50 K/mcL LAB HEMETOLOGY METHOD 09/11/2024 1:26 PM [facility] Basophils Absolute 0.02 0.00 - 0.20 K/mcL LAB HEMETOLOGY METHOD 09/11/2024 1:26 PM [facility] Immature Granulocytes Absolute 0.02 0.00 - 0.03 K/mcL LAB HEMETOLOGY METHOD 09/11/2024 1:26 PM [facility] Blood Venous blood specimen / Unknown Venipuncture / Unknown 09/11/2024 8:34 AM EST 09/11/2024 11:43 AM EST us Elvis Patricia MD LAB BLOOD ORDERABLES Final Result [facility] [address] [place] [address], [place] [phone] * (ABNORMAL) Basic metabolic panel (09/11/2024 8:34 AM EST) Sodium 138 133 - 145 mmol/L LAB CHEMISTRY METHOD 09/11/2024 1:55 PM [facility] Potassium 3.8 3.5 - 5.5 mmol/L LAB CHEMISTRY METHOD 09/11/2024 1:55 PM [facility] Chloride 106 96 - 110 mmol/L LAB CHEMISTRY METHOD 09/11/2024 1:55 PM [facility] CO2 27 21 - 32 mmol/L LAB CHEMISTRY METHOD 09/11/2024 1:55 PM [facility] Anion Gap 5 3 - 11 LAB CHEMISTRY METHOD 09/11/2024 1:55 PM [facility] Glucose 99 70 - 100 mg/dL LAB CHEMISTRY METHOD 09/11/2024 1:55 PM [facility] BUN 21 5 - 25 mg/dL LAB CHEMISTRY METHOD 09/11/2024 1:55 PM [facility] Creatinine 0.48(L) 0.50 - 1.10 mg/dL LAB CHEMISTRY METHOD 09/11/2024 1:55 PM [facility] eGFR 95 >=60 mL/min/1. 73m2 LAB CHEMISTRY METHOD 09/11/2024 1:55 PM EST [facility] Comment:Calculation based on the Chronic Kidney Disease Epidemiology Collaboration (CKD-EPI) equation refit without adjustment for race. BUN/Creatinine Ratio 43.8 LAB CHEMISTRY METHOD 09/11/2024 1:55 PM [facility] Calcium 8.1(L) 8.5 - 10.5 mg/dL LAB CHEMISTRY METHOD 09/11/2024 1:55 PM [facility] Blood Venous blood specimen / Unknown Venipuncture / Unknown 09/11/2024 8:34 AM EST 09/11/2024 11:43 AM EST Elvis Patricia MD LAB BLOOD ORDERABLES Final Result [facility] [address] [place] [address], documented in this encounter Visit Diagnoses Diagnosis Chronic obstructive pulmonary disease, unspecified (CMS/HCC V24, CMS/HCC V28) Unspecified fracture of right femur, sequela documented in this encounter Additional Health Concerns Infection Onset Date Last Indicated Resolved Time Respiratory Rule-Out 01/12/2025 01/12/2025 025 2:02 PM EDT documented as of this encounter Care Teams Washer Engineer Relationship Specialty Start Date End Date Ag Shaw MD [address] [address] PCP - General 05/31/03 documented as of this encounter
--- OUTSIDE RECORDS SUMMARY | 2025-07-31 10:42 | XMS_ITS | Encounter Summary ---
Author Organization [facility] Address [address] [place] [address] Care Team Providers Care Regulatory Product Manager Name Role Phone Ag Shaw MD Primary Care Provider Encounter Details Date Type Department Care Team (Late st Contact Info) Description 03/12/2025 Lab Requisition [facility] - Main Lab 299 [facility] [place] [address] Elvis Patricia MD [address] [place] [address] Anemia, unspecified; Thrombocytopenia, unspecified (CMS/HCC V24); Chronic [...] 8:35 AM EDT Anemia, unspecified Thrombocytopenia, unspecified ([facility] V24) Chronic obstructive pulmonary disease, unspecified ([facility] V24, [facility] V28) documented in this encounter Results * (ABNORMAL) Basic metabolic panel (03/12/2025 8:35 AM EDT) Sodium 141 133 - 145 mmol/L LAB CHEMISTRY METHOD 03/12/2025 11:27 AM [facility] Potassium 4.0 3.5 - 5.5 mmol/L LAB CHEMISTRY METHOD 03/12/2025 11:27 AM [facility] Chloride 106 96 - 110 mmol/L LAB CHEMISTRY METHOD 03/12/2025 11:27 AM [facility] CO2 29 21 - 32 mmol/L LAB CHEMISTRY METHOD 03/12/2025 11:27 AM [facility] Anion Gap 6 3 - 11 LAB CHEMISTRY METHOD 03/12/2025 11:27 AM [facility] Glucose 107(H) 70 - 100 mg/dL LAB CHEMISTRY METHOD 03/12/2025 11:27 AM [facility] BUN 15 5 - 25 mg/dL LAB CHEMISTRY METHOD 03/12/2025 11:27 AM [facility] Creatinine 0.52 0.50 - 1.10 mg/dL LAB CHEMISTRY METHOD 03/12/2025 11:27 AM [facility] LAB eGFR 93 >=60 mL/min/1. 73m2 LAB CHEMISTRY METHOD 03/12/2025 11:27 AM [facility] LAB Comment:Calculation based on the Chronic Kidney Disease Epidemiology Collaboration (CKD-EPI) equation refit without adjustment for race. BUN/Creatinine Ratio 28.8 LAB CHEMISTRY METHOD 03/12/2025 11:27 AM [facility] Calcium 8.4(L) 8.5 - 10.5 mg/dL LAB CHEMISTRY METHOD [facility]/12[facility] Blood Venous blood specimen / Unknown Venipuncture / Unknown 03/12/2025 8:35 AM EDT 03/12/2025 10:38 AM EDT us Elvis Patricia MD LAB BLOOD ORDERABLES Final Result [facility] [address] [place] [address], * (ABNORMAL) Complete blood count (03/12/2025 8:35 AM EDT) WBC 4.1(L) 4.8 - 10.8 K/mcL LAB HEMETOLOGY METHOD 03/12/2025 11:[facility] RBC 3.10(L) 3.80 - 4.80 M/mcL LAB HEMETOLOGY METHOD 03/12/2025 11:14 AM [facility] Hemoglobin 8.8(L) 11.5 - 16.0 g/dL LAB HEMETOLOGY METHOD 03/12/2025 11:14 AM [facility] Hematocrit 30.3(L) 35.0 - 47.0 % LAB HEMETOLOGY METHOD 03/12/2025 11:14 AM [facility] LAB MCV 98.1(H) 79.0 - 98.0 FL LAB HEMETOLOGY METHOD 03/12/2025 11:14 AM EDT [facility] MCH 28.5 27.0 - 32.0 pcg LAB HEMETOLOGY METHOD 03/12/2025 11:14 AM [facility] LAB MCHC 29.0(L) 32.0 - 37.0 g/dL LAB HEMETOLOGY METHOD 03/12/2025 11:14 AM [facility] RDW 15.4(H) 11.0 - [...] 8:35 AM EDT 03/12/2025 10:38 AM EDT us Elvis Patricia MD LAB BLOOD ORDERABLES Final Result [facility] [address] [place] [address], documented in this encounter Visit Diagnoses Diagnosis Anemia, unspecified Thrombocytopenia, unspecified (CMS/HCC V24) Thrombocytopenia, unspecified Chronic obstructive pulmonary disease, unspecified (CMS/HCC V24, CMS/HCC V28) documented in this encounter Care Teams Regulatory Product Manager Relationship Specialty Start Date End Date Ag Shaw MD [address] [address] PCP - General 05/31/03 documented as of this encounter
--- OUTSIDE RECORDS SUMMARY | 2025-07-31 10:42 | XMS_ITS | Encounter Summary ---
Author Organization [facility] Address [address] [place] [address] Care Team Providers Care Attending Ambulatory Care Name Role Phone Ag Shaw MD Primary Care Provider [phone] Encounter Details Date Type Department Care Team (Late st Contact Info) Description 12/31/2024 Lab Requisition [facility] - Main Lab 299 [facility] [place] [address] Elvis Patricia MD [address] [place] [address] Weakness; Fever, unspecified; Cough, unspecified Social History [...] mmol/L LAB CHEMISTRY METHOD 12/31/2024 10:27 AM [facility] Potassium 4.0 3.5 - 5.5 mmol/L LAB CHEMISTRY METHOD 12/31/2024 10:27 AM [facility] LAB Chloride 104 96 - 110 mmol/L LAB CHEMISTRY METHOD 12/31/2024 10:27 AM [facility] LAB CO2 26 21 - 32 mmol/L LAB CHEMISTRY METHOD 12/31/2024 10:27 AM [facility] LAB Anion Gap 5 3 - 11 LAB CHEMISTRY METHOD 12/31/2024 10:27 AM [facility] LAB Glucose 85 70 - 100 mg/dL LAB CHEMISTRY METHOD 12/31/2024 10:27 AM [facility] BUN 19 5 - 25 mg/dL LAB CHEMISTRY METHOD 12/31/2024 10:27 AM [facility] Creatinine 0.46(L) 0.50 - 1.10 mg/dL LAB CHEMISTRY METHOD 12/31/2024 10:27 AM [facility] LAB eGFR 96 >=60 mL/min/1. 73m2 LAB CHEMISTRY METHOD 12/31/2024 10:27 AM [facility] LAB Comment:Calculation based on the Chronic Kidney Disease Epidemiology Collaboration (CKD-EPI) equation refit without adjustment for race. BUN/Creatinine Ratio 41.3 LAB CHEMISTRY METHOD 12/31/2024 10:27 AM [facility] Calcium 8.0(L) 8.5 - 10.5 mg/dL LAB CHEMISTRY METHOD 12/31/2024 10:27 AM [facility] LAB Blood Venous blood specimen / Unknown Venipuncture / Unknown 12/31/2024 6:21 AM EDT 12/31/2024 9:25 AM EDT us Elvis Patricia MD LAB BLOOD ORDERABLES Final Result [facility] [address] [place] [address], * (ABNORMAL) Complete blood count (12/31/2024 6:21 AM EDT) WBC 3.7(L) 4.8 - 10.8 K/mcL LAB HEMETOLOGY METHOD 12/31/2024 10:32 AM EDT [facility] RBC 3.30(L) 3.80 - 4.80 M/mcL LAB HEMETOLOGY METHOD 12/31/2024 10:32 AM EDT [facility] Hemoglobin 10.0(L) 11.5 - 16.0 g/dL LAB HEMETOLOGY METHOD 12/31/2024 10:32 AM T [facility] Hematocrit 30.7(L) 35.0 - 47.0 % LAB HEMETOLOGY METHOD 12/31/2024 10:32 AM EDT [facility] MCV 94.2 79.0 - 98.0 FL LAB HEMETOLOGY METHOD 12/31/2024 10:32 AM EDT [facility] MCH 30.7 27.0 - 32.0 pcg LAB HEMETOLOGY METHOD 12/31/2024 10:32 AM EDT [facility] MCHC 32.6 32.0 - 37.0 g/dL LAB HEMETOLOGY METHOD 12/31/2024 10:32 AM EDT [facility] RDW 15.3(H) 11.0 - 15.0 % LAB HEMETOLOGY METHOD 12/31/2024 10:32 AM EDT [facility] Platelets 185 130 - 400 K/mcL LAB HEMETOLOGY METHOD 12/31/2024 10:32 AM EDT [facility] MPV 10.4 7.0 - 11.0 FL LAB HEMETOLOGY METHOD 12/31/2024 10:32 AM EDT [facility] NRBC 0.0 <1.0 % LAB HEMETOLOGY METHOD 12/31/2024 10:32 AM EDT [facility] NRBC Absolute 0.00 <0.10 K/mcL LAB HEMETOLOGY METHOD 12/31/2024 10:32 AM EDT [facility] Blood Venous blood specimen / Unknown Venipuncture / Unknown 12/31/2024 6:21 AM EDT 12/31/2024 9:25 AM EDT us Elvis Patricia MD LAB BLOOD ORDERABLES Final Result [facility] [address] [place] [address], documented in this encounter Visit Diagnoses Diagnosis Weakness Other malaise and fatigue Fever, unspecified Cough, unspecified documented in this encounter Additional Health Concerns Infection Onset Date Last Indicated Resolved Time Respiratory Rule-Out 01/12/2025 01/12/2025 025 2:02 PM EDT documented as of this encounter Care Teams Attending Ambulatory Care Relationship Specialty Start Date End Date Ag Shaw MD [address] [address] PCP - General 05/31/03 documented as of this encounter
--- OUTSIDE RECORDS SUMMARY | 2025-07-31 10:42 | XMS_ITS | Encounter Summary ---
Author Organization [facility] Address [address] [place] [address] Care Team Providers Care Dip Lube Operator Name Role Phone Ag Shaw MD Primary Care Provider [phone] Encounter Details Date Type Department Care Team (Late st Contact Info) Description 03/09/2025 Lab Requisition [facility] - Main Lab 299 [facility] [place] [address] Elvis Patricia MD [address] [place], [place] [id number] Chronic obstructive pulmonary disease, unspecified (CMS/HCC V24, [...] unspecified documented in this encounter Care Teams Dip Lube Operator Relationship Specialty Start Date End Date Ag Shaw MD [address] [facility] [address] [place] [address] PCP - General 05/31/03 documented as of this encounter
--- OUTSIDE RECORDS SUMMARY | 2025-07-31 10:42 | XMS_ITS | Encounter Summary ---
Author Organization [facility] Address [address] [place] [address] Care Team Providers Care Arabic Linguist Name Role Phone Ag Shaw MD Primary Care Provider [phone] Encounter Details Date Type Department Care Team (Late st Contact Info) Description 09/10/2024 Lab Requisition [facility] - Main Lab 299 [facility] [place] [address] Elvis Patricia MD [address] [place] [address] Chronic obstructive pulmonary disease, unspecified (CMS/HCC V24, [...] auto differential (09/10/2024 9:55 AM EST) Pathologist [facility] WBC 5.1 4.8 - 10.8 K/mcL LAB HEMETOLOGY METHOD 09/10/2024 10:51 AM [facility] RBC 2.90(L) 3.80 - 4.80 M/mcL LAB HEMETOLOGY METHOD 09/10/2024 10:51 AM [facility] Hemoglobin 8.5(L) 11.5 - 16.0 g/dL LAB HEMETOLOGY METHOD 09/10/2024 10:51 AM [facility] LAB Hematocrit 27.4(L) 35.0 - 47.0 % LAB HEMETOLOGY METHOD 09/10/2024 10:51 AM [facility] LAB MCV 93.2 79.0 - 98.0 FL LAB HEMETOLOGY METHOD 09/10/2024 10:51 AM [facility] MCH 28.9 27.0 - 32.0 pcg LAB HEMETOLOGY METHOD 09/10/2024 10:51 AM [facility] MCHC 31.0(L) 32.0 - 37.0 g/dL LAB HEMETOLOGY METHOD 09/10/2024 10:51 AM [facility] LAB RDW 17.2(H) 11.0 - 15.0 % LAB HEMETOLOGY METHOD 09/10/2024 10:51 AM [facility] Platelets 147 130 - 400 K/mcL LAB HEMETOLOGY METHOD 09/10/2024 10:51 AM [facility] MPV 11.2(H) 7.0 - 11.0 FL LAB HEMETOLOGY METHOD 09/10/2024 10:51 AM [facility] NRBC 0.0 <1.0 % LAB HEMETOLOGY METHOD 09/10/2024 10:51 AM [facility] NRBC Absolute 0.00 <0.10 K/mcL LAB HEMETOLOGY METHOD 09/10/2024 10:51 AM [facility] Neutrophils Relative 74.1 % LAB HEMETOLOGY METHOD 09/10/2024 10:51 AM [facility] Lymphocytes Relative 15.8 % LAB HEMETOLOGY METHOD 09/10/2024 10:51 AM [facility] Monocytes Relative 8.5 % LAB HEMETOLOGY METHOD 09/10/2024 10:51 AM [facility] Eosinophils Relative 0.8 % LAB HEMETOLOGY METHOD 09/10/2024 10:51 AM [facility] Basophils Relative 0.4 % LAB HEMETOLOGY METHOD 09/10/2024 10:51 AM [facility] Immature Granulocytes Relative 0.4 % LAB HEMETOLOGY METHOD 09/10/2024 10:51 AM [facility] Neutrophils Absolute 3.76 1.50 - 7.00 K/mcL LAB HEMETOLOGY METHOD 09/10/2024 10:51 AM [facility] Lymphocytes Absolute 0.80(L) 1.00 - 5.00 K/mcL LAB HEMETOLOGY METHOD 09/10/2024 10:51 AM [facility] Monocytes Absolute 0.43 0.20 - 1.00 K/mcL LAB HEMETOLOGY METHOD 09/10/2024 10:51 AM EST [facility] LAB Eosinophils Absolute 0.04 0.00 - 0.50 K/[facility] LAB HEMETOLOGY METHOD 09/10/2024 10:51 AM EST [facility] Basophils Absolute 0.02 0.00 - 0.20 K/[facility] LAB HEMETOLOGY METHOD 09/10/2024 10:51 AM [facility] Immature Granulocytes Absolute 0.02 0.00 - 0.03 K/[facility] LAB HEMETOLOGY METHOD 09/10/2024 10:51 AM EST [facility] Blood Venous blood specimen / Unknown Venipuncture / Unknown 09/10/2024 9:55 AM EST 09/10/2024 10:45 AM EST Elvis Patricia MD LAB BLOOD ORDERABLES Final Result [facility] [address] [place] [address], [place] [phone] * (ABNORMAL) Comprehensive metabolic panel (09/10/2024 9:55 AM EST) Sodium 140 133 - 145 mmol/L LAB CHEMISTRY METHOD 09/10/2024 11:10 AM [facility] Potassium 3.5 3.5 - 5.5 mmol/L LAB CHEMISTRY METHOD 09/10/2024 11:10 AM [facility] Chloride 109 96 - 110 mmol/L LAB CHEMISTRY METHOD 09/10/2024 11:10 AM [facility] CO2 26 21 - 32 mmol/L LAB CHEMISTRY METHOD 09/10/2024 11:10 AM [facility] Anion Gap 5 3 - 11 LAB CHEMISTRY METHOD 09/10/2024 11:10 AM [facility] Glucose 110(H) 70 - 100 mg/dL LAB CHEMISTRY METHOD 09/10/2024 11:10 AM [facility] BUN 20 5 - 25 mg/dL LAB CHEMISTRY METHOD 09/10/2024 11:10 AM [facility] Creatinine 0.58 0.50 - 1.10 mg/dL LAB CHEMISTRY METHOD 09/10/2024 11:10 AM [facility] LAB eGFR 91 >=60 mL/min/1. 73m2 LAB CHEMISTRY METHOD 09/10/2024 11:10 AM [facility] LAB Comment:Calculation based on the Chronic Kidney Disease Epidemiology Collaboration (CKD-EPI) equation refit without adjustment for race. BUN/Creatinine Ratio 34.5 LAB CHEMISTRY METHOD 09/10/2024 11:10 AM [facility] Calcium 8.0(L) 8.5 - 10.5 mg/dL LAB CHEMISTRY METHOD 09/10/2024 11:10 AM [facility] AST (SGOT) 29 10 - 42 unit/L LAB CHEMISTRY METHOD 09/10/2024 11:10 AM [facility] ALT (SGPT) 22 10 - 60 unit/L LAB CHEMISTRY METHOD 09/10/2024 11:10 AM [facility] Alkaline Phosphatase 90 42 - 121 unit/L LAB CHEMISTRY METHOD 09/10/2024 11:10 AM [facility] Total Protein 5.7(L) 6.0 - 8.0 g/dL LAB CHEMISTRY METHOD 09/10/2024 11:10 AM [facility] Albumin 2.3(L) 3.2 - 5.0 g/dL LAB CHEMISTRY METHOD 09/10/2024 11:10 AM [facility] Total Bilirubin 0.8 0.0 - 1.4 mg/dL LAB CHEMISTRY METHOD 09/10/2024 11:10 AM [facility] Blood Venous blood specimen / Unknown Venipuncture / Unknown 09/10/2024 9:55 AM EST 09/10/2024 10:45 AM EST us Elvis Patricia MD LAB BLOOD ORDERABLES Final Result [facility] [address] [place] [address], documented in this encounter Visit Diagnoses Diagnosis Chronic obstructive pulmonary disease, unspecified ([facility] V24, [facility] V28) Thrombocytopenia, unspecified ([facility] V24) Thrombocytopenia, unspecified Unspecified fracture of left acetabulum, initial encounter for closed fracture ([facility] V24, [facility] V28) documented in this encounter Additional Health Concerns Infection Onset Date Last Indicated Resolved Time Respiratory Rule-Out 01/12/2025 01/12/2025 025 2:02 PM EDT documented as of this encounter Care Teams Arabic Linguist Relationship Specialty Start Date End Date Ag Shaw MD [address] [address] PCP - General 05/31/03 documented as of this encounter
--- OUTSIDE RECORDS SUMMARY | 2025-07-31 10:42 | XMS_ITS | Encounter Summary ---
Author Organization [facility] Address [address] [place] [address] Care Team Providers Care Buffer Machine Name Role Phone Ag Shaw MD Primary Care Provider [phone] Encounter Details Date Type Department Care Team (Late st Contact Info) Description 10/14/2024 Lab Requisition [facility] - Main Lab 299 [facility] [place] [address] Elvis Patricia MD [address] [place] [address] Chronic obstructive pulmonary disease, unspecified (CMS/HCC V24, [...] documented as of this encounter Care Teams Buffer Machine Relationship Specialty Start Date End Date Ag Shaw MD [address] [address] PCP - General 05/31/03 documented as of this encounter
--- OUTSIDE RECORDS SUMMARY | 2025-07-31 10:42 | XMS_ITS | Encounter Summary ---
Author Organization [facility] Address [address] [place] [address] Care Team Providers Care Buckle Strap Drum Operator Name Role Phone Ag Shaw MD Primary Care Provider [phone] Encounter Details Date Type Department Care Team (Late st Contact Info) Description 09/17/2024 Lab Requisition [facility] - Main Lab 299 [facility] [place] [address] Elvis Patricia MD [address] [place] [address] Chronic obstructive pulmonary disease, unspecified (CMS/HCC V24, [...] Result [facility] [address] [place] [address], * (ABNORMAL) Complete blood count (09/18/2024 9:57 AM EST) WBC 5.3 4.8 - 10.8 K/mcL LAB HEMETOLOGY METHOD 09/18/2024 12:15 PM EST [facility] RBC 3.20(L) 3.80 - 4.80 [...] LAB HEMETOLOGY METHOD 09/18/2024 12:15 PM EST [facility] NRBC Absolute 0.00 <0.10 K/mcL LAB HEMETOLOGY METHOD 09/18/2024 12:15 PM EST [facility] Blood Venous blood specimen / Unknown Venipuncture / Unknown 09/18/2024 9:57 AM EST 09/18/2024 11:06 AM EST us Elvis Patricia MD LAB BLOOD ORDERABLES Final Result [facility] [address] [place] [address], documented in this encounter Visit Diagnoses Diagnosis Chronic obstructive pulmonary disease, unspecified (CMS/HCC V24, CMS/HCC V28) documented in this encounter Additional Health Concerns Infection Onset Date Last Indicated Resolved Time Respiratory Rule-Out 01/12/2025 01/12/2025 025 2:02 PM EDT documented as of this encounter Care Teams Buckle Strap Drum Operator Relationship Specialty Start Date End Date Ag Shaw MD [address] [address] PCP - General 05/31/03 documented as of this encounter
--- OUTSIDE RECORDS SUMMARY | 2025-07-31 10:42 | XMS_ITS | Encounter Summary ---
Author Organization [facility] Address [address] [place] [address] Care Team Providers Care Surveyor Name Role Phone Ag Shaw MD Primary Care Provider [phone] Encounter Details Date Type Department Care Team (Late st Contact Info) Description 09/29/2024 Lab Requisition [facility] - Main Lab 299 [facility] [place] [address] Elvis Patricia MD [address] [place] [address] Chronic obstructive pulmonary disease, unspecified (CMS/HCC V24, [...] Result [facility] [address] [place] [address], * (ABNORMAL) Complete blood count (10/02/2024 9:43 [...] LAB HEMETOLOGY METHOD 10/02/2024 12:46 PM EST [facility] NRBC Absolute 0.00 <0.10 K/mcL LAB HEMETOLOGY METHOD 10/02/2024 12:46 PM EST [facility] Blood Venous blood specimen / Unknown Venipuncture / Unknown 10/02/2024 9:43 AM EST 10/02/2024 11:22 AM EST us Elvis Patricia MD LAB BLOOD ORDERABLES Final Result [facility] [address] [place] [address], documented in this encounter Visit Diagnoses Diagnosis Chronic obstructive pulmonary disease, unspecified (CMS/HCC V24, CMS/HCC V28) documented in this encounter Additional Health Concerns Infection Onset Date Last Indicated Resolved Time Respiratory Rule-Out 01/12/2025 01/12/2025 025 2:02 PM EDT documented as of this encounter Care Teams Surveyor Relationship Specialty Start Date End Date Ag Shaw MD [address] [address] PCP - General 05/31/03 documented as of this encounter
--- OUTSIDE RECORDS SUMMARY | 2025-07-31 10:42 | XMS_ITS | Clinical Summary ---
Author Organization [address] Address [address] [place] [address] Phone Care Team Providers Care Friend Of The Court Name Role Phone Ag Shaw MD Primary Care Provider [phone] Surgical History Surgery Date Site/Laterality Comments SECTION PROCEDURE: PA DELIVERY ONLY BREAST BIOPSY 05/08/2014 Left PROCEDURE: PA BX BREAST NEEDLE CORE W/O IMAGING GUIDANCE SPX; COMMENT: Benign. 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
--- OUTSIDE RECORDS SUMMARY | 2025-07-31 10:42 | XMS_ITS | Clinical Summary ---
Author Organization [facility] Address [address] [address] Phone Care Team Providers Care Fishing Vessel Captain Name Role Phone Jose Segovia MD Unavailable Pamela Vaughn MD Primary Care Provider [phone] Denton Oneill MD Unavailable [phone] Allergies No known active allergies Medications SERTRALINE [...] Female Sexual Orientation Straight Plan of Treatment Health Maintenance Due Date Last Done Comments Adult Td,Tdap Booster 1943 DEPRESSION SCREENING 1955 PNEUMOCOCCAL VACCINES (50+ years) (1 of 2 - PCV) 1962 ZOSTER VACCINES (1 of 2) 1962 OSTEOPOROSIS SCREENING INITIAL (ONE-TIME) 2008 RSV VACCINE (1 - 1-dose 75+ series) 2018 INFLUENZA VACCINE (#1) 2025 0, 07/29/2019, 05/25/2018, Additional history exists COVID-19 VACCINE ( season) 2025 09/23/2020, 09/02/2020 HEPATITIS A VACCINES Aged Out [...] file Insurance MEDICARE PART A & B [employer] MEDICARE PART A & B [place] [employer] Address: [facility] [id number] [place] [address] MEDICARE PART A & B MEDICARE PART A & B MEDICARE PART A & B TY MEDICARE PART A & [facility] A & B MEDICARE PART A & B [employer] MEDICARE PART A & B [facility] Address: [address] [place] [address] Care Teams Fishing Vessel Captain Relationship Specialty Start Date End Date Pamela Vaughn MD [address] [place] [address] [email or web address] PCP - General Internal Medicine 05/02/19 Jose Segovia MD Ophthalmology 04/18/18 Denton Oneill MD [address] [place] [phone] Ophthalmology 05/05/19 Additional Source Comments The information contained in this document represents components of the legal health record. It is not the complete legal health record.[facility]
--- OUTSIDE RECORDS SUMMARY | 2025-07-31 10:42 | XMS_ITS | Encounter Summary ---
Author Organization [facility] Address [address] [place] [address] Care Team Providers Care Mammography Supervisor Name Role Phone Ag Shaw MD Primary Care Provider [phone] Encounter Details Date Type Department Care Team (Late st Contact Info) Description 03/24/2025 Lab Requisition [facility] - Main Lab [address] [facility] [place] [address] Elvis Patricia MD [address] [place] [address] Chronic obstructive pulmonary disease, unspecified (CMS/HCC V24, [...] AM EDT Chronic obstructive pulmonary disease, unspecified ([facility] V24, [facility] V28) Thrombocytopenia, unspecified [place] [place] Anemia, unspecified documented in this encounter Results * (ABNORMAL) Basic metabolic panel (03/26/2025 7:35 AM EDT) Sodium 141 133 - 145 mmol/L LAB CHEMISTRY METHOD 03/26/2025 12:23 PM [facility] Potassium 4.3 3.5 - 5.5 mmol/L LAB CHEMISTRY METHOD 03/26/2025 12:23 PM [facility] Chloride 106 96 - 110 mmol/L LAB CHEMISTRY METHOD 03/26/2025 12:23 PM [facility] CO2 28 21 - 32 mmol/L LAB CHEMISTRY METHOD 03/26/2025 12:23 PM [facility] Anion Gap 7 3 - 11 LAB CHEMISTRY METHOD 03/26/2025 12:23 PM [facility] Glucose 65(L) 70 - 100 mg/dL LAB CHEMISTRY METHOD 03/26/2025 12:23 PM [facility] BUN 20 5 - 25 mg/dL LAB CHEMISTRY METHOD 03/26/2025 12:23 PM [facility] Creatinine 0.53 0.50 - 1.10 mg/dL LAB CHEMISTRY METHOD 03/26/2025 12:23 PM [facility] eGFR 93 >=60 mL/min/1. 73m2 LAB CHEMISTRY METHOD 03/26/2025 12:23 PM [facility] Comment:Calculation based on the Chronic Kidney Disease Epidemiology Collaboration (CKD-EPI) equation refit without adjustment for race. BUN/Creatinine Ratio 37.7 LAB CHEMISTRY METHOD 03/26/2025 12:23 PM [facility] Calcium 8.8 8.5 - 10.5 mg/dL LAB CHEMISTRY METHOD 03/26/2025 12:23 PM [facility] Blood Venous blood specimen / Unknown Venipuncture / Unknown 03/26/2025 7:35 AM EDT 03/26/2025 10:04 AM EDT Elvis Patricia MD LAB BLOOD ORDERABLES Final Result [facility] [address] [place] [address], * (ABNORMAL) Complete blood count (03/26/2025 7:35 [...] pcg LAB HEMETOLOGY METHOD 03/26/2025 12:44 PM EDT [facility] MCHC 30.0(L) 32.0 - 37.0 g/dL LAB HEMETOLOGY METHOD 03/26/2025 12:44 PM EDT [facility] RDW 16.6(H) 11.0 - 15.0 % [...] Result [facility] [address] [place] [address], documented in this encounter Visit Diagnoses Diagnosis Chronic obstructive pulmonary disease, unspecified (CMS/HCC V24, CMS/HCC V28) Thrombocytopenia, unspecified (CMS/HCC V24) Thrombocytopenia, unspecified Anemia, unspecified documented in this encounter Care Teams Mammography Supervisor Relationship Specialty Start Date End Date Ag Shaw MD [facility] Cathie Adorno [address] [address] PCP - General 05/31/03 documented as of this encounter
--- OUTSIDE RECORDS SUMMARY | 2025-07-31 10:42 | XMS_ITS | Encounter Summary ---
Author Organization [facility] Address [address] [place] [address] Care Team Providers Care Motor Boss Name Role Phone Ag Shaw MD Primary Care Provider [phone] Encounter Details Date Type Department Care Team (Late st Contact Info) Description 03/05/2025 Lab Requisition [facility] - Main Lab [address] [facility] [place] [address] Elvis Patricia MD [address] [place] [address] Chronic obstructive pulmonary disease, unspecified (CMS/HCC V24, [...] AM EDT Chronic obstructive pulmonary disease, unspecified ([facility] V24, [facility] V28) Thrombocytopenia, unspecified ([facility] [place] [place]24) Anemia, unspecified documented in this encounter Results * (ABNORMAL) Comprehensive metabolic panel (03/05/2025 9:20 AM EDT) Sodium 137 133 - 145 mmol/L LAB CHEMISTRY METHOD 03/05/2025 12:20 PM [facility] Potassium 4.5 3.5 - 5.5 mmol/L LAB CHEMISTRY METHOD 03/05/2025 12:20 PM [facility] Chloride 104 96 - 110 mmol/L LAB CHEMISTRY METHOD 03/05/2025 12:20 PM [facility] CO2 29 21 - 32 mmol/L LAB CHEMISTRY METHOD 03/05/2025 12:20 PM [facility] Anion Gap 4 3 - 11 LAB CHEMISTRY METHOD 03/05/2025 12:20 PM [facility] Glucose 128(H) 70 - 100 mg/dL LAB CHEMISTRY METHOD 03/05/2025 12:20 PM [facility] BUN 15 5 - 25 mg/dL LAB CHEMISTRY METHOD 03/05/2025 12:20 PM [facility] Creatinine 0.49(L) 0.50 - 1.10 mg/dL LAB CHEMISTRY METHOD 03/05/2025 12:20 PM [facility] eGFR 95 >=60 mL/min/1. 73m2 LAB CHEMISTRY METHOD 03/05/2025 12:20 PM [facility] Comment:Calculation based on the Chronic Kidney Disease Epidemiology Collaboration (CKD-EPI) equation refit without adjustment for race. BUN/Creatinine Ratio 30.6 LAB CHEMISTRY METHOD 03/05/2025 12:20 PM [facility] Calcium 8.2(L) 8.5 - 10.5 mg/dL LAB CHEMISTRY METHOD 03/05/2025 12:20 PM EDT [facility] AST (SGOT) 19 10 - 42 unit/L LAB CHEMISTRY METHOD 03/05/2025 12:20 PM EDT [facility] ALT (SGPT) 11 10 - 60 unit/L LAB [facility]STR[facility] Alkaline Phosphatase 108 42 - 121 unit/L LAB CHEMISTRY METHOD 03/05/2025 12:20 PM EDT [facility] Total Protein 6.4 6.0 - 8.0 g/dL LAB CHEMISTRY METHOD 03/05/2025 12:20 PM [facility] Albumin 2.7(L) 3.2 - 5.0 g/dL LAB CHEMISTRY METHOD 03/05[facility]25 [facility] Total Bilirubin 0.4 0.0 - 1.4 mg/dL LAB CHEMISTRY METHOD 03/05/2025 12:20 PM EDT [facility] Blood Venous blood specimen / Unknown Venipuncture / Unknown 03/05/2025 9:20 AM EDT 03/05/2025 10:45 AM EDT Elvis Patricia MD LAB BLOOD ORDERABLES Final Result [facility] [address] [place] [address], * (ABNORMAL) Complete blood count (03/05/2025 9:20 AM EDT) WBC 4.2(L) 4.8 - 10.8 K/mcL LAB HEMETOLOGY METHOD 03/05/2025 12:12 PM EDT [facility] RBC 2.80(L) 3.80 - 4.80 M/mcL LAB HEMETOLOGY METHOD 03/05/2025 12:12 PM EDT [facility] Hemoglobin 8.2(L) 11.5 - 16.0 g/dL LAB HEMETOLOGY METHOD 03/05/2025 12:12 PM EDT [facility] Hematocrit 26.6(L) 35.0 - 47.0 % LAB HEMETOLOGY METHOD 03/05/2025 12:12 PM EDT [facility] MCV 94.7 79.0 - 98.0 FL LAB HEMETOLOGY METHOD 03/05/2025 12:12 PM EDT [facility] MCH 29.2 27.0 - 32.0 pcg LAB HEMETOLOGY METHOD 03/05/2025 12:12 PM EDT [facility] MCHC 30.8(L) 32.0 - 37.0 g/dL LAB HEMETOLOGY METHOD 03/05[facility]2025 [facility] RDW 15.1(H) 11.0 - 15.0 % LAB HEMETOLOGY METHOD 03/05/2025 12:12 PM EDT [facility] Platelets 169 130 - 400 K/mcL LAB HEMETOLOGY METHOD 03/05/2025 12:12 PM EDT [facility] MPV 10.8 7.0 - 11.0 FL LAB HEMETOLOGY METHOD 03/05/2025 12[facility] NRBC 0.0 <1.0 % LAB HEMETOLOGY METHOD 03/05/2025 12:12 PM EDT [facility] NRBC Absolute 0.00 <0.10 K/mcL LAB HEMETOLOGY METHOD 03/05/2025 12:12 PM EDT [facility] Blood Venous blood specimen / Unknown Venipuncture / Unknown 03/05/2025 9:20 AM EDT 03/05/2025 10:45 AM EDT us Elvis Patricia MD LAB BLOOD ORDERABLES Final Result [facility] [address] [place] [address], documented in this encounter Visit Diagnoses Diagnosis Chronic obstructive pulmonary disease, unspecified (CMS/HCC V24, CMS/HCC V28) Thrombocytopenia, unspecified (CMS/HCC V24) Thrombocytopenia, unspecified Anemia, unspecified documented in this encounter Care Teams Motor Boss Relationship Specialty Start Date End Date Ag Shaw MD [address] [phone] PCP - General 05/31/03 documented as of this encounter
--- OUTSIDE RECORDS SUMMARY | 2025-07-31 10:42 | XMS_ITS | Encounter Summary ---
Author Organization [facility] Address [address] [place] [address] Care Team Providers Care Transport Rn Name Role Phone Ag Shaw MD Primary Care Provider [phone] Encounter Details Date Type Department Care Team (Late st Contact Info) Description 12/31/2024 Lab Requisition [facility] - Main Lab [address] [facility] [place] [address] Elvis Patricia MD [address] [place] [address] Chronic obstructive pulmonary disease, unspecified (CMS/HCC V24, [...] Complete blood count (01/01/2025 8:20 AM EDT) WBC 3.8(L) 4.8 - 10.8 K/mcL LAB HEMETOLOGY METHOD 01/01/2025 11:44 AM [facility] RBC 3.40(L) 3.80 - 4.80 M/mcL LAB HEMETOLOGY METHOD 01/01/2025 11:44 AM [facility] Hemoglobin 10.2(L) 11.5 - 16.0 g/dL LAB HEMETOLOGY METHOD 01/01/2025 11:44 AM [facility] Hematocrit 32.0(L) 35.0 - 47.0 % LAB HEMETOLOGY METHOD 01/01/2025 11:44 AM [facility] MCV 93.8 79.0 - 98.0 FL LAB HEMETOLOGY METHOD 01/01/2025 11:44 AM [facility] MCH 29.9 27.0 - 32.0 pcg LAB HEMETOLOGY METHOD 01/01/2025 11:44 AM [facility] MCHC 31.9(L) 32.0 - 37.0 g/dL LAB HEMETOLOGY METHOD 01/01/2025 11:44 AM [facility] RDW 15.5(H) 11.0 - 15.0 % LAB HEMETOLOGY METHOD 01/01/2025 11:44 AM [facility] Platelets 210 130 - 400 K/mcL LAB HEMETOLOGY METHOD 01/01/2025 11:44 AM [facility] MPV 10.2 7.0 - 11.0 FL LAB HEMETOLOGY METHOD 01/01/2025 11:44 AM [facility] NRBC 0.0 <1.0 % LAB HEMETOLOGY METHOD 01/01/2025 11:44 AM EDT [facility] NRBC Absolute 0.00 <0.10 K/mcL LAB HEMETOLOGY METHOD 01/01/2025 11:44 AM T [facility] Blood Venous blood specimen / Unknown Venipuncture / Unknown 01/01/2025 8:20 AM EDT 01/01/2025 10:57 AM EDT us Elvis Patricia MD LAB BLOOD ORDERABLES Final Result [facility] [address] [place] [address], [place] [phone] * (ABNORMAL) Basic metabolic panel (01/01/2025 8:20 AM EDT) Sodium 135 133 - 145 mmol/L LAB CHEMISTRY METHOD 01/01/2025 12:56 PM [facility] Potassium 4.3 3.5 - 5.5 mmol/L LAB CHEMISTRY METHOD 01/01/2025 12:56 PM [facility] Chloride 104 96 - 110 mmol/L LAB CHEMISTRY METHOD 01/01/2025 12:56 PM [facility] CO2 24 21 - 32 mmol/L LAB CHEMISTRY METHOD 01/01/2025 12:56 PM [facility] Anion Gap 7 3 - 11 LAB CHEMISTRY METHOD 01/01/2025 12:56 PM [facility] Glucose 86 70 - 100 mg/dL LAB CHEMISTRY METHOD 01/01/2025 12:56 PM [facility] BUN 18 5 - 25 mg/dL LAB CHEMISTRY METHOD 01/01/2025 12:56 PM [facility] Creatinine 0.42(L) 0.50 - 1.10 mg/dL LAB CHEMISTRY METHOD 01/01/2025 12:56 PM [facility] eGFR 98 >=60 mL/min/1. 73m2 LAB CHEMISTRY METHOD 01/01/2025 12:56 PM EDT [facility] Comment:Calculation based on the Chronic Kidney Disease Epidemiology Collaboration (CKD-EPI) equation refit without adjustment for race. BUN/Creatinine Ratio 42.9 LAB CHEMISTRY METHOD 01/01/2025 12:56 PM EDT [facility] Calcium 8.1(L) 8.5 - 10.5 mg/dL LAB CHEMISTRY METHOD 01/01/2025 12:56 PM EDT [facility] Blood Venous blood specimen / Unknown Venipuncture / Unknown 01/01/2025 8:20 AM EDT 01/01/2025 10:57 AM EDT Elvis Patricia MD LAB BLOOD ORDERABLES Final Result [facility] [address] [place] [address], documented in this encounter Visit Diagnoses Diagnosis Chronic obstructive pulmonary disease, unspecified (CMS/HCC V24, CMS/HCC V28) documented in this encounter Additional Health Concerns Infection Onset Date Last Indicated Resolved Time Respiratory Rule-Out 01/12/2025 01/12/2025 025 2:02 PM EDT documented as of this encounter Care Teams Transport Rn Relationship Specialty Start Date End Date Ag Shaw MD [address] [address] PCP - General 05/31/03 documented as of this encounter
--- OUTSIDE RECORDS SUMMARY | 2025-07-31 10:42 | XMS_ITS | Encounter Summary ---
Author Organization [facility] Address [address] [place] [address] Care Team Providers Care Inventory Specialist Manager Name Role Phone Ag Shaw MD Primary Care Provider [phone] Encounter Details Date Type Department Care Team (Late st Contact Info) Description 01/08/2025 Lab Requisition [facility] - Main Lab [address] [facility] [place] [address] Elvis Patricia MD [address] [place] [address] Chronic obstructive pulmonary disease, unspecified (CMS/HCC V24, [...] documented as of this encounter Care Teams Inventory Specialist Manager Relationship Specialty Start Date End Date Ag Shaw MD [address] [address] PCP - General 05/31/03 documented as of this encounter
== END 2025-07-31 09:17 | disposition home or self-care (01) ==
PROVIDERS: PCP Physician Assistant Medical; Visit Provider Nurse Practitioner Family
DX: J44.9 Chronic obstructive pulmonary disease, unspecified (principal); R91.1 Solitary pulmonary nodule
CPT/HCPCS: 99214

== ENCOUNTER → 2025-07-31 08:21 | Outpatient (BNVA) | payer MEDICARE, OTHER, SELFPAY | PROVIDERS: PCP Physician Assistant Medical; Visit Provider Nurse Practitioner Family | DX: J44.9 Chronic obstructive pulmonary disease, unspecified (principal); R91.1 Solitary pulmonary nodule | CPT/HCPCS: 99212 ==